=== PATIENT | male | born 1955 | race Caucasian/White ===

== ENCOUNTER → 2017-09-02 12:46 | Outpatient (CLI) | payer BC, SELFPAY ==
--- NOTE | 2017-09-02 12:51 | CT_ITS ---
CT lung screening EXAM: CT LUNG LOW DOSE WO CONTRAST HISTORY: Dukzwjskzw-tucz-uap male with greater than 50 pack-year smoking history asymptomatic ITS.REASON: CURRENT TOBACCO USE ORDERING PHYSICIAN: Cash Enrique MD PATIENT AGE: 61 years COMPARISON: TECHNIQUE: The exam was performed on a GE Light Speed [address] scanner using 2.90 mGy CTDI. A low dose helical CT CHEST was performed on a multi-detector scanner. All CT scans at the facility use one or more dose reduction, viz: automated exposure control; ma/kV adjustment per patient size (including targeted exams where dose is matched to indication; i.e. head); or iterative reconstruction technique. The LDCT was performed in a facility that meets the criteria for the screening program. Data regarding this exam was submitted to ACR which is an approved registry. The order for this exam indicates that it came as a result of a lung cancer screening counseling shard decision-making visit that included all the elements required of such a visit including smoking cessation. The radiologist interpreting this exam meets the CMS criteria for the LDCT lung cancer screening program. The exam is reported using the Lung-RADS classification scale and reported to the ACR registry. NOTE: This study was performed for the specific purposes of lung cancer screening and is not an alternative to diagnostic chest CT. RADIATION DOSE: CTDI vol(CT dose Index-volume) = 2.90mG DLP (Dose Length Product) = 125.8 by mGcm FINDINGS: Centrilobular and paraseptal emphysematous changes are present with biapical bulla and scattered areas of scarring. 4 mm fissural nodule within the major fissure on the right centrally. 3 mm noncalcified nodule left upper lobe laterally. No suspicious nodules evident. There are small mediastinal lymph nodes less than 1 cm in short axis. Mild coronary artery calcifications. The most inferior image obtained shows soft tissue density in the retroperitoneum on the left at 2 x 1.8 cm. While this could be related to unopacified partial volume averaging from the duodenum, retroperitoneal adenopathy is an additional consideration. IMPRESSION: 1. Lung RADS Category: 2, benign 2. Other findings: Severe centrilobular emphysema Possible retroperitoneal adenopathy. Dedicated abdomen CT may be of further value if clinically warranted RECOMMENDATIONS: 12 month LDCT follow-up Consider abdomen CT for possible retroperitoneal adenopathy
== END ==
PROVIDERS: Family Provider Family Medicine; PCP Family Medicine; Visit Provider Family Medicine
DX: Z12.2 Encounter for screening for malignant neoplasm of respiratory organs (principal); Z87.891 Personal history of nicotine dependence

== ENCOUNTER → 2017-10-02 09:23 | Outpatient (REF) | payer BC, SELFPAY ==
[2017-10-02 09:26] LABS: Adenovirus F 40/41, stool Not Detected (NotDetected); Astrovirus Not Detected (NotDetected); Campylobacter Not Detected (NotDetected); Clostridium Difficile A/B, PCR Not Detected (NotDetected); Cryptosporidium Not Detected (NotDetected); Cyclospora Cayetanesis Not Detected (NotDetected); Entamoeba histolytica Not Detected (NotDetected); Enteroaggregative E coli Not Detected (NotDetected); Enterotoxigenic E coli Not Detected (NotDetected); Giardia lamblia Not Detected (NotDetected); Norovirus Not Detected (NotDetected); Plesimonas Shigalloides, PCR Not Detected (NotDetected); Rotavirus A Not Detected (NotDetected); Salmonella, PCR Not Detected (NotDetected); Sapovirus Not Detected (NotDetected); Shiga-like toxin E coli Not Detected (NotDetected); Shigella Enterovasive E coli Not Detected (NotDetected); Vibrio Cholerae Not Detected (NotDetected); Vibrio, PCR Not Detected (NotDetected); Yersinia Entercolitica, PCR Not Detected (NotDetected)
[2017-10-02 13:54] LABS: Enteropathogenic E coli Detected (NotDetected)
--- NOTE | 2017-10-02 16:17 | PC.NURSE ---
Lab faxed down diarrhea panel results on pt. Notified ER MD of results at this time. ER MD stated to have Dr. Navarrete paged to speak with him as he was the ordering physician.
--- NOTE | 2017-10-02 16:19 | PC.NURSE ---
KARELY GO speaking with Dr. Navarrete at this time
== END ==
LOC: LAB 09:23
PROVIDERS: Visit Provider Internal Medicine Gastroenterology
DX: R19.7 Diarrhea, unspecified (principal)
CPT/HCPCS: 87507

== ENCOUNTER → 2018-03-14 07:33 | Outpatient (CLI) | payer BC, SELFPAY ==
[2018-03-14 08:07] LABS: Creatinine,Urine Random 262 mg/dL (20-320)
[2018-03-14 08:08] LABS: Basophils # 0.1 K/mm3 (0-0.2); Eosinophils # 0.2 K/mm3 (0.0-0.4); Eosinophils % 2.3 % (0.1-12.0); Hematocrit 48.4 % (42.0-52.0); Hemoglobin 15.9 g/dL (14.1-18.0); Lymphocytes # 2.5 K/mm3 (0.7-4.5); Lymphocytes % 28.4 % (10-50); Mean Corpuscular HGB Conc 32.8 g/dL (31.8-35.4); Mean Corpuscular Volume 100.4 fl (80-94); Mean Platelet Volume 6.8 fl (7.4-10.4); Monocytes # 0.5 K/mm3 (0.1-1.0); Monocytes % 5.8 % (1.7-9.3); Neutrophils # 5.4 K/mm3 (1.8-7.8); Neutrophils % 62.6 % (37.0-80.0); Platelet Count 249 K/mm3 (142-424); Red Blood Count 4.83 M/mm3 (4.60-6.20); Red Cell Distribution Width 12.1 % (11.5-17.5); White Blood Count 8.7 K/mm3 (4.8-10.8)
[2018-03-14 09:26] LABS: Alanine Aminotransferase 29 U/L (12-78); Albumin Level 3.8 gm/dL (3.4-5.0); Albumin/Globulin Ratio 1.3 (1.1-1.8); Alkaline Phosphatase 72 U/L (46-116); Anion Gap 11.2 mEq/L (5-15); Aspartate Amino Transferase 16 U/L (15-37); Bilirubin,Total 0.7 mg/dL (0.2-1.0); Blood Urea Nitrogen 19 mg/dL (7-18); Calcium 9.3 mg/dL (8.5-10.1); Carbon Dioxide 30 mmol/L (21.0-32.0); Chloride 104 mmol/L (98-107); Chol/HDL Ratio 3.3 (1-3.5); Cholesterol 183 mg/dL (140-200); Creatinine,Serum 1.08 mg/dL (0.70-1.30); Estimated Glomerular Filt Rate 70 ml/min (>60); GFR (African American) 84 ML/MIN (>60); Glucose 99 mg/dL (74-106); HDL Cholesterol 56 mg/dL (27-67); LDL Cholesterol 110 mg/dL (0-130); Potassium 4.2 mmoL/L (3.5-5.1); Prostate Specific Ag Screen 0.9 ng/mL (0.0-4.0); Sodium 141 mmol/L (136-145); Total Protein,Serum 6.8 gm/dL (6.4-8.2); Triglycerides 83 mg/dL (30-200); VLDL Cholesterol 17 mg/dL (0-40)
== END ==
PROVIDERS: Visit Provider Family Medicine
DX: Z12.5 Encounter for screening for malignant neoplasm of prostate (principal); I10 Essential (primary) hypertension
CPT/HCPCS: 36415; 80053; 80061; 82043; 82570; 85025; G0103

== ENCOUNTER → 2019-06-30 16:55 | Outpatient (CLI) | payer SELFPAY ==
[2019-06-30 17:15] LABS: Basophils # 0.1 K/mm3 (0-0.2); Basophils % 0.5 % (0.1-2.0); Eosinophils # 0.2 K/mm3 (0.0-0.4); Eosinophils % 1.5 % (0.1-12.0); Hematocrit 48.9 % (42.0-52.0); Hemoglobin 16.1 g/dL (14.1-18.0); Lymphocytes # 2.5 K/mm3 (0.7-4.5); Lymphocytes % 18.9 % (10-50); Mean Corpuscular HGB Conc 32.9 g/dL (31.8-35.4); Mean Corpuscular Hemoglobin 32.6 pg (27.0-31.2); Mean Corpuscular Volume 99.1 fl (80-94); Mean Platelet Volume 7.9 fl (7.4-10.4); Monocytes # 0.6 K/mm3 (0.1-1.0); Monocytes % 4.3 % (1.7-9.3); Neutrophils # 9.7 K/mm3 (1.8-7.8); Neutrophils % 74.7 % (37.0-80.0); Platelet Count 272 K/mm3 (142-424); Red Blood Count 4.94 M/mm3 (4.60-6.20); Red Cell Distribution Width 11.9 % (11.5-17.5); White Blood Count 12.9 K/mm3 (4.8-10.8)
[2019-06-30 17:59] LABS: Strep Scrn Group A (Rapid) Negative (Negative)
== END ==
PROVIDERS: PCP Physician Assistant; Visit Provider Physician Assistant
DX: J02.9 Acute pharyngitis, unspecified (principal); J06.9 Acute upper respiratory infection, unspecified
CPT/HCPCS: 36415; 85025; 87430

== ENCOUNTER → 2019-08-11 06:59 | Outpatient (CLI) | payer OTHER, SELFPAY ==
--- NOTE | 2019-08-11 07:14 | XR_ITS ---
PROCEDURE: XR ANKLE LT MIN 3V CLINICAL INDICATION: LT ANKLE PAIN Pain and swelling COMPARISON: No exams were available for comparison FINDINGS: Several calcific densities are present at the tip the lateral malleolus as well as the medial malleolus and may be due to old injuries. There is mild inversion of the ankle. No acute fracture or dislocation is evident. There is minimal anterior subluxation of the ankle. IMPRESSION: 1. No acute fracture. 2. Mild anterior subluxation of the talus which could be acute or chronic 3. Degenerative changes Dictated by: Atul Manuel MD 08/11/2019 15:06 Electronically signed by Atul Manuel MD in [facility] 08/11/2019 15:06
== END ==
PROVIDERS: PCP Family Medicine; Visit Provider Family Medicine
DX: M25.572 Pain in left ankle and joints of left foot (principal)
CPT/HCPCS: 73610

== ENCOUNTER → 2019-08-24 12:46 | Outpatient (CLI) | payer OTHER, SELFPAY ==
--- NOTE | 2019-08-24 12:52 | XR_ITS ---
PROCEDURE: XR ANKLE WT BEARING RT MIN 3V CLINICAL INDICATION: pain COMPARISON: No exams were available for comparison FINDINGS: Distal fibular osteotomy is demonstrated. The multiple screws traversing an ankylosed mortise joint and extending into the anterior talus. There is degenerative narrowing of the joint space of the superior calcaneal facet. There is no acute fracture or dislocation.. Soft tissues are intact IMPRESSION: Postsurgical changes as above. Dictated by: Michel Hudson 08/24/2019 13:21 Electronically signed by Michel Hudson in [place] 08/24/2019 13:21
--- NOTE | 2019-08-24 12:52 | XR_ITS ---
PROCEDURE: XR CALCANEUS LT MIN 2V CLINICAL INDICATION: pain COMPARISON: No exams were available for comparison FINDINGS: No fracture or dislocation. No lytic or blastic change. There is normal mineralization. The joint spaces are well-preserved. No significant degenerative/arthritic changes. No erosive changes evident. Other findings:None. IMPRESSION: No acute findings. Dictated by: Michel Hudson 08/24/2019 13:14 Electronically signed by Michel Hudson in [place] 08/24/2019 13:14
--- NOTE | 2019-08-24 12:52 | XR_ITS ---
PROCEDURE: XR FOOT WT BEARING RT 3V CLINICAL INDICATION: pain COMPARISON: No exams were available for comparison FINDINGS: There are multiple screws ankylosing the partially visualized ankle mortise and talus with degenerative narrowing of the superior facet joint of the calcaneus. There is no acute fracture or dislocation. IMPRESSION: No acute findings. Dictated by: Michel Hudson 08/24/2019 13:19 Electronically signed by Michel Hudson in [place] 08/24/2019 13:19
--- NOTE | 2019-08-24 12:52 | XR_ITS ---
PROCEDURE: XR ANKLE WT BEARING LT MIN 3V CLINICAL INDICATION: pain COMPARISON: No exams were available for comparison FINDINGS: Inversion of the talus and relationship to the plafond is noted. There are several smooth ossicles inferior to the tip of the fibula of which the largest measures 5 millimeters. Soft tissues are intact. There is no acute fracture or dislocation. IMPRESSION: Inversion deformity of the mortise joint, remote distal fibular avulsion fractures Dictated by: Michel Hudson 08/24/2019 13:16 Electronically signed by Michel Hudson in [place] 08/24/2019 13:16
--- NOTE | 2019-08-24 12:52 | XR_ITS ---
PROCEDURE: XR FOOT WT BEARING LT 3V CLINICAL INDICATION: pain COMPARISON: No exams were available for comparison FINDINGS: No fracture or dislocation. No lytic or blastic change. There is normal mineralization. The joint spaces are well-preserved. No significant degenerative/arthritic changes. No erosive changes evident. Other findings:None. IMPRESSION: No acute findings. Dictated by: Michel Hudson 08/24/2019 13:20 Electronically signed by Michel Hudson in [place] 08/24/2019 13:20
--- NOTE | 2019-08-24 12:52 | XR_ITS ---
PROCEDURE: XR CALCANEUS RT MIN 2V CLINICAL INDICATION: pain COMPARISON: No exams were available for comparison FINDINGS: Solitary AP view The joint spaces are well-preserved. No significant degenerative/arthritic changes. No erosive changes evident. Other findings:None. IMPRESSION: No acute findings. Dictated by: Michel Hudson 08/24/2019 13:17 Electronically signed by Michel Hudson in [place] 08/24/2019 13:17
== END ==
PROVIDERS: PCP Family Medicine; Visit Provider Podiatrist
DX: M25.572 Pain in left ankle and joints of left foot (principal); M25.571 Pain in right ankle and joints of right foot
CPT/HCPCS: 73610; 73630; 73650

== ENCOUNTER → 2019-11-30 09:41 | Outpatient (CLI) | payer MEDICAID, SELFPAY ==
--- NOTE | 2019-11-30 09:42 | US_ITS ---
APPROVED REPORT Exam Type: Lower Extremity Segmental Pressures Finishing Tunnel Operator: Radha Amin RVT Indications Claudication: Bilaterally Current Smoker SKIN COLOR CHANGES,PT IS HAVING SURGERY ON LT ANKLE R/T INSTABILITY, RT ANKLE IS SURGICALLY FUSED Risk Factors Hypertension Current Smoker Pressures/Indices Right Indices Left Indices Brachial 149.00 mmHg Brachial 149.00 mmHg Low Thigh 125.00 mmHg 0.84 Low Thigh 180.00 mmHg 1.21 Calf 87.00 mmHg 0.58 Calf 157.00 mmHg 1.05 Ankle(PT) 100.00 mmHg 0.67 Ankle(PT) 174.00 mmHg 1.17 Ankle(DP) 108.00 mmHg 0.72 Ankle(DP) 178.00 mmHg 1.19 Digit 76.00 mmHg 0.51 Digit 144.00 mmHg 0.97 Findings RT ADRIAN:0.72 LT ADRIAN:1.19 RT TBI:0.51 LT TBI:0.97 NORMAL PULSES BILATERAL WAVEFORMS ARE ABNORMAL BILATERAL Conclusion RT ADRIAN:0.72 LT ADRIAN:1.19 RT TBI:0.51 LT TBI:0.97 NORMAL PULSES BILATERAL WAVEFORMS ARE ABNORMAL BILATERAL MODERATE RIGHT ARTERIAL DISEASE Electronically signed by : Atul Manuel MD 12/04/2019 17:33:27
--- NOTE | 2019-11-30 10:11 | MR_ITS ---
PROCEDURE: MR ANKLE LT WO/W CON CLINICAL INDICATION: Left Ankle instability, surgical planning Popping noise and ankle when walking, ankle swelling COMPARISON: CR XR ANKLE WT BEARING LT MIN 3V from 08/24/2019 TECHNIQUE: Routine multiplanar multi echo sequences are performed without gadolinium enhancement. FINDINGS: The ankle is inverted with lateral tilt of the talus. Bone marrow edema is present at the tibial plafond and at the medial malleolar region as well as the dome of the talus. A spur is present along the neck of the talus projecting anteriorly and superiorly with edema of that spur. There is surrounding soft tissue edema as well at the ankle. Several areas of fluid collection are noted including fluid around the flexor hallucis longus tendon at the level of the distal tibia, fluid at the tibialis posterior and flexor digitorum longus along the distal tibia and fluid along the distal aspect of the flexor tibialis posterior tendon sheath and a moderate amount of fluid along the medial aspect of the midfoot medial to the flexor digitorum longus and flexor hallucis longus tendon. The tendons themselves appear intact. The tibiofibular ligaments appear intact. The posterior talofibular ligament is intact. The ATFL is not identified consistent with tear of the ATFL. A small bony fragment is present at this area as well and there is a small amount of fluid in this region. Fibers of the deltoid ligament are identified. The Achilles tendon has an unremarkable appearance and the anterior extensor tendons have an unremarkable appearance. There are mild osteoarthritic changes at the ankle joint. IMPRESSION: 1. The talus is inverted with bone marrow edema of the distal tibia and talus. 2. Tear of the ATFL. 3. Prominent amount of fluid around the tendons of the foot as described above consistent with tendinitis Dictated by: Atul Mnauel MD 12/04/2019 09:31 Atul Manuel MD in [place] 12/04/2019 09:31
[2019-11-30 11:10] LABS: Chloride 108 mmol/L (98-107); Potassium 4.2 mmoL/L (3.5-5.1); Sodium 139 mmol/L (136-145)
[2019-11-30 11:12] LABS: Basophils % 0.5 % (0.1-2.0); Blood Urea Nitrogen 16 mg/dl (9-20); Eosinophils # 0.2 K/mm3 (0.0-0.4); Eosinophils % 1.8 % (0.1-12.0); Estimated Glomerular Filt Rate 98 ml/min (>60); GFR (African American) 118 ML/MIN (>60); Hematocrit 45.5 % (42.0-52.0); Hemoglobin 15.7 g/dL (14.1-18.0); Lymphocytes # 1.8 K/mm3 (0.7-4.5); Lymphocytes % 20.8 % (10-50); Mean Corpuscular HGB Conc 34.4 g/dL (31.8-35.4); Mean Corpuscular Hemoglobin 34.2 pg (27.0-31.2); Mean Corpuscular Volume 99.4 fl (80-94); Mean Platelet Volume 7.5 fl (7.4-10.4); Monocytes # 0.4 K/mm3 (0.1-1.0); Monocytes % 4.6 % (1.7-9.3); Neutrophils # 6.4 K/mm3 (1.8-7.8); Neutrophils % 72.3 % (37.0-80.0); Platelet Count 253 K/mm3 (142-424); Red Blood Count 4.58 M/mm3 (4.60-6.20); Red Cell Distribution Width 12.2 % (11.5-17.5); White Blood Count 8.8 K/mm3 (4.8-10.8)
[2019-11-30 11:13] LABS: Alanine Aminotransferase 21 U/L (12-78); Albumin Level 3.8 g/dl (3.5-5.0); Albumin/Globulin Ratio 1.4 (1.1-1.8); Alkaline Phosphatase 68 U/L (38-126); Anion Gap 10.2 mEq/L (5-15); Aspartate Amino Transferase 35 U/L (17-59); Bilirubin,Total 0.5 mg/dl (0.2-1.3); Calcium 9.2 mg/dl (8.4-10.2); Carbon Dioxide 25 mmol/L (22.0-30.0); Globulin 2.7 g/dL (1.3-3.2); Glucose 99 mg/dl (74-100); Total Protein,Serum 6.5 g/dl (6.3-8.2)
[2019-12-17 16:47] LABS: 1,25 Dihydroxy Vitamin D 59; 1,25-Dihydroxy, Vitamin D-2 <10; 1,25-Dihydroxy, Vitamin D-3 59
[2019-12-17 17:26] LABS: Cotinine 75.8; Nicotine 6.7
== END ==
PROVIDERS: PCP Family Medicine; Visit Provider Podiatrist
DX: R09.89 Other specified symptoms and signs involving the circulatory and respiratory systems (principal); M19.072 Primary osteoarthritis, left ankle and foot; M25.372 Other instability, left ankle; M25.872 Other specified joint disorders, left ankle and foot
CPT/HCPCS: 36415; 73723; 80053; 80323; 82652; 85025; 93923; A9576

== ENCOUNTER → 2019-11-30 10:40 | Outpatient (CLI) | payer MEDICAID, SELFPAY | PROVIDERS: Visit Provider Podiatrist | DX: R09.89 Other specified symptoms and signs involving the circulatory and respiratory systems (principal) | CPT/HCPCS: 36415; 80053; 80323; 82652; 85025 ==

== ENCOUNTER → 2019-12-05 15:01 | Outpatient (CLI) | payer MEDICAID, SELFPAY ==
[2019-12-05 15:30] LABS: Basophils # 0.1 K/mm3 (0-0.2); Basophils % 0.9 % (0.1-2.0); Eosinophils # 0.2 K/mm3 (0.0-0.4); Eosinophils % 2.5 % (0.1-12.0); Hemoglobin 16.1 g/dL (14.1-18.0); Lymphocytes # 2.2 K/mm3 (0.7-4.5); Lymphocytes % 26.7 % (10-50); Mean Corpuscular HGB Conc 32.2 g/dL (31.8-35.4); Mean Corpuscular Hemoglobin 33.3 pg (27.0-31.2); Mean Corpuscular Volume 103.6 fl (80-94); Mean Platelet Volume 7.4 fl (7.4-10.4); Monocytes # 0.4 K/mm3 (0.1-1.0); Monocytes % 4.9 % (1.7-9.3); Neutrophils # 5.4 K/mm3 (1.8-7.8); Platelet Count 248 K/mm3 (142-424); Red Blood Count 4.83 M/mm3 (4.60-6.20); Red Cell Distribution Width 11.8 % (11.5-17.5); White Blood Count 8.4 K/mm3 (4.8-10.8)
[2019-12-05 17:00] LABS: Chloride 105 mmol/L (98-107); Sodium 139 mmol/L (136-145)
[2019-12-05 17:03] LABS: Blood Urea Nitrogen 19 mg/dl (9-20); Estimated Glomerular Filt Rate 85 ml/min (>60); GFR (African American) 103 ML/MIN (>60)
[2019-12-05 17:04] LABS: Calcium 9.8 mg/dl (8.4-10.2); Carbon Dioxide 30 mmol/L (22.0-30.0); Glucose 90 mg/dl (74-100)
[2019-12-05 17:05] LABS: Anion Gap 10.4 mEq/L (5-15)
[2019-12-05 17:06] LABS: Potassium 6.4 mmoL/L (3.5-5.1)
[2019-12-05 17:26] LABS: Coronavirus 19 IgG Antibody Negative (Negative); Coronavirus 19 IgM Antibody Negative (Negative)
== END ==
PROVIDERS: Visit Provider Internal Medicine
DX: Z01.89 Encounter for other specified special examinations (principal); R68.89 Other general symptoms and signs; I73.9 Peripheral vascular disease, unspecified
CPT/HCPCS: 36415; 80048; 85025; 86328

== ENCOUNTER 2019-12-05 19:07 | Emergency (ER) | payer MEDICAID, SELFPAY ==
[2019-12-05 19:17] VITALS: BP 167/96; PULSE 73; RESP 18; TEMP 36.8; O2SAT 97; BMI 19.0
--- NOTE | 2019-12-05 19:24 | ECG_ITS ---
APPROVED REPORT Exam: Resting ECG HR:73 bpm ECG Measurements Heart Rate 73 AXES TN 134 P 75 QRSd 106 QRS -7 QT 412 T 61 QTc 453 Conclusion Sinus rhythm with occasional premature ventricular complexes Otherwise normal ECG Electronically signed by : Enrique Mcclellan, 12/08/2019 13:54:49
[2019-12-05 19:33] LABS: Basophils # 0.1 K/mm3 (0-0.2); Eosinophils # 0.2 K/mm3 (0.0-0.4); Eosinophils % 2.7 % (0.1-12.0); Hematocrit 50.3 % (42.0-52.0); Hemoglobin 16.7 g/dL (14.1-18.0); Lymphocytes # 2.9 K/mm3 (0.7-4.5); Lymphocytes % 33.4 % (10-50); Mean Corpuscular HGB Conc 33.3 g/dL (31.8-35.4); Mean Corpuscular Hemoglobin 34.2 pg (27.0-31.2); Mean Corpuscular Volume 102.6 fl (80-94); Mean Platelet Volume 7.3 fl (7.4-10.4); Monocytes # 0.4 K/mm3 (0.1-1.0); Monocytes % 4.4 % (1.7-9.3); Neutrophils # 5.1 K/mm3 (1.8-7.8); Neutrophils % 58.6 % (37.0-80.0); Platelet Count 267 K/mm3 (142-424); Red Cell Distribution Width 11.8 % (11.5-17.5); White Blood Count 8.8 K/mm3 (4.8-10.8)
--- NOTE | 2019-12-05 19:33 | HMH.EDGENADL ---
ED Disposition Clinical Impression: Laboratory examination Disposition: Home, Self-Care Condition on Discharge: Good Referrals: Ivana Swift MD [Primary Care Provider] - - Critical Care Critical Care Time: No Attestation: On 12/05/19, the high probability of a clinically significant, sudden or life threatening deterioration of the following system(s) required my full and direct attention, intervention and personal management. The time I documented below is in addition to time spent performing reported procedures but includes the following listed in this critical care notation. Medical Decision Making - Medical Records Medical records reviewed: Yes: I reviewed the patient's medical records. - Marlo Inquiry Pt receiving controlled substance: No Vital Signs: 12/05/19 19:17 12/05/19 20:01 Temperature 98.3 F 98.3 F Temperature Source Oral Oral Pulse Rate 73 Pulse Rate [Right] 73 Respiratory Rate 18 16 Blood Pressure 151/91 H Blood Pressure [Right Arm] 167/96 H Blood Pressure Mean [Right Arm] 119 Blood Pressure Source Automatic Cuff Blood Pressure Source [Right Arm] Automatic Cuff Blood Pressure Position Sitting Blood Pressure Position [Right Arm] Sitting 02 Sat by Pulse Oximetry 97 Oxygen Delivery Method Room Air Room Air - Lab Data Lab Results 12/05/19 19:20: Sodium 140, Potassium 4.2 D, Chloride 103, Carbon Dioxide 29, Anion Gap 12.2, BUN 16, Creatinine 1.00, Estimated Creat Clear 72, Estimated GFR 75, Est GFR ( Amer) 91, Glucose 93, Calcium 9.7 12/05/19 19:20: WBC 8.8, RBC 4.90, Hgb 16.7, Hct 50.3, MCV 102.6 H, MCH 34.2 H, MCHC 33.3, RDW 11.8, Plt Count 267, MPV 7.3 L, Neut % (Auto) 58.6, Lymph % (Auto) 33.4, Jones % (Auto) 4.4, Eos % (Auto) 2.7, Baso % (Auto) 1.0, Neut # (Auto) 5.1, Lymph # (Auto) 2.9, Jones # (Auto) 0.4, Eos # (Auto) 0.2, Baso # (Auto) 0.1 Result diagrams: 12/05/19 19:20 12/05/19 19:20 - ECG Data Tracing #1 Normal ventricular rate of 73 bpm, normal SC and QTC. Sinus rhythm with no specific ST changes. ECG initial impression date: 12/05/19 ECG initial impression time: 19:26 - Reevaluation(s) Time: 20:12 Reevaluation #1: Patient has no evidence of elevated potassium or kidney function at this time. Patient will follow-up tomorrow as prescribed with media strategist. Given strict return precautions. Verbalized understanding. Medical Decision Narrative: This is a 64-year-old male sent to the emergency department for evaluation of abnormal laboratory studies. Patient had isolated elevated potassium. Asymptomatic. Repeat laboratory studies will be obtained. Hemodynamically stable. General Adult HPI - General Chief complaint: Recheck/Abnormal Lab/Rx Stated complaint: popassium high Time Seen by Provider: 12/05/19 19:25 Mode of Arrival: Ambulatory Limitations: No Limitations Description of Symptoms (Recalled from ER Triage Doc. by RN): Pt was called by Dr French and told to come to ER for a high K+, pt has no c/o at this time - History of Present Illness HPI narrative: 64-year-old male presented to the emergency department for repeat laboratory check. The patient was being seen by cardiology earlier today for routine studies for impending ankle surgery. He had basic laboratory studies done at this time. He was called a few moments ago and notified that he had elevated potassium. Patient has no history of this in the past. He denies any potassium supplements. He states that he is feeling completely fine. He is not having any chest pain or shortness of breath. No palpitations. No abdominal pain or vomiting. No diarrhea. Denies any headache or change in vision. No focal weakness. - Related Data Home Medications Medication Instructions Recorded Confirmed Melatonin 1 mg PO HS 09/06/17 12/05/19 tadalafiL [Cialis] 5 mg PO NEEDED PRN 09/06/17 12/05/19 meloxicam 7.5 mg tablet 7.5 mg PO BID tab 11/21/19 12/05/19 celecoxib 200 mg
[2019-12-05 19:51] LABS: Anion Gap 12.2 mEq/L (5-15); Blood Urea Nitrogen 16 mg/dl (9-20); Calcium 9.7 mg/dl (8.4-10.2); Carbon Dioxide 29 mmol/L (22.0-30.0); Chloride 103 mmol/L (98-107); Creatinine Clearance Estimated 72 mL/min (50-200); Estimated Glomerular Filt Rate 75 ml/min (>60); GFR (African American) 91 ML/MIN (>60); Glucose 93 mg/dl (74-100); Potassium 4.2 mmoL/L (3.5-5.1); Sodium 140 mmol/L (136-145)
[2019-12-05 20:01] VITALS: BP 151/91; PULSE 73; RESP 16; TEMP 36.8; O2SAT 97
== END 2019-12-05 20:19 | disposition home or self-care (01) ==
PROVIDERS: Emergency Provider Emergency Medicine; PCP Family Medicine
DX: E87.5 Hyperkalemia (principal); I10 Essential (primary) hypertension; K21.9 Gastro-esophageal reflux disease without esophagitis; Z96.641 Presence of right artificial hip joint; F17.210 Nicotine dependence, cigarettes, uncomplicated; Z88.2 Allergy status to sulfonamides; Z79.899 Other long term (current) drug therapy
CPT/HCPCS: 80048; 85025; 93005; 99282

== ENCOUNTER 2019-12-06 07:57 | Day surgery (SDC) | payer MEDICAID, SELFPAY ==
[2019-12-06] VITALS (18 sets, daily range): BP systolic 136–169; BP diastolic 82–96; PULSE 51–86; RESP 16–20; TEMP 36.3; O2SAT 95–100; BMI 19.0
--- NOTE | 2019-12-06 07:12 | IR_ITS ---
APPROVED REPORT Patient Location: Outpatient Doorkeeper: ALESHA Corcoran RT (R) PROCEDURES Catheter placement in the abdominal aorta Abdominal aortography Repositioning of the catheter in the abdominal aorta Bilateral iliofemoral runoff INDICATION Preoperative evaluation prior to left foot surgery, Abnormal ADRIAN, Known PAD Informed consent was obtained prior to the procedure. COMPLICATIONS none Estimated Blood Loss: less than 10 mls TECHNIQUE 1% lidocaine used to anesthetize the right groin the right femoral artery was accessed via the Salinger technique and a 5 Tongan sheath was placed in the right femoral artery. A pigtail catheter was advanced into the abdominal aorta and abdominal aortography was performed. Catheter was then repositioned and bilateral iliofemoral runoff was performed. At the end of the procedure the apparatus was removed the patient was transferred to the postop holding area stable condition for sheath removal IMPRESSION The infrarenal abdominal aorta is mildly atheromatous with no focal stenosis Right common internal and external iliac artery are widely patent Right common femoral arteries normal Right profunda femoris arteries normal Right superficial femoral artery is mildly atheromatous with no focal stenosis greater than 20%. At Matt's canal the popliteal artery is occluded for approximately 20 mm. It then reconstitutes via collaterals from the superficial femoral artery. The popliteal artery has 40% diffuse stenoses. It gives rise to an anterior tibialis artery and a posterior tibialis artery. Both arteries are patent into the right foot The left common iliac artery has an ostial proximal 20% stenosis. The left external iliac artery has a 10% stenosis the left internal iliac artery is normal. The left common femoral artery is normal. Left profunda femoris artery is normal The left superficial femoral artery has mild atheromatous plaque as it transitions into the popliteal artery at Matt's canal there is a focal 40 to 50% [id number] stenosis. The popliteal vein gives rise to the anterior tibialis artery posterior tibialis artery and peroneal artery. There is three-vessel runoff into the left foot PLAN 1. Patient is an acceptable risk from a vascular standpoint to proceed with left infrageniculate foot ankle surgery. There is no vascular etiology for patient's left-sided symptoms 2. Patient appears to be experiencing bilateral ankle pain left worse than right. Given he is in the preoperative state have chosen not to revascularize the right leg at this time until the left ankle foot surgery is complete. Patient will be reevaluated as an outpatient and consideration will be given to revascularize the right popliteal artery. 3. LDL less than 55 4. Risk factor modification 5. Recommend Xarelto 2.5 twice daily plus aspirin 81 mg daily Electronically signed by : Quirino French, 12/06/2019 09:52:21
--- NOTE | 2019-12-06 10:28 | CA_ITS ---
APPROVED REPORT EXAM: Comprehensive 2D, Doppler, and color-flow Echocardiogram Director Skills: Sarah Navarro RDCS Ht: 6 ft 2 in Wt: 148lbs BSA: 1.91 BP: 167/96 mmHg Indications: ABN EKG,HTN,SMOKER 2D Dimensions LVOT 2.37 cm (M/F) 1.5-2.5 M-Mode Dimensions RVDd 2.53 cm (0.9-2.6) LVDd 6.00 cm (3.5-5.7) LVDs 4.77 cm (3.5-5.7) IVSd 1.06 cm (0.6-1.1) PWd 0.96 cm (0.6-1.1) EF (Teich) 41.10% FS 20.50% EDV (Teich) 180.00 mL ESV (Teich) 106.00 mL LV Diastology E/A Ratio 0.69 Mitral Valve MV A Velocity 51.00 (40-130 cm/s) Left Ventricle Left atrium is mildly enlarged, left ventricle is normal size, mild concentric left ventricular hypertrophy, moderately reduced left ventricular systolic function, visually estimated ejection fraction 40%, left ventricle is globally hypokinetic. Grade 1 diastolic dysfunction seen without tissue Doppler evidence of raise left atrial pressure. Right Ventricle Right atrium and right ventricle are normal size and contractility. Aortic Valve Aortic valve is minimally thickened and fibrosed, there is no aortic stenosis or aortic insufficiency. Mitral Valve Mitral valve leaflets are minimally thickened, there is mild mitral regurgitation. Tricuspid Valve Tricuspid valve is grossly normal, there is mild tricuspid regurgitation, tricuspid regurgitation jet velocity is inadequate for calculation of the right ventricular systolic pressure. Pulmonic Valve Pulmonic valve is not well visualized. Great Vessels Aortic root is normal size. Pericardium No significant pericardial effusion noted. Conclusion 1. Mildly enlarged left atrium, normal left ventricular size, mild concentric left ventricular hypertrophy, moderately reduced left ventricular systolic function, visually estimated ejection fraction 40% left ventricle is globally hypokinetic, grade 1 diastolic dysfunction seen without tissue Doppler evidence of raise left atrial pressure. 2. Mild mitral and tricuspid regurgitation. 3. No significant pericardial effusion noted. Electronically signed by : Jae Medina, 12/07/2019 15:04:53
[2019-12-06 10:32] LABS: Appearance,Urine/Cath CLEAR (Clear); Bilirubin,Cath Negative (Negative); Blood, Urine/Cath TRACE-I (Negative); Color,Urine/Cath YELLOW (Yellow); Glucose,Urine/Cath (UA) Negative (Negative); Ketones,Urine/Cath Negative (Negative); Leukocyte Esterase,Cath Negative (Negative); Microscopic,Cath URINE MICROSCOPIC (MICROSCOPIC); Nitrate,Cath Negative (Negative); Protein,Urine/Cath Negative (Negative); Specific Gravity, Urine/Cath <= 1.005 (1.005-1.030); Urobilinogen,Cath 0.2 EU/dl (0.2)
[2019-12-06 10:57] LABS: RBC,Urine/Cath Occasional # /hpf (0-3); Squamous Epithelial Ur./Cath Occasional #/hpf (0-5)
== END 2019-12-06 12:47 | disposition home or self-care (01) ==
LOC: CATHLAB 07:58
PROVIDERS: PCP Family Medicine; Visit Provider Internal Medicine
DX: I70.213 Atherosclerosis of native arteries of extremities with intermittent claudication, bilateral legs (principal); I10 Essential (primary) hypertension; Z72.0 Tobacco use; I70.222 Atherosclerosis of native arteries of extremities with rest pain, left leg
CPT/HCPCS: 36247; 75716; 81001; 93306; 99152; C1725; C1769; C1894; Q9967

== ENCOUNTER → 2019-12-15 07:17 | Outpatient (CLI) | payer MEDICAID, SELFPAY ==
--- NOTE | 2019-12-15 | CA_ITS ---
APPROVED REPORT Exam: Pharmacologic Technologist: Amie Gerard, Ht: 6 ft 2 in Wt: 149 lbs BSA: 1.92 m2 HR: 66 bpm BP: 177/97 mmHg Rhythm: SINUS RHYTHM(ABN.EKG) Medical History Medical History: HTN Medications: Lisinopril,,,,, Omeprazole,,,,, Celecoxib,,,,, MeLATONIN,,,,, TAdalafil,,,,, MoRTRIN,,,,, Allergies: SULFA Cardiac Risk Factors: HTN, Smoking Stress Test Details Test: LEXISCAN HR Resting HR: 63 bpm Max Heart Rate (APMHR): 157 bpm Max HR Achieved: 95 bpm Target HR (85% APMHR): 133 bpm % of APMHR: 60 Recovery HR: 71 bpm BP Resting BP: 177.0/97.0 mmHg Max BP: 188.0/91.0 mmHg Recovery BP: 166.0/100.0 mmHg ECG Resting ECG: SINUS RHYTHM (ABN.EKG) Clinical Exercise duration: 04:02 min Highest Stage Achieved: Stress ECG Conclusion LEXISCAN PORTION COMPLETED. PATIENT C/O SOA AURING PEAK INFUSION. NO CP. SOA DURING PEAK INFUSION. RESOLVED IN RECOVERY. OCCASIONAL PVC. OCCASIONAL PAC. LESS THAN 1.[address] DEPRESSION. IMAGES TO FOLLOW Electronically signed by : Jae Medina, 12/15/2019 15:15:58
--- NOTE | 2019-12-15 07:18 | NM_ITS ---
APPROVED REPORT Exam: Nuclear Stress Test Indication: HTN, SOB, FATIGUE Patient Location: Outpatient Stress Tech: Shama Gerard MA Tech:Natalie FarleyALESHA RT(R)(N) Ht: 6 ft 2 in Wt: 149 lbs HR: 91 bpm BP: 188/96 mmHg BSA: 1.92 m2 BMI: 19.1 History: HTN, SOB, FATIGUE Procedure: Patient received a 0.4 mg of intravenous Lexiscan, resting heart rate 91 bpm, resting blood pressure 188/96 mmHg, with Lexiscan maximum heart rate achived was 74 bpm which is Less than 85 % of the maximum predicted heart rate and blood pressure was 173/96 mmHg. With Lexiscan, patient denied any complaint of chest pain. Electrocardiogram Resting electrocardiogram shows sinus rhythm nonspecific ST-T changes, with Lexiscan there is less than 1.[address] segment depression noted from the baseline EKG. The EKG portion of the Lexiscan Myoview is nondiagnostic. Cardiac Stress and Resting SPECT Images: Cardiac Stress and Resting SPECT images were obtained using technetium 99m Myoview 32.6 mCi stress and 9.98 mCi at rest. Gated SPECT for the analysis of segmental wall motion and calculation of the ejection fraction as well as prone imagings were obtained. Cardiac stress and resting SPECT images show a mild fixed defect in the inferior wall with normal perfusion on prone imaging is likely secondary to soft tissue attenuation from the diaphragm, no reversible ischemia seen. Computer derived ejection fraction is 34%, left ventricle is globally hypokinetic and mildly dilated. Right ventricle is normal size and contractility. Conclusion: 1. The EKG portion of the Lexiscan Myoview is nondiagnostic. 2. No scintigraphic evidence of reversible ischemia seen, computer derived ejection fraction 34% with left ventricular global hypokinesis, left ventricle is mildly dilated. Right ventricle is normal size and contractility 3. Abnormal Lexiscan Myoview study due to low ejection fraction. Electronically signed by : Jae Medina, 12/15/2019 15:19:29
== END ==
PROVIDERS: PCP Family Medicine; Visit Provider Urology
DX: I42.9 Cardiomyopathy, unspecified (principal); R94.31 Abnormal electrocardiogram [ECG] [EKG]; I73.9 Peripheral vascular disease, unspecified; R60.9 Edema, unspecified; K21.9 Gastro-esophageal reflux disease without esophagitis; F17.200 Nicotine dependence, unspecified, uncomplicated
CPT/HCPCS: 78452; 93017; A9502; J2785

== ENCOUNTER → 2019-12-20 14:55 | Outpatient (CLI) | payer MEDICAID, SELFPAY ==
[2019-12-20 15:09] LABS: Basophils # 0.1 K/mm3 (0-0.2); Eosinophils # 0.2 K/mm3 (0.0-0.4); Eosinophils % 2.6 % (0.1-12.0); Hematocrit 49.5 % (42.0-52.0); Hemoglobin 15.8 g/dL (14.1-18.0); Lymphocytes # 2.1 K/mm3 (0.7-4.5); Mean Corpuscular HGB Conc 31.8 g/dL (31.8-35.4); Mean Corpuscular Hemoglobin 32.4 pg (27.0-31.2); Mean Corpuscular Volume 101.9 fl (80-94); Mean Platelet Volume 7.5 fl (7.4-10.4); Monocytes # 0.5 K/mm3 (0.1-1.0); Monocytes % 5.4 % (1.7-9.3); Neutrophils # 5.6 K/mm3 (1.8-7.8); Platelet Count 285 K/mm3 (142-424); Red Blood Count 4.86 M/mm3 (4.60-6.20); Red Cell Distribution Width 12.5 % (11.5-17.5); White Blood Count 8.5 K/mm3 (4.8-10.8)
[2019-12-20 15:45] LABS: Anion Gap 13.1 mEq/L (5-15); Blood Urea Nitrogen 17 mg/dl (9-20); Calcium 9.6 mg/dl (8.4-10.2); Carbon Dioxide 27 mmol/L (22.0-30.0); Chloride 106 mmol/L (98-107); Estimated Glomerular Filt Rate 85 ml/min (>60); GFR (African American) 103 ML/MIN (>60); Glucose 81 mg/dl (74-100); Potassium 5.1 mmoL/L (3.5-5.1); Sodium 141 mmol/L (136-145)
[2019-12-20 15:53] LABS: Coronavirus 19 IgG Antibody Negative (Negative); Coronavirus 19 IgM Antibody Negative (Negative)
== END ==
PROVIDERS: Visit Provider Internal Medicine
DX: Z01.818 Encounter for other preprocedural examination (principal)
CPT/HCPCS: 36415; 80048; 85025; 86328

== ENCOUNTER 2019-12-21 08:33 | Day surgery (SDC) | payer MEDICAID, SELFPAY ==
[2019-12-21] VITALS (14 sets, daily range): BP systolic 125–197; BP diastolic 78–115; PULSE 49–71; RESP 16–18; TEMP 36.8; O2SAT 97–100; BMI 19.3
--- NOTE | 2019-12-21 | IR_ITS ---
APPROVED REPORT Patient Location: Outpatient Director Cpg: ALESHA Corcroan RT (R) PROCEDURES Left heart catheterization Left ventriculogram Selective coronary angiogram FFR to the LAD Drug-eluting stent deployment to the mid LAD Drug-eluting stent deployment to the mid circumflex artery Drug-eluting stent deployment to the proximal mid and distal right coronary artery in a contiguous manner INDICATION Ischemic cardiomyopathy ejection fraction 34%, Coronary artery disease, Ischemic response to adenosine FFR index of 0.73 in the LAD, Preoperative evaluation Informed consent was obtained prior to the procedure. COMPLICATIONS NONE Estimated Blood Loss: LESS THAN 10 ML TECHNIQUE One percent lidocaine used to anesthetize the right anterior aspect of the wrist. The right radial artery was accessed via the Seldinger technique. A 6 Faroese sheath was placed in the right radial artery. 2.5 mg of verapamil, 800 mcg of nitroglycerin, 1mg Lidocaine and 5000 U Heparin were given through the arterial sheath. The trap catheter was also used to perform left heart catheterization, left ventriculogram and selective coronary angiogram. At the end of the diagnostic angiogram therapeutic heparin was administered giving a therapeutic ACT. And I Rissa left guide catheter was placed in the left main artery and an FFR wire was normalized. The guide catheter was then used to intubate the left main artery and the wire was placed distally in the LAD. Adenosine was infused and the FFR index dropped to 0.73. Following this a 2.75 x 22 mm resolute yousif stent was deployed at 16 evan reducing the severe stenosis to 0%. A Choice PT extra-support wire was then placed in the circumflex artery where a 2.25 x 26 mm resolute yousif stent was deployed at 14 evan reducing the severe stenosis to 0%. The catheter was then pulled out of the left main artery and placed into the right coronary artery where the same wire was placed distally. A 3 mm x 15 mm resolute yousif stent was deployed in the distal right coronary artery at 16 evan. There were hazy moderate stenoses throughout the mid and proximal segment. Based on the angiographically unimpressive LAD yet severely ischemic LAD it was felt the right coronary artery should be revascularized. A 3 mm x 38 mm was placed proximal to the first stent yet still overlapping it and then deployed at 18 evan. 3.5 x 38 mm was placed proximal to this extending back into the proximal right coronary artery and deployed at 18 evan. The balloon was advanced and deployed at 14 evan on 2 different occasions in the distal mid and proximal right coronary artery. After achieving excellent angiographic results the apparatus was removed the sheath was removed good hemostasis was achieved using TR banding patient was transferred to the postop holding area in stable condition ANGIOGRAPHIC RESULTS The left main artery Normal The left anterior descending artery Has proximal 20% stenosis with a mid vessel hazy 40% stenosis followed by an additional 30 to 40% stenosis a large first diagonal artery has proximal sequential 20% stenoses The circumflex artery And has 10 to 20% luminal irregularities in the proximal segment followed by a 50% mid vessel stenosis followed by an additional concentric 70% stenosis. The right coronary artery Is a dominant vessel and has a proximal 40% mid vessel 30 and 40% tandem stenoses followed by a distal 60 to 70% stenosis The CABALLERO ventriculogram reveals Dilated ventricle ejection fraction 35 to 40% The left ventricular end-diastolic pressure 20 mmHg IMPRESSION Coronary disease as described above Complete percutaneous revascularization involving the mid LAD mid circumflex arter
[2019-12-21 11:55] LABS: CATHL Activated Clotting Time 388 SEC (74-125)
--- NOTE | 2019-12-21 15:05 | HMH.PHACLD ---
Alex Aaron has received discharge medication counseling on the following medications: NEW MEDICATIONS: BRILINTA, ASPIRIN, ENTRESTO, CARVEDILOL, LIPITOR STOPPED MEDICATIONS: LISINOPRIL, CELEBREX, IBUPROFEN
--- NOTE | 2019-12-21 15:21 | CT_ITS ---
PROCEDURE: CT ANKLE LT WO CON CLINICAL HISTORY: Surgical Planning, Left Ankle Instability. COMPARISON: CR XR ANKLE WT BEARING LT MIN 3V from 08/24/2019 MR MR ANKLE LT WO/W CON from 11/30/2019 TECHNIQUE: Axial images obtained with sagittal and coronal reformats. All CT scans at the facility use one or more dose reduction, viz: automated exposure control, ma/kV adjustment per patient size (including targeted exams where dose is matched to indication, i.e. head), or iterative reconstruction technique. FINDINGS: Axial images are obtained from the distal femur through the foot. There are mild osteoarthritic changes at the knee. The proximal mid aspect of the tibia and fibula have an unremarkable appearance. There is a small knee joint effusion. There is mild flattening of the talar dome with osteoarthritic changes at the ankle joint. Scattered areas of decreased attenuation are present in the distal tibia and talus and may be related to sequela from osteopenia. This is also present in the tarsal bones. Osteosclerosis is present medially at the tibial talar joint. There is eversion of the ankle/talus. Well-circumscribed calcific densities are present at the tip of the lateral malleolus and may be due to old fractures or ununited ossification center. There are osteoarthritic changes at the distal fibulotalar joint. 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 Scattered subcortical lucencies are present and may be due to osteopenia. Accessory center of ossification versus old fracture at the tip of the fibula. Dictated by: Atul Manuel MD 12/23/2019 09:31 Atul Manuel MD in [place] 12/23/2019 09:31
== END 2019-12-21 15:21 | disposition home or self-care (01) ==
LOC: CATHLAB 08:34
PROVIDERS: PCP Family Medicine; Visit Provider Internal Medicine
DX: R94.30 Abnormal result of cardiovascular function study, unspecified (principal); I50.20 Unspecified systolic (congestive) heart failure; I11.0 Hypertensive heart disease with heart failure; Z72.0 Tobacco use; I25.10 Atherosclerotic heart disease of native coronary artery without angina pectoris; Z79.899 Other long term (current) drug therapy; I25.5 Ischemic cardiomyopathy
CPT/HCPCS: 73700; 85347; 92928; 93458; 93571; 99152; 99153; C1725; C1769; C1876; C9600; J0153; J1644; Q9967

== ENCOUNTER 2019-12-28 12:46 | Outpatient (RCR) | payer MEDICAID, SELFPAY | END 2020-05-01 13:49 | disposition home or self-care (01) | LOC: PT 12:46 | PROVIDERS: Visit Provider Internal Medicine | DX: I25.10 Atherosclerotic heart disease of native coronary artery without angina pectoris (principal); Z95.5 Presence of coronary angioplasty implant and graft | CPT/HCPCS: 93798 ==

== ENCOUNTER → 2020-02-15 09:31 | Outpatient (POV) | payer MEDICAID, SELFPAY ==
[2020-02-15 09:56] VITALS: BP 148/85; PULSE 76; RESP 20; TEMP 36.2; O2SAT 99; BMI 19.0
--- NOTE | 2020-02-15 10:15 | HMH.PMCON ---
Assessment and Plan (1) Chronic pain syndrome Status: Chronic Category: Medical Code(s): G89.4 - Chronic pain syndrome (2) Left ankle pain Status: Chronic Category: Medical Code(s): M25.572 - Pain in left ankle and joints of left foot - Assessment and plan all Dx Assessment and Plan for all problems:: Patient I did discuss starting gabapentin. He does have noted nerve impingement to his left ankle. I do think he would benefit from gabapentin at this time. We will give him gabapentin 100 mg 1 tablet p.o. 3 times daily. We will see him back in 2 weeks to see if the medication is working for him. He may need to start on a low dose of hydrocodone which has helped him in the past. He could take the medication until he is able to undergo surgical intervention. For now, however, we will give him gabapentin and see him back in the clinic afterwards to reassess his symptoms. Patient has been instructed to contact clinic if he has any concerns before his next appointment. The patient and I specifically discussed risk factors for COVID19. These risks include, but are not limited to age greater than 60, heart or lung disease, diabetes, immunosuppression, and travel. We also discussed NSAIDs may worsen COVID19 infection or symptoms. Patient should not use NSAIDs to treat COVID19 signs or symptoms. Patient was also informed that any type of corticosteroid of any form (oral or injection) will decrease the patient's immune system response and may increase the likelihood of COVID19 infection and symptoms[address] Dr. Wolf has reviewed this note and agrees with this plan of care. This note was dictated using voice recognition software and make contain errors or omissions. Patient has been prescribed a controlled substance after being counseled on the medication, medication safety, and possible side effects. LEI report has been obtained and reviewed prior to prescription and found to be appropriate. Opioid contract was reviewed and signed by the patient, and that they have agreed to all of the terms set forth by our compliance program. HPI - Data of Consult Patient: new to practice Consult date: 02/15/20 Requesting Physician: Jojo Klein APRN Primary Care Provider: Cash Enrique MD - Consult Narrative Reason for consult: Left ankle pain History of present illness: Mr. Aaron is a 64 year old male who presents today for consultation for left ankle pain and chronic pain syndrome. He was referred to us by Dr. West. Patient has a history of a right ankle fusion that was done approximately 20 years ago as well as a right hip replacement 8 years ago. He reports to have had a tendon rupture to his left ankle approximately 1 year ago. He was planning to undergo surgical intervention with Dr. West, however, 6 weeks ago the patient underwent PCI, [address] French. He is currently on Brilinta. As result, his surgery has been postponed until he is able to hold his anticoagulation therapy. Patient says that he has been using CBD oil for the last year and has recently increased the dosing of this and it does give him some relief, however, he continues to have significant pain in his left ankle. The pain is worse with any type of movement. He is currently undergoing cardiac rehab post PCI. He says that this has caused him to have some worsening pain in his ankle. He does use a walker cane for ambulation. Patient says that he is unable to do any type of strenuous activity due to the pain. He also says that he is limited with most mobility over 5 to 10 minutes. He does rate his pain an 8 out of 10 today. He was given a compounding cream for pain which he says has not been very helpful. Patient says he did have leftover hydrocodone that he did take that did give him some relief and allowed him to sleep. Patient says that he is unable to take anti-inflammatories due to taking Brilinta. He has tried home stretching program, however, i
== END ==
PROVIDERS: PCP Family Medicine; Visit Provider Clinical Nurse Specialist Family Health
DX: G89.4 Chronic pain syndrome (principal); M25.572 Pain in left ankle and joints of left foot
CPT/HCPCS: 99202

== ENCOUNTER → 2020-02-26 10:08 | Outpatient (CLI) | payer MEDICAID, SELFPAY ==
--- NOTE | 2020-02-26 10:09 | XR_ITS ---
PROCEDURE: XR DEXA AXIAL SKELETON CLINICAL HISTORY: Surgical Planning for left total ankle replacement, the patient is postmenopausal currently on vitamin-D COMPARISON: No exams were available for comparison FINDINGS: The total BMD left radius is 0.647 grams/centimeters squared and the T-score is -0.8 The left hip total BMD is 0.997 grams/centimeter squared with a T-score of -0.2 the left femoral neck is 0.737 grams/centimeter squared and the T-score is -1.4. The lumbar spine BMD is 1.193 grams/centimeter sq with a T-score of 0.9. IMPRESSION: Normal T-score lumbar spine, T-scores left radius and left hip osteopenia range Based on these results a follow-up exam is recommended in 2 year. Dictated by: Dr. Carlos Eduardo Gottlieb MD 02/26/2020 13:59 Dr. Carlos Eduardo Gottlieb MD in [place] 02/26/2020 13:59
== END ==
PROVIDERS: PCP Family Medicine; Visit Provider Podiatrist
DX: M85.89 Other specified disorders of bone density and structure, multiple sites (principal)
CPT/HCPCS: 77080

== ENCOUNTER 2020-02-26 10:45 | Outpatient (RCR) | payer MEDICAID, SELFPAY ==
--- NOTE | 2020-02-26 11:17 | HMH.PTOPEV ---
PT Outpatient Evaluation Rehab PT Outpatient Evaluation Start: 02/26/20 11:10 Freq: Status: Active Protocol: Document 02/26/20 11:10 JOSE (Rec: 02/26/20 11:17 JOSE [id number]) Electronically Signed By Jesse Little, PT 02/26/20 11:10 Outpatient Therapy Subjective History Subjective History Pt reports h/o chronic R ankle bony fusion resulting in chronic pain, stiffness, weakness, and gait compensation. Pt reports 'pre- hab' for 'this right ankle so that I can get the Left replaced'. Pt reports global R ankle stiffness, pain in medial and lateral achilles areas, as well as N&T in stocking pattern. Chief Complaint Pain,Stiff,Swelling, Paresthesia,Weakness Symptom Type Ache,Sharp,Dull,Numbness, Tingling Symptoms Relieved By Rest/Positioning,OTC Meds, Prescription Meds Symptoms Aggravated By Physical Activity,Walking Prior Functional Limitations Housework,Recreation Activity, Walking,Stairs Current Functional Limitations Housework,Recreation Activity, Walking,Stairs Symptom Description Constant but Variable Level of pain today (0-10) 3 Pain scale - at its best (0-10) 3 Pain scale - at its worst (0-10) 8 Ankle/Foot Eval Gait Observation General Gait Pattern Observation Antalgic Gait,Wide Based Gait Assistive Device Ambulation Assistive Device Straight Cane Palpation Tenderness right Ankle/Foot Palpation Findings Tenderness Ankle/Foot Palpation Overall Comment 3/4 medial and lateral talocrural jt ROM Ankle/Foot Dorsiflexion w/Knee Extended 0 Active Range Motion (degrees) Ankle/Foot Plantar Flexion Active Range 0-2 of Motion (degrees) Ankle/Foot Eversion Active Range of +20 Motion (degrees) Ankle/Foot Inversion Active Range of 20 Motion (degrees) MMT Ankle Dorsiflexion Strength Grade 4- Good- Ankle Plantarflexion Strength Grade 3+ Fair+ Foot Eversion Strength Grade 3+ Fair+ Foot Inversion Strength Grade 3+ Fair+ Outpatient Therapy Assessment Impairments Problems/Impairmments Palpation Tenderness,Impaired Range of Motion,Impaired Strength,Impaired Gait Pattern ,Impaired Walking,Impaired Household Care,Impaired
== END 2020-02-26 10:50 | disposition home or self-care (01) ==
LOC: PT 10:45
PROVIDERS: Visit Provider Podiatrist
DX: M79.604 Pain in right leg (principal); R20.2 Paresthesia of skin; M21.6X1 Other acquired deformities of right foot; M25.371 Other instability, right ankle
CPT/HCPCS: 97163

== ENCOUNTER → 2020-03-04 09:11 | Outpatient (POV) | payer BC, OTHER, SELFPAY ==
[2020-03-04 09:30] VITALS: BP 133/78; PULSE 74; RESP 18; O2SAT 98; BMI 20.2
--- NOTE | 2020-03-04 12:08 | P.CONS_ITS ---
[facility] Pain Management SOAP Note Subjective:: Patient is a pleasant 64-year-old white male who presents today for follow-up. At his last visit he was started on gabapentin 100 mg 1 p.o. 3 times daily. Patient states that is not been very beneficial and he has had no side effects. We discussed increasing that today. He is being treated for nerve impingement of his left ankle. Patient is awaiting surgery. He has to be cleared cardiac guerrero prior to moving forward with this. He rates his pain a 7 out of 10. Patient and I discussed increasing his gabapentin he is agreeable. We will do that today. ROS General: no recent weight change, no fever, no sleep disturbances Respiratory: no cough, no shortness of air, no recurring pulmonary infections Cardiovascular/Peripheral Vascular: No chest pain, No palpitations, no edema, no shortness of breath. Gastrointestinal: no new onset incontinence, normal bowel movements reported Genitourinary: no new onset incontinence Musculoskeletal: [Joint pain, left ankle pain, nerve pain] Psychiatric: normal mood/ affect, Neurological: [denies new onset weakness in extremities], [denies new onset balance issues] Objective:: Physical Exam General: Alert and oriented x3, no acute distress, pleasant and cooperative, [on room air] Lungs: Resps E/U, Symmetrical chest expansion, Eyes: PERRL Musculoskeletal: Flexion and extension of lumbar spine somewhat guarded secondary to pain, deep tendon reflexes normal, strength in upper and lower extremities [5/5], [abnormal gait noted] Neurological: speech clear, endocrinology physician equal, no gross sensory deficits Assessment:: Chronic pain syndrome, left ankle pain, nerve impingement Plan:: We will increase his gabapentin to 300 mg 1 p.o. 3 times daily. I will follow- up with him in 2 weeks reassess his symptoms at that time he has been instructed to call the office if he has any issues prior to his next appointment. Dr. Wolf has reviewed this note and agrees with this plan of care. This note was dictated using voice recognition software and may contain errors or omissions [facility] History I have reviewed the patient's past medical history: Yes Medical History: Reports:: Coronary Artery Disease, Gastroesophageal Reflux Disease(GERD), Hyperlipidemia, Hypertension, Peripheral Artery Disease Denies:: Cancer, Diabetes Mellitus Type 1, Diabetes Mellitus Type 2, Internal Pacemaker, Lung Disease, MRSA, Seizures *Have you ever received a pneumonia vaccine?: Yes *Have you received a flu vaccine this season?: Yes Other Medical History: Reports: Arthritis Laterality Cases: Right: Total Hip Replacement Other Surgeries: Yes: Angiogram, Appendectomy, Cardiac Catheterization, Colonoscopy, Coronary Stent. No: Pacemaker Amputation: No Fractures: No - *Social History Smoking Status: Former smoker Tobacco Type: cigarettes # Packs/Day (cigarettes): 1 Alcohol Intake: current Alcohol Intake Frequency:: holidays/special occasions only Substance Use Type: denies use *Occupational Status:: other Housing: house Household Members: spouse *Travel in the last 8 weeks: None Family Hx:: Cancer
== END ==
PROVIDERS: PCP Family Medicine; Visit Provider Clinical Nurse Specialist Family Health
DX: G89.4 Chronic pain syndrome (principal); M25.872 Other specified joint disorders, left ankle and foot
CPT/HCPCS: 99212; G0463

== ENCOUNTER → 2020-03-18 08:46 | Outpatient (POV) | payer BC, OTHER, SELFPAY ==
[2020-03-18 08:58] VITALS: BP 147/88; PULSE 74; RESP 18; TEMP 36.8; O2SAT 98; BMI 20.7
--- NOTE | 2020-03-18 09:11 | P.CONS_ITS ---
[facility] Pain Management SOAP Note Subjective:: Patient is a pleasant 64-year-old white male who presents today for follow-up. At his last visit he was increased to gabapentin 300 mg 1 p.o. 3 times daily. He has not seen any significant relief of his nerve pain. He has a nerve impingement of his left ankle. He is awaiting surgery. He rates his pain today [address] [facility] #[id number] reviewed and appropriate. Patient does not have any other controlled substances prescribed to him. We discussed switching to Lyrica he is agreeable. We will do that today ROS General: no recent weight change, no fever, no sleep disturbances Respiratory: no cough, no shortness of air, no recurring pulmonary infections Cardiovascular/Peripheral Vascular: No chest pain, No palpitations, no edema, no shortness of breath. Gastrointestinal: no new onset incontinence, normal bowel movements reported Genitourinary: no new onset incontinence Musculoskeletal: Left ankle pain Psychiatric: normal mood/ affect Neurological: [denies new onset weakness in extremities], [denies new onset balance issues] nerve pain left lower extremity Objective:: Physical Exam General: Alert and oriented x3, no acute distress, pleasant and cooperative, [on room air] Lungs: Resps E/U, Symmetrical chest expansion, Eyes: PERRL Musculoskeletal: deep tendon reflexes normal, strength in upper and lower extremities [5/5], [abnormal gait noted] Neurological: speech clear, pathology supervisor equal, no gross sensory deficits Assessment:: Nerve impingement, chronic pain syndrome, left ankle pain Plan:: We will start him on Lyrica 75 mg up to 4 times a day. I will follow-up with him in 1 week reassess his symptoms at that time he has been instructed to call the office if he has any issues prior to his next appointment. Dr. Wolf has reviewed this note and agrees with this plan of care. This note was dictated using voice recognition software and may contain errors or omissions [facility] History I have reviewed the patient's past medical history: Yes Medical History: Reports:: Coronary Artery Disease, Gastroesophageal Reflux Disease(GERD), Hyperlipidemia, Hypertension, Peripheral Artery Disease Denies:: Cancer, Diabetes Mellitus Type 1, Diabetes Mellitus Type 2, Internal Pacemaker, Lung Disease, MRSA, Seizures *Have you ever received a pneumonia vaccine?: Yes *Have you received a flu vaccine this season?: Yes Other Medical History: Reports: Arthritis Laterality Cases: Right: Total Hip Replacement Other Surgeries: Yes: Angiogram, Appendectomy, Cardiac Catheterization, Colonoscopy, Coronary Stent. No: Pacemaker Amputation: No Fractures: No - *Social History Smoking Status: Former smoker Tobacco Type: cigarettes # Packs/Day (cigarettes): 1 Alcohol Intake: current Alcohol Intake Frequency:: holidays/special occasions only Substance Use Type: denies use *Occupational Status:: other Housing: house Household Members: spouse *Travel in the last 8 weeks: None Family Hx:: Cancer
== END ==
PROVIDERS: PCP Family Medicine; Visit Provider Clinical Nurse Specialist Family Health
DX: M25.80 Other specified joint disorders, unspecified joint (principal); G89.4 Chronic pain syndrome; M25.572 Pain in left ankle and joints of left foot
CPT/HCPCS: 99212; G0463

== ENCOUNTER → 2020-03-21 09:07 | Outpatient (CLI) | payer BC, OTHER, SELFPAY ==
--- NOTE | 2020-03-21 09:08 | CA_ITS ---
APPROVED REPORT EXAM: Comprehensive 2D, Doppler, and color-flow Echocardiogram Claim Trainee: Nat Dominguez CRT Ht: 6 ft 3 in Wt: 158lbs BSA: 1.99 BP: 155/86 mmHg Indications: Abnormal ECG, Shortness of Breath, CAD, ex smoker, GERD, edema, pre-op 2D Dimensions LVOT 2.34 cm (M/F) 1.5-2.5 M-Mode Dimensions RVDd 2.94 cm (0.9-2.6) LA Diam 2.84 cm (1.9-4.0) LVDd 5.66 cm (3.5-5.7) Ao Diam 4.20 cm (2.0-3.7) LVDs 4.30 cm (3.5-5.7) IVSd 1.31 cm (0.6-1.1) PWd 0.74 cm (0.6-1.1) EF (Teich) 47.20% FS 24.00% EDV (Teich) 157.50 mL ESV (Teich) 83.10 mL LV Diastology E Decel Time 150.00 (160-240 msec) E/A Ratio 0.58 MED E' 4.90 (< 7 cm/sec) MED A' 8.90 cm/s E'/MED E' Ratio 7.84 (>14) LAT E' 4.20 (<10 cm/sec) LAT A' 12.40 cm/s E/LAT E' Ratio 9.14 (>14) Aortic Valve AO Peak GR. 6.50 mmHg Mitral Valve MV E Max Gama. 38.00 (40-130 cm/s) MV A Velocity 66.00 (40-130 cm/s) E/A Ratio 0.58 MV Decel. Time 150.00 (160-240 ms) MV PHT 44.00 ms Pulmonary Valve PV Peak Velocity 105.00 (50-150 cm/s) Tricuspid Valve TR P. Velocity 296.00 cm/s RAP Estimate 10.00 mmHg RVSP 45.00 mmHg Left Ventricle Left atrium is mildly enlarged, left ventricle is normal size, mild concentric left ventricular hypertrophy, moderately reduced left ventricular systolic function, visually estimated ejection fraction 40%, left ventricle is globally hypokinetic, grade 1 diastolic dysfunction seen with tissue Doppler evidence of raise left atrial pressure. Right Ventricle Right atrium and right ventricle are normal size and contractility. Aortic Valve Aortic valve is minimally thickened and fibrosed, there is no aortic stenosis or aortic insufficiency. Mitral Valve Mitral valve is grossly normal, there is no mitral stenosis, there is mild mitral regurgitation. Tricuspid Valve Tricuspid valve grossly normal, there is mild tricuspid regurgitation, tricuspid regurgitation jet velocity is inadequate for calculation of the right ventricular systolic pressure. Pulmonic Valve Pulmonic valve is poorly visualized. Great Vessels Aortic root is normal size. Pericardium No significant pericardial effusion noted. Conclusion 1. Mildly enlarged left atrium, normal left ventricular size, mild concentric left ventricular hypertrophy, moderately reduced left ventricular systolic function, visually estimated ejection fraction 40% left ventricle is globally hypokinetic. Grade 1 diastolic dysfunction seen with tissue Doppler evidence of raise left atrial pressure. 2. Mild mitral and tricuspid regurgitation. 3. No significant pericardial effusion noted. Electronically signed by : Jae Medina, 03/21/2020 16:40:44
== END ==
PROVIDERS: PCP Family Medicine; Visit Provider Internal Medicine
DX: I25.10 Atherosclerotic heart disease of native coronary artery without angina pectoris (principal); R94.31 Abnormal electrocardiogram [ECG] [EKG]; I42.9 Cardiomyopathy, unspecified; I73.9 Peripheral vascular disease, unspecified; K21.9 Gastro-esophageal reflux disease without esophagitis; R60.9 Edema, unspecified; Z78.9 Other specified health status
CPT/HCPCS: 93306

== ENCOUNTER → 2020-04-04 08:46 | Outpatient (POV) | payer BC, OTHER, SELFPAY ==
[2020-04-04 09:10] VITALS: BP 138/52; PULSE 66; RESP 20; TEMP 36.2; O2SAT 97; BMI 21.2
--- NOTE | 2020-04-04 09:29 | HMH.PAINSOAP ---
[facility] Pain Management SOAP Note Subjective:: Patient is a pleasant 64-year-old white male who presents today for follow-up. At his last visit he was changed to Lyrica. He states it is much more beneficial than his previous gabapentin. He is currently taking 375 mg. We will increase that today. He rates his pain a 6 out of 10. He has nerve impingement of his left ankle he is awaiting surgery. [facility] #[id number] reviewed and appropriate. ROS General: no recent weight change, no fever, no sleep disturbances Respiratory: no cough, no shortness of air, no recurring pulmonary infections Cardiovascular/Peripheral Vascular: No chest pain, No palpitations, no edema, no shortness of breath. 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 3 times daily. We will see him back in 2 months and reassess his symptoms at that time. He has been instructed to call the office if he has any issues prior to the next appointment. Dr. Wolf has reviewed this note and agrees with this plan of care. This note was dictated using voice recognition software and may contain errors or omissions [facility] History I have reviewed the patient's past medical history: Yes Medical History: Reports:: Coronary Artery Disease, Gastroesophageal Reflux Disease(GERD), Hyperlipidemia, Hypertension, Peripheral Artery Disease Denies:: Cancer, Diabetes Mellitus Type 1, Diabetes Mellitus Type 2, Internal Pacemaker, Lung Disease, MRSA, Seizures *Have you ever received a pneumonia vaccine?: Yes *Have you received a flu vaccine this season?: Yes Other Medical History: Reports: Arthritis Laterality Cases: Right: Total Hip Replacement Other Surgeries: Yes: Angiogram, Appendectomy, Cardiac Catheterization, Colonoscopy, Coronary Stent. No: Pacemaker Amputation: No Fractures: No - *Social History Smoking Status: Former smoker Tobacco Type: cigarettes # Packs/Day (cigarettes): 1 Alcohol Intake: current Alcohol Intake Frequency:: holidays/special occasions only Substance Use Type: denies use *Occupational Status:: retired Housing: house Household Members: spouse *Travel in the last 8 weeks: None Family Hx:: Cancer
== END ==
PROVIDERS: PCP Family Medicine; Visit Provider Clinical Nurse Specialist Family Health
DX: G54.9 Nerve root and plexus disorder, unspecified (principal); G89.4 Chronic pain syndrome; M25.572 Pain in left ankle and joints of left foot
CPT/HCPCS: 99212; G0463

== ENCOUNTER → 2020-04-22 11:50 | Outpatient (CLI) | payer BC, OTHER, SELFPAY ==
[2020-04-22 12:24] LABS: Basophils % 0.6 % (0.1-2.0); Eosinophils # 0.2 K/mm3 (0.0-0.4); Eosinophils % 2.7 % (0.1-12.0); Hematocrit 46.4 % (42.0-52.0); Hemoglobin 14.8 g/dL (14.1-18.0); Lymphocytes # 2.1 K/mm3 (0.7-4.5); Lymphocytes % 33.5 % (10-50); Mean Corpuscular Hemoglobin 33.5 pg (27.0-31.2); Mean Corpuscular Volume 104.8 fl (80-94); Mean Platelet Volume 7.9 fl (7.4-10.4); Monocytes # 0.4 K/mm3 (0.1-1.0); Monocytes % 6.4 % (1.7-9.3); Neutrophils # 3.6 K/mm3 (1.8-7.8); Neutrophils % 56.8 % (37.0-80.0); Platelet Count 236 K/mm3 (142-424); Red Blood Count 4.43 M/mm3 (4.60-6.20); Red Cell Distribution Width 13.4 % (11.5-17.5); White Blood Count 6.4 K/mm3 (4.8-10.8)
[2020-04-22 23:28] LABS: Chloride 107 mmol/L (98-107); Sodium 141 mmol/L (136-145)
[2020-04-22 23:29] LABS: Potassium 4.7 mmoL/L (3.5-5.1)
[2020-04-22 23:31] LABS: Alanine Aminotransferase 33 U/L (12-78); Albumin Level 4.4 g/dl (3.5-5.0); Albumin/Globulin Ratio 1.5 (1.1-1.8); Alkaline Phosphatase 66 U/L (38-126); Anion Gap 9.7 mEq/L (5-15); Aspartate Amino Transferase 36 U/L (17-59); Bilirubin,Total 0.5 mg/dl (0.2-1.3); Blood Urea Nitrogen 18 mg/dl (9-20); Calcium 9.6 mg/dl (8.4-10.2); Carbon Dioxide 29 mmol/L (22.0-30.0); Estimated Glomerular Filt Rate 75 ml/min (>60); GFR (African American) 91 ML/MIN (>60); Globulin 2.9 g/dL (1.3-3.2); Glucose 96 mg/dl (74-100); Total Protein,Serum 7.3 g/dl (6.3-8.2)
[2020-04-22 23:48] LABS: 25-OH Vitamin D, Total 58.8 ng/mL (30-100)
== END ==
PROVIDERS: PCP Family Medicine; Visit Provider Urology
DX: Z01.818 Encounter for other preprocedural examination (principal); M19.072 Primary osteoarthritis, left ankle and foot; M25.372 Other instability, left ankle; I42.9 Cardiomyopathy, unspecified; I73.9 Peripheral vascular disease, unspecified; R94.31 Abnormal electrocardiogram [ECG] [EKG]; R60.9 Edema, unspecified; K21.9 Gastro-esophageal reflux disease without esophagitis; F17.200 Nicotine dependence, unspecified, uncomplicated
CPT/HCPCS: 36415; 80053; 82306; 85025

== ENCOUNTER → 2020-04-29 10:20 | Outpatient (CLI) | payer BC, OTHER, SELFPAY ==
[2020-04-29 10:54] LABS: Basophils # 0.1 K/mm3 (0-0.2); Basophils % 0.8 % (0.1-2.0); Eosinophils # 0.2 K/mm3 (0.0-0.4); Eosinophils % 2.8 % (0.1-12.0); Hematocrit 44.6 % (42.0-52.0); Hemoglobin 14.8 g/dL (14.1-18.0); Lymphocytes # 2.1 K/mm3 (0.7-4.5); Lymphocytes % 34.2 % (10-50); Mean Corpuscular HGB Conc 33.2 g/dL (31.8-35.4); Mean Corpuscular Hemoglobin 33.8 pg (27.0-31.2); Mean Corpuscular Volume 101.8 fl (80-94); Mean Platelet Volume 7.6 fl (7.4-10.4); Monocytes # 0.4 K/mm3 (0.1-1.0); Monocytes % 6.8 % (1.7-9.3); Neutrophils # 3.3 K/mm3 (1.8-7.8); Neutrophils % 55.4 % (37.0-80.0); Platelet Count 261 K/mm3 (142-424); Red Blood Count 4.38 M/mm3 (4.60-6.20); Red Cell Distribution Width 13.2 % (11.5-17.5)
[2020-04-29 11:20] LABS: Chloride 109 mmol/L (98-107); Potassium 4.4 mmoL/L (3.5-5.1); Sodium 140 mmol/L (136-145)
[2020-04-29 11:23] LABS: Alanine Aminotransferase 25 U/L (12-78); Albumin Level 4.3 g/dl (3.5-5.0); Albumin/Globulin Ratio 1.6 (1.1-1.8); Alkaline Phosphatase 66 U/L (38-126); Anion Gap 11.4 mEq/L (5-15); Aspartate Amino Transferase 30 U/L (17-59); Bilirubin,Total 0.7 mg/dl (0.2-1.3); Blood Urea Nitrogen 15 mg/dl (9-20); Carbon Dioxide 24 mmol/L (22.0-30.0); Estimated Glomerular Filt Rate 85 ml/min (>60); GFR (African American) 103 ML/MIN (>60); Globulin 2.7 g/dL (1.3-3.2)
[2020-04-29 11:24] LABS: Calcium 9.5 mg/dl (8.4-10.2); Glucose 113 mg/dl (74-100)
[2020-04-29 11:27] LABS: Coronavirus 19 IgG Antibody Positive (Negative); Coronavirus 19 IgM Antibody Negative (Negative)
[2020-05-04 21:18] LABS: 1,25 Dihydroxy Vitamin D 46 pg/mL (.); 1,25-Dihydroxy, Vitamin D-2 <10 pg/mL (.); 1,25-Dihydroxy, Vitamin D-3 46 pg/mL (.)
== END ==
PROVIDERS: Visit Provider Podiatrist
DX: Z01.818 Encounter for other preprocedural examination (principal); Z20.822 Contact with and (suspected) exposure to COVID-19; M19.072 Primary osteoarthritis, left ankle and foot; M25.072 Hemarthrosis, left ankle
CPT/HCPCS: 36415; 80053; 82652; 85025; 86328

== ENCOUNTER → 2020-04-30 11:31 | Outpatient (CLI) | payer BC, OTHER, SELFPAY ==
--- NOTE | 2020-04-30 11:44 | XR_ITS ---
PROCEDURE: XR CHEST PORTABLE CLINICAL HISTORY: pre op testing, HX OF HIGH BLOOD PRESSURE Smoker, heart disease COMPARISON: No exams were available for comparison FINDINGS: The cardiomediastinal silhouette and pulmonary vascularity are within normal limits. COPD with hyperexpansion. No lobar consolidation or collapse. Coronary artery stents noted No acute bony abnormalities. IMPRESSION: COPD, no acute finding Dictated by: Atul Manuel MD 04/30/2020 12:16 Atul Manuel MD in [place] 04/30/2020 12:16
== END ==
PROVIDERS: PCP Family Medicine; Visit Provider Podiatrist
DX: Z01.818 Encounter for other preprocedural examination (principal); Z20.822 Contact with and (suspected) exposure to COVID-19; U07.1 COVID-19
CPT/HCPCS: 71045; U0003

== ENCOUNTER 2020-05-22 12:40 | Observation (INO) | payer BC, OTHER, SELFPAY ==
[2020-04-24 14:58] VITALS: BMI 21.9
[2020-05-21 08:49] VITALS: BMI 21.9
[2020-05-22] VITALS (18 sets, daily range): BP systolic 104–143; BP diastolic 60–83; PULSE 58–95; RESP 12–18; TEMP 36.2–42.7; O2SAT 90–96
--- NOTE | 2020-05-22 07:52 | HMH.ANESCL ---
[facility] Anesthesia Checklist - Patient Identification Patient Identification: Arm Band - Structural Data Admitted From: Home Planned Operative Procedure/s: Left Total Ankle Replacement Consent for Planned Operative Procedure(s) Verified: Yes Verified Documents: Surgical Consent, History and Physical - NPO Status Verified Time NPO: 00:00 - Additional verifications Anesthesia Reactions: Yes (ponv) Hx Blood Transfusions: No Blood Transfusion Reaction: No - Airway Assessment C-Spine Mobility Assessed: Yes (mp2) TMJ Mobility Assessed: Yes Dentition: Good Dentition - Neurological Assessment Level of Consciousness: Awake, Alert - Anesthesia Plan Anesthesia Risk discussed: Yes Anesthesia Plan: Verified ASA Class: III Anesthesia Type: General w/block (popliteal/saphenous. Risks benefits explained. Pt verbalizes understanding) [facility] History I have reviewed the patient's past medical history: Yes Medical History: Reports:: Coronary Artery Disease, Gastroesophageal Reflux Disease(GERD), Hyperlipidemia, Hypertension, Peripheral Artery Disease Denies:: Cancer, Diabetes Mellitus Type 1, Diabetes Mellitus Type 2, Internal Pacemaker, Lung Disease, MRSA, Seizures *Have you ever received a pneumonia vaccine?: Yes *Have you received a flu vaccine this season?: Yes Other Medical History: Reports: Arthritis. Denies: Blood Transfusion Reaction Anesthesia experience/problems:: ponv Laterality Cases: Right: Total Hip Replacement Other Surgeries: Yes: Angiogram, Appendectomy, Cardiac Catheterization, Colonoscopy, Coronary Stent. No: Pacemaker Amputation: No Fractures: No - *Social History Last grade of school completed: Advanced degree Smoking Status: Former smoker Tobacco Type: cigarettes # Packs/Day (cigarettes): 0 Smoking End Date: 12/23/19 Alcohol Intake: current Alcohol Intake Frequency:: 0-2 drinks per day Substance Use Type: denies use *Occupational Status:: unemployed Housing: house Household Members: spouse *Travel in the last 8 weeks: None Family Hx:: Cancer, Hyperlipidemia, Hypertension
--- NOTE | 2020-05-22 08:34 | SUR.PREOP ---
family updated at this time
--- NOTE | 2020-05-22 11:23 | SUR.OPER ---
0840-family updated at this time
--- NOTE | 2020-05-22 11:23 | SUR.OPER ---
1125-family updated at this time
--- NOTE | 2020-05-22 13:15 | XR_ITS ---
PROCEDURE: XR ANKLE LT 2V CLINICAL INDICATION: ANKLE REPLACEMENT IN OR COMPARISON: CR XR ANKLE LT MIN 3V from 08/11/2019 CR XR ANKLE WT BEARING RT MIN 3V from 08/24/2019 CR XR ANKLE WT BEARING LT MIN 3V from 08/24/2019 FINDINGS: Fluoroscopy time: 2 minutes and 16 seconds Status post ankle replacement. Images submitted with the C-arm show good alignment. Balfour screw is present at the distal fibula as well. IMPRESSION: Status post ankle replacement with C-arm guidance Dictated by: Atul Manuel MD 05/22/2020 14:20 Atul Manuel MD in [place] 05/22/2020 14:20
--- NOTE | 2020-05-22 13:55 | HMH.PHAINT ---
MEDICATION RECONCILIATION COMPLETED ON PATIENT USING EXTERNAL FILL HISTORY FROM PHARMACY AND LIST FROM CARDIOLOGY OFFICE. -DIANE MEJIAD
--- NOTE | 2020-05-22 14:25 | XR_ITS ---
PROCEDURE: XR CALCANEUS LT MIN 2V CLINICAL INDICATION: s/p left total ankle replacement Follow-up surgery COMPARISON: CR XR ANKLE LT MIN 3V from 05/22/2020 FINDINGS: Status post ankle replacement with good alignment. No acute fracture or dislocation. There is an anchor screw in place in the lateral malleolus. Other findings:Cast is in place. IMPRESSION: Good alignment status post ankle replacement Dictated by: Atul Manuel MD 05/22/2020 15:44 Atul Manuel MD in [place] 05/22/2020 15:44
--- NOTE | 2020-05-22 14:25 | XR_ITS ---
PROCEDURE: XR FOOT LT MIN 3V CLINICAL INDICATION: s/p left total ankle replacement Follow-up surgery COMPARISON: CR XR FOOT WT BEARING RT 3V from 08/24/2019 CR XR FOOT WT BEARING LT 3V from 08/24/2019 FINDINGS: Status post ankle replacement with good alignment. An anchor screws also present at the distal fibula. There is a cast in place. Other findings:None. IMPRESSION: Good alignment status post ankle replacement Dictated by: Atul Manuel MD 05/22/2020 15:42 Atul Manuel MD in [place] 05/22/2020 15:42
--- NOTE | 2020-05-22 14:35 | HMH.OPNOTE ---
Date of procedure: 05/22/20 Pre-op Diagnosis:: 1. Left ankle osteoarthritis 2. Left ankle instability 3. Left peroneal tendon (longus) rupture 4. Left peroneal tendon (brevis) 5. Left anterior talofibular ligament 6. Left ankle synovectomy 7. Left equinus deformity 8. Left ankle chronic pain Post-op Diagnosis:: Same Procedure performed:: 1. Left total ankle replacement/arthroplasty 2. Left peroneal tendon debridement and repair 3. Left peroneus brevis to longus anastomosis 4. Left modified Brostrum ankle ligament stabilization 5. Left ankle synovectomy 6. Left tendo Achilles lengthening 7. Left application of graft 8. Left application of posterior splint Surgeon:: Anitra Cook DPM Splash Line Operator(s):: Natalie Welch VETERINARY ASSISTANT TECHNICIAN:: Other (Eyad Arango) Anesthesia: GETA, regional (left popliteal nerve block) Estimated blood loss (mL): 50 Clinical Note:: The patient is a 64M with chronic b/l ankle pain. He had right ankle surgery in 1999 with mal-fusion. Left ankle pain complicated with instability. Planned for left hindfoot surgery. Patient had left CT, MRI and vascular studies. ABIs abnormal so referred to cardiology for further treatment and evaluation. Ischemic heart disease noted with cath and stents x5. Discussed severity of disease and recommendation was delay surgery 3-6 months and have cardio re-evaluate. He now has cardiac clearance. Patient has history of osteoarthritis, right ankle arthrodesis (1999) with worsening left ankle tilting, instability, and pain. Fall risk and unable to do daily activity without pain and swelling. Indications: failed conservative care including NSAIDs, injection, immobilization, bracing/strapping, modification of activity and modification of shoe gear. The patient has tried taping, inserts, ice, elevation, stretching, physical therapy and NSAIDs. After a long discussion with the patient in regards to the conservative versus surgical treatment for the arthritic deformity, the patient has elected to proceed with surgery because they have failed conservative treatment and continue to have pain and worsening symptoms affecting daily activities. The patient has been instructed on the planned procedure, all risk versus benefits of the procedure discussed. These include but are not limited to: bleeding, skin or deep implant or bone infection, nerve and blood vessel damage, need for further surgery, delay in healing of soft tissue or bone, failure of bones to heal, delayed or non-union, mal-union, failure of the implant, prolonged pain and recovery, prolonged swelling, CRPS/RSD, DVT and anesthetic complications including . I explained with a total ankle replacement there will be some limitations such as impact activity. We also explained limitations with ankle fusion surgery, failure of implants, poly-exchange, loss of limb, below-knee amputation, chronic pain. No guarantees were given. All questions fully answered. The patient verbalized understanding and agreed to proceed with surgery. Written consent was obtained. Discussed surgical intervention for the left ankle arthritis. We discussed in great detail arthrodesis versus arthroplasty. We discussed position of the foot may require not only intervention to the ankle joint but also the subtalar joint and soft tissue surrounding the ankle. We discussed risks and benefit of surgery in detail including perioperative treatment plan and complications such as infection, shortening of the leg, revisional surgery. Patient understands that after surgery his activity will be limited. The goal would be to keep him moving and pain-free. Patient would like to be able to play golf and or bowling again. We also discussed tobacco usage and circulation in detail. He has stopped smoking. Patient and would like to proceed with surgical intervention. Discussed results of the CT, MRI, vascular studies. I explained that based on the CT and MRI, he will need to have other procedures including: peroneal t
--- NOTE | 2020-05-22 14:38 | P.CONPHA_ITS ---
[facility] Pharmacy VTE Monitoring - Patient Demographics Admission date: 05/22/20 Report Date: 05/22/20 Time: 14:38 Allergies/Adverse Reactions: Patient Allergies Sulfa (Sulfonamide Antibiotics) Allergy (Verified 05/22/20 06:31) fentanyl Adverse Reaction (Mild, Verified 05/22/20 06:31) Nausea Height: 1.88 m Weight: 77.564 kg - VTE Risk Clinical Trial Participant: No - Prophylaxis VTE Prophylaxis Ordered?: Yes Types of VTE Prophylaxis: Pharmacological Pharmacologic Type: Enoxaparin (POST OP)
[2020-05-22 14:46] LABS: Microscopic,Cath URINE MICROSCOPIC (MICROSCOPIC)
[2020-05-22 14:47] LABS: Appearance,Urine/Cath CLEAR (Clear); Bilirubin,Cath Negative (Negative); Blood, Urine/Cath TRACE-I (Negative); Color,Urine/Cath STRAW (Yellow); Glucose,Urine/Cath (UA) Negative (Negative); Ketones,Urine/Cath Negative (Negative); Leukocyte Esterase,Cath Negative (Negative); Nitrate,Cath Negative (Negative); Protein,Urine/Cath Negative (Negative); Urobilinogen,Cath 0.2 EU/dl (0.2)
--- NOTE | 2020-05-22 14:47 | HMH.ORTHHP ---
*Admission Date: 05/22/20 <Karie Palmer - 05/22/20 15:18> *Reason for consult:: Surgical Left total ankle replacement <Karie Palmer - 05/22/20 15:18> *History of present illness: The patient is a 64M with chronic b/l ankle pain. He had right ankle surgery in 1999 with mal-fusion. Left ankle pain complicated with instability. Planned for left hindfoot surgery. Patient had left CT, MRI and vascular studies. ABIs abnormal so referred to cardiology for further treatment and evaluation. Ischemic heart disease noted with cath and stents x5. Discussed severity of disease and recommendation was delay surgery 3-6 months and have cardio re-evaluate. He now has cardiac clearance. Patient has history of osteoarthritis, right ankle arthrodesis (1999) with worsening left ankle tilting, instability, and pain. Fall risk and unable to do daily activity without pain and swelling. Indications: failed conservative care including NSAIDs, injection, immobilization, bracing/strapping, modification of activity and modification of shoe gear. The patient has tried taping, inserts, ice, elevation, stretching, physical therapy and NSAIDs. After a long discussion with the patient in regards to the conservative versus surgical treatment for the arthritic deformity, the patient has elected to proceed with surgery because they have failed conservative treatment and continue to have pain and worsening symptoms affecting daily activities. The patient has been instructed on the planned procedure, all risk versus benefits of the procedure discussed. These include but are not limited to: bleeding, skin or deep implant or bone infection, nerve and blood vessel damage, need for further surgery, delay in healing of soft tissue or bone, failure of bones to heal, delayed or non-union, mal-union, failure of the implant, prolonged pain and recovery, prolonged swelling, CRPS/RSD, DVT and anesthetic complications including . I explained with a total ankle replacement there will be some limitations such as impact activity. We also explained limitations with ankle fusion surgery, failure of implants, poly-exchange, loss of limb, below-knee amputation, chronic pain. No guarantees were given. All questions fully answered. The patient verbalized understanding and agreed to proceed with surgery. Written consent was obtained. Discussed surgical intervention for the left ankle arthritis. We discussed in great detail arthrodesis versus arthroplasty. We discussed position of the foot may require not only intervention to the ankle joint but also the subtalar joint and soft tissue surrounding the ankle. We discussed risks and benefit of surgery in detail including perioperative treatment plan and complications such as infection, shortening of the leg, revisional surgery. Patient understands that after surgery his activity will be limited. The goal would be to keep him moving and pain-free. Patient would like to be able to play golf and or bowling again. We also discussed tobacco usage and circulation in detail. He has stopped smoking. Patient and would like to proceed with surgical intervention. Discussed results of the CT, MRI, vascular studies. I explained that based on the CT and MRI, he will need to have other procedures including: peroneal tendon debridement/repair, lateral ankle ligament stabilization, STJ AD, calcaneal osteotomy, in addition to the ankle replacement vs fusion. DVT ppx discussed. Recommend SCD and likely Lovenox for DVT ppx-will discuss with PCP. Dr. Enrique. Necessary labs and pre-op testing ordered: CBC, CMP, vitamin D, CXR, EKG, covid. Patient will check on DME. He may have walker, shower chair. He will check and see if he has crutches, potty chair, and I recommend rolling knee scooter. He will need Rx Oxycodone, Motrin, Zofran, Keflex, Lovenox, continue vit D. Patient will be admitted to Med/Surge Unit over night, medical management by Dr. Enrique and surgical management by Dr. Cook. <G
--- NOTE | 2020-05-22 14:57 | HMH.ANESI ---
[facility] Anesthesia Record Part I Intake, IV Amount: 2,500 Estimated blood loss (mL): 50 Urine output (mL): 1,750 Blood Pressure: 131/76 SaO2: 94 Pulse Rate: 93 Respiratory Rate: 12 Temperature: 98.9 F Patient is:: Drowsy, Stable Stable to PACU at:: 14:33
[2020-05-22 15:08] LABS: Bacteria,Urine/Cath 1+ /lpf; Mucus,Urine/Cath Trace /lpf; Squamous Epithelial Ur./Cath Occasional #/hpf (0-5); WBC,Urine/Cath Occasional #/hpf (0-3)
--- NOTE | 2020-05-22 16:25 | PC.NURSE ---
Pt arrived to the floor via surgical staff. He was awake and alert and oriented X 4. Able to verbalize needs. LLE is elevated on a pillow. Polar pack is in place. Distal pulses intact. He is still unable to feel anything in his LLE. Denies pain. He has been instructed to notify nurse if he starts having pain. is currently at bedside and aware of visiting hours. Will continue to monitor.
--- NOTE | 2020-05-22 17:20 | HMH.ACPN2 ---
Internal Medicine - PN: Subj *Date: 05/22/20 *Time: 17:20 Interval history: Patient with no complaints. Eating supper now Exam Vital signs and Labs for Last 24 Hours: Temp Pulse Resp BP Pulse Ox 97.7 F 81 16 123/83 90 L 05/22/20 16:10 05/22/20 16:40 05/22/20 16:40 05/22/20 16:40 05/22/20 16:40 Laboratory Results - last 24 hr 05/22/20 08:00: Urine Color Straw, Urine Appearance Clear, Urine pH 6.0, Ur Specific [place] 1.020, Urine Protein Negative, Urine Glucose (UA) Negative, Urine Ketones Negative, Urine Blood Trace-i, Urine Nitrate Negative, Urine Bilirubin Negative, Urine Urobilinogen 0.2, Ur Leukocyte Esterase Negative, Urine RBC 3-5, Urine WBC Occasional, Ur Squamous Epith Cells Occasional, Urine Bacteria 1+ I & O for Last 24 hours: Intake & Output 05/19/20 05/20/20 05/21/20 05/22/20 23:59 23:59 23:59 23:59 Intake Total 2550 / 2550 Balance 2550 / 2550 Weight 171 lb - Constitutional no acute distress (conversant) Assessment and Plan (1) Chronic pain syndrome Status: Chronic Category: Medical Code(s): G89.4 - Chronic pain syndrome (2) Left ankle pain Status: Chronic Qualifiers: Chronicity: chronic Qualified Code(s): M25.572 - Pain in left ankle and joints of left foot; G89.29 - Other chronic pain Category: Medical Code(s): M25.572 - Pain in left ankle and joints of left foot (3) HLD (hyperlipidemia) Status: Chronic Qualifiers: Hyperlipidemia type: mixed hyperlipidemia Qualified Code(s): E78.2 - Mixed hyperlipidemia Category: Medical Code(s): E78.5 - Hyperlipidemia, unspecified (4) Ex-smoker for less than 1 year Status: Acute Category: Social Hx Code(s): Z78.9 - Other specified health status (5) Systolic heart failure Status: Chronic Qualifiers: Heart failure chronicity: unspecified Qualified Code(s): I50.20 - Unspecified systolic (congestive) heart failure Category: Medical Code(s): I50.20 - Unspecified systolic (congestive) heart failure (6) CAD (coronary artery disease) Status: Chronic Qualifiers: Coronary Disease-Associated Artery/Lesion type: [place] artery [place] vs. transplanted heart: pokagon heart Associated angina: without angina Qualified Code(s): I25.10 - Atherosclerotic heart disease of [place] coronary artery without angina pectoris Category: Medical Code(s): I25.10 - Atherosclerotic heart disease of [place] coronary artery without angina pectoris (7) LV dysfunction Status: Chronic Category: Medical Code(s): I51.9 - Heart disease, unspecified (8) Cardiomyopathy Status: Chronic Qualifiers: Cardiomyopathy type: unspecified Qualified Code(s): I42.9 - Cardiomyopathy, unspecified Category: Medical Code(s): I42.9 - Cardiomyopathy, unspecified (9) Edema Status: Chronic Qualifiers: Edema type: unspecified Qualified Code(s): R60.9 - Edema, unspecified Category: Medical Code(s): R60.9 - Edema, unspecified (10) PAD (peripheral artery disease) Status: Chronic Category: Medical Code(s): I73.9 - Peripheral vascular disease, unspecified (11) Arthritis Status: Acute Category: Medical Code(s): M19.90 - Unspecified osteoarthritis, unspecified site (12) GERD (gastroesophageal reflux disease) Status: Chronic Qualifiers: Esophagitis presence: without esophagitis Qualified Code(s): K21.9 - Gastro-esophageal reflux disease without esophagitis Category: Medical Code(s): K21.9 - Gastro-esophageal reflux disease without esophagitis (13) HTN (hypertension) Status: Chronic Qualifiers: Hypertension type: essential hypertension Qualified Code(s): I10 - Essential (primary) hypertension Category: Medical Code(s): I10 - Essential (primary) hypertension (14) Leg pain Status: Chronic Qualifiers: Laterality: bilateral Qualified Code(s): M79.604 - Pain in right leg; M79.605 - Pain in left leg Category:
--- NOTE | 2020-05-22 22:23 | PC.NURSE ---
patient can lift entire left leg but cannot move toes on left foot at this time.
[2020-05-23] VITALS: BP 121/71; PULSE 72; RESP 18; TEMP 36.6; O2SAT 91
[2020-05-23 04:00] VITALS: BP 146/74; PULSE 85; RESP 19; TEMP 36.3; O2SAT 95
--- NOTE | 2020-05-23 04:20 | PC.NURSE ---
patient has had no acute changes this shift. vss and patient remains afebrile. Pain has been managed well. A&O x4. Surgical dressing on left ankle is covered by shaneka wrap and polar pack and is cdi. Patient is still unable to move toes on left foot at this time, but has continued to have good cap refill as well as good ROM on left leg. 550ml urine output via bedside commode with x1 assist. Lungs are ctab and bowels are normoactive at this time.
[2020-05-23 05:00] VITALS: BMI 23.6
[2020-05-23 06:54] LABS: Basophils % 0.1 % (0.1-2.0); Hematocrit 39.1 % (42.0-52.0); Hemoglobin 12.9 g/dL (14.1-18.0); Lymphocytes # 0.9 K/mm3 (0.7-4.5); Lymphocytes % 6.8 % (10-50); Mean Corpuscular Hemoglobin 33.4 pg (27.0-31.2); Mean Corpuscular Volume 101.4 fl (80-94); Monocytes # 0.8 K/mm3 (0.1-1.0); Monocytes % 5.5 % (1.7-9.3); Neutrophils # 12.2 K/mm3 (1.8-7.8); Neutrophils % 87.6 % (37.0-80.0); Platelet Count 236 K/mm3 (142-424); Red Blood Count 3.86 M/mm3 (4.60-6.20); Red Cell Distribution Width 13.3 % (11.5-17.5); White Blood Count 13.9 K/mm3 (4.8-10.8)
[2020-05-23 06:57] LABS: MANUAL DIFFERENTIAL MANUAL DIFFERENTIAL (MANUAL DIFF)
[2020-05-23 06:58] LABS: Alanine Aminotransferase 29 U/L (12-78); Albumin Level 3.9 g/dl (3.5-5.0); Albumin/Globulin Ratio 1.6 (1.1-1.8); Alkaline Phosphatase 54 U/L (38-126); Anion Gap 12.5 mEq/L (5-15); Aspartate Amino Transferase 39 U/L (17-59); Bilirubin,Total 0.4 mg/dl (0.2-1.3); Blood Urea Nitrogen 16 mg/dl (9-20); Calcium 8.8 mg/dl (8.4-10.2); Carbon Dioxide 26 mmol/L (22.0-30.0); Chloride 105 mmol/L (98-107); Creatinine Clearance Estimated 89 mL/min (50-200); Estimated Glomerular Filt Rate 85 ml/min (>60); GFR (African American) 103 ML/MIN (>60); Globulin 2.4 g/dL (1.3-3.2); Glucose 168 mg/dl (74-100); Potassium 4.5 mmoL/L (3.5-5.1); Sodium 139 mmol/L (136-145); Total Protein,Serum 6.3 g/dl (6.3-8.2)
[2020-05-23 08:00] VITALS: BP 138/79; PULSE 68; RESP 16; TEMP 36.7; O2SAT 96
[2020-05-23 08:08] LABS: Lymphocytes % 9 % (10-50); Monocytes % 6 % (2-9); Neutrophils % 85 % (42-76); Platelet Estimate Normal; RBC Morphology Normal; Total Cells Counted 100
--- NOTE | 2020-05-23 08:25 | HMH.ACPN2 ---
<Jordy Smitha - Last Filed: 05/23/20 08:25> Internal Medicine - PN: Subj *Date: 05/23/20 *Time: 08:25 Interval history: Patient has no new complaints this morning and is anxious to go home. Dr. Cook has ordered meds to beds and feels he can be discharged today. Physical therapy will need to see him before discharge. Exam Vital signs and Labs for Last 24 Hours: Temp Pulse Resp BP Pulse Ox 97.4 F L 85 19 146/74 H 95 05/23/20 04:00 05/23/20 04:00 05/23/20 04:00 05/23/20 04:00 05/23/20 04:00 Laboratory Results - last 24 hr 05/22/20 08:00: Urine Color Straw, Urine Appearance Clear, Urine pH 6.0, Ur Specific [place] 1.020, Urine Protein Negative, Urine Glucose (UA) Negative, Urine Ketones Negative, Urine Blood Trace-i, Urine Nitrate Negative, Urine Bilirubin Negative, Urine Urobilinogen 0.2, Ur Leukocyte Esterase Negative, Urine RBC 3-5, Urine WBC Occasional, Ur Squamous Epith Cells Occasional, Urine Bacteria 1+ 05/23/20 06:35: WBC 13.9 H, RBC 3.86 L, Hgb 12.9 L, Hct 39.1 L, MCV 101.4 H, MCH 33.4 H, MCHC 33.0, RDW 13.3, Plt Count 236, MPV 8.0, Neut % (Auto) 87.6 H, Lymph % (Auto) 6.8 L, [place] % (Auto) 5.5, Eos % (Auto) 0.0 L, Baso % (Auto) 0.1, Neut # (Auto) 12.2 H, Lymph # (Auto) 0.9, [place] # (Auto) 0.8, Eos # (Auto) 0.0, Baso # (Auto) 0.0, Total Counted 100, Neutrophils % (Manual) 85 H, Lymphocytes % (Manual) 9 L, Monocytes % (Manual) 6, Platelet Estimate Normal, RBC Morphology Normal 05/23/20 06:35: Sodium 139, Potassium 4.5, Chloride 105, Carbon Dioxide 26, Anion Gap 12.5, BUN 16, Creatinine 0.90, Estimated Creat Clear 89, Estimated GFR 85, Est GFR ( Amer) 103, Glucose 168 H, Calcium 8.8, Total Bilirubin 0.4, AST 39, ALT 29, Alkaline Phosphatase 54, Total Protein 6.3, Albumin 3.9, Globulin 2.4, Albumin/Globulin Ratio 1.6 I & O for Last 24 hours: Intake & Output 05/20/20 05/21/20 05/22/20 05/23/20 11:59 11:59 11:59 11:59 Intake Total 2670 / 2670 Output Total 550 / 550 Balance 2119 / 2119 Weight 171 lb 184 lb - Constitutional no acute distress - *Routine Respiratory Exam Present: CTA bilaterally - *Routine Cardiovascular Exam Present: RRR - *Routine Abdominal Exam Present: soft, normoactive bowel sounds. Absent: tenderness - *Routine Extremities Exam Absent: cyanosis, clubbing, edema - *Routine Skin Exam Present: warm. Absent: rash Comments: Left foot with dressing in place - *Routine Neurological Exam Present: alert, oriented X3 Assessment and Plan (1) Chronic pain syndrome Status: Chronic Category: Medical Code(s): G89.4 - Chronic pain syndrome (2) Left ankle pain Status: Chronic Qualifiers: Chronicity: chronic Qualified Code(s): M25.572 - Pain in left ankle and joints of left foot; G89.29 - Other chronic pain Category: Medical Code(s): M25.572 - Pain in left ankle and joints of left foot (3) HLD (hyperlipidemia) Status: Chronic Qualifiers: Hyperlipidemia type: mixed hyperlipidemia Qualified Code(s): E78.2 - Mixed hyperlipidemia Category: Medical Code(s): E78.5 - Hyperlipidemia, unspecified (4) Ex-smoker for less than 1 year Status: Acute Category: Social Hx Code(s): Z78.9 - Other specified health status (5) Systolic heart failure Status: Chronic Qualifiers: Heart failure chronicity: unspecified Qualified Code(s): I50.20 - Unspecified systolic (congestive) heart failure Category: Medical Code(s): I50.20 - Unspecified systolic (congestive) heart failure (6) CAD (coronary artery disease) Status: Chronic Qualifiers: Coronary Disease-Associated Artery/Lesion type: [place] artery [place] vs. transplanted heart: [place] heart Associated angina: without angina Qualified Code(s): I25.10 - Atherosclerotic heart disease of [place] coronary artery without angina pectoris Category: Medical Code(s): I25.10 - Atherosclerotic heart disease of [place] coronary artery without angina pectoris
--- NOTE | 2020-05-23 08:25 | HMH.ORTHPN ---
Subjective Date: 05/23/20 Time: 07:45 Principal diagnosis: S/p left TAR Interval history: Patient is resting comfortably at the bedside. He denies nausea vomiting, fever chills, shortness of breath and chest pain. He has been using the incentive spirometer. He denies pain to the left lower extremity. Polar pack in place. PN: Obj Ex Vital signs: Temp Pulse Resp BP Pulse Ox 97.4 F L 85 19 146/74 H 95 05/23/20 04:00 05/23/20 04:00 05/23/20 04:00 05/23/20 04:00 05/23/20 04:00 - Constitutional no acute distress - Routine HEENT Exam Head: Present: normocephalic - Routine Neck Exam Present: supple - Routine Respiratory Exam Present: accessory muscle use - Routine Cardiovascular Exam Present: RRR - Routine Abdominal Exam Present: soft - Detailed Lower Extremity Exam Comments: Lower extremity has dressing and splint clean dry and intact. Polar pck applied to the left leg. Capillary fill time within normal limits. Motor function and light touch sensation decreased secondary to left popliteal and saphenous nerve block. No calf or thigh pain noted bilaterally. Progress Note: A&P (1) Chronic pain syndrome Status: Chronic (2) Left ankle pain Status: Chronic (3) HLD (hyperlipidemia) Status: Chronic (4) Ex-smoker for less than 1 year Status: Acute (5) Systolic heart failure Status: Chronic (6) CAD (coronary artery disease) Status: Chronic (7) LV dysfunction Status: Chronic (8) Cardiomyopathy Status: Chronic (9) Edema Status: Chronic (10) PAD (peripheral artery disease) Status: Chronic (11) Arthritis Status: Acute (12) GERD (gastroesophageal reflux disease) Status: Chronic (13) HTN (hypertension) Status: Chronic (14) Leg pain Status: Chronic (15) Abnormal ankle brachial index (ADRIAN) Status: Acute (16) Malunion of joint fusion Status: Chronic (17) Impingement of left ankle joint Status: Chronic (18) Equinus contracture of left ankle Status: Chronic (19) Acquired hammertoes of both feet Status: Chronic (20) Pes cavus of right foot Status: Chronic (21) Pes cavus of left foot Status: Chronic (22) Osteoarthritis of left ankle Status: Chronic (23) Osteoarthritis of feet, bilateral Status: Chronic (24) Left ankle instability Status: Chronic (25) History of ankle fusion Status: Chronic Assessment and Plan for All Diagnoses:: Sx: 05/22/20, S/P Left total ankle replacement, peroneal tendon transfer, ankle ligament stabilization: POD #1 Post op films, 3 views left ankle, calc axial and 3 views left foot reviewed by myself. Images were reviewed and discussed with the patient. Patient is resting comfortably. He denies any issues overnight. Patient is using the incentive spirometer appropriately. Discussed postoperative plan of care. Okay from Podiatry stand point for discharge home today, after PT session. Discharge/Plan: Patient is to maintain splint clean dry and intact. Polar pack/ice behind the left knee and elevate on foam ramp or two pillows. Non weight bearing with crutches and walker. May need shower chair or bedside commode. PT for DME recommendations. Post-op gait training. Patient will be 100% WB to RLE after left ankle surgery. He needs to be able to use walker, wheelchair or rolling knee scooter. Rx given for Percocet 7.5, Zofran, vit D, Keflex, Lovenox. Meds to [facility]. Discussed plan of care with Luz Smith APRN for Dr. Enrique. Discussed plan of care with Yvette VICTORIA, cardiology. Patient can do Lovenox for DVT ppx post op. He is to resume the aspirin 81mg daily and Plavix 75mg daily. He is to stop the Brilinta. Patient is okay to do Motrin twice daily for mild pain postop x2 weeks, then discontinue. Follow up with cardiology outpatient.
--- NOTE | 2020-05-23 10:07 | HMH.PTEV ---
Physical Therapy Evaluation Rehab PT IP Evaluation Start: 05/22/20 14:27 Freq: ONCE Status: Active Protocol: Document 05/23/20 09:30 PHORAYDEN (Rec: 05/23/20 10:07 PHORNE [id number]) Subjective/History History History 64 yowm adm to [facility] for L TAA. He lives with and is independent with all mobility at baseline. Subjective Subjective Pt c/o expected post-op pain, but otherwise feels very good. Rehab PT IP Eval Objective Appearance Patient Behavior Appropriate Patient Orientation Person,Place,Time Difficulty following instructions none Speech Pattern Clear Ambulation Patient Able to Ambulate Yes Ambulation Observation IP General Gait Pattern Observation Decrease Weight Bear (L) Ambulation Distance (feet) 30 Ambulation Assistive Device Axillary Crutches Ambulation Ability Supervision/Stand by Balance Ability to Arise Able, w/o using arms Sitting Balance Steady, safe Standing Balance Narrow stance w/o support Dynamic Sitting Balance Ability Normal Dynamic Standing Balance Ability Good Transfers Bed Transfer Ability Supervision/Stand by Chair Transfer Ability Supervision/Stand by Sit to Stand Bed Transfer Ability Supervision/Stand by Sit to Stand Chair Transfer Ability Supervision/Stand by Rehab PT IP prob,goals,plan Problems Date of Evaluation: 05/23/20 Discharge Plan PT Discharge Plan Pt fit with axillary crutches and instructed in their use. He is appropriate to return home once medically stable. G -code Required No Eval Complexity Eval Charge Codes 88646 - Moderate Complexity PHYSICIAN CERTIFICATION: I certify the specified therapy services for Alex Aaron are required, authorized, and reviewed every 30 days.
--- NOTE | 2020-05-23 11:22 | SW/DCPLANNER ---
RECEIVED REFERRAL ON THIS PATIENT FOR DME... PATIENTS CAME TO GET HIM AND STATED SHE HAS A WALKER AND HE DOES NOT NEED ONE... HE WILL FOLLOW UP WITH DR WALKER IN THE OFFICE...HE WILL HAVE AN APPT SET UP PRIOR TO LEAVING TODAY...
--- NOTE | 2020-05-23 16:16 | HMH.DCSUM ---
General - General Admission date:: 05/22/20 Discharge date: 05/23/20 HPI HPI: The patient is a 64M with chronic b/l ankle pain. He had right ankle surgery in 1999 with mal-fusion. Left ankle pain complicated with instability. Planned for left hindfoot surgery. Patient had left CT, MRI and vascular studies. ABIs abnormal so referred to cardiology for further treatment and evaluation. Ischemic heart disease noted with cath and stents x5. Discussed severity of disease and recommendation was delay surgery 3-6 months and have cardio re-evaluate. He now has cardiac clearance. Patient has history of osteoarthritis, right ankle arthrodesis (1999) with worsening left ankle tilting, instability, and pain. Fall risk and unable to do daily activity without pain and swelling. Indications: failed conservative care including NSAIDs, injection, immobilization, bracing/strapping, modification of activity and modification of shoe gear. The patient has tried taping, inserts, ice, elevation, stretching, physical therapy and NSAIDs. After a long discussion with the patient in regards to the conservative versus surgical treatment for the arthritic deformity, the patient has elected to proceed with surgery because they have failed conservative treatment and continue to have pain and worsening symptoms affecting daily activities. The patient has been instructed on the planned procedure, all risk versus benefits of the procedure discussed. These include but are not limited to: bleeding, skin or deep implant or bone infection, nerve and blood vessel damage, need for further surgery, delay in healing of soft tissue or bone, failure of bones to heal, delayed or non-union, mal-union, failure of the implant, prolonged pain and recovery, prolonged swelling, CRPS/RSD, DVT and anesthetic complications including . I explained with a total ankle replacement there will be some limitations such as impact activity. We also explained limitations with ankle fusion surgery, failure of implants, poly-exchange, loss of limb, below-knee amputation, chronic pain. No guarantees were given. All questions fully answered. The patient verbalized understanding and agreed to proceed with surgery. Written consent was obtained. Discussed surgical intervention for the left ankle arthritis. We discussed in great detail arthrodesis versus arthroplasty. We discussed position of the foot may require not only intervention to the ankle joint but also the subtalar joint and soft tissue surrounding the ankle. We discussed risks and benefit of surgery in detail including perioperative treatment plan and complications such as infection, shortening of the leg, revisional surgery. Patient understands that after surgery his activity will be limited. The goal would be to keep him moving and pain-free. Patient would like to be able to play golf and or bowling again. We also discussed tobacco usage and circulation in detail. He has stopped smoking. Patient and would like to proceed with surgical intervention. Discussed results of the CT, MRI, vascular studies. I explained that based on the CT and MRI, he will need to have other procedures including: peroneal tendon debridement/repair, lateral ankle ligament stabilization, STJ AD, calcaneal osteotomy, in addition to the ankle replacement vs fusion. DVT ppx discussed. Recommend SCD and likely Lovenox for DVT ppx-will discuss with PCP. Dr. Enrique. Necessary labs and pre-op testing ordered: CBC, CMP, vitamin D, CXR, EKG, covid. Patient will check on DME. He may have walker, shower chair. He will check and see if he has crutches, potty chair, and I recommend rolling knee scooter. He will need Rx Oxycodone, Motrin, Zofran, Keflex, Lovenox, continue vit D. Patient will be admitted to Med/Surge Unit over night, medical management by Dr. Enrique and surgical management by Dr. Cook. Hospital Course Hospital Course: The patient was taken to the OR by Dr. Cook and a left total an
--- NOTE | 2020-05-24 10:11 | HMH.ANESII ---
[facility] Anesthesia Record Part II Discharge Time: 15:02 Destination: Medical Surgical Department PACU nurse assessment reviewed?: Yes Patient Condition:: Good Anesthesia Complications:: None Swallowing reflex intact?: Yes Cyanosis?: No Blood Pressure: 104/65 Pulse Rate: 90 Temperature: 98.9 F Mental Status: Alert & Oriented Pain level:: 0 Nausea and/or vomitting:: None Intake, IV Amount: 0
[2020-05-24 10:12] VITALS: BP 104/65; PULSE 90; TEMP 37.2
== END 2020-05-23 11:40 | disposition home or self-care (01) ==
LOC: 2ND 12:40
PROVIDERS: Podiatrist; Admitting Provider Family Medicine; PCP Family Medicine; Visit Provider Family Medicine
PROC: (CPT 27702; principal; 2020-05-22 07:30)
DX: M19.072 Primary osteoarthritis, left ankle and foot (principal); M76.822 Posterior tibial tendinitis, left leg; M65.9 Synovitis and tenosynovitis, unspecified; G89.4 Chronic pain syndrome; M25.872 Other specified joint disorders, left ankle and foot; M25.372 Other instability, left ankle; M67.02 Short Achilles tendon (acquired), left ankle; M24.572 Contracture, left ankle
CPT/HCPCS: 27702; 27625; 27695; 36415; 73600; 73610; 73630; 73650; 80053; 81001; 85007; 85025; 96374; 97162; C1713; C1762; C1776; G0378; J0131; J0330; J2405; Q4211

== ENCOUNTER → 2020-07-01 08:25 | Outpatient (CLI) | payer BC, OTHER, SELFPAY ==
--- NOTE | 2020-07-01 08:33 | XR_ITS ---
PROCEDURE: XR ANKLE WT BEARING LT MIN 3V CLINICAL INDICATION: post-op COMPARISON: CR XR ANKLE WT BEARING RT MIN 3V from 08/24/2019 CR XR ANKLE WT BEARING LT MIN 3V from 08/24/2019 CR XR ANKLE LT MIN 3V from 05/22/2020 CR XR ANKLE LT 2V from 05/22/2020 FINDINGS: S/p total ankle replacement with good alignment of the prosthesis. The cast has been removed. There is a small bony fragment at the tip of the fibula unchanged from the preoperative exam. Osteoarthritic changes are present at the posterior subtalar joint IMPRESSION: Good alignment status post ankle replacement Dictated by: Atul Manuel MD 07/01/2020 10:32 Atul Manuel MD in [place] 07/01/2020 10:32
== END ==
PROVIDERS: PCP Family Medicine; Visit Provider Nurse Practitioner
DX: Z98.890 Other specified postprocedural states (principal); M25.572 Pain in left ankle and joints of left foot
CPT/HCPCS: 73610

== ENCOUNTER → 2020-08-01 09:51 | Outpatient (POV) | payer BC, OTHER, SELFPAY | PROVIDERS: Visit Provider Audiologist | DX: Z00.00 Encounter for general adult medical examination without abnormal findings (principal) ==

== ENCOUNTER → 2020-08-05 12:00 | Outpatient (CLI) | payer BC, OTHER, SELFPAY | PROVIDERS: PCP Family Medicine; Visit Provider Podiatrist | DX: M25.572 Pain in left ankle and joints of left foot (principal); M25.571 Pain in right ankle and joints of right foot | CPT/HCPCS: 73610 ==

== ENCOUNTER 2020-08-27 10:00 | Outpatient (RCR) | payer BC, OTHER, SELFPAY ==
--- NOTE | 2020-07-10 11:51 | HMH.PTOPEV ---
PT Outpatient Evaluation Rehab PT Outpatient Evaluation Start: 07/10/20 11:33 Freq: Status: Active Protocol: Document 07/10/20 11:33 JOSE (Rec: 07/10/20 11:50 JOSE [id number]) Electronically Signed By Jesse Little, PT 07/10/20 11:33 Outpatient Therapy Subjective History Subjective History Pt presents s/p L TAR sx. on . Pt reports 'successful procedure I as far as I know' . Pt reports post-op Xrays ' have looked good, I'm still very stiff, but very little pain, and only one little spot on the incision still needs to heal up'. Pt reports previous chronic issues w/L ankle OA, bony instability, pain, neuropathy, and weakness . 'It already feels better.' Chief Complaint Pain,Stiff,Paresthesia, Weakness Symptom Type Ache,Sharp,Dull,Numbness, Tingling Symptoms Relieved By Rest/Positioning,Prescription Meds Symptoms Aggravated By Standing,Walking Prior Functional Limitations Standing,Walking,Balance Current Functional Limitations Standing,Walking,Balance Symptom Description Constant but Variable Level of pain today (0-10) 2 Pain scale - at its best (0-10) 1 Pain scale - at its worst (0-10) 4 Ankle/Foot Eval Assistive Device Ambulation Assistive Device Axillary Crutches Palpation Tenderness left Ankle/Foot Palpation Findings Tenderness Ankle/Foot Palpation Overall Comment lateral incision superior margin 2/4 (peroneal MT junction) ROM Ankle/Foot Dorsiflexion w/Knee Extended 0 Active Range Motion (degrees) Ankle/Foot Dorsiflexion w/Knee Extended 0-2 Passive Range (degrees) Ankle/Foot Plantar Flexion Active Range 0-11 of Motion (degrees) Ankle/Foot Plantar Flexion Passive Range 0-14 of Motion (degrees) Ankle/Foot Eversion Active Range of +2 Motion (degrees) Ankle/Foot Eversion Passive Range of 0 Motion (degrees) Ankle/Foot Inversion Active Range of 2-12 Motion (degrees) Ankle/Foot Inversion Passive Range of 0-15 Motion (degrees) Ankle/Foot ROM Limitations Bony Restriction MMT Ankle Dorsiflexion Strength Grade 4- Good- Ankle Plantarflexion Strength Grade 4- Good- Foot Eversion Strength Grade 2 Poor Foot Inversion Strength Grade 3+ Fair+ Outpatient Therapy Assessment Impairmen
--- NOTE | 2020-08-08 16:00 | HMH.RHREAS ---
Rehab Reassessment Rehab OP Re-assessment Start: 08/08/20 14:24 Freq: Status: Active Protocol: Document 08/08/20 15:54 JOSE (Rec: 08/08/20 16:00 JOSE [id number]) Electronically Signed By Jesse Little, PT 08/08/20 15:54 Rehab Re-assessment Subjective Subjective Pt reports improved L ankle pain/soreness since I Eval, 0- 3/10 on VAS, and feels 75% better overall functionally since I Eval Objective Objective Notes AROM: L ANKLE DF 0-2, PF 0-15, EVR 0, INV 0-16 MMT: L ANKLE DF 4/5, PF 4/5, INV 4--4/5, EVR 3+/5 TTP: NONE NOTED GAIT: AUBREE. CALCANEAL VARUS, OTHERWISE WFL ON LEVEL TERRAIN NO A.D. Assessment Progress Assessment Progressing as Expected Assessment Notes IMPROVED ROM, STRENGTH, TTP, GAIT Patient goals met STG'S 09/05 LTG'S 05/07 Goals Not Met STG'S 03/08 (PROM WFL), LTG'S 08/07 Plan Plan PT TO CONT. W/SKILLED P.T. TO MAKE FURTHER IMPROVEMENTS IN L ANKLE AROM/PROM, STRENGTH, TTP, AND GAIT TO ALLOW FOR OPTIMAL FUNCTION Frequency of Therapy 2-3X/WK Duration of therapy 1-2WEEKS Time and Billing Re-Eval Time 15 Re-Eval Billing Units 1 PHYSICIAN CERTIFICATION: I certify the specified therapy services for Alex Aaron are required, authorized, and reviewed every 30 days.
== END 2020-08-27 10:05 | disposition home or self-care (01) ==
LOC: PT 10:00
PROVIDERS: PCP Family Medicine; Visit Provider Podiatrist
DX: Z98.890 Other specified postprocedural states (principal); M25.372 Other instability, left ankle; M19.072 Primary osteoarthritis, left ankle and foot; G57.92 Unspecified mononeuropathy of left lower limb; S86.312A Strain of muscle(s) and tendon(s) of peroneal muscle group at lower leg level, left leg, initial encounter; G89.18 Other acute postprocedural pain
CPT/HCPCS: 97010; 97014; 97016; 97110; 97140; 97163; 97164; 97760; G0283

== ENCOUNTER → 2020-09-05 13:33 | Outpatient (POV) | payer BC, SELFPAY ==
[2020-09-05 14:01] VITALS: BP 141/85; PULSE 61; RESP 18; O2SAT 97; BMI 22.1
--- NOTE | 2020-09-05 14:14 | HMH.PAINSOAP ---
[facility] SOAP Note Subjective:: Patient is a 64-year-old white male who presents today for follow-up. He has been seen in the clinic for chronic pain syndrome and bilateral ankle pain. Patient is managed with Lyrica 150 mg 1 tablet p.o. twice daily. He has taken gabapentin in the past, however, he gets better relief with Lyrica. He recently underwent surgical intervention for a ruptured Achilles tendon left foot. He is now having right foot pain. Dr. West did perform the procedure on the left foot. He has a history of 5 cardiac stents and now says he has some complications with his right lower extremity that will require stenting. He does see Dr. French. He says that Dr. West is not able to perform surgery to his right foot until he undergoes stenting to his right leg. He has had surgery on his right ankle before this visit was performed via telemedicine. The patient has chosen to have telemedicine visit for his/her symptoms due to risk associated with COVID19 1999. He had a fusion at that time. Patient says that the Lyrica does give him relief of his peripheral neuropathy. He rates his pain a 7 out of 10. Review of Systems General: No recent weight changes, no fever, no sleep disturbances Respiratory: No cough, no shortness of air, no recurring pulmonary infections Cardiovascular/peripheral vascular: No chest pain, no palpitations, no edema, no shortness of breath Gastrointestinal: No new onset incontinence, normal bowel movements reported Genitourinary: No new onset incontinence Musculoskeletal: Chronic ankle pain Psychiatric: Normal mood/affect Neurological: [Denies weakness in extremities], [denies balance issues] Objective:: Physical exam General: Alert and oriented x3, no acute distress, pleasant and cooperative, [on room air] Lungs: Respirations even and unlabored, symmetrical chest expansion Eyes: PERRL Musculoskeletal: Flexion and extension of [] bilateral lower extremities somewhat guarded secondary to pain, deep tendon reflexes normal, strength in upper and lower extremities [5/5], [abnormal gait noted] Neurological: Speech clear, international representative equal, no gross sensory deficit Assessment:: Chronic pain syndrome, bilateral ankle pain Plan:: We will order the patient Lyrica 150 mg 1 tablet p.o. twice daily. We will give the patient 3 months of medication and see him back in the clinic in 3 months for reevaluation of symptoms. Risks and benefits of the medication have been explained in detail to the patient. The patient has been advised to consult with his/her primary care provider and pharmacist regarding drug-drug interaction of medications currently prescribed. Patient has been instructed to contact the clinic with any concerns before the next appointment. Dr. Wolf has reviewed this note and agrees with this plan of care. This note was dictated using voice recognition software and make contain errors or omissions. [facility] History I have reviewed the patient's past medical history: Yes Medical History: Reports:: Coronary Artery Disease, Gastroesophageal Reflux Disease(GERD), Hyperlipidemia, Hypertension, Peripheral Artery Disease Denies:: Cancer, Diabetes Mellitus Type 1, Diabetes Mellitus Type 2, Internal Pacemaker, Lung Disease, MRSA, Seizures *Have you ever received a pneumonia vaccine?: No *Have you received a flu vaccine this season?: No Other Medical History: Reports: Arthritis. Denies: Blood Transfusion Reaction Laterality Cases: Right: Total Hip Replacement Other Surgeries: Yes: Angiogram, Appendectomy, Cardiac Catheterization, Colonoscopy, Coronary Stent. No: Pacemaker Amputation: No Fractures: No - *Social History Smoking Status: Former smoker Tobacco Type: cigarettes # Packs/Day (cigarettes): 0 Alcohol Intake: current Alcohol Intake Frequency:: holidays/special occasions only Substance Use Type: denies use *Occupational Status:: unemployed Housing: house Household Members: spouse
== END ==
PROVIDERS: PCP Family Medicine; Visit Provider Clinical Nurse Specialist Family Health
DX: G89.4 Chronic pain syndrome (principal); M25.572 Pain in left ankle and joints of left foot; M25.571 Pain in right ankle and joints of right foot
CPT/HCPCS: 99212; G0463

== ENCOUNTER → 2020-09-16 13:35 | Outpatient (CLI) | payer BC, SELFPAY ==
[2020-09-16 14:22] LABS: Basophils # 0.1 K/mm3 (0-0.2); Basophils % 0.8 % (0.1-2.0); Eosinophils # 0.2 K/mm3 (0.0-0.4); Eosinophils % 2.2 % (0.1-12.0); Hematocrit 43.6 % (42.0-52.0); Hemoglobin 14.9 g/dL (14.1-18.0); Lymphocytes # 2.1 K/mm3 (0.7-4.5); Lymphocytes % 29.2 % (10-50); Mean Corpuscular HGB Conc 34.3 g/dL (31.8-35.4); Mean Corpuscular Hemoglobin 33.4 pg (27.0-31.2); Mean Corpuscular Volume 97.4 fl (80-94); Monocytes # 0.3 K/mm3 (0.1-1.0); Monocytes % 3.9 % (1.7-9.3); Neutrophils # 4.7 K/mm3 (1.8-7.8); Neutrophils % 63.8 % (37.0-80.0); Platelet Count 239 K/mm3 (142-424); Red Blood Count 4.48 M/mm3 (4.60-6.20); Red Cell Distribution Width 14.3 % (11.5-17.5); White Blood Count 7.3 K/mm3 (4.8-10.8)
[2020-09-16 14:50] LABS: Chloride 108 mmol/L (98-107); Potassium 5.2 mmoL/L (3.5-5.1); Sodium 142 mmol/L (136-145)
[2020-09-16 14:53] LABS: Anion Gap 10.2 mEq/L (5-15); Blood Urea Nitrogen 18 mg/dl (9-20); Calcium 9.1 mg/dl (8.4-10.2); Carbon Dioxide 29 mmol/L (22.0-30.0); Estimated Glomerular Filt Rate 85 ml/min (>60); GFR (African American) 103 ML/MIN (>60); Glucose 123 mg/dl (74-100)
== END ==
PROVIDERS: Visit Provider Nurse Practitioner Family
DX: Z01.810 Encounter for preprocedural cardiovascular examination (principal); Z11.52 Encounter for screening for COVID-19; R94.31 Abnormal electrocardiogram [ECG] [EKG]; I25.10 Atherosclerotic heart disease of native coronary artery without angina pectoris; R60.9 Edema, unspecified; I42.9 Cardiomyopathy, unspecified; I70.201 Unspecified atherosclerosis of native arteries of extremities, right leg; I73.9 Peripheral vascular disease, unspecified; K21.9 Gastro-esophageal reflux disease without esophagitis; F17.200 Nicotine dependence, unspecified, uncomplicated; Z78.9 Other specified health status
CPT/HCPCS: 36415; 80048; 85025; U0003

== ENCOUNTER 2020-09-17 08:06 | Day surgery (SDC) | payer BC, SELFPAY ==
[2020-09-17] VITALS (12 sets, daily range): BP systolic 94–152; BP diastolic 50–107; PULSE 43–57; RESP 16–18; O2SAT 90–98; BMI 21.9
--- NOTE | 2020-09-17 07:37 | IR_ITS ---
APPROVED REPORT Patient Location: Outpatient Telephone Interviewer: ALESHA Moser RT (R) PROCEDURES Left femoral arterial access Catheter placement in the right popliteal artery Right popliteal artery selective angiogram Angioplasty to the right popliteal artery Drug-coated balloon angioplasty to the right popliteal artery INDICATION Preoperative evaluation for ankle surgery, Occluded right popliteal artery, Davison claudication class III Informed consent was obtained prior to the procedure. COMPLICATIONS None Estimated Blood Loss: Less than 10 mls TECHNIQUE 1% lidocaine used to anesthetize the left femoral groin. The left femoral artery was accessed via the Seldinger technique. 6 Barbadian sheath was placed in the left femoral artery and a 5 Barbadian rim catheter was advanced to the distal abdominal aorta and used to cannulate the right common iliac artery. An advantage wire was then placed under fluoroscopic guidance down into the right superficial femoral artery. The catheter and sheath were both removed and exchanged for a 6 Barbadian long destination sheath which ended in the proximal right superficial femoral artery. Angiography was performed which demonstrated occluded right popliteal artery. Therapeutic heparin was administered giving a therapeutic ACT and the advantage wire was advanced distally. A 5 mm x 40 mm balloon along with the wire were used to push through the occlusion. The wire was pulled back and the balloon was then used as a catheter to perform selective angiography of the right popliteal artery to confirm luminal placement of the balloon. Following angiography the balloon was placed back into the distal popliteal artery and the balloon was inflated at 10 evan. Excellent angiographic results were obtained therefore the balloon was removed and a 6 mm x 60 mm drug-coated balloon was then placed in the area of interest and deployed at 10 evan for 3 minutes. Excellent angiographic results were obtained with 100% occlusion reduced to less than 10% with excellent inline antegrade flow into the right lower extremity. 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 Dual antiplatelet therapy for 1 month 2. Patient may proceed with elective surgery. With excellent inline flow into the right lower extremity there should be significant improvement and surgical outcome/success 3. At the end of 30 days recommend Xarelto 2.5 twice daily plus aspirin 81 mg daily 4. Aggressive risk factor modification Electronically signed by : Quirino French, 09/17/2020 12:39:37
[2020-09-17 15:47] LABS: CATHL Activated Clotting Time 381 SEC (74-125)
== END 2020-09-17 14:38 | disposition home or self-care (01) ==
LOC: CATHLAB 08:07
PROVIDERS: PCP Family Medicine; Visit Provider Internal Medicine
DX: I70.92 Chronic total occlusion of artery of the extremities (principal); I25.10 Atherosclerotic heart disease of native coronary artery without angina pectoris; I77.1 Stricture of artery; F17.210 Nicotine dependence, cigarettes, uncomplicated; I42.9 Cardiomyopathy, unspecified; I70.211 Atherosclerosis of native arteries of extremities with intermittent claudication, right leg; K21.9 Gastro-esophageal reflux disease without esophagitis; R94.31 Abnormal electrocardiogram [ECG] [EKG]; Z79.01 Long term (current) use of anticoagulants; Z79.899 Other long term (current) drug therapy
CPT/HCPCS: 37224; 85347; 99152; 99153; C1725; C1760; C1766; C1769; C1894; J1644; J2405; Q9966

== ENCOUNTER → 2020-09-30 10:13 | Outpatient (CLI) | payer BC, SELFPAY ==
--- NOTE | 2020-09-30 10:16 | XR_ITS ---
PROCEDURE: XR FOOT WT BEARING LT 3V CLINICAL INDICATION: Pain, pre-op eval COMPARISON: CR XR FOOT WT BEARING RT 3V from 08/24/2019 CR XR FOOT WT BEARING LT 3V from 08/24/2019 CR XR FOOT LT MIN 3V from 05/22/2020 XA CL BOLUS MAYRA UNILAT AORTA from 09/17/2020 FINDINGS: No acute fracture or dislocation. There is flexion deformity of the 2nd and 5th toe. There has been a prior total ankle replacement. Somewhat diffuse mottled appearance of the generalized bony structures suggesting osteopenia. S/p total ankle replacement IMPRESSION: No acute findings. Dictated by: Atul Manuel MD 09/30/2020 13:06 Atul Manuel MD in [place] 09/30/2020 13:06
== END ==
PROVIDERS: PCP Family Medicine; Visit Provider Podiatrist
DX: Z98.890 Other specified postprocedural states (principal)
CPT/HCPCS: 73630

== ENCOUNTER → 2020-10-04 13:08 | Outpatient (CLI) | payer BC, SELFPAY ==
--- NOTE | 2020-10-04 13:15 | XR_ITS ---
PROCEDURE: XR CHEST 2V CLINICAL HISTORY: HX OF HIGH BLOOD PRESSURE AND HEART STINTS COMPARISON: CR XR CHEST PORTABLE from 04/30/2020 FINDINGS: The cardiomediastinal silhouette and pulmonary vascularity are within normal limits. COPD changes with blebs in the apices. Coronary artery calcifications/stents noted. No lobar consolidation or collapse Degenerative changes thoracic spine IMPRESSION: COPD with biapical blebs. No acute finding Dictated by: Atul Manuel MD 10/04/2020 13:43 Atul Manuel MD in [place] 10/04/2020 13:43
== END ==
PROVIDERS: PCP Family Medicine; Visit Provider Podiatrist
DX: Z01.818 Encounter for other preprocedural examination (principal)
CPT/HCPCS: 71046

== ENCOUNTER → 2020-10-04 13:26 | Outpatient (CLI) | payer BC, SELFPAY ==
[2020-10-04 14:22] LABS: Basophils # 0.1 K/mm3 (0-0.2); Basophils % 0.8 % (0.1-2.0); Eosinophils # 0.1 K/mm3 (0.0-0.4); Eosinophils % 1.1 % (0.1-12.0); Hematocrit 44.9 % (42.0-52.0); Hemoglobin 15.2 g/dL (14.1-18.0); Lymphocytes # 2.5 K/mm3 (0.7-4.5); Lymphocytes % 32.5 % (10-50); Mean Corpuscular HGB Conc 33.8 g/dL (31.8-35.4); Mean Corpuscular Hemoglobin 33.3 pg (27.0-31.2); Mean Corpuscular Volume 98.4 fl (80-94); Mean Platelet Volume 7.9 fl (7.4-10.4); Monocytes # 0.3 K/mm3 (0.1-1.0); Monocytes % 4.5 % (1.7-9.3); Neutrophils # 4.7 K/mm3 (1.8-7.8); Neutrophils % 61.1 % (37.0-80.0); Platelet Count 259 K/mm3 (142-424); Red Blood Count 4.57 M/mm3 (4.60-6.20); Red Cell Distribution Width 14.4 % (11.5-17.5); White Blood Count 7.6 K/mm3 (4.8-10.8)
[2020-10-04 15:04] LABS: Alanine Aminotransferase 35 U/L (12-78); Albumin Level 4.5 g/dl (3.5-5.0); Albumin/Globulin Ratio 1.8 (1.1-1.8); Alkaline Phosphatase 82 U/L (38-126); Anion Gap 14.2 mEq/L (5-15); Aspartate Amino Transferase 35 U/L (17-59); Bilirubin,Total 0.7 mg/dl (0.2-1.3); Blood Urea Nitrogen 16 mg/dl (9-20); Calcium 9.3 mg/dl (8.4-10.2); Carbon Dioxide 25 mmol/L (22.0-30.0); Chloride 106 mmol/L (98-107); Estimated Glomerular Filt Rate 98 ml/min (>60); GFR (African American) 118 ML/MIN (>60); Globulin 2.5 g/dL (1.3-3.2); Glucose 186 mg/dl (74-100); Potassium 4.2 mmoL/L (3.5-5.1); Sodium 141 mmol/L (136-145)
[2020-10-04 15:22] LABS: 25-OH Vitamin D, Total 75.1 ng/mL (30-100)
== END ==
PROVIDERS: Visit Provider Podiatrist
DX: Z01.812 Encounter for preprocedural laboratory examination (principal)
CPT/HCPCS: 36415; 80053; 82306; 85025; 86850

== ENCOUNTER → 2020-10-14 09:54 | Outpatient (CLI) | payer BC, SELFPAY ==
--- NOTE | 2020-10-14 10:11 | XR_ITS ---
PROCEDURE: XR CALCANEUS LT MIN 2V CLINICAL INDICATION: pre-op views Follow-up surgery COMPARISON: CR XR FOOT WT BEARING LT 3V from 09/30/2020 FINDINGS: S/p ankle replacement at the tibial talar joint. The calcaneus has an unremarkable appearance. No acute fracture or dislocation. No lytic or blastic change. IMPRESSION: Status post ankle surgery. Unremarkable calcaneus Dictated by: Atul Manuel MD 10/14/2020 10:21 Atul Manuel MD in [place] 10/14/2020 10:21
== END ==
PROVIDERS: Visit Provider Podiatrist
DX: Z01.812 Encounter for preprocedural laboratory examination (principal); Z20.822 Contact with and (suspected) exposure to COVID-19; Q66.72 Congenital pes cavus, left foot; Q66.92 Congenital deformity of feet, unspecified, left foot
CPT/HCPCS: 73650; U0003

== ENCOUNTER 2020-10-16 06:15 | Day surgery (SDC) | payer BC, SELFPAY ==
[2020-10-14 15:11] VITALS: BMI 22.4
[2020-10-16] VITALS (12 sets, daily range): BP systolic 100–148; BP diastolic 49–78; PULSE 48–80; RESP 12–18; TEMP 36.2–43; O2SAT 91–99
--- NOTE | 2020-10-16 08:03 | P.PN_ITS ---
[facility] Anesthesia Checklist - Patient Identification Patient Identification: Arm Band - Structural Data Admitted From: Home Planned Operative Procedure/s: Left Pes Cavus Reconstruction Consent for Planned Operative Procedure(s) Verified: Yes Verified Documents: Surgical Consent, History and Physical - NPO Status Verified Time NPO: 00:00 - Additional verifications Anesthesia Reactions: Yes (ponv) Hx Blood Transfusions: No Blood Transfusion Reaction: No - Airway Assessment C-Spine Mobility Assessed: Yes (mp2) TMJ Mobility Assessed: Yes Dentition: Good Dentition - Neurological Assessment Level of Consciousness: Awake, Alert - Anesthesia Plan Anesthesia Risk discussed: Yes Anesthesia Plan: Verified ASA Class: III Anesthesia Type: General w/block (Popliteal/saphenous. Risk/benefit explained. 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 Denies: Blood Transfusion Reaction Anesthesia experience/problems:: PONV Laterality Cases: Right: Total Hip Replacement Other Surgeries: Yes: Angiogram, Appendectomy, Cardiac Catheterization, Colonoscopy, Coronary Stent. No: Pacemaker Amputation: No Fractures: No - *Social History Last grade of school completed: Advanced degree Smoking Status: Former smoker Tobacco Type: cigarettes # Packs/Day (cigarettes): 0 Smoking End Date: 11/2019 Alcohol Intake: current Alcohol Intake Frequency:: 0-2 drinks per day Substance Use Type: denies use *Occupational Status:: unemployed Housing: house Household Members: spouse *Travel in the last 8 weeks: None Family Hx:: Cancer, Hyperlipidemia, Hypertension
--- NOTE | 2020-10-16 12:29 | SUR.OPER ---
updated family at 0958 updated family at 1200
--- NOTE | 2020-10-16 13:46 | XR_ITS ---
PROCEDURE: XR CALCANEUS LT MIN 2V Left foot three views. Left ankle three views CLINICAL INDICATION: pacu post op Follow-up surgery COMPARISON: CR XR FOOT LT MIN 3V from 05/22/2020 CR XR CALCANEUS LT MIN 2V from 10/14/2020 CR XR ANKLE LT MIN 3V from 10/16/2020 CR XR FOOT LT 2V from 10/16/2020 CR XR FOOT LT MIN 3V from 10/16/2020 FINDINGS: There has been a prior ankle replacement at the tibial talar region similar to the previous exam. There has been interval osteotomy the mid aspect of the calcaneus with foreshortening of the calcaneus. There is mild proximal displacement of the posterior component of the calcaneus by approximately 5 mm. Two screws are present stabilizing the osteotomy site. There is an anchor screw in the lateral malleolar region. There has been interval osteotomy of the navicular distally and the proximal aspect of the cuneiforms with a medial bone plate at the navicular cuneiform joint medially. A lateral staple is present at the calcaneocuboid region. A screw is also present from the lateral cuboid region into the anterior aspect of the calcaneus. There is good alignment. Bone detail is obscured by overlying cast. There is also a staple along the proximal aspect the 1st metatarsal with osteotomy site at that level with good alignment C-arm images submitted in the AP position showing the bony hardware in place. IMPRESSION: Postsurgical changes of the foot and ankle as described above. Dictated by: Atul Manuel MD 10/16/2020 15:24 Atul Manuel MD in [place] 10/16/2020 15:24
--- NOTE | 2020-10-16 14:35 | HMH.ANESI ---
[facility] Anesthesia Record Part I Intake, IV Amount: 2,500 Estimated blood loss (mL): 150 Urine output (mL): 1,000 Blood Pressure: 123/74 SaO2: 95 Pulse Rate: 79 Respiratory Rate: 12 Temperature: 98.2 F Patient is:: Awake, Stable Stable to PACU at:: 14:30
--- NOTE | 2020-10-16 15:05 | HMH.OPNOTE ---
Date of procedure: 10/16/20 Pre-op Diagnosis:: 1. Left pes cavus 2. Congenital deformity of left foot 3. Peroneal tendinitis, left leg 4. Left foot osteoarthritis 5. Acquired hammertoe of left foot 6. Tendon contracture 7. Left foot pain 8. History of total replacement of left ankle Post-op Diagnosis:: Same Procedure performed:: 1. Left lateral calcaneal osteotomy 2. Left peroneal tendon debridement, tenosynovectomy 3. Left DFWO 4. Left Domenic midfoot osteotomy 5. Left calcaneal cuboid arthrodesis 6. Repair left hammertoes 2-5 (flexor tenotomy, PIPJ tenotomy, extensor tendon lengthening) 7. Left Steindler Stripping/plantar fascia release 8. Left posterior tibial tendon lengthening 9. Autograft bone harvest 10. Application of graft (amniotic) 11. Application of posterior splint Surgeon:: Anitra Cook DPM Teacher Advisor(s):: Natalie Welch VIDEO TAPE TRANSFERRER:: Vince Corrigan Anesthesia: GETA, regional (left popliteal block) Estimated blood loss (mL): 50 Clinical Note:: Patient had surgery on 05/22/20, S/p Left total ankle replacement/arthroplasty, peroneal tendon debridement and repair, peroneus brevis to longus anastomosis, modified Brostrum ankle ligament stabilization, ankle synovectomy, tendo Achilles lengthening, application of graft, application of posterior splint. I explained to the patient that the ankle alignment is now neutral however there is some residual foot varus and hammertoes. Patient has pain to left lateral foot. We discussed proceeding with staged second surgery to address residual cavus deformity and hammertoes. Conservative care has been exhausted and this is a stage second surgery to address the forefoot varus deformity. The patient has been instructed on the planned procedure, all risk versus benefits of the procedure discussed. These include but are not limited to: bleeding, infection, nerve and blood vessel damage, need for further surgery, delay in healing of soft tissue or bone, failure of bones to heal, non-union, mal-union, failure of the implant, prolonged pain and recovery, CRPS/RSD, DVT and anesthetic complications. No guarantees were given. All questions fully answered. The patient verbalized understanding and agreed to proceed with surgery. Written consent was obtained. Discussed 23 hr observation if needed. But ok to do outpatient if stable during surgery. Necessary labs and pre-op testing ordered: CBC, CMP, covid. Patient will need medical clearance. Cardiac clearance granted 09/30/20. Has DME. Operative findings:: Prior left total ankle replacement to left, alignment neutral. There is calcaneal varus noted. Pes cavus with lateral foot off loading. Calcaneus bone soft and crumby when performing lateral calc slide osteotomy. Midfoot osteotomy performed to derotate midfoot deformity. Dorsal wedge from navicular and cuneiform extending to the cuboid. Bone soft and fragmented when trying to fixate with shilpa. The cuboid fragmented so decision made to perform calcaneal cuboid arthrodesis. Tenosynovitis around peroneal and posterior tibial tendons. Toes semi reducible and contracture improved with soft tissue releases. Operative note:: On this date and time patient was deemed an appropriate surgical candidate. With informed consent signed, the patient was taken to the operating theater after left popliteal block by anesthesia. The patient was positioned supine. General anesthesia was induced. IV Ancef given. Tourniquet was applied to the left thigh. Left Steindler Stripping/plantar fascia release: The left lower extremity was prepped and draped in normal sterile fashion. The tourniquet was not inflated for this procedure. An incision was mapped out over the plantar aspect of the left heel off the weightbearing surface. Utilizing a 15 blade incision was made longitudinal. Dissection was carried down full-thickness to the level of the plantar fascia. Utilizing a 15 blade and Crystal scissors the plantar fraction show was transected. The deep fas
--- NOTE | 2020-10-16 15:06 | SUR.PHASEI ---
1505- Rad at bedside- xrays done per Dr Cook order. Pt tolerated well. Dr Cook at bedside. pt has no c/o currently. l.King ZENG
--- NOTE | 2020-10-17 07:37 | P.PN_ITS ---
[facility] Anesthesia Record Part II Discharge Time: 15:19 Destination: Surgical Day Care (OP Surgery) PACU nurse assessment reviewed?: Yes Patient Condition:: Good Anesthesia Complications:: None Swallowing reflex intact?: Yes Cyanosis?: No Blood Pressure: 100/52 Pulse Rate: 75 Temperature: 97.8 F Mental Status: Alert & Oriented Pain level:: 0 Nausea and/or vomitting:: None Intake, IV Amount: 0
[2020-10-17 07:38] VITALS: BP 100/52; PULSE 75; TEMP 36.6
[2020-10-17 09:21] LABS: Microscopic,Cath URINE MICROSCOPIC (MICROSCOPIC)
[2020-10-17 09:29] LABS: Appearance,Urine/Cath CLEAR (Clear); Bilirubin,Cath Negative (Negative); Blood, Urine/Cath Negative (Negative); Color,Urine/Cath YELLOW (Yellow); Glucose,Urine/Cath (UA) Negative (Negative); Ketones,Urine/Cath Negative (Negative); Leukocyte Esterase,Cath Negative (Negative); Nitrate,Cath Negative (Negative); Protein,Urine/Cath Negative (Negative); Urobilinogen,Cath 0.2 EU/dl (0.2)
[2020-10-17 09:42] LABS: RBC,Urine/Cath Occasional # /hpf (0-3); Squamous Epithelial Ur./Cath Occasional #/hpf (0-5)
== END 2020-10-16 15:55 | disposition home or self-care (01) ==
LOC: OR 06:18
PROVIDERS: PCP Family Medicine; Visit Provider Podiatrist
PROC: (CPT 28300; principal; 2020-10-16 08:30)
DX: M20.42 Other hammer toe(s) (acquired), left foot (principal); M62.472 Contracture of muscle, left ankle and foot; M66.372 Spontaneous rupture of flexor tendons, left ankle and foot; M76.72 Peroneal tendinitis, left leg; M19.072 Primary osteoarthritis, left ankle and foot; M21.6X2 Other acquired deformities of left foot; M25.372 Other instability, left ankle; Q66.72 Congenital pes cavus, left foot; Z79.01 Long term (current) use of anticoagulants; Z96.662 Presence of left artificial ankle joint; J44.9 Chronic obstructive pulmonary disease, unspecified; I25.10 Atherosclerotic heart disease of native coronary artery without angina pectoris; I10 Essential (primary) hypertension; Z87.891 Personal history of nicotine dependence; K21.9 Gastro-esophageal reflux disease without esophagitis; Z88.2 Allergy status to sulfonamides; Z88.8 Allergy status to other drugs, medicaments and biological substances; Z79.899 Other long term (current) drug therapy
CPT/HCPCS: 28300; 28250; 27658; 28306; 28285 ×4; 15275; 73610; 73620; 73630; 73650; 76000; 81001; C1713; C1762; C1776; Q4211

== ENCOUNTER → 2020-10-31 17:11 | Outpatient (CLI) | payer BC, SELFPAY | PROVIDERS: Visit Provider Podiatrist | DX: T81.31XA Disruption of external operation (surgical) wound, not elsewhere classified, initial encounter (principal) | CPT/HCPCS: 87070; 87077; 87186; 87205 ==

== ENCOUNTER → 2020-11-06 16:28 | Outpatient (CLI) | payer BC, SELFPAY ==
--- NOTE | 2020-11-06 16:41 | XR_ITS ---
PROCEDURE: XR ANKLE WT BEARING LT MIN 3V CLINICAL INDICATION: postop COMPARISON: CR XR FOOT LT MIN 3V from 05/22/2020 CR XR ANKLE WT BEARING LT MIN 3V from 07/01/2020 CR XR ANKLE WT BEARING LT MIN 3V from 08/05/2020 CR XR ANKLE WT BEARING RT MIN 3V from 08/05/2020 CR XR FOOT LT MIN 3V from 10/16/2020 CR XR FOOT LT 2V from 10/16/2020 CR XR ANKLE LT MIN 3V from 10/16/2020 CR XR FOOT WT BEARING LT 3V from 11/06/2020 FINDINGS: The cast has been removed. Status post tibiotalar joint replacement. Status post posterior and midfoot fusion as previously described. Bony hardware appears intact.. There is some obscuration of the overlying soft tissues and bones from either soft tissue calcification or overlying dissolving antibiotic beads. There is generalized osteopenia. There is superior displacement of the medial cuneiform at the navicular cuneiform joint by 6 mm. There is inferior displacement of the calcaneal anterior osteotomy segment by 8 mm. Status post osteotomy at the proximal shaft of the 1st metatarsal with developing callus formation. IMPRESSION: Postsurgical changes as described above. Dictated by: Atul Manuel MD 11/07/2020 12:04 Atul Manuel MD in [place] 11/07/2020 12:04
[2020-11-06 17:01] LABS: Basophils # 0.1 K/mm3 (0-0.2); Basophils % 1.1 % (0.1-2.0); Eosinophils # 0.4 K/mm3 (0.0-0.4); Eosinophils % 5.3 % (0.1-12.0); Hematocrit 38.1 % (42.0-52.0); Hemoglobin 12.8 g/dL (14.1-18.0); Lymphocytes # 1.7 K/mm3 (0.7-4.5); Lymphocytes % 24.4 % (10-50); Mean Corpuscular HGB Conc 33.6 g/dL (31.8-35.4); Mean Corpuscular Hemoglobin 33.9 pg (27.0-31.2); Mean Platelet Volume 7.7 fl (7.4-10.4); Monocytes # 0.5 K/mm3 (0.1-1.0); Monocytes % 6.8 % (1.7-9.3); Neutrophils # 4.3 K/mm3 (1.8-7.8); Neutrophils % 62.4 % (37.0-80.0); Platelet Count 393 K/mm3 (142-424); Red Blood Count 3.77 M/mm3 (4.60-6.20); Red Cell Distribution Width 12.5 % (11.5-17.5); White Blood Count 6.8 K/mm3 (4.8-10.8)
[2020-11-06 17:19] LABS: Chloride 106 mmol/L (98-107); Potassium 4.1 mmoL/L (3.5-5.1); Sodium 142 mmol/L (136-145)
[2020-11-06 17:21] LABS: Alanine Aminotransferase 18 U/L (12-78); Aspartate Amino Transferase 25 U/L (17-59); Blood Urea Nitrogen 10 mg/dl (9-20); Estimated Glomerular Filt Rate 98 ml/min (>60); GFR (African American) 118 ML/MIN (>60)
[2020-11-06 17:22] LABS: Albumin Level 3.4 g/dl (3.5-5.0); Albumin/Globulin Ratio 1.4 (1.1-1.8); Alkaline Phosphatase 111 U/L (38-126); Anion Gap 13.1 mEq/L (5-15); Bilirubin,Total 0.2 mg/dl (0.2-1.3); Calcium 8.7 mg/dl (8.4-10.2); Carbon Dioxide 27 mmol/L (22.0-30.0); Globulin 2.5 g/dL (1.3-3.2); Glucose 111 mg/dl (74-100); Total Protein,Serum 5.9 g/dl (6.3-8.2)
[2020-11-06 17:27] LABS: C-Reactive Protein 10.1 mg/L (0-4)
[2020-11-06 18:43] LABS: Erythrocyte Sedimentation Rate 37 mm/hr (0-20)
== END ==
PROVIDERS: Visit Provider Podiatrist
DX: Z98.890 Other specified postprocedural states (principal)
CPT/HCPCS: 36415; 73610; 73630; 80053; 85025; 85651; 86140

== ENCOUNTER → 2020-11-12 09:13 | Outpatient (CLI) | payer BC, SELFPAY ==
[2020-11-12 09:38] LABS: Basophils # 0.1 K/mm3 (0-0.2); Basophils % 0.9 % (0.1-2.0); Eosinophils # 0.3 K/mm3 (0.0-0.4); Hematocrit 44.2 % (42.0-52.0); Hemoglobin 13.8 g/dL (14.1-18.0); Lymphocytes % 28.9 % (10-50); Mean Corpuscular HGB Conc 31.3 g/dL (31.8-35.4); Mean Corpuscular Hemoglobin 32.7 pg (27.0-31.2); Mean Corpuscular Volume 104.7 fl (80-94); Mean Platelet Volume 7.3 fl (7.4-10.4); Monocytes # 0.4 K/mm3 (0.1-1.0); Monocytes % 5.4 % (1.7-9.3); Neutrophils # 4.2 K/mm3 (1.8-7.8); Neutrophils % 60.8 % (37.0-80.0); Platelet Count 392 K/mm3 (142-424); Red Blood Count 4.22 M/mm3 (4.60-6.20); Red Cell Distribution Width 12.1 % (11.5-17.5); White Blood Count 6.9 K/mm3 (4.8-10.8)
[2020-11-12 10:05] LABS: Chloride 106 mmol/L (98-107)
[2020-11-12 10:06] LABS: Potassium 4.1 mmoL/L (3.5-5.1); Sodium 140 mmol/L (136-145)
[2020-11-12 10:08] LABS: Alanine Aminotransferase 24 U/L (12-78); Aspartate Amino Transferase 28 U/L (17-59); Blood Urea Nitrogen 16 mg/dl (9-20); Estimated Glomerular Filt Rate 75 ml/min (>60); GFR (African American) 91 ML/MIN (>60)
[2020-11-12 10:09] LABS: Albumin Level 3.6 g/dl (3.5-5.0); Albumin/Globulin Ratio 1.3 (1.1-1.8); Alkaline Phosphatase 106 U/L (38-126); Anion Gap 13.1 mEq/L (5-15); Bilirubin,Total 0.4 mg/dl (0.2-1.3); Carbon Dioxide 25 mmol/L (22.0-30.0); Globulin 2.7 g/dL (1.3-3.2); Glucose 177 mg/dl (74-100); Total Protein,Serum 6.3 g/dl (6.3-8.2)
[2020-11-12 10:14] LABS: C-Reactive Protein 1.5 mg/L (0-4)
[2020-11-12 10:33] LABS: Erythrocyte Sedimentation Rate 26 mm/hr (0-20)
== END ==
PROVIDERS: Visit Provider Podiatrist
DX: Z01.812 Encounter for preprocedural laboratory examination (principal); Z20.822 Contact with and (suspected) exposure to COVID-19; S91.002A Unspecified open wound, left ankle, initial encounter
CPT/HCPCS: 36415; 80053; 85025; 85651; 86140; C9803; U0003; U0005

== ENCOUNTER 2020-11-14 12:26 | Day surgery (SDC) | payer BC, SELFPAY ==
[2020-11-12 11:54] VITALS: BMI 21.8
[2020-11-14 12:44] VITALS: BP 144/86; PULSE 62; RESP 20; TEMP 36.6; O2SAT 98
--- NOTE | 2020-11-14 13:39 | HMH.ANESCL ---
[facility] Anesthesia Checklist - Patient Identification Patient Identification: Arm Band - Structural Data Admitted From: Home Planned Operative Procedure/s: Left Foot Wound Debridement, Wound Vac Placement Consent for Planned Operative Procedure(s) Verified: Yes Verified Documents: Surgical Consent, History and Physical - NPO Status Verified Time NPO: 00:00 - Additional verifications Anesthesia Reactions: No Hx Blood Transfusions: No Blood Transfusion Reaction: No - Airway Assessment C-Spine Mobility Assessed: Yes (mp2) TMJ Mobility Assessed: Yes Dentition: Good Dentition - Neurological Assessment Level of Consciousness: Awake, Alert - Anesthesia Plan Anesthesia Risk discussed: Yes Anesthesia Plan: Verified ASA Class: III Anesthesia Type: MAC w/Block [facility] History I have reviewed the patient's past medical history: Yes Medical History: Reports:: Anxiety, Chronic Obstructive Pulmonary Disease (COPD), Coronary Artery Disease, Gastroesophageal Reflux Disease(GERD), Hyperlipidemia, Hypertension, Peripheral Artery Disease Denies:: Cancer, Diabetes Mellitus Type 1, Diabetes Mellitus Type 2, Internal Pacemaker, Lung Disease, MRSA, Seizures *Have you ever received a pneumonia vaccine?: No *Have you received a flu vaccine this season?: Yes Other Medical History: Reports: Arthritis. Denies: Blood Transfusion Reaction Anesthesia experience/problems:: nac Laterality Cases: Right: Total Hip Replacement, Other Other Surgeries: Yes: Angiogram, Appendectomy, Cardiac Catheterization, Colonoscopy, Coronary Stent. No: Pacemaker Amputation: No Fractures: No - *Social History Last grade of school completed: Advanced degree Smoking Status: Former smoker Tobacco Type: cigarettes # Packs/Day (cigarettes): 1 #Yrs smoked (if former smoker): 1 Alcohol Intake: current Alcohol Intake Frequency:: a few times a week Substance Use Type: denies use *Occupational Status:: unemployed Housing: house Household Members: spouse *Travel in the last 8 weeks: None - Psychiatric History Pschychiatric History:: Reports:: Anxiety Family Hx:: Cancer
[2020-11-14 14:03] VITALS: TEMP 43
[2020-11-14 14:48] VITALS: BP 99/62; PULSE 59; RESP 18; TEMP 36.4; O2SAT 94
--- NOTE | 2020-11-14 14:50 | HMH.OPNOTE ---
Date of procedure: 11/14/20 Pre-op Diagnosis:: 1. Left foot lateral wound 2. Left foot medial wound 3. Status post foot surgery Z98.890 4. Unspecified open wound, left ankle, subsequent encounter S91.002D 5. Postoperative cellulitis of surgical wound T81.49XA 6. Postoperative wound dehiscence, subsequent encounter T81.31XD 7. Postoperative edema R60.9 Post-op Diagnosis:: Same Procedure performed:: 1. Left medial foot wound debridement 2. Left lateral foot wound debridement 3. Left foot delayed primary closure 4. Left foot application of wound vac Surgeon:: Anitra Cook DPM SUPERVISOR CLEANING AND ANNEALING:: Zackery Patel Anesthesia: MAC, regional (left popliteal block) Estimated blood loss (mL): 10 Clinical Note:: New images were discussed with the patient. We discussed conservative versus surgical treatment options. We discussed conservative care including continued oral vs IV antibiotics and local wound care versus surgical incision and drainage. Patient understands that they could have wound healing complications including delayed healing and infection. We discussed that if the wound does not heal, it is possible that they may need further debridement. Patient understands if infection spreads into the bone, it may warrant proximal amputation and could result in further loss of digits, loss of partial foot or loss of leg. We discussed the risks and benefits in great detail. Other surgical risks include: prolonged pain and swelling, further infection requiring oral or IV antibiotics, delay in healing of soft tissue or bone, nerve or blood vessel damage, CRPS/RSD, DVT, anesthesia complications, and even . All questions answered. Patient verbalized understanding. Consent obtained. Operative findings:: The left foot had a small medial wound and a lateral incisional wound dehiscence. Pre debridememt, left lateral incision: 6.0 x 1.8 x 0.4cm, 70% brown eschar, 20% yellow fibrotic, 10% granular. Central area at apex of incision that probes into subq 0.4cm. Medial left foot incision: 0.8 x 0.8 x 0.2cm, 60% yellow fibrotic, 40% granular. Both wounds were sharply excisionally debrided with a 15 blade, forceps and curette. The medial wound post debridement sharply excisionally was 100% granular with bleeding edges noted thru skin, into subq. The medial wound measured 1 x 1.2 x 0.1 cm. No purulence malodor or drainage noted. Medial wound closed with suture. The left lateral foot wound, secondary to wound dehiscence was sharply excisionally debrided full thickness thru skin, subcutaneous tissue into deep fascia. It did not extend to bone. No exposed hardware. Post debridement wound was 70% granular with bleeding edges, 30% fibrotic, no black eschar remaining. It measured 6.2 x 1.8 x 0.4 cm. The proximal aspect of the wound edges were able to be reapproximated with a delayed primary closure sutures. The remaining wound, which the VAC was applied over was 3.2x1.6 x0.4 cm. Operative note:: On this date and time patient was deemed an appropriate surgical candidate. With informed consent signed, the patient was taken to the operating theater room after regional popliteal nerve block by anesthesia. The patient was positioned supine. MAC anesthesia was induced. No tourniquet used. The left extremity was prepped and draped in normal sterile fashion. Left wound debridement x2: Attention was directed to the medial aspect of the left foot where an ulcer was noted. The wound was sharply excisionally debrided through skin and the subcutaneous tissue with a 15 blade, forceps and curette. No purulence malodor or signs of infection noted. Post debridement wound was 100% granular. See operative findings for measurements. The left lateral ulcer was also sharply debrided with 15 blade, forceps and curette full-thickness through skin subcutaneous tissue, and deep fascia. It did not extend to the bone. No exposed hardware. Some serous drainage, wound culture taken. No jarret purulence noted. Post
[2020-11-14 15:03] VITALS: BP 125/81; PULSE 56; RESP 16; O2SAT 96
[2020-11-14 15:22] VITALS: BP 126/77; PULSE 58; RESP 16; TEMP 36.7; O2SAT 97
== END 2020-11-14 15:25 | disposition home or self-care (01) ==
LOC: OR 12:27
PROVIDERS: PCP Family Medicine; Visit Provider Podiatrist
PROC: (CPT 11043; principal; 2020-11-14 13:45)
DX: T81.31XA Disruption of external operation (surgical) wound, not elsewhere classified, initial encounter (principal); T81.49XA Infection following a procedure, other surgical site, initial encounter; Z96.662 Presence of left artificial ankle joint; Z95.820 Peripheral vascular angioplasty status with implants and grafts; Z79.01 Long term (current) use of anticoagulants; Z79.899 Other long term (current) drug therapy; I10 Essential (primary) hypertension; I25.10 Atherosclerotic heart disease of native coronary artery without angina pectoris
CPT/HCPCS: 11043; 87070; 87075; 87077; 87186; 87205; 96374; J3370

== ENCOUNTER → 2020-11-28 13:09 | Outpatient (CLI) | payer BC, SELFPAY ==
--- NOTE | 2020-11-28 13:18 | XR_ITS ---
PROCEDURE: XR FOOT WT BEARING LT 3V XR ankle weight-bearing left three views CLINICAL INDICATION: post-op COMPARISON: CR XR FOOT WT BEARING LT 3V from 09/30/2020 CR XR FOOT LT 2V from 10/16/2020 CR XR FOOT LT MIN 3V from 10/16/2020 CR XR FOOT WT BEARING LT 3V from 11/06/2020 CR XR ANKLE WT BEARING LT MIN 3V from 11/28/2020 FINDINGS: Extensive post surgical changes present as previously described not significantly changed. The skin clips have been removed. Decreased soft tissue swelling noted. No change in the bony alignment. Status post tibiotalar joint replacement with good alignment. Status post osteotomy proximal aspect 1st metatarsal with good alignment. Residual hyperdensity noted along the medial and lateral aspect of the foot and may be related to residual from antibiotic beads or heterotopic ossification. IMPRESSION: No change status post tibial talar joint replacement and fusion of the midfoot and hindfoot as previously described. No orthopedic hardware malfunction. Decreased soft tissue swelling Dictated by: Atul Manuel MD 11/28/2020 14:13 Atul Manuel MD in [place] 11/28/2020 14:13
== END ==
PROVIDERS: PCP Family Medicine; Visit Provider Podiatrist
DX: Z98.890 Other specified postprocedural states (principal)
CPT/HCPCS: 73610; 73630

== ENCOUNTER → 2020-12-18 12:13 | Outpatient (CLI) | payer BC, SELFPAY ==
--- NOTE | 2020-12-18 12:16 | XR_ITS ---
PROCEDURE: XR ANKLE WT BEARING LT MIN 3V XR FOOT WEIGHT-BEARING LEFT MINIMUM THREE VIEWS CLINICAL INDICATION: post-op COMPARISON: CR XR FOOT WT BEARING LT 3V from 11/28/2020 CR XR FOOT WT BEARING LT 3V from 12/18/2020 FINDINGS: Left ankle: No change tibiotalar joint replacement with good alignment and fibular anchor screw. Osteoarthritic changes are present at the talofibular junction. Left foot: Prior calcaneal osteotomy with fusion. There is incomplete fusion along the inferior aspect the calcaneus. Status post osteotomy proximal aspect of 1st metatarsal with some minimal periosteal calcification laterally. Not significantly changed. Prior navicular cuneiform fusion medially unchanged. There is 6 mm anterior subluxation of the 1st cuneiform at the navicular cuneiform joint. There is flattening of the navicular. S/p calcaneal cuboid fixation with the staple and a screw. IMPRESSION: Postsurgical changes. No change with no evidence of hardware malfunction. Dictated by: Atul Manuel MD 12/18/2020 17:23 Atul Manuel MD in [place] 12/18/2020 17:23
== END ==
PROVIDERS: PCP Family Medicine; Visit Provider Podiatrist
DX: M20.42 Other hammer toe(s) (acquired), left foot (principal); S91.002D Unspecified open wound, left ankle, subsequent encounter; T81.31XD Disruption of external operation (surgical) wound, not elsewhere classified, subsequent encounter; Z98.890 Other specified postprocedural states
CPT/HCPCS: 73610; 73630

== ENCOUNTER 2020-12-27 09:00 | Outpatient (RCR) | payer BC, SELFPAY ==
--- NOTE | 2020-11-18 15:08 | HMH.PTOPWND ---
Rehab Outpt Wound Evaluation Rehab OP Wound Evaluation Start: 11/18/20 14:11 Freq: Status: Active Protocol: Document 11/18/20 15:00 SUMAN (Rec: 11/18/20 15:08 PHOTAI [id number]) Electronically Signed By Sukhdev Harper, PT 11/18/20 15:00 Subjective/History History History Pt is 64 yowm who presents with L ankle wounds S/P L ankle surgery with wound I&D ~ 1 wk ago. He presents for VAC dressing change and wound care as needed. He reports limited discomfort and pain at this time. He also reports he is doing his best to maintain NWB on the L LE. Subjective Subjective Pt with no c/o this date with wound, but does c/o about constant problems with VAC pump, that thing just beeps all the time! Wound Eval Wound Left Lateral Ankle Wound Type Incision Is This a Chronic Wound No Wound Length (cm) 2.4 Wound Width (cm) 7.0 Number of Sutures 9 Number of Sutures Removed 0 Wound Bed Appearance Beefy Red Percentage Granulated (%) 100 Wound Margins Description Well Defined Drainage Description Serosanguineous Drainage Amount Scant Drainage Odor No Odor Dressing Status Changed Wound Topical Solution/Irrigant Saline Irrigant Packing Type Woundvac Sponge Primary Dressing Transparent Drape Wound Secondary Dressing Type Gauze Roll/Wrap,Elastic Bandage Wound Debridement Method Gauze Wound Debridement Amount of Tissue None Removed Dressing Change Patient Tolerance Tolerated Well Wound Problems/Impairments Impairments Problems/Impairmments Palpation Tenderness,Impaired Walking,Impaired Standing, Impaired Recreational Activities,Increased Edema, Wound Care Needs,Subjective C/ O Pain,Impaired Self Care/Self Management Prognosis Rehab Potential Good Clinical Impression Consistent with Diagnosis Yes Short Term Goals Number of Weeks 4 Decrease Wound Area Yes: by 50% Ui Programmer Goals Number of Weeks 8 Decrease Wound Area Yes: by 100% Patient to be
== END 2020-12-27 09:05 | disposition home or self-care (01) ==
LOC: PT 09:00
PROVIDERS: PCP Family Medicine; Visit Provider Podiatrist
DX: T81.31XA Disruption of external operation (surgical) wound, not elsewhere classified, initial encounter (principal); T81.49XA Infection following a procedure, other surgical site, initial encounter; S91.002D Unspecified open wound, left ankle, subsequent encounter
CPT/HCPCS: 97162; 97597; 97605

== ENCOUNTER → 2021-01-02 14:25 | Outpatient (POV) | payer BC, SELFPAY ==
[2021-01-02 14:57] VITALS: BP 147/88; PULSE 52; RESP 18; O2SAT 96; BMI 22.1
--- NOTE | 2021-01-02 15:33 | HMH.PAINSOAP ---
[facility] Pain Management SOAP Note Subjective:: Patient is a 65-year-old white female who presents today for follow-up. We are treating the patient for bilateral ankle pain. He does see Dr. Cook and is scheduled to undergo surgical intervention to his right ankle. He has had surgery to his right ankle in the past in [place] with complications. Dr. Cook will be doing a revision to this area. He has also had procedure done to the left ankle. Patient has taken pregabalin in the past and does not feel he gets any significant relief. He does feel that gabapentin dosing that was given him not our clinic at 300 mg 1 tablet p.o. 3 times daily is what is giving him the most relief. He has recently been started on Cymbalta which caused him to have severe nausea, lethargy. He did stop the medication. He was subsequently started on Prozac which also cause the same symptoms. He will discuss possible Elavil with his first doctor who is prescribing the medication. He is continuing to do physical therapy daily and will start water aerobics in 1 week. He does rate his pain at 3 out of 10 with sitting and as 6 or 7 out of 10 intermittently for pain that he describes as electrical TENS-like shocking sensation to his ankles. Review of Systems General: No recent weight changes, no fever, no sleep disturbances Respiratory: No cough, no shortness of air, no recurring pulmonary infections Cardiovascular/peripheral vascular: No chest pain, no palpitations, no edema, no shortness of breath Gastrointestinal: No new onset incontinence, normal bowel movements reported Genitourinary: No new onset incontinence Musculoskeletal: Bilateral ankle pain Psychiatric: [Normal mood/affect] Neurological: [Denies weakness in extremities], [denies balance issues] Objective:: Physical exam General: Alert and oriented x3, no acute distress, pleasant and cooperative Lungs: Respirations even and unlabored, symmetrical chest expansion Eyes: PERRL Musculoskeletal: Flexion and extension of bilateral feet somewhat guarded secondary to pain, [slightly antalgic gait noted Assessment:: Chronic pain syndrome, bilateral ankle pain Plan:: We will continue patient on gabapentin 3 mg 1 tablet p.o. 3 times daily. He does understand he will need to stop his Lyrica. We will see the patient back at the next intrathecal refill. Patient has been instructed to contact clinic if any questions or concerns before the next appointment. Dr. Wolf has reviewed this note and agrees with this plan of care. This note was dictated using voice recognition software and make contain errors or omissions. Continue patient with physical therapy and he will start water aerobics in 1 week. We will give the patient 3-month medication see him back in the clinic in 3 months. Risks and benefits of the medication have been explained in detail to the patient. If side effects do present with the medication, patient has been advised to stop the medication immediately and call the clinic. The patient has been advised to consult with his/her primary care provider and pharmacist regarding drug-drug interaction of medications currently prescribed. Patient has been instructed to contact the clinic with any concerns before the next appointment. Dr. Wolf has reviewed this note and agrees with this plan of care. This note was dictated using voice recognition software and make contain errors or omissions. 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
== END ==
PROVIDERS: Visit Provider Clinical Nurse Specialist Family Health
DX: G89.4 Chronic pain syndrome (principal); M25.572 Pain in left ankle and joints of left foot; M25.571 Pain in right ankle and joints of right foot
CPT/HCPCS: 99212; G0463

== ENCOUNTER → 2021-01-27 11:38 | Outpatient (POV) | payer BC, SELFPAY ==
[2021-01-27 11:48] VITALS: BP 187/79; PULSE 66; RESP 20; TEMP 36.8; O2SAT 95; BMI 22.1
--- NOTE | 2021-01-27 12:03 | HMH.PAINSOAP ---
[facility] Pain Management SOAP Note Subjective:: All the time patient is a 65-year-old white male who presents today for follow-up. We are seeing the patient for low back pain with bilateral foot pain. He has seen Dr. Cook and has had surgical intervention to his ankles. We managed patient with gabapentin 300 mg 1 tablet p.o. 3 times daily. He did try Cymbalta with his primary care provider with minimal relief. He is now on Prozac. We also discussed Elavil in the past, however, the patient is very sensitive to medications. He was started on [place] by Dr. Cook. He did come to the clinic this previous week requesting refills on the medication. Patient was advised by the clinic staff that we did not prescribe the medication. Patient says gabapentin has not been helping him. His pain is an 8 or 9 out of 10. He is continuing with aerobics therapy as well as physical therapy with minimal relief. He does say that he is not getting any relief with gabapentin and no longer has [place]. He does say he had a nurse friend that advised him to take Aleve. Patient is on anticoagulation therapy. He is having low back pain with bilateral foot pain with standing and walking. Review of Systems General: No recent weight changes, no fever, no sleep disturbances Respiratory: No cough, no shortness of air, no recurring pulmonary infections Cardiovascular/peripheral vascular: No chest pain, no palpitations, no edema, no shortness of breath Gastrointestinal: No new onset incontinence, normal bowel movements reported Genitourinary: No new onset incontinence Musculoskeletal: Low back pain with bilateral foot pain Psychiatric: [Normal mood/affect] Neurological: [Denies weakness in extremities], [denies balance issues] Objective:: Physical exam General: Alert and oriented x3, no acute distress, pleasant and cooperative Lungs: Respirations even and unlabored, symmetrical chest expansion Eyes: PERRL Musculoskeletal: Flexion and extension of lumbar [spine] somewhat guarded secondary to pain, [antalgic gait noted] Neurological: Speech clear, no gross sensory deficit Assessment:: Chronic pain syndrome, bilateral ankle pain Plan:: Patient and I had a long discussion concerning his medications. He has been advised that we cannot start him on [place]. He does not feel gabapentin is giving him much relief. He has been advised if he does not feel the medication is working we will be happy to wean him on the medication. We will start him on tramadol 50 mg 1 tablet p.o. 3 times daily. If this does not give the patient relief, he will likely need to discuss further options with Dr. Wolf. We have discussed spinal cord stimulation, but the patient has deferred on any implanted devices. After further discussion he would like to continue the gabapentin for now. We will continue his gabapentin 300 g 1 tablet p.o. 3 times daily and tramadol 50 mg 1 tablet p.o. 3 times daily. We will see the patient back in the clinic in 2 weeks for further evaluation. Risks and benefits of the medication have been explained in detail to the patient. The patient does understand the risk of dependence on the medication when given over a prolonged period. Patient has been advised of risks of oversedation with the prescribed medication. Narcan has been offered to the paitent in the event of oversedation. Patient has been advised that a family member should also be educated regarding administration of Narcan. The patient has been advised to consult with his/her primary care provider and pharmacist regarding drug-drug interaction of medications currently prescribed. Patient has been prescribed a controlled substance after being counseled on the medication, medication safety, and possible side effects. LEI report has been obtained and reviewed prior to prescription and found to be appropriate. Opioid contract was reviewed and signed by the patient, and that they blancas
== END ==
PROVIDERS: Visit Provider Clinical Nurse Specialist Family Health
DX: G89.4 Chronic pain syndrome (principal); M25.572 Pain in left ankle and joints of left foot; M25.571 Pain in right ankle and joints of right foot
CPT/HCPCS: 99212; G0463

== ENCOUNTER → 2021-02-07 11:45 | Outpatient (POV) | payer BC, SELFPAY ==
[2021-02-07 12:10] VITALS: BP 165/81; PULSE 53; RESP 20; TEMP 36.5; O2SAT 97; BMI 22.1
--- NOTE | 2021-02-07 12:11 | P.CONS_ITS ---
[facility] Pain Management SOAP Note Subjective:: This patient is a pleasant 65-year-old white male who we are treating for bilateral foot pain. He has complex regional pain syndrome type I symptoms of both feet. He has had multiple surgical procedures to both feet. Currently he is on gabapentin 300 mg 3 times a day and tramadol with minimal pain relief. He is very sensitive to medications. Previously he was on Celebrex which helped him tremendously. I have talked to him about diclofenac 75 mg twice a day. I do believe this would help him we will plan on prescribing diclofenac 75 mg twice a day to help with his arthritic pain type symptoms and CRPS symptoms of both feet. Objective:: Alert and oriented x3 no acute distress. Patient does have decreased range of motion of both feet. There are some swelling and some redness. Assessment:: Bilateral foot pain with degenerative osteoarthritis and complex regional pain syndrome type I symptoms Plan:: We will start him on diclofenac 75 mg twice a day to help with his pain symptoms of both feet. We will follow-up with him in 1 month. He is to continue with his gabapentin and tramadol. [facility] History Medical History: Reports:: Anxiety, Chronic Obstructive Pulmonary Disease (COPD), Coronary Artery Disease, Gastroesophageal Reflux Disease(GERD), Hyperlipidemia, Hypertension, Peripheral Artery Disease Denies:: Cancer, Diabetes Mellitus Type 1, Diabetes Mellitus Type 2, Internal Pacemaker, Lung Disease, MRSA, Seizures *Have you ever received a pneumonia vaccine?: Yes *Have you received a flu vaccine this season?: Yes Other Medical History: Reports: Arthritis. Denies: Blood Transfusion Reaction Laterality Cases: Right: Total Hip Replacement, Other Other Surgeries: Yes: Angiogram, Appendectomy, Cardiac Catheterization, Colonoscopy, Coronary Stent. No: Pacemaker Amputation: No Fractures: No - *Social History Smoking Status: Former smoker Tobacco Type: cigarettes # Packs/Day (cigarettes): 1 #Yrs smoked (if former smoker): 1 Alcohol Intake: current Alcohol Intake Frequency:: a few times a week Substance Use Type: denies use *Occupational Status:: retired Housing: house Household Members: spouse *Travel in the last 8 weeks: Inside the [place] - Psychiatric History Pschychiatric History:: Reports:: Anxiety Family Hx:: Cancer
== END ==
PROVIDERS: PCP Family Medicine; Visit Provider Anesthesiology
DX: G90.523 Complex regional pain syndrome I of lower limb, bilateral (principal); M19.072 Primary osteoarthritis, left ankle and foot; M19.071 Primary osteoarthritis, right ankle and foot
CPT/HCPCS: 99212; G0463

== ENCOUNTER 2021-02-13 11:00 | Outpatient (RCR) | payer BC, SELFPAY ==
--- NOTE | 2021-01-15 11:03 | HMH.PTOPEV ---
PT Outpatient Evaluation Rehab PT Outpatient Evaluation Start: 01/15/21 09:47 Freq: Status: Active Protocol: Document 01/15/21 10:42 PRECIOUS (Rec: 01/15/21 11:03 PRECIOUS [id number]) Electronically Signed By Gold Read, PT 01/15/21 10:42 Outpatient Therapy Subjective History Subjective History Patient is a 65 year old male presenting to outpatient PT with reports of L foot/ankle pain S/P L total ankle arthroplasty performed 05/22/20 and surgery to correct pes cavus performed 11/14/20. Most recent surgery involved multiple rear and mid-foot fusions. He had some complications with L medial and lateral ankle ulcers that have since healed. Patient has hx of R ankle fusion in 1999. Other comorbidities include hx of stent x 5, HTN, HL and R MILY. Chief Complaint Pain,Stiff,Weakness Symptom Type Ache Symptoms Relieved By Rest/Positioning,Ice, Prescription Meds Symptoms Aggravated By Standing,Physical Activity, Walking Prior Functional Limitations Standing,Walking Current Functional Limitations Housework,Sleeping,Standing, Recreation Activity,Walking, Stairs,Balance Symptom Description Constant but Variable Level of pain today (0-10) 2 Pain scale - at its best (0-10) 2 Pain scale - at its worst (0-10) 5 Ankle/Foot Eval Gait Observation General Gait Pattern Observation Antalgic Gait,Decrease Weight Bear (L) Palpation Tenderness left Ankle/Foot Palpation Findings Tenderness Ankle/Foot Palpation Overall Comment about surgical incisions and calcaneal turbercule 3/4 ROM Ankle/Foot Dorsiflexion w/Knee Extended 7 Active Range Motion (degrees) Ankle/Foot Dorsiflexion w/Knee Extended 9 Passive Range (degrees) Ankle/Foot Plantar Flexion Active Range 11 of Motion (degrees) Ankle/Foot Plantar Flexion Passive Range 14 of Motion (degrees) Ankle/Foot Eversion Active Range of 3 Motion (degrees) Ankle/Foot Eversion Passive Range of 5 Motion (degrees) Ankle/Foot Inversion Active Range of 17 Motion (degrees) Ankle/Foot Inversion Passive Range of 20 Motion (degrees) Ankle/Foot ROM
== END 2021-02-13 11:05 | disposition home or self-care (01) ==
LOC: PT 11:00
PROVIDERS: PCP Family Medicine; Visit Provider Podiatrist
DX: Z98.890 Other specified postprocedural states (principal); Z96.662 Presence of left artificial ankle joint; Q66.72 Congenital pes cavus, left foot
CPT/HCPCS: 97110; 97112; 97140; 97163; 97530

== ENCOUNTER → 2021-03-10 10:06 | Outpatient (POV) | payer BC, SELFPAY ==
[2021-03-10 10:31] VITALS: BP 136/81; PULSE 64; RESP 18; O2SAT 97; BMI 22.4
--- NOTE | 2021-03-10 10:41 | HMH.PAINSOAP ---
[facility] Pain Management SOAP Note Subjective:: Patient is a pleasant 65-year-old male who comes in here for follow-up and medication refill. Patient is currently being treated for bilateral CRPS type I symptoms on bilateral feet. He has had multiple surgical procedures to both feet. He is currently taking gabapentin 100 mg 3 times a day, tramadol 50 mg 3 times a day, and diclofenac 75 mg twice a day. Patient says that he is doing well with this pain regimen. The only issue he has is that he is having some intermittent constipation. He is currently taking Metamucil every day that is recommended by his PCP. Patient says that the tramadol is not helping him as much and has decided to just take it once or twice a day instead of 3 times a day. When he was started on the diclofenac last time, patient says that he has had significant relief. He is currently taking a PPI that is prescribed by his PCP. Patient denies any change in location and type of pain. He rates his pain today as 1 out of 10. His Marlo is [id number] when active morphine equivalent of 15. ORT score is 0, low risk. Review of Systems General: No recent weight changes, no fever, no sleep disturbances Respiratory: No cough, no shortness of air, no recurring pulmonary infections Cardiovascular/peripheral vascular: No chest pain, no palpitations, no edema, no shortness of breath Gastrointestinal: No new onset incontinence, normal bowel movements reported Genitourinary: No new onset incontinence Musculoskeletal: bilateral feet pain Psychiatric: [Normal mood/affect] Neurological: [Denies weakness in extremities], [denies balance issues] Objective:: Physical exam General: Alert and oriented x3, no acute distress, pleasant and cooperative Lungs: Respirations even and unlabored, symmetrical chest expansion Eyes: PERRL Musculoskeletal: limited range of motion of bilateral feet secondary to pain Neurological: Speech clear, no gross sensory deficit Assessment:: Bilateral foot pain with degenerative osteoarthritis and Complex regional pain syndrome type I Plan:: We will continue the patient's gabapentin 100 mg 3 times a day and diclofenac 75 mg twice a day. We will decrease his tramadol 50 mg from 3 times a day to twice a day. We will provide the patient with 3 months worth of refill. We would like to follow-up with the patient in 3 months. I advised the patient to take his omeprazole 30minutes before meals and have to take his diclofenac with meals everytime. Patient has been instructed to contact the clinic with any concerns before the next appointment. Dr. Wolf has reviewed this note and agrees with this plan of care. This note was dictated using voice recognition software and make contain errors or omissions. [facility] History Medical History: Reports:: Anxiety, Chronic Obstructive Pulmonary Disease (COPD), Coronary Artery Disease, Gastroesophageal Reflux Disease(GERD), Hyperlipidemia, Hypertension, Peripheral Artery Disease Denies:: Cancer, Diabetes Mellitus Type 1, Diabetes Mellitus Type 2, Internal Pacemaker, Lung Disease, MRSA, Seizures *Have you ever received a pneumonia vaccine?: Yes *Have you received a flu vaccine this season?: Yes Other Medical History: Reports: Arthritis. Denies: Blood Transfusion Reaction Laterality Cases: Right: Total Hip Replacement, Other Other Surgeries: Yes: Angiogram, Appendectomy, Cardiac Catheterization, Colonoscopy, Coronary Stent. No: Pacemaker Amputation: No Fractures: No - *Social History Smoking Status: Former smoker Tobacco Type: cigarettes # Packs/Day (cigarettes): 1 #Yrs smoked (if former smoker): 1 Alcohol Intake: current Alcohol Intake Frequency:: a few times a week Substance Use Type: denies use *Occupational Status:: unemployed Housing: house Household Members: spouse *Travel in the last 8 weeks: None - Psychiatric History Pschychiatric History:: Reports:: Anxiety Family Hx:: Cancer
== END ==
PROVIDERS: Visit Provider Clinical Nurse Specialist Family Health
DX: M19.072 Primary osteoarthritis, left ankle and foot (principal); M19.071 Primary osteoarthritis, right ankle and foot; G90.50 Complex regional pain syndrome I, unspecified
CPT/HCPCS: 99212; G0463

== ENCOUNTER → 2021-03-11 07:04 | Outpatient (CLI) | payer BC, SELFPAY ==
[2021-03-11 07:48] LABS: Alanine Aminotransferase 52 U/L (12-78); Albumin Level 4.4 g/dl (3.5-5.0); Albumin/Globulin Ratio 1.8 (1.1-1.8); Alkaline Phosphatase 71 U/L (38-126); Anion Gap 12.6 mEq/L (5-15); Aspartate Amino Transferase 45 U/L (17-59); Bilirubin,Total 0.4 mg/dl (0.2-1.3); Blood Urea Nitrogen 17 mg/dl (9-20); Calcium 9.5 mg/dl (8.4-10.2); Carbon Dioxide 31 mmol/L (22.0-30.0); Chloride 101 mmol/L (98-107); Chol/HDL Ratio 3.9 (1-3.5); Cholesterol 132 mg/dl (140-200); Estimated Glomerular Filt Rate 85 ml/min (>60); GFR (African American) 103 ML/MIN (>60); Globulin 2.4 g/dL (1.3-3.2); Glucose 129 mg/dl (74-100); HDL Cholesterol 34 mg/dl (40-60); Potassium 4.6 mmoL/L (3.5-5.1); Sodium 140 mmol/L (136-145); Total Protein,Serum 6.8 g/dl (6.3-8.2); Triglycerides 112 mg/dl (30-150); VLDL Cholesterol 22 mg/dL (0-40)
[2021-03-11 07:58] LABS: Direct LDL Cholesterol 80.86 mg/dL (100-129)
[2021-03-11 08:18] LABS: Prostate Specific Ag Screen 2.7 ng/ml (0.0-4.0)
== END ==
PROVIDERS: Visit Provider Family Medicine
DX: I10 Essential (primary) hypertension (principal); E78.5 Hyperlipidemia, unspecified; Z12.5 Encounter for screening for malignant neoplasm of prostate
CPT/HCPCS: 36415; 80053; 80061; G0103

== ENCOUNTER → 2021-03-18 09:43 | Outpatient (CLI) | payer BC, SELFPAY ==
--- NOTE | 2021-03-18 09:48 | XR_ITS ---
FINAL REPORT CLINICAL HISTORY: foot pain FINDINGS: LEFT FOOT Three views demonstrate no acute fracture or dislocation. There are extensive postoperative changes of the midfoot, rear foot, and ankle. Moderate degenerative changes are present. There is 5 mm of superior subluxation of the medial cuneiform in relation to the navicular. IMPRESSION: Postoperative and degenerative changes. Superior subluxation of the medial cuneiform in relation to the navicular. Reviewed, Interpreted and Dictated by Gilberto Crenshaw III, MD Transcribed by Allie Cooper Authenticated by Gilberto Crenshaw III, MD on 03/18/2021 11:30:36 AM [facility]
--- NOTE | 2021-03-18 09:48 | XR_ITS ---
FINAL REPORT CLINICAL HISTORY: pain FINDINGS: RIGHT ANKLE Three views demonstrate fusion of the tibiotalar joint. There are postoperative changes of the distal fibula with screws through the distal tibia/fibula. There are moderate to severe degenerative changes. IMPRESSION: Postoperative and degenerative changes. Reviewed, Interpreted and Dictated by Gilberto Crenshaw III, MD Transcribed by Allie Cooper Authenticated by Gilberto Crenshaw III, MD on 03/18/2021 11:30:34 AM [facility]
--- NOTE | 2021-03-18 09:48 | XR_ITS ---
FINAL REPORT CLINICAL HISTORY: foot pain FINDINGS: RIGHT CALCANEUS Two views demonstrate postoperative changes from tibiotalar fusion. Moderate and severe degenerative changes are present, greatest in the posterior subtalar joint. IMPRESSION: Postsurgical and degenerative changes. Reviewed, Interpreted and Dictated by Gilberto Crenshaw III, MD Transcribed by Allie Cooper Authenticated by Gilberto Crenshaw III, MD on 03/18/2021 11:29:55 AM [facility]
--- NOTE | 2021-03-18 09:48 | XR_ITS ---
FINAL REPORT CLINICAL HISTORY: foot pain FINDINGS: RIGHT FOOT Three views demonstrate no acute fracture or dislocation. There are postoperative changes from tibiotalar fusion. There are moderate degenerative changes, greatest near the rear foot. IMPRESSION: Postoperative and degenerative changes. Reviewed, Interpreted and Dictated by Gilberto Crenshaw III, MD Transcribed by Allie Cooper Authenticated by Gilberto Crenshaw III, MD on 03/18/2021 11:29:43 AM [facility]
--- NOTE | 2021-03-18 09:48 | XR_ITS ---
FINAL REPORT CLINICAL HISTORY: foot pain FINDINGS: LEFT CALCANEUS Two views demonstrate postoperative changes from ORIF calcaneal fracture. There are multiple other postoperative changes in the midfoot and ankle. Moderate degenerative changes are present. There is a presumed screw fragment in the posterior talus. There is chronic deformity of the talus and navicular. IMPRESSION: Postsurgical and degenerative changes as detailed above. Presumed screw fragment in the posterior talus. Reviewed, Interpreted and Dictated by Gilberto Cernshaw III, MD Transcribed by Allie Cooper Authenticated by Gilberto Crenshaw III, MD on 03/18/2021 11:29:[address] [facility]
--- NOTE | 2021-03-18 09:48 | XR_ITS ---
FINAL REPORT CLINICAL HISTORY: postop, pain FINDINGS: LEFT ANKLE Three views demonstrate postoperative changes from ankle arthroplasty. There is a screw in the distal fibula. There are postoperative changes in the rear foot and midfoot. IMPRESSION: Postoperative and degenerative changes. Reviewed, Interpreted and Dictated by Gilberto Crenshaw III, MD Transcribed by Allie Cooper Authenticated by Gilberto Crenshaw III, MD on 03/18/2021 11:30:[address] [facility]
== END ==
PROVIDERS: PCP Family Medicine; Visit Provider Podiatrist
DX: M79.672 Pain in left foot (principal); M79.671 Pain in right foot; M25.572 Pain in left ankle and joints of left foot; M25.571 Pain in right ankle and joints of right foot; Z96.662 Presence of left artificial ankle joint; Z98.890 Other specified postprocedural states
CPT/HCPCS: 73610; 73630; 73650

== ENCOUNTER → 2021-06-09 11:04 | Outpatient (POV) | payer BC, SELFPAY ==
[2021-06-09 11:15] VITALS: BP 144/57; PULSE 58; RESP 20; TEMP 36.6; O2SAT 96; BMI 22.4
--- NOTE | 2021-06-09 12:33 | HMH.PAINSOAP ---
[facility] Pain Management SOAP Note Subjective:: Patient is a pleasant 65-year-old male who is here for medication refill and follow-up. 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 Patient is being managed with tramadol 50 mg twice a day, gabapentin 100 mg 3 times a day, and diclofenac 75 mg twice a day. Patient denies any side effects from the medications. Patient denies any changes to the location and type of pain. Patient states that this is adequately helping manage their pain. Rates pain as 0 out of 10. [facility] number [id number] with an active morphine equivalent 15. Drug screens have been reviewed and appropriate. Patient states that he has only been taking his tramadol 50 mg as needed. He does not mind decreasing this dose. He states that he has been going to physical therapy in the gym consistently in the last few months. He is also doing some water aerobics as well. 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 Overall, patient is doing well and the medication that he is taking is helping him significantly. Review of Systems: General: No recent weight changes, no fever, no sleep disturbances Respiratory: No cough, no shortness of air, no recurring pulmonary infections Cardiovascular/peripheral vascular: No chest pain, no palpitations, no edema, no shortness of breath Gastrointestinal: No new onset incontinence, normal bowel movements reported Genitourinary: No new onset incontinence Musculoskeletal: Bilateral feet pain Psychiatric: [Normal mood/affect] Neurological: [Denies weakness in extremities], [denies balance issues] Objective:: Physical Exam: General: Alert and oriented x3, no acute distress, pleasant and cooperative, [on room air] Lungs: Respirations even and unlabored, symmetrical chest expansion Eyes: PERRL Musculoskeletal: Limited range of motion of bilateral feet secondary to pain Neurological: Speech clear, no gross sensory deficit Assessment:: CRPS type I of bilateral feet Plan:: We will continue the patient's gabapentin 100 mg 3 times a day and diclofenac 75 mg twice a day. I will change his tramadol to tramadol 50 mg daily. We will provide the patient with 3 months worth of refill. Follow-up in 3 months Patient has been instructed to contact the clinic with any concerns before the next appointment. Dr. Wolf has reviewed this note and agrees with this plan of care. This note was dictated using voice recognition software and make contain errors or omissions. [facility] History Medical History: Reports:: Anxiety, Chronic Obstructive Pulmonary Disease (COPD), Coronary Artery Disease, Gastroesophageal Reflux Disease(GERD), Hyperlipidemia, Hypertension, Peripheral Artery Disease Denies:: Cancer, Diabetes Mellitus Type 1, Diabetes Mellitus Type 2, Internal Pacemaker, Lung Disease, MRSA, Seizures *Have you ever received a pneumonia vaccine?: Yes *Have you received a flu vaccine this season?: Yes Other Medical History: Reports: Arthritis. Denies: Blood Transfusion Reaction Laterality Cases: Right: Total Hip Replacement, Other Other Surgeries: Yes: Angiogram, Appendectomy, Cardiac Catheterization, Colonoscopy, Coronary Stent. No: Pacemaker Amputation: No Fractures: No - *Social History Smoking Status: Former smoker Tobacco Type: cigarettes # Packs/Day (cigarettes): 1 #Yrs smoked (if former smoker): 1 Alcohol Intake: current Alcohol Intake Frequency:: a few times a week Substance Use Type: denies use *Occupational Status:: employed Housing: house Household Members: spouse *Travel in the last 8 weeks: None - Psychiatric History Pschychiatric History:: Reports:: Anxiety Family Hx:: Cancer
== END ==
PROVIDERS: Visit Provider Student in an Organized Health Care Education/Training Program
DX: G90.523 Complex regional pain syndrome I of lower limb, bilateral (principal)
CPT/HCPCS: 99212; G0463

== ENCOUNTER → 2021-09-08 11:43 | Outpatient (POV) | payer BC, SELFPAY ==
[2021-09-08 11:59] VITALS: BP 163/95; PULSE 58; RESP 18; TEMP 36.6; O2SAT 98; BMI 22.6
--- NOTE | 2021-09-08 13:15 | HMH.PAINSOAP ---
[facility] Pain Management SOAP Note Subjective:: Patient is a pleasant 65-year-old male who is here for medication refill and follow-up. 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 Patient is being managed with tramadol 50 mg daily, gabapentin 100 mg 3 times a day, and diclofenac 75 mg twice a day. Patient denies any side effects from the medications. Patient denies any changes to the location and type of pain. Patient states that this is adequately helping manage their pain. Rates pain as 0 out of 10. [facility] number [id number] with an active morphine equivalent 0. Drug screens have been reviewed and appropriate. Patient has been doing well with his pain medications. He takes his tramadol as needed. He states that diclofenac is helping his pain the most. He stays active most of the time and has been going to physical therapy. 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 Review of Systems: General: No recent weight changes, no fever, no sleep disturbances Respiratory: No cough, no shortness of air, no recurring pulmonary infections Cardiovascular/peripheral vascular: No chest pain, no palpitations, no edema, no shortness of breath Gastrointestinal: No new onset incontinence, normal bowel movements reported Genitourinary: No new onset incontinence Musculoskeletal: Improving feet pain Psychiatric: [Normal mood/affect] Neurological: [Denies weakness in extremities], [denies balance issues] Objective:: Physical Exam: General: Alert and oriented x3, no acute distress, pleasant and cooperative Lungs: Respirations even and unlabored, symmetrical chest expansion Eyes: PERRL Musculoskeletal: Limited range of motion of bilateral feet secondary to pain Neurological: Speech clear, no gross sensory deficit Assessment:: CRPS type I bilateral feet Plan:: We will continue the patient's tramadol 50 mg daily, gabapentin 100 mg 3 times a day, and diclofenac 75 mg twice a day. We will provide the patient with 3 months of refills. We would like to see the patient back in 3 months for follow-up and reevaluation of chronic pain syndrome. Patient has been advised of risks of oversedation with the prescribed medication. Narcan has been offered to the patient in the event of oversedation. Patient has been advised that a family member should also be educated regarding administration of Narcan. Patient has been instructed to contact the clinic with any concerns before the next appointment. Dr. Wolf has reviewed this note and agrees with this plan of care. This note was dictated using voice recognition software and make contain errors or omissions. [facility] History Medical History: Reports:: Anxiety, Chronic Obstructive Pulmonary Disease (COPD), Coronary Artery Disease, Gastroesophageal Reflux Disease(GERD), Hyperlipidemia, Hypertension, Peripheral Artery Disease Denies:: Cancer, Diabetes Mellitus Type 1, Diabetes Mellitus Type 2, Internal Pacemaker, Lung Disease, MRSA, Seizures *Have you ever received a pneumonia vaccine?: Yes *Have you received a flu vaccine this season?: Yes Other Medical History: Reports: Arthritis. Denies: Blood Transfusion Reaction Laterality Cases: Right: Total Hip Replacement, Other Other Surgeries: Yes: Angiogram, Appendectomy, Cardiac Catheterization, Colonoscopy, Coronary Stent. No: Pacemaker Amputation: No Fractures: No - *Social History Smoking Status: Former smoker Tobacco Type: cigarettes # Packs/Day (cigarettes): 1 #Yrs smoked (if former smoker): 1 Alcohol Intake: current Alcohol Intake Frequency:: a few times a week Substance Use Type: denies use *Occupational Status:: other Housing: house Household Members: spouse *Travel in the last 8 weeks: None - Psychiatric History Pschychiatric History:: Reports:: Anxiety Family Hx:: Cancer
== END ==
PROVIDERS: Visit Provider Student in an Organized Health Care Education/Training Program
DX: G90.523 Complex regional pain syndrome I of lower limb, bilateral (principal); M19.90 Unspecified osteoarthritis, unspecified site
CPT/HCPCS: 99212; G0463

== ENCOUNTER → 2021-11-25 12:50 | Outpatient (CLI) | payer MEDICARE, SELFPAY ==
--- NOTE | 2021-11-25 13:04 | XR_ITS ---
FINAL REPORT CLINICAL HISTORY: pain..ankle replacement COMPARISON: 03/18/2021 FINDINGS: LEFT ANKLE Three views. Extensive postoperative change of the hindfoot with arthroplasty of the ankle. ORIF of an old calcaneal fracture. No acute bony abnormality. IMPRESSION: Extensive postoperative changes, stable. Reviewed, Interpreted and Dictated by Ivana Salmon MD Transcribed by Hu Short Authenticated and . [facility]
--- NOTE | 2021-11-25 13:04 | XR_ITS ---
FINAL REPORT CLINICAL HISTORY: pain..ankle replacement may 19 COMPARISON: 03/18/2021 FINDINGS: LEFT FOOT Three views. Extensive postoperative change of the hindfoot. Generalized osteopenia. No acute bony abnormality. IMPRESSION: No acute bony abnormality. Reviewed, Interpreted and Dictated by Ivana Salmon MD Transcribed by Hu Short Authenticated and [facility]
--- NOTE | 2021-11-25 13:08 | XR_ITS ---
FINAL REPORT CLINICAL HISTORY: pain..fusion COMPARISON: 03/18/2021 FINDINGS: RIGHT ANKLE Three views. Postoperative change from fusion of the ankle and fibular resection, stable. Severe degenerative change of the hindfoot and subtalar joint. IMPRESSION: Degenerative and postoperative changes, stable. Reviewed, Interpreted and Dictated by Ivana Salmon MD Transcribed by Hu Short Authenticated and [facility]
--- NOTE | 2021-11-25 13:08 | XR_ITS ---
FINAL REPORT CLINICAL HISTORY: pain..fusion COMPARISON: 03/18/2021 FINDINGS: RIGHT FOOT Three views. Postoperative change of the ankle. Moderate degenerative change of the hindfoot. No acute bony abnormality. IMPRESSION: Postoperative and degenerative changes. Reviewed, Interpreted and Dictated by Ivana Salmon MD Transcribed by Hu Short Authenticated and [facility]
== END ==
PROVIDERS: PCP Family Medicine; Visit Provider Podiatrist
DX: M25.572 Pain in left ankle and joints of left foot (principal); G89.29 Other chronic pain; M79.605 Pain in left leg
CPT/HCPCS: 73610; 73630

== ENCOUNTER → 2021-12-08 11:39 | Outpatient (POV) | payer MEDICARE, SELFPAY ==
[2021-12-08 12:07] VITALS: BP 144/92; PULSE 69; RESP 18; TEMP 36.3; O2SAT 96; BMI 22.4
--- NOTE | 2021-12-08 12:55 | EXP.PAIN.SOA ---
[facility] Pain Management SOAP Note Subjective:: Patient is a pleasant 66-year-old male who is here for medication refill and follow-up. 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 Patient is being managed with tramadol 50 mg daily, gabapentin 100 mg 3 times a day, and diclofenac 75 mg twice a day. Patient denies any side effects from the medications. Patient denies any changes to the location and type of pain. Patient states that this is adequately helping manage their pain. Rates pain as 5 out of 10. [facility] number [id number] with an active morphine equivalent 0. Drug screens have been reviewed and appropriate. Patient is also being followed by Dr. West in regards to his CRPS. He states that Dr. West is fine to do surgery on his right foot/ankle. When I also last saw this patient, he is wanting to be more active. 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 He has been having memory issues. He says that he has had imagings of his head that were unremarkable. He says that he has a family history of Alzheimer's disease. Review of Systems: General: No recent weight changes, no fever, no sleep disturbances Respiratory: No cough, no shortness of air, no recurring pulmonary infections Cardiovascular/peripheral vascular: No chest pain, no palpitations, no edema, no shortness of breath Gastrointestinal: No new onset incontinence, normal bowel movements reported Genitourinary: No new onset incontinence Musculoskeletal: Bilateral feet pain Psychiatric: [Normal mood/affect] Neurological: [Denies weakness in extremities], [denies balance issues] Objective:: Physical Exam: General: Alert and oriented x3, no acute distress, pleasant and cooperative Lungs: Respirations even and unlabored, symmetrical chest expansion Eyes: PERRL Musculoskeletal: Limited range of motion of bilateral feet secondary to pain Neurological: Speech clear, no gross sensory deficit Assessment:: CRPS type I bilateral feet Plan:: We will continue the patient's tramadol 50 mg daily, gabapentin 100 mg 3 times a day and diclofenac 75 mg twice a day. We will provide the patient with 3 months worth of refill. We will follow-up with this patient in 3 months. I have discussed with the patient that he can talk to his PCP in regards to possibly getting started with Donepezil or Memantine for his memory. I also talked to him about possibly seeing Dr. Danette Mccord, Geriatric specialist, at . Her clinic is in [facility]. Patient has been instructed to contact the clinic with any concerns before the next appointment. Dr. Wolf has reviewed this note and agrees with this plan of care. This note was dictated using voice recognition software and make contain errors or omissions. [facility] Medical History Abnormal EKG Cardiomyopathy Dyspnea Edema Encounter for pre-operative cardiovascular clearance Ex-smoker for less than 1 year PAD (peripheral artery disease) Stenosis of right popliteal artery Tobacco dependence syndrome Social History Smoking Status: Former smoker pack-years: 1 second hand exposure: No alcohol intake: current substance use type: denies use current occupational status: employed Travel in the last 8 weeks: None household members: spouse housing: house number of children: 2 current occupational exposures/hazards: No caffeine: Yes
== END | disposition home or self-care (01) ==
PROVIDERS: Visit Provider Student in an Organized Health Care Education/Training Program
DX: G90.521 Complex regional pain syndrome I of right lower limb (principal); G90.522 Complex regional pain syndrome I of left lower limb
CPT/HCPCS: 99212; G0463

== ENCOUNTER → 2021-12-12 11:17 | Outpatient (CLI) | payer MEDICARE, SELFPAY ==
--- NOTE | 2021-12-12 11:29 | XR_ITS ---
FINAL REPORT CLINICAL HISTORY: dyspnea FINDINGS: Two views of the chest were obtained. The heart size and pulmonary vascularity are within normal limits. The mediastinum is normal. There is mild left lung base opacity which may represent atelectasis or pneumonia. There is no pneumothorax. The bony thorax is intact. IMPRESSION: Mild left lung base atelectasis or pneumonia. Reviewed, Interpreted and Dictated by Gilberto Crenshaw III, MD Transcribed by Kasey Peres Authenticated and [facility]
== END ==
PROVIDERS: PCP Family Medicine; Visit Provider Physician Assistant
DX: E78.2 Mixed hyperlipidemia (principal); I25.10 Atherosclerotic heart disease of native coronary artery without angina pectoris; I42.9 Cardiomyopathy, unspecified; I50.20 Unspecified systolic (congestive) heart failure; I73.9 Peripheral vascular disease, unspecified; I11.0 Hypertensive heart disease with heart failure
CPT/HCPCS: 71046

== ENCOUNTER → 2021-12-17 07:38 | Outpatient (CLI) | payer MEDICARE, SELFPAY ==
--- NOTE | 2021-12-17 09:00 | PC.NURSE ---
PFT completed without incident. Albuterol 0.083% given via HHN, per protocol, PT tolerated tx well.
== END ==
PROVIDERS: PCP Family Medicine; Visit Provider Physician Assistant
DX: E78.2 Mixed hyperlipidemia (principal); I25.10 Atherosclerotic heart disease of native coronary artery without angina pectoris; I50.20 Unspecified systolic (congestive) heart failure; I73.9 Peripheral vascular disease, unspecified; R06.09 Other forms of dyspnea; I42.8 Other cardiomyopathies; I11.0 Hypertensive heart disease with heart failure
CPT/HCPCS: 93306; 94060; 94726; 94729

== ENCOUNTER → 2021-12-22 15:12 | Outpatient (CLI) | payer MEDICARE, SELFPAY ==
--- NOTE | 2021-12-22 15:31 | ECG_ITS ---
APPROVED REPORT Exam: Resting ECG HR:59 bpm ECG Measurements Heart Rate 59 AXES IA 128 P 38 QRSd 111 QRS -38 QT 425 T 25 QTc 425 Conclusion SINUS BRADYCARDIA WITH OCCASIONAL VENTRICULAR PREMATURE COMPLEXES LEFT AXIS DEVIATION [QRS AXIS < -30] Late R wave progression, no significant change from November 2019 ABNORMAL ECG UNCONFIRMED REPORT Electronically signed by : Enrique Mcclellan MD 12/22/2021 15:53:02
--- NOTE | 2021-12-22 15:56 | XR_ITS ---
FINAL REPORT CLINICAL HISTORY: pre op. TOBACCO USE, PRIOR COMPARISON: 12/12/2021 FINDINGS: Two views of the chest were obtained. The heart size and pulmonary vascularity are within normal limits. The mediastinum is normal. No acute pulmonary abnormality is identified. There is no pneumothorax. The bony thorax is intact. IMPRESSION: No active cardiopulmonary disease. Reviewed, Interpreted and Dictated by Gilberto Crenshaw III, MD Transcribed by Kasey Peres Authenticated and [facility]
[2021-12-22 17:54] LABS: Basophils # 0.1 K/mm3 (0-0.2); Basophils % 1.3 % (0.1-2.0); Eosinophils # 0.1 K/mm3 (0.0-0.4); Eosinophils % 1.8 % (0.1-12.0); Hematocrit 48.6 % (42.0-52.0); Hemoglobin 15.6 g/dL (14.1-18.0); Lymphocytes # 2.1 K/mm3 (0.7-4.5); Lymphocytes % 29.7 % (10-50); Mean Corpuscular HGB Conc 32.2 g/dL (31.8-35.4); Mean Corpuscular Hemoglobin 32.7 pg (27.0-31.2); Mean Corpuscular Volume 101.6 fl (80-94); Mean Platelet Volume 8.2 fl (7.4-10.4); Monocytes # 0.5 K/mm3 (0.1-1.0); Monocytes % 6.4 % (1.7-9.3); Neutrophils # 4.3 K/mm3 (1.8-7.8); Neutrophils % 60.9 % (37.0-80.0); Platelet Count 264 K/mm3 (142-424); Red Blood Count 4.78 M/mm3 (4.60-6.20); Red Cell Distribution Width 12.3 % (11.5-17.5)
[2021-12-22 18:06] LABS: Alanine Aminotransferase 50 U/L (12-78); Albumin Level 3.9 g/dl (3.5-5.0); Albumin/Globulin Ratio 1.6 (1.1-1.8); Alkaline Phosphatase 107 U/L (38-126); Aspartate Amino Transferase 42 U/L (17-59); Bilirubin,Total 0.5 mg/dl (0.2-1.3); Blood Urea Nitrogen 25 mg/dl (9-20); Calcium 8.7 mg/dl (8.4-10.2); Carbon Dioxide 28 mmol/L (22.0-30.0); Chloride 104 mmol/L (98-107); Estimated Glomerular Filt Rate 97 ml/min (>60); GFR (African American) 117 ML/MIN (>60); Globulin 2.4 g/dL (1.3-3.2); Glucose 109 mg/dl (74-100); Sodium 141 mmol/L (136-145); Total Protein,Serum 6.3 g/dl (6.3-8.2)
== END ==
PROVIDERS: PCP Family Medicine; Visit Provider Podiatrist
DX: M79.671 Pain in right foot (principal); M20.41 Other hammer toe(s) (acquired), right foot; Z01.818 Encounter for other preprocedural examination
CPT/HCPCS: 36415; 71046; 80053; 85025; 93005

== ENCOUNTER 2021-12-24 06:43 | Day surgery (SDC) | payer MEDICARE, SELFPAY ==
--- NOTE | 2021-12-23 13:20 | SUR.PREOP ---
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
[2021-12-23 13:40] VITALS: BMI 22.4
[2021-12-24] VITALS (10 sets, daily range): BP systolic 117–161; BP diastolic 67–90; PULSE 56–77; RESP 14–18; TEMP 36.3–38; O2SAT 93–98
--- NOTE | 2021-12-24 07:14 | SUR.PREOP ---
Dr. Cook informed pt took blood thinners this am and said it was fine.
--- NOTE | 2021-12-24 08:03 | P.PN_ITS ---
[facility] Medical History Abnormal EKG Cardiomyopathy COPD (chronic obstructive pulmonary disease) Dyspnea Edema Encounter for pre-operative cardiovascular clearance Ex-smoker for less than 1 year PAD (peripheral artery disease) Stenosis of right popliteal artery Tobacco dependence syndrome Surgical History History of right hip replacement Stented coronary artery Family History Other Alzheimer disease Family history of myocardial infarction Social History Smoking Status: Former smoker pack-years: 1 second hand exposure: No alcohol intake: current substance use type: denies use current occupational status: employed Travel in the last 8 weeks: Inside the [place] household members: spouse housing: house number of children: 2 current occupational exposures/hazards: No caffeine: Yes [facility] Anesthesia Checklist Patient Identification Patient Identification: Arm Band Structural Data Admitted From: Home Planned Operative Procedure/s: Right Ankle Hardware Removal Consent for Planned Operative Procedure(s) Verified: Yes Verified Documents: Surgical Consent and History and Physical NPO Status Verified Time NPO: 00:00 Additional verifications Anesthesia Reactions: No Hx Blood Transfusions: No Blood Transfusion Reaction: No Airway Assessment C-Spine Mobility Assessed: Yes TMJ Mobility Assessed: Yes Dentition: Good Dentition Neurological Assessment Level of Consciousness: Awake and Alert Anesthesia Plan Anesthesia Risk discussed: Yes Anesthesia Plan: Verified ASA Class: III Anesthesia Type: General w/block (Right Popliteal/Saphenous Nerve Block. Risks/benefits explained. Pt verbalized understanding)
--- NOTE | 2021-12-24 10:18 | SUR.OPER ---
late entry 0920 family given update by Ivana Moore, RN
--- NOTE | 2021-12-24 10:19 | SUR.OPER ---
Dr. Cook notified that tourniquet has been up for 1 hour
--- NOTE | 2021-12-24 10:34 | SUR.OPER ---
Family updated by Ivana Moore RN
--- NOTE | 2021-12-24 10:54 | XR_ITS ---
FINAL REPORT CLINICAL HISTORY: Post op hardware removal COMPARISON: 11/25/2021 FINDINGS: Right ankle Three views were obtained. There has been interval removal of multiple screws. There is lucency in the medial distal tibia worrisome for a nondisplaced fracture. Tibiotalar effusion is noted. IMPRESSION: Lucency in the medial distal tibia worrisome for a nondisplaced fracture. Reviewed, Interpreted and Dictated by Gilberto Crenshaw III, MD Transcribed by Allie Cooper Authenticated and [facility]
--- NOTE | 2021-12-24 11:36 | SUR.OPER ---
1126 given update via Adelaide Coates RN
--- NOTE | 2021-12-24 12:00 | EXP.ANES.I ---
[facility] Anesthesia Record Part I Anesthesia Record I Intake, IV Amount: 700 Estimated blood loss (mL): 50 Urine output (mL): 0 Blood Pressure: 117/74 SaO2: 93 Pulse Rate: 73 Respiratory Rate: 14 Temperature: 98.5 F Patient is:: Drowsy and Oral/Nasal airway Stable to PACU at:: 11:58
--- NOTE | 2021-12-24 14:38 | SUR.OPER ---
late entry 1116 6 screws removed from right ankle
--- NOTE | 2021-12-24 14:59 | XR_ITS ---
FINAL REPORT CLINICAL HISTORY: HARDWARE REMOVAL FINDINGS: FLUORO TIME PROCEDURE: Fluoroscopy in the operating room, right ankle. FINDINGS: Fluoroscopy time was provided by the radiology department for the clinical service. Four films were obtained. Fluoroscopy exposure time: 0.57 minutes IMPRESSION: See above Reviewed, Interpreted and Dictated by Gilberto Crenshaw III, MD Transcribed by Kasey Peres Authenticated and . [facility]
--- NOTE | 2021-12-24 16:38 | EXP.OP.NOTE ---
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 He reports being off balance and weakness/instability to the right foot since.? Recent x-rays reviewed and discussed with the patient. Conservative treatment discussed but not recommended. We discussed surgery. All risks and benefits were discussed including but not limited to: damage to blood vessels and nerves, bleeding, infection, wound complications, delayed, mal or non-union of bone, post-traumatic arthritis, need for further surgery, implant failure, continued/recurrence of deformity, need for removal of implant, prolonged or permanent swelling of the extremity, prolonged or permanent pain or deformity, CRPS/RSD, DVT/PE, and anesthetic complications including . No guarantees were given. All questions fully answered. The patient verbalized understanding and agreed to proceed with surgery. Consent was obtained.?Medical clearance per Dr. Gabriel. Cardiac clearance from Dr. French. Necessary labs and pre-op testing ordered. He has fracture boot, RKS and walker at home. Plan for CT scan right lower extremity on 12/26/2021 for stage II surgical planning. Operative findings:: This is a planned staged surgery, stage I. Right ankle had previous ankle fusion with malunion. Pes cavus deformity appreciated. There were 6 screws noted to the ankle fusion site. The 3 lateral screws were removed without complication. The medial screws were overgrown with bone. 1 screw was stripped. All screws were removed. There was bone loss noted in order to remove the screws. Poor bone quality noted. The bone defect was packed with allograft. No obvious signs of deep infection. Operative note:: On this date and time patient was deemed an appropriate surgical candidate. Preop regional nerve block by anesthesia. With informed consent signed, the patient was taken to the operating theater. The patient was positioned supine. General anesthesia was induced. Tourniquet was applied to the right thigh at 225 mmHg. IV antibiotic infused. Right Ankle Hardware Removal, excision of bone spurs tibia/fibula: The lower extremity was prepped and drapped in normal sterile fashion. The tourniquet was inflated. Attention was directed to the distal fibula, where a dorsal linear incision was mapped out over the previous incision site. Dissection was carried thru skin and sub q tissue, with care to maintain surgical hemostasis. Dissection then full-thickness down to the level of the bone. The hardware was visualized. The screws x 3 were removed. There is some spurring noted to the distal fibula. Rongeur was used to remove the fibula spur. A separate incision was then made medially over the ankle under intraoperative fluoroscopy. 3 more screws were noted. Distal tibia spur was resected in order to remove part of the screw. 1 screw was stripped and in order to remove it, I saw was used to transect the tibia medially. The remaining screws were removed. In order to get the screws out there was significant bone loss and bony defect noted. Right ankle Synovectomy: The soft tissue appeared mostly healthy with minimal chase and no necrotic tissue noted. The synovitic tissue was sharply debrided. The ankle joint fusion site was visualized and synovitic fluid was noted. The wound was flushed with copious amounts of normal sterile saline mixed with gentamicin
--- NOTE | 2021-12-25 13:09 | P.PNANES_ITS ---
[facility] Anesthesia Record Part II Anesthesia Record Part II Discharge Time: 12:28 Destination: Surgical Day Care (OP Surgery) PACU nurse assessment reviewed?: Yes Patient Condition:: Good Anesthesia Complications:: None Swallowing reflex intact?: Yes Cyanosis?: No Blood Pressure: 136/86 Pulse Rate: 71 Temperature: 97.4 F Mental Status: Alert & Oriented Pain level:: 0 Nausea and/or vomitting:: None Intake, IV Amount: 0
[2021-12-25 13:10] VITALS: BP 136/86; PULSE 71; TEMP 36.3
== END 2021-12-24 13:00 | disposition home or self-care (01) ==
PROVIDERS: PCP Family Medicine; Visit Provider Podiatrist
PROC: (CPT 27626; principal; 2021-12-24 08:15)
DX: M96.0 Pseudarthrosis after fusion or arthrodesis (principal); T84.498A Other mechanical complication of other internal orthopedic devices, implants and grafts, initial encounter; M19.071 Primary osteoarthritis, right ankle and foot; M20.41 Other hammer toe(s) (acquired), right foot; I70.211 Atherosclerosis of native arteries of extremities with intermittent claudication, right leg; Z95.828 Presence of other vascular implants and grafts; I42.9 Cardiomyopathy, unspecified; J44.9 Chronic obstructive pulmonary disease, unspecified; Z87.891 Personal history of nicotine dependence; Z95.5 Presence of coronary angioplasty implant and graft; Y83.1 Surgical operation with implant of artificial internal device as the cause of abnormal reaction of the patient, or of later complication, without mention of misadventure at the time of the procedure
CPT/HCPCS: 27626; 27640; 27641; 73600; 73610; 76000; 88305; 88307; 88311; C1762; J2405; Q4211

== ENCOUNTER → 2021-12-26 14:08 | Outpatient (CLI) | payer MEDICARE, SELFPAY ==
--- NOTE | 2021-12-26 14:08 | CT_ITS ---
FINAL REPORT CLINICAL HISTORY: post op COMPARISON: December 24, 2021 plain films FINDINGS: CT RIGHT TIBIA-FIBULA WITHOUT CONTRAST Technique: Axial images through the right tibia-fibula were performed by computed tomography. Sagittal and coronal reconstruction images were performed. This study was performed with techniques to keep radiation doses as low as reasonably achievable (ALARA). Individualized dose reduction techniques using automated exposure control or adjustment of mA and/or kV according to the patient's size were employed. There is a severely comminuted fracture of the distal tibia. There is impaction of the main fracture fragments. There are comminuted fractures of the talar dome and talar body. A fracture line extends to the talonavicular joint. There are subtalar degenerative changes. There is circumferential soft tissue swelling/edema. IMPRESSION: Severely comminuted fractures of the distal tibia and talus, worse from the prior radiographs. Reviewed, Interpreted and Dictated by Gilberto Crenshaw III, MD Transcribed by Hu Short Authenticated and [facility]
== END ==
PROVIDERS: PCP Family Medicine; Visit Provider Podiatrist
DX: T84.498A Other mechanical complication of other internal orthopedic devices, implants and grafts, initial encounter (principal); S92.901P Unspecified fracture of right foot, subsequent encounter for fracture with malunion
CPT/HCPCS: 73700

== ENCOUNTER → 2022-01-01 12:24 | Outpatient (CLI) | payer MEDICARE, SELFPAY ==
--- NOTE | 2022-01-01 13:24 | XR_ITS ---
FINAL REPORT CLINICAL HISTORY: soa COMPARISON: 12/22/2021 FINDINGS: PORTABLE CHEST The heart is normal in size. The mediastinum is unremarkable. There is hyperinflation of the lungs consistent with COPD. There is no pneumothorax. IMPRESSION: Lungs are hyperinflated consistent with COPD. Reviewed, Interpreted and Dictated by Gilberto Crenshaw III, MD Transcribed by Kasey Peres Authenticated and [facility]
--- NOTE | 2022-01-01 13:26 | CA_ITS ---
FINAL REPORT TECHNIQUE: Color Doppler, duplex Doppler and compression sonography of the right lower extremity venous system was performed. CLINICAL HISTORY: post-op 1 week Rt ankle, Bruising from groin to ankle. FINDINGS: There is no evidence of deep venous thrombosis from the level of the groin to the calf. The veins are patent and compressible. IMPRESSION: No evidence of deep venous thrombosis right lower extremity. Reviewed, Interpreted and Dictated by Gilberto Crenshaw III, MD Transcribed by Allie Cooper Authenticated and [facility]
== END ==
PROVIDERS: PCP Family Medicine; Visit Provider Podiatrist
DX: M79.604 Pain in right leg; M79.605 Pain in left leg
CPT/HCPCS: 71045; 93971

== ENCOUNTER 2022-01-06 08:35 | Day surgery (SDC) | payer MEDICARE, SELFPAY ==
[2022-01-06] VITALS (14 sets, daily range): BP systolic 111–142; BP diastolic 54–85; PULSE 44–62; RESP 15–20; O2SAT 92–100; BMI 22.4
--- NOTE | 2022-01-06 07:10 | IR_ITS ---
APPROVED REPORT Patient Location: Outpatient Instructor Watch Assembly: ALESHA Jackson RT (R) PROCEDURES Left femoral arterial access Catheter placement in the right common iliac artery Right common iliac artery antegrade angiogram with unilateral runoff to the right foot Intravascular lithotripsy to the right popliteal artery Drug-coated balloon angioplasty to the right popliteal artery Self-expanding stent deployment to the right popliteal artery INDICATION Acute limb threatening ischemia, Peripheral artery disease, Calcified right popliteal artery Informed consent was obtained prior to the procedure. COMPLICATIONS None Estimated Blood Loss: Less than 10 mls TECHNIQUE 1% lidocaine used to anesthetize the left femoral groin. The left femoral artery was accessed via the Seldinger technique. A 5 Kazakh sheath was placed in the left femoral artery and a 5 Kazakh rim catheter was advanced to the right common iliac artery where antegrade angiography was performed with unilateral runoff to the right foot. Following this therapeutic heparin was administered giving a therapeutic ACT and an advantage wire was advanced distally which allowed exchange of the 5 Kazakh sheath for 6 Kazakh destination sheath. A 300 cm Choice PT extra-support wire was placed distally and a 6.5 x 60 mm lithotripsy balloon was deployed at 4 and then 5 evan with 5-30 lithotripsy pulsations delivered to the popliteal artery reducing the stenosis. Following this a 6 mm x 60 mm drug-coated balloon was deployed at 10 evan for 3 minutes further reducing the stenosis. A small dissection was identified therefore 7 mm x 20 mm self-expanding stent was deployed right at the dissection area reducing the stenosis to 0%. Excellent angiograph results were obtained with excellent inline flow into the right lower extremity where three-vessel runoff was present. At the end the procedure the apparatus was removed the groin is reprepped closure change sheath was removed and hemostasis was achieved using Perclose device patient was transferred to the postop holding area in stable addition ANGIOGRAPHIC RESULTS Right common internal and external iliac arteries are normal Right common femoral arteries widely patent Right profunda femoris artery is normal Right superficial femoral artery is widely patent with mild atheromatous plaque and then has a focal concentric 90% calcified stenosis at the mid popliteal artery. Distally there is three-vessel runoff to the right foot IMPRESSION Severe to critical stenosis in the right popliteal artery which was successfully pretreated with intravascular lithotripsy followed by drug-coated balloon angioplasty followed by self-expanding nitinol stenting Excellent three-vessel runoff below the knee PLAN 1. Xarelto 2.5 twice daily plus aspirin 81 mg daily 2. Avoidance of tobacco products 3. LDL less than 55 to be achieved with high intensity statin 4. Continue postoperative care per Dr. West Electronically signed by : Quirino French MD 01/06/2022 11:50:19
--- NOTE | 2022-01-06 08:40 | XR_ITS ---
FINAL REPORT CLINICAL HISTORY: right ankle pain COMPARISON: December 24, 2021 FINDINGS: RIGHT ANKLE: Three views of the right ankle were obtained. There is marked sclerosis of, bony hypertrophy and disorganization at the level of the mortise. The mortise joint space is not well seen. There has been resection of the distal fibula. The tarsals are significantly displaced laterally relative to the tibia as a new finding. There are overlying skin shilpa. IMPRESSION: Marked hypertrophy and disorganization of the ankle. Significant lateral displacement of the tarsals, new since the prior exam, likely resulting in instability. Reviewed, Interpreted and Dictated by Harpal Jones MD Transcribed by Hu Short Authenticated and [facility]
--- NOTE | 2022-01-06 14:09 | HMH.PHACL ---
[facility] [employer] Discharge Med Sociology Faculty Member: Alex Aaron has received discharge medication counseling on the following medications: PATIENT WITH PERIPHERAL STENT. PATIENT IS ALREADY TAKING PLAVIX 75 MG DAILY, ATORVASTATIN 20 MG HS, AND ASPIRIN 81 MG DAILY.
[2022-01-06 14:11] LABS: CATHL Activated Clotting Time > 400 SEC (74-125)
== END 2022-01-06 15:36 | disposition home or self-care (01) ==
PROVIDERS: PCP Family Medicine; Referring Provider Podiatrist; Visit Provider Internal Medicine
DX: E78.2 Mixed hyperlipidemia (principal); I11.0 Hypertensive heart disease with heart failure; I25.10 Atherosclerotic heart disease of native coronary artery without angina pectoris; I42.9 Cardiomyopathy, unspecified; I50.20 Unspecified systolic (congestive) heart failure; I70.221 Atherosclerosis of native arteries of extremities with rest pain, right leg; J44.9 Chronic obstructive pulmonary disease, unspecified; K21.9 Gastro-esophageal reflux disease without esophagitis; M79.604 Pain in right leg; M79.661 Pain in right lower leg; R06.00 Dyspnea, unspecified; R94.31 Abnormal electrocardiogram [ECG] [EKG]; I77.1 Stricture of artery; Z87.891 Personal history of nicotine dependence; Z95.5 Presence of coronary angioplasty implant and graft; Z79.01 Long term (current) use of anticoagulants
CPT/HCPCS: 73610; 85347; 99152; 99153; C1725; C1760; C1766; C1769; C1876; C1894; C9765; J1644; Q9966

== ENCOUNTER → 2022-01-08 15:17 | Outpatient (CLI) | payer MEDICARE, SELFPAY | PROVIDERS: Visit Provider Podiatrist | DX: T81.31XA Disruption of external operation (surgical) wound, not elsewhere classified, initial encounter (principal); M25.571 Pain in right ankle and joints of right foot | CPT/HCPCS: 87070; 87077; 87186; 87205 ==

== ENCOUNTER → 2022-01-12 10:29 | Outpatient (CLI) | payer MEDICARE, SELFPAY ==
--- NOTE | 2022-01-12 10:35 | XR_ITS ---
FINAL REPORT CLINICAL HISTORY: post-op COMPARISON: January 06, 2022 FINDINGS: RIGHT ANKLE: Three views of the right ankle were obtained. Overlying cast material obscures bony detail. There is disorganization of the mortise. There has been resection of the distal fibula. The tarsal bones are laterally subluxed relative to the distal tibia. IMPRESSION: No significant change from prior. Reviewed, Interpreted and Dictated by Harpal Jones MD Transcribed by Hu Short Authenticated and [facility]
--- NOTE | 2022-01-12 10:35 | XR_ITS ---
FINAL REPORT CLINICAL HISTORY: post-op COMPARISON: November 25, 2021 FINDINGS: 3 views of the right foot were obtained. Overlying cast material obscures detail. No acute bony abnormality is identified. Please see report from ankle x-ray. IMPRESSION: No acute process. Reviewed, Interpreted and Dictated by Harpal Jones MD Transcribed by Hu Short Authenticated and [facility]
[2022-01-12 12:26] LABS: Basophils # 0.1 K/mm3 (0-0.2); Basophils % 1.6 % (0.1-2.0); Eosinophils # 0.2 K/mm3 (0.0-0.4); Eosinophils % 2.3 % (0.1-12.0); Hematocrit 46.1 % (42.0-52.0); Hemoglobin 14.5 g/dL (14.1-18.0); Lymphocytes # 2.3 K/mm3 (0.7-4.5); Lymphocytes % 33.5 % (10-50); Mean Corpuscular HGB Conc 31.5 g/dL (31.8-35.4); Mean Corpuscular Hemoglobin 32.3 pg (27.0-31.2); Mean Corpuscular Volume 102.6 fl (80-94); Mean Platelet Volume 8.1 fl (7.4-10.4); Monocytes # 0.5 K/mm3 (0.1-1.0); Neutrophils # 3.9 K/mm3 (1.8-7.8); Neutrophils % 55.7 % (37.0-80.0); Platelet Count 475 K/mm3 (142-424); Red Blood Count 4.49 M/mm3 (4.60-6.20); Red Cell Distribution Width 12.5 % (11.5-17.5); White Blood Count 6.9 K/mm3 (4.8-10.8)
[2022-01-12 12:36] LABS: Chloride 101 mmol/L (98-107); Potassium 4.4 mmoL/L (3.5-5.1); Sodium 140 mmol/L (136-145)
[2022-01-12 12:39] LABS: Alanine Aminotransferase 32 U/L (12-78); Albumin Level 4.2 g/dl (3.5-5.0); Albumin/Globulin Ratio 1.6 (1.1-1.8); Alkaline Phosphatase 124 U/L (38-126); Anion Gap 14.4 mEq/L (5-15); Aspartate Amino Transferase 34 U/L (17-59); Bilirubin,Total 0.4 mg/dl (0.2-1.3); Blood Urea Nitrogen 19 mg/dl (9-20); Carbon Dioxide 29 mmol/L (22.0-30.0); Estimated Glomerular Filt Rate 75 ml/min (>60); GFR (African American) 91 ML/MIN (>60); Globulin 2.7 g/dL (1.3-3.2); Total Protein,Serum 6.9 g/dl (6.3-8.2)
[2022-01-12 12:40] LABS: Calcium 9.8 mg/dl (8.4-10.2); Glucose 88 mg/dl (74-100)
[2022-01-12 12:45] LABS: C-Reactive Protein 5.8 mg/L (0-4)
[2022-01-12 13:37] LABS: Erythrocyte Sedimentation Rate 16 mm/hr (0-20)
[2022-01-19 10:10] LABS: 1,25 Dihydroxy Vitamin D 33 pg/mL (.); 1,25-Dihydroxy, Vitamin D-2 14 pg/mL (.); 1,25-Dihydroxy, Vitamin D-3 19 pg/mL (.)
== END ==
LOC: RAD 10:30
PROVIDERS: PCP Family Medicine; Visit Provider Podiatrist
DX: Z98.890 Other specified postprocedural states (principal); Z01.818 Encounter for other preprocedural examination; M19.071 Primary osteoarthritis, right ankle and foot
CPT/HCPCS: 36415; 73610; 73630; 80053; 82652; 85025; 85651; 86140

== ENCOUNTER 2022-01-14 07:26 | Day surgery (SDC) | payer MEDICARE, SELFPAY ==
[2022-01-13 12:14] VITALS: BMI 21.8
[2022-01-14] VITALS (13 sets, daily range): BP systolic 75–165; BP diastolic 44–97; PULSE 50–63; RESP 14–18; TEMP 36.1–43; O2SAT 91–99
--- NOTE | 2022-01-14 11:29 | SUR.OPER ---
1130- pt family updated of current status via rene antonio
--- NOTE | 2022-01-14 12:09 | XR_ITS ---
FINAL REPORT CLINICAL HISTORY: RT EXT FIXATION in OR fluoro time: 1.42 FINDINGS: FLUORO TIME PROCEDURE: Fluoroscopy in the operating room. FINDINGS: Fluoroscopy time was provided by the radiology department for the clinical service. Three films were obtained. Fluoroscopy exposure time: 1.42 minutes IMPRESSION: See above Reviewed, Interpreted and Dictated by Harpal Jones MD Transcribed by Kasey Peres Authenticated and [facility]
--- NOTE | 2022-01-14 12:26 | PC.NURSE ---
DHRUV Moreno aware of hypotension. Pt sedation score = 6. Oral airway in place.
--- NOTE | 2022-01-14 12:26 | PC.NURSE ---
DHRUV Moreno aware of hypotension. Oral airway remains in place. Sedation score = 6. No new orders.
--- NOTE | 2022-01-14 12:36 | PC.NURSE ---
Johana Corrigan CRNA at bedside. LR infusing at bolus rate. Oral airway remains in place. Sedation score = 6.
--- NOTE | 2022-01-14 12:53 | XR_ITS ---
FINAL REPORT CLINICAL HISTORY: post op rt ankle pain COMPARISON: 01/12/2022 FINDINGS: RIGHT ANKLE Three views of the right ankle were obtained. An overlying cast has been removed since the prior exam. An external fixation device has been applied. There has been partial resection of the distal fibula and distal tibia. There is abnormal sclerosis and fragmentation in the region of the mortise which may be related to bone graft. IMPRESSION: Interval application of external fixation device. Disorganization and fragmentation at the mortise. Reviewed, Interpreted and Dictated by Harpal Jones MD Transcribed by Kasey Peres Authenticated and . [facility]
--- NOTE | 2022-01-14 12:53 | XR_ITS ---
FINAL REPORT CLINICAL HISTORY: post op..ankle pain FINDINGS: RIGHT TIBIA FIBULA 2 views were obtained. An external fixation device is anchored in the proximal tibia. There is partially visualized sclerotic and disorganized mortise. IMPRESSION: External fixation device anchored in the proximal tibia. Reviewed, Interpreted and Dictated by Harpal Jones MD Transcribed by Kasey Peres Authenticated and [facility]
--- NOTE | 2022-01-14 12:59 | EXP.OP.NOTE ---
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 He had subsequent hardware removal with bone biopsy 12/24/2021.? There was a large bone defect noted.? During the postoperative course patient did weight bear in boot and fractured through the hardware removal site.? Patient has also subsequently had an arterial runoff 01/06/2022 for a right popliteal artery stenosis.? The medial incision has necrosis and there is now a wound.? Recent wound cultures 01/08/2022 of the right ankle show MSSA.? Patient has been on doxycycline and is now on clindamycin. 01/12/22, right ankle/foot x-rays evaluated. Report noted. FINDINGS: RIGHT ANKLE:? Three views of the right ankle were obtained. Overlying cast material obscures bony detail.? There is disorganization of the mortise.? There has been resection of the distal fibula.? The tarsal bones are laterally subluxed relative to the distal tibia. IMPRESSION: No significant change from prior. X-rays reviewed and discussed with the patient. Conservative treatment discussed but not recommended. We discussed surgery to stabilize the unstable ankle fracture dislocation and reduced skin tenting/necrosis. All risks and benefits were discussed including but not limited to: damage to blood vessels and nerves, bleeding, infection, wound complications, delayed, mal or non-union of bone, post-traumatic arthritis, need for further surgery, implant failure, need for removal of implant, prolonged or permanent swelling of the extremity, prolonged or permanent pain or deformity, CRPS/RSD, DVT/PE, and anesthetic complications including .? We discussed the high risk of wound healing complications given PAD, staph infection and lack of skin coverage.? We discussed high risk for cellulitis and osteomyelitis.? Discussed complications infection including the need for oral versus IV antibiotics, PICC line, wound debridement, graft versus wound VAC application and explained if there is osteomyelitis this may warrant bone debridement with risk for below-knee amputation. No guarantees were given. All questions fully answered. The patient verbalized understanding and agreed to proceed with surgery. Consent was obtained. Necessary labs and pre-op testing ordered: CBC, BMP, esr, crp. Pt was given a Rx for oxycodone, Valium and clindamycin. Patient has fracture boot, crutches and walker at home. Operative findings:: [place] intact to the medial and lateral right ankle. Right lateral ankle central part of the incision was healed. There is wound dehiscence noted to the most superior and inferior aspect of the wound. Wound sharply excisionally divided with 15 blade and forceps through skin and subcutaneous tissue. Post debridement the right lateral proximal wound measured 2 x 0.2 x 0.2 cm. Skin edges were able to be reapproximated. Post: Right lateral distal wound measured 1.4 x 0.2 x 0.2 cm, through skin into subcutaneous tissue. Skin edges were able to be reapproximated. Sutures used to close the lateral wound. Right posterior medial ankle had a wound through skin into subcutaneous tissue which was sharply debrided. Post measures 1.6 x 0.5 x 0.2 cm. It was also closed with suture. The right medial ankle had gangrenous changes consistent with peripheral arterial disease and the block for which the patient had recent runoff 4.
--- NOTE | 2022-01-14 14:50 | PC.NURSE ---
Pt's states that pt already has a knee scooter, crutches and a polar pac. Will not require these at time of DC.
--- NOTE | 2022-01-14 15:28 | PC.NURSE ---
Johana Corrigan CRNA at bedside. Pt sedation score remains 6. Oral airway still in place. LR infusing @ bolus rate.
== END 2022-01-14 15:10 | disposition home or self-care (01) ==
PROVIDERS: PCP Family Medicine; Visit Provider Podiatrist
PROC: (CPT 11042; principal; 2022-01-14 09:00)
DX: T81.31XA Disruption of external operation (surgical) wound, not elsewhere classified, initial encounter (principal); I42.9 Cardiomyopathy, unspecified; M24.571 Contracture, right ankle; Z91.81 History of falling; W10.8XXA Fall (on) (from) other stairs and steps, initial encounter; S82.391A Other fracture of lower end of right tibia, initial encounter for closed fracture; S93.04XA Dislocation of right ankle joint, initial encounter; M25.371 Other instability, right ankle; I70.221 Atherosclerosis of native arteries of extremities with rest pain, right leg; Z79.899 Other long term (current) drug therapy; Z87.891 Personal history of nicotine dependence; J44.9 Chronic obstructive pulmonary disease, unspecified
CPT/HCPCS: 11042; 11045; 15275; 20692; 28435; 73590; 73600; 73610; 76000; 87070; 87077; 87186; 87205; 88304; 96374; C1713; Q4104

== ENCOUNTER 2022-01-21 13:06 | Outpatient (CLI) | payer MEDICARE, SELFPAY ==
[2022-01-21 13:44] VITALS: BMI 22.4
--- NOTE | 2022-01-21 13:45 | XR_ITS ---
FINAL REPORT CLINICAL HISTORY: PICC line placement COMPARISON: January 01, 2022 FINDINGS: A new left PICC line terminates in the mid SVC. The heart size is normal. The mediastinum is within normal limits. There is mild left base atelectasis or pneumonia. There is no pleural effusion. There is no pneumothorax. The bony thorax is intact. IMPRESSION: Left-sided PICC line terminates in the mid SVC. Mild left base atelectasis or pneumonia. Reviewed, Interpreted and Dictated by Gilberto Crenshaw III, MD Transcribed by Hu Short Authenticated and [facility]
[2022-01-21 15:05] VITALS: BP 107/75; PULSE 58; RESP 19; O2SAT 94
[2022-01-21 15:54] VITALS: BP 110/72; PULSE 60; RESP 20; O2SAT 93
== END 2022-01-21 15:54 | disposition home or self-care (01) ==
LOC: INF 13:07
PROVIDERS: PCP Family Medicine; Visit Provider Podiatrist
DX: S82.891S Other fracture of right lower leg, sequela (principal); Z45.2 Encounter for adjustment and management of vascular access device; M86.671 Other chronic osteomyelitis, right ankle and foot; T81.31XA Disruption of external operation (surgical) wound, not elsewhere classified, initial encounter; Z98.1 Arthrodesis status
CPT/HCPCS: 36569; 71045; 96365; C1751; J1335

== ENCOUNTER → 2022-01-22 09:07 | Outpatient (CLI) | payer MEDICARE, SELFPAY ==
[2022-01-22 09:38] VITALS: BP 101/66; PULSE 65; RESP 19; TEMP 36.4; O2SAT 100
[2022-01-22 10:10] VITALS: BP 101/66; PULSE 65; RESP 18; TEMP 36.4; O2SAT 100
== END ==
PROVIDERS: PCP Family Medicine; Visit Provider Nurse Practitioner Family
DX: Z45.2 Encounter for adjustment and management of vascular access device (principal); S82.891S Other fracture of right lower leg, sequela; M86.671 Other chronic osteomyelitis, right ankle and foot; T81.31XA Disruption of external operation (surgical) wound, not elsewhere classified, initial encounter; Z98.1 Arthrodesis status
CPT/HCPCS: 96365; J1335

== ENCOUNTER 2022-01-23 08:42 | Outpatient (CLI) | payer MEDICARE, SELFPAY ==
[2022-01-23 09:00] VITALS: BP 113/67; PULSE 68; RESP 20; TEMP 36.9; O2SAT 95
[2022-01-23 09:45] VITALS: BP 116/74; PULSE 68; RESP 20; TEMP 36.9; O2SAT 95
== END 2022-01-23 09:45 | disposition home or self-care (01) ==
LOC: INF 08:43
PROVIDERS: PCP Family Medicine; Visit Provider Nurse Practitioner Family
DX: Z45.2 Encounter for adjustment and management of vascular access device (principal); S82.891S Other fracture of right lower leg, sequela; M86.671 Other chronic osteomyelitis, right ankle and foot; T81.31XA Disruption of external operation (surgical) wound, not elsewhere classified, initial encounter; Z98.1 Arthrodesis status
CPT/HCPCS: 96365; J1335

== ENCOUNTER 2022-01-24 09:06 | Outpatient (CLI) | payer MEDICARE, SELFPAY ==
[2022-01-24 09:06] VITALS: BP 123/103; RESP 20; O2SAT 98
== END 2022-01-24 10:22 | disposition home or self-care (01) ==
LOC: INF 09:07
PROVIDERS: PCP Family Medicine; Visit Provider Nurse Practitioner Family
DX: Z45.2 Encounter for adjustment and management of vascular access device (principal); S82.891S Other fracture of right lower leg, sequela; M86.671 Other chronic osteomyelitis, right ankle and foot; T81.31XA Disruption of external operation (surgical) wound, not elsewhere classified, initial encounter; Z98.1 Arthrodesis status
CPT/HCPCS: 96365; J1335

== ENCOUNTER 2022-01-25 11:04 | Outpatient (CLI) | payer MEDICARE, SELFPAY | END 2022-01-25 12:30 | disposition home or self-care (01) | LOC: INF 11:04 | PROVIDERS: PCP Family Medicine; Visit Provider Nurse Practitioner Family | DX: Z45.2 Encounter for adjustment and management of vascular access device (principal); S82.891S Other fracture of right lower leg, sequela; M86.671 Other chronic osteomyelitis, right ankle and foot; T81.31XA Disruption of external operation (surgical) wound, not elsewhere classified, initial encounter; Z98.1 Arthrodesis status | CPT/HCPCS: 96365; J1335 ==

== ENCOUNTER → 2022-01-26 06:20 | Outpatient (CLI) | payer MEDICARE, SELFPAY | PROVIDERS: Visit Provider Podiatrist | DX: S91.001A Unspecified open wound, right ankle, initial encounter (principal) | CPT/HCPCS: 87070; 87205 ==

== ENCOUNTER 2022-01-26 12:57 | Outpatient (CLI) | payer MEDICARE, SELFPAY ==
[2022-01-26 13:13] VITALS: BP 113/73; PULSE 59; RESP 18; TEMP 36.4; O2SAT 99
[2022-01-26 13:55] VITALS: BP 147/74; PULSE 54; RESP 18; O2SAT 99
--- NOTE | 2022-01-26 16:49 | XR_ITS ---
PROCEDURE INFORMATION: Exam: XR Right Tibia and Fibula Exam date and time: 01/26/2022 5:08 PM Age: 66 years old Clinical indication: Other: Post op; Prior surgery; Surgery type: Post of right ankle; Additional info: Post-op TECHNIQUE: Imaging protocol: Radiologic exam of the Right tibia and fibula. Views: 2 views. COMPARISON: CR XR TIBIA FIBULA RT 2V 01/14/2022 1:05 PM FINDINGS: Bones/joints: The proximal extent of the external ankle fixator is noted. The included portions of the tibia and fibula on this exam do not demonstrate an acute abnormality. The distal most aspects are not included and are reported on the ankle radiograph performed at the same time. Soft tissues: No focal soft tissue abnormality is appreciated. IMPRESSION: The proximal extent of the right tibia and fibula demonstrate no acute finding. External ankle fixator is present.
--- NOTE | 2022-01-26 16:49 | XR_ITS ---
PROCEDURE INFORMATION: Exam: XR Right Ankle Exam date and time: 01/26/2022 5:08 PM Age: 66 years old Clinical indication: Condition or disease; Other: Post op RT ankle; Other: RT ankle post op; Prior surgery; Additional info: Right ankle pain post op TECHNIQUE: Imaging protocol: Radiologic exam of the Right ankle. Views: 3 or more views. COMPARISON: CR XR ANKLE RT MIN 3V 01/14/2022 1:05 PM FINDINGS: Bones/joints: There are severely comminuted fractures of the distal right tibia and fibula. Findings suggest partial distal fibula resection. Abundant callus formation is noted. The talus is not noted as a normal structure. The calcaneus is obscured by an external fixating device. Wound clips are present surrounding the ankle. Soft tissues: There is diffuse soft tissue swelling. IMPRESSION: The appearance of the right ankle is similar to the study from 01/14/2022. The distal tibia, fibula and talus are diffusely fragmented with abundant callus formation present and suspected distal fibular resection. No acute osseous finding is noted. Persistent diffuse soft tissue swelling is evident.
== END 2022-01-26 13:55 | disposition home or self-care (01) ==
LOC: INF 12:59
PROVIDERS: PCP Family Medicine; Visit Provider Podiatrist
DX: Z98.890 Other specified postprocedural states (principal); Z45.2 Encounter for adjustment and management of vascular access device; S82.891S Other fracture of right lower leg, sequela; M86.671 Other chronic osteomyelitis, right ankle and foot; T81.31XA Disruption of external operation (surgical) wound, not elsewhere classified, initial encounter; Z98.1 Arthrodesis status
CPT/HCPCS: 73590; 73610; 87070; 87077; 87186; 87205; 96365; J1335

== ENCOUNTER 2022-01-27 10:16 | Outpatient (CLI) | payer MEDICARE, SELFPAY ==
[2022-01-27 10:31] VITALS: BP 111/54; PULSE 71; RESP 18; TEMP 36.6; O2SAT 98
[2022-01-27 11:20] VITALS: BP 113/63; PULSE 59; RESP 18; O2SAT 98
== END 2022-01-27 11:31 | disposition home or self-care (01) ==
LOC: INF 10:17
PROVIDERS: PCP Family Medicine; Visit Provider Nurse Practitioner Family
DX: Z45.2 Encounter for adjustment and management of vascular access device (principal); S82.891S Other fracture of right lower leg, sequela; M86.671 Other chronic osteomyelitis, right ankle and foot; T81.31XA Disruption of external operation (surgical) wound, not elsewhere classified, initial encounter; Z98.1 Arthrodesis status
CPT/HCPCS: 96365; J1335

== ENCOUNTER 2022-01-28 10:22 | Outpatient (CLI) | payer MEDICARE, SELFPAY ==
[2022-01-28 10:40] VITALS: BP 110/75; PULSE 61; RESP 18
[2022-01-28 11:10] VITALS: BP 115/67; PULSE 58; RESP 18
== END 2022-01-28 11:48 | disposition home or self-care (01) ==
LOC: INF 10:23
PROVIDERS: Visit Provider Nurse Practitioner Family
DX: Z45.2 Encounter for adjustment and management of vascular access device (principal); S82.891S Other fracture of right lower leg, sequela; M86.671 Other chronic osteomyelitis, right ankle and foot; T81.31XA Disruption of external operation (surgical) wound, not elsewhere classified, initial encounter; Z98.1 Arthrodesis status
CPT/HCPCS: 96365; J1335

== ENCOUNTER → 2022-01-29 13:03 | Outpatient (CLI) | payer MEDICARE, SELFPAY ==
[2022-01-29 13:19] VITALS: BP 105/62; PULSE 54; RESP 18; TEMP 36.1; O2SAT 98
[2022-01-29 13:55] VITALS: BP 133/74; PULSE 52; RESP 18; O2SAT 98
== END ==
LOC: INF 13:04
PROVIDERS: Visit Provider Podiatrist
DX: Z45.2 Encounter for adjustment and management of vascular access device (principal); S82.891S Other fracture of right lower leg, sequela; M86.671 Other chronic osteomyelitis, right ankle and foot; T81.31XA Disruption of external operation (surgical) wound, not elsewhere classified, initial encounter; B95.2 Enterococcus as the cause of diseases classified elsewhere; Z98.1 Arthrodesis status
CPT/HCPCS: 96365; J1335

== ENCOUNTER 2022-01-29 16:00 | Outpatient (RCR) | payer MEDICARE, SELFPAY ==
--- NOTE | 2022-01-16 10:28 | HMH.PTOPWND ---
Rehab Outpt Wound Evaluation Rehab OP Wound Evaluation Start: 01/16/22 10:12 Freq: Status: Active Protocol: Document 01/16/22 10:16 SUMAN (Rec: 01/16/22 10:28 PHORAYDEN [id number]) E-signed By Sukhdev Harper, PT Subjective/History History History This is the initial PT eval for Alex Aaron 66 yowm who presents 2 days S/P surgical wound debridement with Integra graft placement and ex-fix to R ankle. He had previous R ankle hardware removed and R arterial runoff procedure 01/06/22 due to popliteal artery stenosis. Unfortunately while recovering from initial hardware removal he suffered a WBing incident which resulted in R ankle fx/ dislocation. Thks necessitated the further surgery and ex- fix placement. He presents this date with dressings intact. He does take a variety of medication which include an anticoagulant. Subjective Subjective Cureently he reports no pain in the R ankle, but some soreness in the R knee. He also reports difficulty sleeping due to the ex-fix being cumbersome. Wound Eval Wound Right Medial Ankle Wound Type Graft Is This a Chronic Wound No Wound Length (cm) 12.0 Wound Width (cm) 17.0 Wound Depth (cm) 0 Wound Bed Appearance Dusky Red,[place] Wound Margins Description Well Defined Edema Type Non-Pitting Edema Degree 1+ Query Text:1+ Trace, Barely Detectable, Rebound 15-30 seconds 2+ Moderate, Slight Indentation, Rebound 10-20 seconds 3+ Deep, Deeper Indentation, Rebound > 30 seconds 4+ Very Deep, Rebound > 60 seconds Drainage Description Sanguineous Drainage Amount Moderate Wound Topical Solution/Irrigant Saline Irrigant Primary Dressing Non-Adherent Gauze Pad Comment xeroform petroleum gauze Wound Secondary Dressing Type Absorbant Pad,Gauze Roll/Wrap Wound Debridement Amount of Tissue None Removed Dressing Ch
== END 2022-01-29 16:05 | disposition home or self-care (01) ==
LOC: PT 16:00
PROVIDERS: PCP Family Medicine; Visit Provider Podiatrist
DX: M25.571 Pain in right ankle and joints of right foot (principal); S91.001A Unspecified open wound, right ankle, initial encounter; T81.31XA Disruption of external operation (surgical) wound, not elsewhere classified, initial encounter
CPT/HCPCS: 97163; 97597; 97598; 97605

== ENCOUNTER 2022-01-30 10:30 | Outpatient (CLI) | payer MEDICARE, SELFPAY ==
[2022-01-30 10:30] VITALS: BMI 22.4
[2022-01-30 10:50] VITALS: BP 108/53; PULSE 68; RESP 20; TEMP 36.9; O2SAT 95
[2022-01-30 11:20] VITALS: BP 124/66; PULSE 61; RESP 20; TEMP 36.9; O2SAT 95
[2022-01-30 11:21] LABS: Chloride 106 mmol/L (98-107); Sodium 138 mmol/L (136-145)
[2022-01-30 11:22] LABS: Potassium 4.1 mmoL/L (3.5-5.1)
[2022-01-30 11:24] LABS: Blood Urea Nitrogen 22 mg/dl (9-20); Creatinine Clearance Estimated 83 mL/min (50-200); Estimated Glomerular Filt Rate 85 ml/min (>60); GFR (African American) 102 ML/MIN (>60)
[2022-01-30 11:25] LABS: Anion Gap 9.1 mEq/L (5-15); Calcium 8.8 mg/dl (8.4-10.2); Carbon Dioxide 27 mmol/L (22.0-30.0); Glucose 116 mg/dl (74-100)
== END 2022-01-30 11:30 | disposition home or self-care (01) ==
PROVIDERS: PCP Family Medicine; Visit Provider Nurse Practitioner Family
DX: Z45.2 Encounter for adjustment and management of vascular access device (principal); S82.891S Other fracture of right lower leg, sequela; M86.671 Other chronic osteomyelitis, right ankle and foot; T81.31XA Disruption of external operation (surgical) wound, not elsewhere classified, initial encounter; Z98.1 Arthrodesis status
CPT/HCPCS: 80048; 96365; J1335

== ENCOUNTER 2022-01-31 11:49 | Outpatient (CLI) | payer MEDICARE, SELFPAY ==
[2022-01-31 11:57] VITALS: BMI 22.4
== END 2022-01-31 12:37 | disposition home or self-care (01) ==
LOC: INF 11:52
PROVIDERS: PCP Family Medicine; Visit Provider Podiatrist
DX: Z45.2 Encounter for adjustment and management of vascular access device (principal); S82.891S Other fracture of right lower leg, sequela; M86.671 Other chronic osteomyelitis, right ankle and foot; T81.31XA Disruption of external operation (surgical) wound, not elsewhere classified, initial encounter; B95.2 Enterococcus as the cause of diseases classified elsewhere; Z98.1 Arthrodesis status
CPT/HCPCS: 96365; J1335

== ENCOUNTER 2022-02-01 10:36 | Outpatient (CLI) | payer MEDICARE, SELFPAY ==
[2022-02-01 11:04] VITALS: BP 126/74; PULSE 51; RESP 18; TEMP 36.6; O2SAT 93; BMI 22.4
== END 2022-02-01 11:28 | disposition home or self-care (01) ==
LOC: INF 10:38
PROVIDERS: PCP Family Medicine; Visit Provider Podiatrist
DX: Z45.2 Encounter for adjustment and management of vascular access device (principal); S82.891S Other fracture of right lower leg, sequela; M86.671 Other chronic osteomyelitis, right ankle and foot; T81.31XA Disruption of external operation (surgical) wound, not elsewhere classified, initial encounter; B95.2 Enterococcus as the cause of diseases classified elsewhere; Z98.1 Arthrodesis status
CPT/HCPCS: 96365; J1335

== ENCOUNTER 2022-02-02 10:43 | Outpatient (CLI) | payer MEDICARE, SELFPAY ==
[2022-02-02 11:02] VITALS: BP 121/78; PULSE 55; RESP 18; TEMP 36.3; O2SAT 99
[2022-02-02 11:50] VITALS: BP 118/74; PULSE 54; RESP 18; O2SAT 99
== END 2022-02-02 11:50 | disposition home or self-care (01) ==
LOC: INF 10:44
PROVIDERS: Visit Provider Podiatrist
DX: Z45.2 Encounter for adjustment and management of vascular access device (principal); S82.891S Other fracture of right lower leg, sequela; M86.671 Other chronic osteomyelitis, right ankle and foot; T81.31XA Disruption of external operation (surgical) wound, not elsewhere classified, initial encounter; B95.2 Enterococcus as the cause of diseases classified elsewhere; Z98.1 Arthrodesis status
CPT/HCPCS: 96365; J1335

== ENCOUNTER 2022-02-03 11:50 | Outpatient (CLI) | payer MEDICARE, SELFPAY ==
[2022-02-03 12:15] VITALS: BP 123/60; PULSE 68; RESP 18; O2SAT 96
[2022-02-03 12:28] LABS: Basophils # 0.1 K/mm3 (0-0.2); Basophils % 1.3 % (0.1-2.0); Eosinophils # 0.3 K/mm3 (0.0-0.4); Eosinophils % 4.7 % (0.1-12.0); Hematocrit 37.4 % (42.0-52.0); Hemoglobin 12.2 g/dL (14.1-18.0); Lymphocytes # 2.1 K/mm3 (0.7-4.5); Lymphocytes % 34.1 % (10-50); Mean Corpuscular HGB Conc 32.6 g/dL (31.8-35.4); Mean Corpuscular Volume 101.2 fl (80-94); Mean Platelet Volume 8.1 fl (7.4-10.4); Monocytes # 0.3 K/mm3 (0.1-1.0); Monocytes % 5.5 % (1.7-9.3); Neutrophils # 3.4 K/mm3 (1.8-7.8); Neutrophils % 54.4 % (37.0-80.0); Platelet Count 381 K/mm3 (142-424); Red Blood Count 3.69 M/mm3 (4.60-6.20); Red Cell Distribution Width 12.6 % (11.5-17.5); White Blood Count 6.3 K/mm3 (4.8-10.8)
[2022-02-03 12:31] LABS: Alanine Aminotransferase 44 U/L (12-78); Albumin Level 3.9 g/dl (3.5-5.0); Albumin/Globulin Ratio 1.4 (1.1-1.8); Alkaline Phosphatase 137 U/L (38-126); Anion Gap 11.6 mEq/L (5-15); Aspartate Amino Transferase 42 U/L (17-59); Bilirubin,Total 0.2 mg/dl (0.2-1.3); Blood Urea Nitrogen 25 mg/dl (9-20); Calcium 8.8 mg/dl (8.4-10.2); Carbon Dioxide 24 mmol/L (22.0-30.0); Chloride 109 mmol/L (98-107); Estimated Glomerular Filt Rate 75 ml/min (>60); GFR (African American) 91 ML/MIN (>60); Globulin 2.7 g/dL (1.3-3.2); Glucose 119 mg/dl (74-100); Potassium 4.6 mmoL/L (3.5-5.1); Sodium 140 mmol/L (136-145); Total Protein,Serum 6.6 g/dl (6.3-8.2)
[2022-02-03 12:37] LABS: C-Reactive Protein 2.4 mg/L (0-4)
[2022-02-03 12:50] VITALS: BP 147/62; PULSE 59; RESP 18; O2SAT 100
[2022-02-03 13:06] LABS: Erythrocyte Sedimentation Rate 17 mm/hr (0-20)
== END 2022-02-03 13:25 | disposition home or self-care (01) ==
LOC: INF 11:51
PROVIDERS: Podiatrist; PCP Family Medicine; Visit Provider Nurse Practitioner Family
DX: Z45.2 Encounter for adjustment and management of vascular access device (principal); S82.891S Other fracture of right lower leg, sequela; M86.671 Other chronic osteomyelitis, right ankle and foot; T81.31XA Disruption of external operation (surgical) wound, not elsewhere classified, initial encounter; B95.2 Enterococcus as the cause of diseases classified elsewhere; Z98.1 Arthrodesis status
CPT/HCPCS: 80053; 85025; 85651; 86140; 96365; J1335

== ENCOUNTER 2022-02-04 09:20 | Day surgery (SDC) | payer MEDICARE, SELFPAY ==
[2022-02-04 09:39] VITALS: BP 129/69; PULSE 56; RESP 18; TEMP 36.6; O2SAT 99; BMI 22.4
--- NOTE | 2022-02-04 11:41 | XR_ITS ---
FINAL REPORT CLINICAL HISTORY: Post op ex fix removal COMPARISON: 01/26/2022 FINDINGS: RIGHT ANKLE Three views of the right ankle were obtained. External fixator has been removed. There is a subacute comminuted fracture of the distal tibia and talus. There is been no significant change in bony alignment. There is increased callus formation at the fracture site. Multiple shilpa are present. There is soft tissue swelling. IMPRESSION: External fixator has been removed. No significant change in bony alignment. Reviewed, Interpreted and Dictated by Gilberto Crenshaw III, MD Transcribed by Kasey Peres Authenticated and [facility]
[2022-02-04 12:24] VITALS: BP 155/90; PULSE 54; RESP 16; TEMP 36.7; O2SAT 0
--- NOTE | 2022-02-04 12:32 | EXP.OP.NOTE ---
Date of procedure: 02/04/22 Pre-op Diagnosis:: Right ankle fracture dislocation Post-op Diagnosis:: Same Procedure performed:: External fixation device removal Closed treatment of ankle dislocation with local anesthesia/ankle block Surgeon:: Anitra Cook DPM Anesthesia: local (0.5% marcaine plain) Estimated blood loss (mL): 5 Clinical Note:: Patient is a 66-year-old male who had a right ankle fracture dislocation with Delta Frame application. Patient admits to walking and has further shifted in the external fixation device. Patient wants the delta frame off. Discussed removing the external fixation device prior to his appointment with orthopedics. Discussed risks and benefits including further worsening or shifting of the ankle joint. Patient is ready to proceed with a BKA and does not want the Ex-Fix on anymore. All risks and benefits were discussed including but not limited to: Further shifting/fracturing of the ankle joint, damage to blood vessels and nerves, bleeding, infection, wound complications, delayed, mal or non-union of bone, post-traumatic arthritis, need for further surgery, implant failure, need for removal of implant, prolonged or permanent swelling of the extremity, prolonged or permanent pain or deformity, CRPS/RSD, DVT/PE, and anesthetic complications including . Patient understands without the stability of the external fixation device if he walks the ankle may further fracture or shift. He is to be nonweightbearing. No guarantees were given. All questions fully answered. The patient verbalized understanding and agreed to proceed with surgery. Consent was obtained. This is stage surgery. Patient is scheduled for evaluation for right BKA with Dr. Villarreal 02/12/22. ? Operative findings:: Comminuted right ankle fracture dislocation. Bone is soft and crunchy. Operative note:: On this date and time patient was deemed an appropriate surgical candidate. With informed consent signed, the patient was taken to the operating theater. The patient was positioned supine. No tourniquet used. Right ankle hematoma block and regional nerve block given. Right removal of external fixation device: The Integra wound graft with shilpa intact. The wound graft was not removed. Betadine used to clean the wound site. No edema and erythema noted to the pin sites. No drainage noted from pin sites. No jarret purulence, no malodor, no ascending cellulitis. The right lower extremity was prepped with betadine. A wrench was used to unscrew the frame. The frame was removed in total. All of the pins were removed without complication. Next the leg was re-prepped was betadine. A curette was used to curette and debride the pin sites. Fibrotic tissue and biofilm was removed. No purulence or other signs of infection noted to the foot or distal tibial pin sites. Pin site wounds were granular. All pin sites were cleansed with Betadine. Bleeding controlled. Right ankle fracture closed reduction: Obvious deformity noted to the right ankle joint. The ankle was distracted and reduced. It was held in place. Xeroform soaked in Betadine was then applied to each pin site. A soft compression dry sterile dressing/splint was then applied to the right ankle. Some reduction of deformity was noted but there is still some angulation. No skin tenting was observed. Patient tolerated procedure anesthesia well without complication. The patient was transferred to recovery with vital signs stable and neurovascular status intact. Discharge/Plan: Ok to d/c home when ready, vss. Patient is to maintain dressing clean dry and intact. Elevate on two pillows. Continue antibiotics, PICC, IV Ertapenem 1g q24h. No weight bearing to the left lower extremity with DME assistance (wheelchair, rolling knee scooter). Obtain post op films, right ankle 3 views. Plan for dressing change every 1-2 days at [facility] infusion. Ok to re-enforce as needed. Cleanse with betadine. Apply betadine soaked gauze, dry gauze
[2022-02-04 12:44] VITALS: BP 153/85; PULSE 56; RESP 17; O2SAT 100
== END 2022-02-04 12:55 | disposition home or self-care (01) ==
PROVIDERS: PCP Family Medicine; Visit Provider Podiatrist
PROC: (CPT 20694; principal; 2022-02-04 10:15)
DX: S82.891A Other fracture of right lower leg, initial encounter for closed fracture (principal); M86.671 Other chronic osteomyelitis, right ankle and foot
CPT/HCPCS: 20694; 73610; J1335

== ENCOUNTER 2022-02-05 09:26 | Outpatient (CLI) | payer MEDICARE, SELFPAY ==
[2022-02-05 09:50] VITALS: BP 130/74; PULSE 61; RESP 16; O2SAT 98
[2022-02-05 10:25] VITALS: BP 125/73; PULSE 53; RESP 16
--- NOTE | 2022-02-05 13:12 | PC.NURSE ---
REMOVED DRESSING FROM PT'S RIGHT FOOT IT WAS SATURATED WITH BRIGHT RED BLOOD. IRRIGATED PUNCTURE SITES WITH NS AND COVERED WITH ABD PADS. WRAPPED RIGHT LOWER LEG/FOOT WITH KERLEX FOLLOWED WITH [facility]ZYSZ[facility] WRAP. PT REAPPLIED BOOT.
== END 2022-02-05 10:50 | disposition home or self-care (01) ==
LOC: INF 09:26
PROVIDERS: PCP Family Medicine; Visit Provider Nurse Practitioner Family
DX: Z45.2 Encounter for adjustment and management of vascular access device (principal); S82.891S Other fracture of right lower leg, sequela; M86.671 Other chronic osteomyelitis, right ankle and foot; T81.31XA Disruption of external operation (surgical) wound, not elsewhere classified, initial encounter; B95.2 Enterococcus as the cause of diseases classified elsewhere; Z98.1 Arthrodesis status
CPT/HCPCS: 96365; G0463; J1335

== ENCOUNTER 2022-02-06 10:03 | Outpatient (CLI) | payer MEDICARE, SELFPAY ==
[2022-02-06 10:20] VITALS: BP 119/72; PULSE 56; RESP 18; TEMP 36.7; O2SAT 98
[2022-02-06 11:13] VITALS: BP 127/72; PULSE 56; RESP 18
== END 2022-02-06 11:13 | disposition home or self-care (01) ==
LOC: INF 10:04
PROVIDERS: PCP Family Medicine; Visit Provider Nurse Practitioner Family
DX: Z45.2 Encounter for adjustment and management of vascular access device (principal); S82.891S Other fracture of right lower leg, sequela; M86.671 Other chronic osteomyelitis, right ankle and foot; T81.31XA Disruption of external operation (surgical) wound, not elsewhere classified, initial encounter; B95.2 Enterococcus as the cause of diseases classified elsewhere; Z98.1 Arthrodesis status
CPT/HCPCS: 96365; G0463; J1335

== ENCOUNTER 2022-02-07 10:44 | Outpatient (CLI) | payer MEDICARE, SELFPAY ==
[2022-02-07 10:55] VITALS: BP 99/48; PULSE 55; RESP 20; TEMP 36.4
--- NOTE | 2022-02-07 12:04 | PC.NURSE ---
old dressing removed. foot/leg wiped down with betadine. betadine soaked gauze applied to area with shilpa. xeroform dsg applied to area rods removed from. abd pad, kerlix and shaneka wrap applied to leg.
== END 2022-02-07 12:04 | disposition home or self-care (01) ==
LOC: INF 10:45
PROVIDERS: PCP Family Medicine; Visit Provider Nurse Practitioner Family
DX: Z45.2 Encounter for adjustment and management of vascular access device (principal); S82.891S Other fracture of right lower leg, sequela; M86.671 Other chronic osteomyelitis, right ankle and foot; T81.31XA Disruption of external operation (surgical) wound, not elsewhere classified, initial encounter; B95.2 Enterococcus as the cause of diseases classified elsewhere; Z98.1 Arthrodesis status
CPT/HCPCS: 96365; G0463

== ENCOUNTER 2022-02-08 10:08 | Outpatient (CLI) | payer MEDICARE, SELFPAY ==
--- NOTE | 2022-02-08 10:30 | PC.NURSE ---
IV infusion started.
[2022-02-08 10:38] VITALS: BP 104/56; PULSE 63; RESP 18; TEMP 36.4; O2SAT 97
[2022-02-08 10:39] VITALS: BP 104/56; PULSE 63; RESP 18; TEMP 36.4; O2SAT 97
--- NOTE | 2022-02-08 10:55 | PC.NURSE ---
Infusion complete. Single Lumen pick flushed with 10mls NS.
--- NOTE | 2022-02-08 13:35 | PC.NURSE ---
Dressing changed at approx 1100. old saturated dressing removed. new betadine soaked 4x4's applied. xeroform applied to gemini removal sites. abd pads, kerlix and shaneka wraps applied.
--- NOTE | 2022-02-08 13:40 | PC.NURSE ---
all care for pt infusion completed by sushil david rn. charted by myself
== END 2022-02-08 11:40 | disposition home or self-care (01) ==
LOC: INF 10:09
PROVIDERS: PCP Family Medicine; Visit Provider Nurse Practitioner Family
DX: Z45.2 Encounter for adjustment and management of vascular access device (principal); S82.891S Other fracture of right lower leg, sequela; M86.671 Other chronic osteomyelitis, right ankle and foot; T81.31XA Disruption of external operation (surgical) wound, not elsewhere classified, initial encounter; B95.2 Enterococcus as the cause of diseases classified elsewhere; Z98.1 Arthrodesis status
CPT/HCPCS: 96365; G0463; J1335

== ENCOUNTER 2022-02-09 10:26 | Outpatient (CLI) | payer MEDICARE, SELFPAY ==
[2022-02-09 10:31] VITALS: BP 125/65; PULSE 63; RESP 18; TEMP 36.3; O2SAT 98
[2022-02-09 11:20] VITALS: BP 124/63; PULSE 64; RESP 18; O2SAT 99
== END 2022-02-09 11:20 | disposition home or self-care (01) ==
LOC: INF 10:27
PROVIDERS: PCP Family Medicine; Visit Provider Nurse Practitioner Family
DX: Z45.2 Encounter for adjustment and management of vascular access device (principal); S82.891S Other fracture of right lower leg, sequela; M86.671 Other chronic osteomyelitis, right ankle and foot; T81.31XA Disruption of external operation (surgical) wound, not elsewhere classified, initial encounter; B95.2 Enterococcus as the cause of diseases classified elsewhere; Z98.1 Arthrodesis status
CPT/HCPCS: 96365; G0463; J1335

== ENCOUNTER 2022-02-10 10:47 | Outpatient (CLI) | payer MEDICARE, SELFPAY ==
[2022-02-10 11:10] VITALS: BP 135/74; PULSE 68; RESP 18; TEMP 36.3; O2SAT 98
[2022-02-10 11:50] VITALS: BP 132/64; PULSE 67; RESP 18; O2SAT 99
== END 2022-02-10 11:50 | disposition home or self-care (01) ==
LOC: INF 10:48
PROVIDERS: PCP Family Medicine; Visit Provider Nurse Practitioner Family
DX: Z45.2 Encounter for adjustment and management of vascular access device (principal); S82.891S Other fracture of right lower leg, sequela; M86.671 Other chronic osteomyelitis, right ankle and foot; T81.31XA Disruption of external operation (surgical) wound, not elsewhere classified, initial encounter; B95.2 Enterococcus as the cause of diseases classified elsewhere; Z98.1 Arthrodesis status
CPT/HCPCS: 96365; J1335

== ENCOUNTER 2022-02-11 11:20 | Outpatient (CLI) | payer MEDICARE, SELFPAY ==
[2022-02-11 11:43] VITALS: BP 136/73; PULSE 80; RESP 18; TEMP 36.4; O2SAT 98
[2022-02-11 12:35] VITALS: BP 128/75; PULSE 75; RESP 18; O2SAT 98
== END 2022-02-11 12:45 | disposition home or self-care (01) ==
LOC: INF 11:20
PROVIDERS: PCP Family Medicine; Visit Provider Nurse Practitioner Family
DX: Z45.2 Encounter for adjustment and management of vascular access device (principal); S82.891S Other fracture of right lower leg, sequela; M86.671 Other chronic osteomyelitis, right ankle and foot; T81.31XA Disruption of external operation (surgical) wound, not elsewhere classified, initial encounter; B95.2 Enterococcus as the cause of diseases classified elsewhere; Z98.1 Arthrodesis status
CPT/HCPCS: 96365; G0463; J1335

== ENCOUNTER 2022-02-12 10:52 | Outpatient (CLI) | payer MEDICARE, SELFPAY ==
[2022-02-12 11:16] VITALS: BP 109/58; PULSE 56; RESP 18; TEMP 36.8; O2SAT 97
[2022-02-12 11:35] LABS: Chloride 108 mmol/L (98-107); Potassium 4.2 mmoL/L (3.5-5.1); Sodium 139 mmol/L (136-145)
[2022-02-12 11:38] LABS: Anion Gap 10.2 mEq/L (5-15); Blood Urea Nitrogen 18 mg/dl (9-20); Carbon Dioxide 25 mmol/L (22.0-30.0); Estimated Glomerular Filt Rate 85 ml/min (>60); GFR (African American) 102 ML/MIN (>60)
[2022-02-12 11:39] LABS: Calcium 8.4 mg/dl (8.4-10.2); Glucose 114 mg/dl (74-100)
[2022-02-12 12:10] VITALS: BP 115/78; PULSE 60; RESP 18
== END 2022-02-12 12:10 | disposition home or self-care (01) ==
LOC: INF 10:53
PROVIDERS: PCP Family Medicine; Visit Provider Nurse Practitioner Family
DX: Z45.2 Encounter for adjustment and management of vascular access device (principal); S82.891S Other fracture of right lower leg, sequela; M86.671 Other chronic osteomyelitis, right ankle and foot; T81.31XA Disruption of external operation (surgical) wound, not elsewhere classified, initial encounter; Z98.1 Arthrodesis status
CPT/HCPCS: 80048; 96365; G0463; J1335

== ENCOUNTER 2022-02-13 10:58 | Outpatient (CLI) | payer MEDICARE, SELFPAY ==
[2022-02-13 11:10] VITALS: BP 112/69; PULSE 54; RESP 18; O2SAT 95
[2022-02-13 11:40] VITALS: BP 122/37; PULSE 54; RESP 18
== END 2022-02-13 12:00 | disposition home or self-care (01) ==
LOC: INF 10:59
PROVIDERS: PCP Family Medicine; Visit Provider Nurse Practitioner Family
DX: Z45.2 Encounter for adjustment and management of vascular access device (principal); S82.891S Other fracture of right lower leg, sequela; M86.671 Other chronic osteomyelitis, right ankle and foot; T81.31XA Disruption of external operation (surgical) wound, not elsewhere classified, initial encounter; B95.2 Enterococcus as the cause of diseases classified elsewhere; Z98.1 Arthrodesis status
CPT/HCPCS: 96365; J1335

== ENCOUNTER 2022-02-14 10:18 | Outpatient (CLI) | payer MEDICARE, SELFPAY ==
[2022-02-14 10:52] VITALS: BMI 22.4
== END 2022-02-14 11:17 | disposition home or self-care (01) ==
LOC: INF 10:19
PROVIDERS: PCP Family Medicine; Visit Provider Podiatrist
DX: Z45.2 Encounter for adjustment and management of vascular access device (principal); S82.891S Other fracture of right lower leg, sequela; M86.671 Other chronic osteomyelitis, right ankle and foot; T81.31XA Disruption of external operation (surgical) wound, not elsewhere classified, initial encounter; B95.2 Enterococcus as the cause of diseases classified elsewhere; Z98.1 Arthrodesis status
CPT/HCPCS: 96365; J1335

== ENCOUNTER 2022-02-15 11:37 | Outpatient (CLI) | payer MEDICARE, SELFPAY ==
[2022-02-15 11:58] VITALS: BMI 22.4
== END 2022-02-15 13:04 | disposition home or self-care (01) ==
LOC: INF 11:38
PROVIDERS: PCP Family Medicine; Visit Provider Podiatrist
DX: Z45.2 Encounter for adjustment and management of vascular access device (principal); S82.891S Other fracture of right lower leg, sequela; M86.671 Other chronic osteomyelitis, right ankle and foot; T81.31XA Disruption of external operation (surgical) wound, not elsewhere classified, initial encounter; B95.2 Enterococcus as the cause of diseases classified elsewhere; Z98.1 Arthrodesis status
CPT/HCPCS: 96365; G0463; J1335

== ENCOUNTER 2022-02-16 10:09 | Outpatient (CLI) | payer MEDICARE, SELFPAY ==
[2022-02-16 10:27] VITALS: BP 121/65; PULSE 71; RESP 18; TEMP 36.2; O2SAT 99
[2022-02-16 10:57] VITALS: BP 119/60; PULSE 72; RESP 18; O2SAT 99
== END 2022-02-16 11:27 | disposition home or self-care (01) ==
LOC: INF 10:10
PROVIDERS: PCP Family Medicine; Visit Provider Podiatrist
DX: Z45.2 Encounter for adjustment and management of vascular access device (principal); S82.891S Other fracture of right lower leg, sequela; M86.671 Other chronic osteomyelitis, right ankle and foot; T81.31XA Disruption of external operation (surgical) wound, not elsewhere classified, initial encounter; B95.2 Enterococcus as the cause of diseases classified elsewhere; Z98.1 Arthrodesis status
CPT/HCPCS: 96365; G0463; J1335

== ENCOUNTER 2022-02-17 10:56 | Outpatient (CLI) | payer MEDICARE, SELFPAY ==
[2022-02-17 11:15] VITALS: BP 146/73; PULSE 59; RESP 18; TEMP 36.4; O2SAT 97
[2022-02-17 12:04] VITALS: BP 119/58; PULSE 61; RESP 18
== END 2022-02-17 12:04 | disposition home or self-care (01) ==
LOC: INF 10:57
PROVIDERS: PCP Family Medicine; Visit Provider Nurse Practitioner Family
DX: Z45.2 Encounter for adjustment and management of vascular access device (principal); S82.891S Other fracture of right lower leg, sequela; M86.671 Other chronic osteomyelitis, right ankle and foot; T81.31XA Disruption of external operation (surgical) wound, not elsewhere classified, initial encounter; B95.2 Enterococcus as the cause of diseases classified elsewhere; Z98.1 Arthrodesis status
CPT/HCPCS: 96365; G0463; J1335

== ENCOUNTER 2022-02-18 11:20 | Outpatient (CLI) | payer MEDICARE, SELFPAY ==
[2022-02-18 12:20] VITALS: BP 133/64; PULSE 81; RESP 18; TEMP 36.4; O2SAT 98
[2022-02-18 12:55] VITALS: BP 129/59; PULSE 63; RESP 18; O2SAT 98
== END 2022-02-18 12:55 | disposition home or self-care (01) ==
LOC: INF 11:20
PROVIDERS: PCP Family Medicine; Visit Provider Nurse Practitioner Family
DX: Z45.2 Encounter for adjustment and management of vascular access device (principal); S82.891S Other fracture of right lower leg, sequela; M86.671 Other chronic osteomyelitis, right ankle and foot; T81.31XA Disruption of external operation (surgical) wound, not elsewhere classified, initial encounter; B95.2 Enterococcus as the cause of diseases classified elsewhere; Z98.1 Arthrodesis status
CPT/HCPCS: 96365; G0463; J1335

== ENCOUNTER 2022-02-19 11:19 | Outpatient (CLI) | payer MEDICARE, SELFPAY ==
[2022-02-19 11:40] VITALS: BP 131/71; PULSE 73; RESP 18; O2SAT 99
[2022-02-19 12:20] VITALS: BP 128/71; PULSE 72; RESP 18
== END 2022-02-19 12:20 | disposition home or self-care (01) ==
PROVIDERS: PCP Family Medicine; Visit Provider Nurse Practitioner Family
DX: Z45.2 Encounter for adjustment and management of vascular access device (principal); S82.891S Other fracture of right lower leg, sequela; M86.671 Other chronic osteomyelitis, right ankle and foot; T81.31XA Disruption of external operation (surgical) wound, not elsewhere classified, initial encounter; B95.2 Enterococcus as the cause of diseases classified elsewhere; Z98.1 Arthrodesis status
CPT/HCPCS: 96365; J1335

== ENCOUNTER 2022-02-20 10:00 | Outpatient (CLI) | payer MEDICARE, SELFPAY ==
[2022-02-20 10:30] VITALS: BP 115/74; PULSE 60; RESP 18; O2SAT 99
[2022-02-20 11:18] VITALS: BP 124/71; PULSE 51; RESP 18; O2SAT 99
== END 2022-02-20 11:20 | disposition home or self-care (01) ==
PROVIDERS: PCP Family Medicine; Visit Provider Nurse Practitioner Family
DX: Z45.2 Encounter for adjustment and management of vascular access device (principal); S82.891S Other fracture of right lower leg, sequela; M86.671 Other chronic osteomyelitis, right ankle and foot; T81.31XA Disruption of external operation (surgical) wound, not elsewhere classified, initial encounter; B95.2 Enterococcus as the cause of diseases classified elsewhere; Z98.1 Arthrodesis status
CPT/HCPCS: 96365; G0463; J1335

== ENCOUNTER 2022-02-23 10:54 | Outpatient (CLI) | payer MEDICARE, SELFPAY ==
[2022-02-23 11:04] VITALS: BP 117/71; PULSE 81; RESP 18; TEMP 36.4; O2SAT 97
[2022-02-23 11:55] VITALS: BP 120/76; PULSE 84; RESP 18; O2SAT 97
== END 2022-02-23 12:00 | disposition home or self-care (01) ==
LOC: INF 10:55
PROVIDERS: PCP Family Medicine; Visit Provider Nurse Practitioner Family
DX: Z45.2 Encounter for adjustment and management of vascular access device (principal); S82.891S Other fracture of right lower leg, sequela; M86.671 Other chronic osteomyelitis, right ankle and foot; T81.31XA Disruption of external operation (surgical) wound, not elsewhere classified, initial encounter; B95.2 Enterococcus as the cause of diseases classified elsewhere; Z98.1 Arthrodesis status
CPT/HCPCS: 96365; G0463; J1335

== ENCOUNTER 2022-02-24 11:22 | Outpatient (CLI) | payer MEDICARE, SELFPAY ==
[2022-02-24 12:15] VITALS: BP 126/72; PULSE 61; RESP 18; TEMP 36.4; O2SAT 99
[2022-02-24 12:41] VITALS: BP 119/64; PULSE 51; RESP 18; O2SAT 99
== END 2022-02-24 12:49 | disposition home or self-care (01) ==
LOC: INF 11:23
PROVIDERS: PCP Family Medicine; Visit Provider Nurse Practitioner Family
DX: Z45.2 Encounter for adjustment and management of vascular access device (principal); S82.891S Other fracture of right lower leg, sequela; M86.671 Other chronic osteomyelitis, right ankle and foot; T81.31XA Disruption of external operation (surgical) wound, not elsewhere classified, initial encounter; B95.2 Enterococcus as the cause of diseases classified elsewhere; Z98.1 Arthrodesis status
CPT/HCPCS: 96365; G0463; J1335

== ENCOUNTER 2022-02-25 10:08 | Inpatient (IN) | payer MEDICARE, SELFPAY ==
--- NOTE | 2022-02-19 15:15 | SW/DCPLANNER ---
Addendum entered by Dolores Dinero 02/24/22 13:58: Patient stated that he does have everything he needs for when he is ready for discharge including all DME and assistance at home. I will follow up with patient and his family after surgery tomorrow. Original Note: I have attempted to contact this patient regarding upcoming procedure on 02/25/22 BKA: no answer at this time.
[2022-02-24 10:09] VITALS: BMI 21.2
[2022-02-25] VITALS (29 sets, daily range): BP systolic 96–158; BP diastolic 57–90; PULSE 55–77; RESP 14–18; TEMP 36.6–37.1; O2SAT 90–98; BMI 21.4
--- NOTE | 2022-02-25 10:01 | P.PN_ITS ---
[facility] Disclaimer: The information contained in this section may have been updated after the patient was seen, as this information can be updated by other users. Medical History Abnormal EKG Cardiomyopathy COPD (chronic obstructive pulmonary disease) COPD mixed type Dyspnea Dyspnea on exertion Edema Encounter for pre-operative cardiovascular clearance Ex-smoker for less than 1 year History of smoking 30 or more pack years PAD (peripheral artery disease) Stenosis of right popliteal artery Tobacco dependence syndrome Surgical History History of ankle surgery History of right hip replacement Stented coronary artery Family History Other Alzheimer disease Family history of myocardial infarction Social History Smoking Status: Former smoker pack-years: 1 years smoked: 40 smoking status stop date: 2018 second hand exposure: No alcohol intake: never substance use type: denies use current occupational status: employed Travel in the last 8 weeks: Inside the [place] household members: spouse housing: house number of children: 2 current occupational exposures/hazards: No caffeine: Yes [facility] Anesthesia Checklist Patient Identification Patient Identification: Arm Band and Verbal (Name & ) Structural Data Admitted From: Home Planned Operative Procedure/s: BKA Consent for Planned Operative Procedure(s) Verified: Yes NPO Status Verified Time NPO: 00:00 Chart Verification Results Verified: CBC and BMP Additional verifications Anesthesia Reactions: No Hx Blood Transfusions: No Blood Transfusion Reaction: No Airway Assessment C-Spine Mobility Assessed: Yes TMJ Mobility Assessed: Yes Dentition: Good Dentition Neurological Assessment Level of Consciousness: Awake Hx Seizures: No Numbness or tingling in extremities: No Anesthesia Plan Anesthesia Risk discussed: Yes Anesthesia Plan: Verified ASA Class: III Anesthesia Type: General
--- NOTE | 2022-02-25 13:37 | P.PNANES_ITS ---
[facility] Anesthesia Record Part I Anesthesia Record I Intake, IV Amount: 800 Estimated blood loss (mL): 10 Urine output (mL): 0 Blood Pressure: 135/82 SaO2: 93 Pulse Rate: 71 Respiratory Rate: 15 Temperature: 98.8 F Patient is:: Drowsy and Oral/Nasal airway Stable to PACU at:: 13:34
--- NOTE | 2022-02-25 13:43 | P.OP_ITS ---
Date of procedure: 02/25/22 Pre-op Diagnosis:: Osteomyelitis right foot Post-op Diagnosis:: Same Procedure performed:: Right below-knee amputation Surgeon:: Rene Villarreal DO Community Outreach Coordinator(s):: Nadeem SANTIAGO TALLOW REFINER:: Tiffanie Hampton Anesthesia: GETA and regional Estimated blood loss (mL): 50 Operative findings:: No evidence of gross infection at the bone or muscle area where resection was made Operative note:: Patient did 5 preoperatively right lower extremity marked yes my initials. Underwent a block with anesthesia. Taken the operating room. Placed upon operating bed bone foam placed into the hip. Right lower extremities then prepped draped normal sterile fashion. Once prepped and draped final operative timeout performed to identify proper patient procedure and extremity. Everyone involved the case agreed. No counter Acacian beginning. Did receive preoperative antibiotics. Marking pen was used to make plan incision over the anterior aspect of the tibia and a posterior flap for below-knee amputation I had to move a little bit higher than wanted on the tibial bone cut secondary to Ex-Fix hole in the anterior aspect of the tibia and shilpa in the posterior flap. Leg was elevated pneumatic tourniquet inflated 2 and 50 mmHg. Skin F was used incise through skin around the flap area. Careful duct dissection taken down the anterior compartment all vessels were identified and clamped and stitch tied and freehand tied with silk. Tibia was identified at the level of proper resection based on flap size. Homans were placed posterior to the tibia and an oscillating saw was used for tibia cut same for exposure on the fibula was performed with periosteal elevator and it was cut 1 cm proximal to the tibia cut. Amputation knife was used to remove tissue directly from the back of the tibia and fibula to complete amputation of the leg the posterior soft tissues were identified all vessels were identified clamped with hemostat tied. They were th en cut. The debulking of the superficial posterior layer was performed strict hemostasis with clamping and tying vessels were performed tibial nerve identified put on stretch and cut so could retract peroneal nerve also retracted and cut. Once debulking of the muscle was performed. Tourniquet was deflated and proper hemostasis was confirmed. Myodesis was performed posteriorly up into the periosteum around the tibia this was tied with 0 Vicryl stitch the fascial layers were then approximated deep with 0 Vicryl stitch subcutaneous with 2-0 Vicryl stitch surgical clips in the skin for closure Sterile dressing was placed with big bulky dressing well-padded soft roll and a posterior based Ortho-Glass splint was made and placed Jesus bandages wrapped to protect the stump. Patient waken anesthesia taken recovery stable condition Condition: stable Disposition: PACU Complications:: None apparent
--- NOTE | 2022-02-25 14:20 | HMH.PHAINT1 ---
Pharmacy Intervention Comments: MEDICATION RECONCILIATION COMPLETED ON PATIENT USING EXTERNAL FILL HISTORY FROM PHARMACY, LEI REPORT, AND LIST FROM CARDIOLOGY OFFICE. -DIANE MEJIAD
--- NOTE | 2022-02-25 16:37 | PC.NURSE ---
Called report to Gabriela Peres RN at this time
--- NOTE | 2022-02-25 16:55 | PC.NURSE ---
patient arrived by bed from surgery
--- NOTE | 2022-02-25 17:01 | EXP.ANES.II ---
[facility] Anesthesia Record Part II Anesthesia Record Part II Discharge Time: 15:04 Destination: Medical Surgical Department PACU nurse assessment reviewed?: Yes Patient Condition:: Good Anesthesia Complications:: None Swallowing reflex intact?: Yes Cyanosis?: No Blood Pressure: 136/80 Pulse Rate: 55 Temperature: 97.9 F Mental Status: Alert & Oriented Pain level:: 0 Nausea and/or vomitting:: None Intake, IV Amount: 0
[2022-02-25 17:12] LABS: Coronavirus 19, PCR Not Detected (NotDetected); Influenza A, PCR Not Detected (NotDetected); Influenza B, PCR Not Detected (NotDetected)
--- NOTE | 2022-02-25 19:00 | PC.NURSE ---
Pt is A/ox4. He has tolerated his diet well. He has no needs or complaints at this time. He stated that he is starting to feel some phantom pain and Dr. Villarreal is aware. He was given toradol IV to try and help with that pain.
--- NOTE | 2022-02-25 19:35 | PC.NURSE ---
pt was moved from 210 to icu 231 via bed with personal belongings and at bedside, pt aware of moving due to overflow, no acute distress at this time.
[2022-02-26] VITALS: BP 126/71; PULSE 59; RESP 18; TEMP 36.3; O2SAT 95
[2022-02-26 04:00] VITALS: BP 138/73; PULSE 74; RESP 20; TEMP 37; O2SAT 95; BMI 21.9
--- NOTE | 2022-02-26 05:09 | PC.NURSE ---
pt is alert and oriented x4, s/p right bka with dressing cdi, pt restless most of night and up to wheelchair in [address], vss, no acute distress noted, pt medicated x1 for phantom pain with relief, no other issues or concerns at this time. picc line dressing cdi to brenda.
--- NOTE | 2022-02-26 06:50 | PC.NURSE ---
pt has been restless and up and down all morning, noted pt up in wheelchair in hallway and pt had entire dressing in hand, splint, softroll and shaneka came off, pt helped back in bed and noted some moderate amount of bloody drainage on old dressing, shilpa intact, xeroform, sterile 4x4's, soft roll placed, splint then placed and secured with shaneka wrap, pt tolerated well, pt will not keep leg still.
[2022-02-26 08:00] VITALS: BP 134/68; PULSE 90; RESP 20; TEMP 36.6; O2SAT 94
--- NOTE | 2022-02-26 08:45 | HMH.OTEV ---
OT Inpatient Evaluation Rehab OT IP Evaluation Start: 02/25/22 13:57 Freq: ONCE Status: Active Protocol: Document 02/26/22 08:39 [facility] (Rec: 02/26/22 08:45 [facility] [id number]) Rehab OT IP Assessment Subjective History Pt oriented x 3 on arrival. Pt agreeable to engage in therapy evaluation. Pt admitted on 02/25/22 following a Right below-knee amputation due to Osteomyelitis right foot. Prior to this procedure , pt was independent with all ADLs. He was dependent upon for completion of all IADLs. Pt was using a knee scooter for ambulation. Pt has a past medical history of: Abnormal EKG Cardiomyopathy COPD (chronic obstructive pulmonary disease) COPD mixed type Dyspnea Dyspnea on exertion Edema Encounter for pre-operative cardiovascular clearance Ex-smoker for less than 1 year History of smoking 30 or more pack years PAD (peripheral artery disease ) Stenosis of right popliteal artery Tobacco dependence syndrome Subjective It is a lot to take in. Objective Patient Orientation Person,Place,Birthday Upper Extremity Gross ROM WFL Bed Mobility bed mobility-scooting,bed mobility - supine/sit,bed mobility - rolling Assist Level Supervision/Stand by Transfer Training Sit/Stand Transfer Assist Level Supervision/Stand by Chair Transfer Assistive Devices Rolling Walker Rehab OT IP prob,goals,plan Problems Date of Evaluation: 02/26/22 OT IP Problems Bed Mobility,Transfers,Balance ,Self care,Safety Rehab Potential Rehab Potential Good Equipment Needs Assistive Devices Rolling / Wheeled Walker, Axillary Crutches,Wheelchair Plan OT intervention Plan
--- NOTE | 2022-02-26 09:51 | HMH.PTEV ---
Physical Therapy Evaluation Rehab PT IP Evaluation Start: 02/25/22 13:57 Freq: ONCE Status: Active Protocol: Document 02/26/22 09:45 [facility] (Rec: 02/26/22 09:51 PHORNE [id number]) Subjective/History History History 66 yowm adm to [facility] for R BKA. He has RW, crutches and W/C for home use.He lives with his spouse and is generally independent with knee scooter. Subjective Subjective Pt c/o intermittent phantom limb pains. Rehab PT IP Eval Objective Appearance Patient Behavior Appropriate,Cooperative Patient Orientation Person,Place,Time Difficulty following instructions none Speech Pattern Clear Ambulation Patient Able to Ambulate Yes Ambulation Observation Ambulation Distance (feet) 3 Ambulation Assistive Device Rolling Walker Ambulation Ability Minimal x 1 (25% assist) Balance Ability to Arise Able, uses arms to help Sitting Balance Steady, safe Standing Balance Unsteady Dynamic Sitting Balance Ability Normal Dynamic Standing Balance Ability Fair Transfers Bed Transfer Ability Independent Chair Transfer Ability Contact Guard/Hand Hold Sit to Stand Bed Transfer Ability Contact Guard/Hand Hold Sit to Stand Chair Transfer Ability Contact Guard/Hand Hold Rehab PT IP prob,goals,plan Problems Date of Evaluation: 02/26/22 Discharge Plan PT Discharge Plan Pt is appropriate to return home once medically stable, recommend outpatient PT when appropriate. G -code Required No Eval Complexity Eval Charge Codes 40104 - Moderate Complexity PHYSICIAN CERTIFICATION: I certify the specified therapy services for Alex Aaron are required, authorized, and reviewed every 30 days.
--- NOTE | 2022-02-26 10:46 | EXP.HPDC ---
General Admission date:: 02/25/22 Discharge date: 02/26/22 *Admission Date: 02/25/22 *Chief complaint: Right BKA *History of present illness: Mr. Aaron is a 66 year old male patient with a long and complicated history of multiple right lower extremity surgeries resulting in significant bone loss and infection in the right lower extremity. He has had associated instability of the right lower extremity and was referred to orthopedics for consideration of right below the knee amputation. The patient has tried alternative surgical options for his right lower extremity without success and is interested in proceeding with right below the knee amputation for elimination of infection and improved mobility. [facility] Disclaimer: The information contained in this section may have been updated after the patient was seen, as this information can be updated by other users. Medical History Abnormal EKG Cardiomyopathy COPD (chronic obstructive pulmonary disease) COPD mixed type Dyspnea Dyspnea on exertion Edema Encounter for pre-operative cardiovascular clearance Ex-smoker for less than 1 year History of smoking 30 or more pack years PAD (peripheral artery disease) Stenosis of right popliteal artery Tobacco dependence syndrome Surgical History History of ankle surgery History of right hip replacement Stented coronary artery Family History Other Alzheimer disease Family history of myocardial infarction Social History Smoking Status: Former smoker pack-years: 1 years smoked: 40 smoking status stop date: 2018 second hand exposure: No alcohol intake: never substance use type: denies use current occupational status: employed Travel in the last 8 weeks: [place] the [place] household members: spouse housing: house number of children: 2 current occupational exposures/hazards: No caffeine: Yes Review of Systems Review of Systems Review of systems:: pertinent systems reviewed and negative unless documented below Constitutional Constitutional: Reports system reviewed and no additional complaints, except as documented, Denies body ache(s), Denies chills, Denies fatigue, Denies fever(s), Denies headache(s) and Denies night sweats Eyes Eyes: Reports system reviewed and no additional complaints, except as documented and Denies change in vision ENT Ears, Nose, Mouth, and Throat: Reports system reviewed and no additional complaints, except as documented, Denies dizziness, Denies dysphagia, Denies headache(s), Denies nasal congestion, Denies neck mass, Denies neck pain and Denies sore throat *Cardiovascular Cardiovascular: Reports system reviewed and no additional complaints, except as documented, Denies chest pain, Denies dyspnea, Denies dyspnea on exertion and Denies radiating jaw, neck or arm pain *Respiratory Respiratory: Reports system reviewed and no additional complaints, except as documented, Denies chest congestion, Denies cough, Denies dyspnea, Denies dyspnea on exertion and Denies pain on inspiration *Gastrointestinal Gastrointestinal: Reports system reviewed and no additional complaints, except as documented, Denies abdominal pain, Denies change in bowel habits, Denies constipation, Denies diarrhea, Denies dysphagia, Denies hematochezia, Denies melena, Denies nausea and Denies vomiting *Genitourinary Genitourinary: Denies dysuria, Denies urinary incontinence and Denies urinary urgency *Musculoskeletal Musculoskeletal: Reports arthralgias, Denies back pain, Reports limited range of motion, Denies neck pain, Denies numbness and Denies tingling *Neurologic Neurologic: Reports system reviewed and no additional complaints, except as documented, Denies abnormal speech, Denies convulsions, Denies dizz
--- NOTE | 2022-02-26 10:59 | CARE MANAGER ---
PT saw this patient and recommends outpatient PT, appointment was scheduled for 03.03.22 @ 0800. Order was faxed and given to nurse Sonia.
[2022-02-26 11:25] LABS: Basophils % 0.3 % (0.1-2.0); Eosinophils # 0.1 K/mm3 (0.0-0.4); Eosinophils % 0.6 % (0.1-12.0); Hematocrit 31.5 % (42.0-52.0); Hemoglobin 10.3 g/dL (14.1-18.0); Lymphocytes # 1.6 K/mm3 (0.7-4.5); Mean Corpuscular HGB Conc 32.6 g/dL (31.8-35.4); Mean Corpuscular Hemoglobin 30.6 pg (27.0-31.2); Mean Corpuscular Volume 93.9 fl (80-94); Monocytes # 0.8 K/mm3 (0.1-1.0); Monocytes % 7.9 % (1.7-9.3); Neutrophils # 7.6 K/mm3 (1.8-7.8); Neutrophils % 75.2 % (37.0-80.0); Platelet Count 353 K/mm3 (142-424); Red Blood Count 3.36 M/mm3 (4.60-6.20); Red Cell Distribution Width 13.7 % (11.5-17.5); White Blood Count 10.1 K/mm3 (4.8-10.8)
[2022-02-26 11:31] LABS: Chloride 108 mmol/L (98-107); Sodium 141 mmol/L (136-145)
[2022-02-26 11:32] LABS: Potassium 3.6 mmoL/L (3.5-5.1)
[2022-02-26 11:34] LABS: Blood Urea Nitrogen 22 mg/dl (9-20); Creatinine Clearance Estimated 81 mL/min (50-200); Estimated Glomerular Filt Rate 85 ml/min (>60); GFR (African American) 102 ML/MIN (>60)
[2022-02-26 11:35] LABS: Calcium 8.1 mg/dl (8.4-10.2); Glucose 95 mg/dl (74-100)
[2022-02-26 12:00] VITALS: BP 144/78; PULSE 99; RESP 16; TEMP 36.6; O2SAT 96
[2022-02-26 12:44] LABS: Anion Gap 11.6 mEq/L (5-15); Carbon Dioxide 25 mmol/L (22.0-30.0)
--- NOTE | 2022-02-26 13:45 | HMH.PHAINT1 ---
Pharmacy Intervention Comments: Met with patient and his at bedside preparing for discharge. Patient was counseled on all discharge medications. This student instructed the patient to START levofloxacin and continue home medications. Patient and verbalized understanding of the information provided and had no questions or concerns at this time.
--- NOTE | 2022-02-27 07:41 | CARE MANAGER ---
Patient will require a W/C due to non-weight bearing status post BKA. Unable to ambulate with walker at this time.
--- NOTE | 2022-02-27 16:38 | CARE MANAGER ---
Patient called back and we discussed hospital discharge. Patient states he is doing well. He picked up prescription and is aware of follow up appointments. Denies questions at this time. KARRI Clarke
== END 2022-02-26 13:44 | disposition home or self-care (01) | DRG 475 ==
LOC: 2ND 16:45 → ICU 02-26 00:43 → 2ND 02-26 13:12
PROVIDERS: Physician Assistant Surgical; Admitting Provider Orthopaedic Surgery; PCP Family Medicine; Visit Provider Orthopaedic Surgery
PROC: 0Y6H0Z3 Detachment at Right Lower Leg, Low, Open Approach (ICD-10-PCS; CPT 27880; principal; 2022-02-25 09:15)
DX: M86.171 Other acute osteomyelitis, right ankle and foot (principal); I42.9 Cardiomyopathy, unspecified; I73.9 Peripheral vascular disease, unspecified; J44.9 Chronic obstructive pulmonary disease, unspecified; Z87.891 Personal history of nicotine dependence
CPT/HCPCS: 27880; G0379; 80048; 85025; 88307; 88311; 96365; 96374; 97162; 97166; 97530; C9803; G0463; J1335; J2405; U0003; U0005

== ENCOUNTER 2022-02-27 13:00 | Outpatient (CLI) | payer MEDICARE, SELFPAY | END 2022-02-27 13:06 | disposition home or self-care (01) | PROVIDERS: PCP Family Medicine; Visit Provider Nurse Practitioner Family | DX: T87.43 Infection of amputation stump, right lower extremity (principal); M86.8X6 Other osteomyelitis, lower leg; Z89.511 Acquired absence of right leg below knee | CPT/HCPCS: G0463 ==

== ENCOUNTER 2022-03-03 10:46 | Outpatient (CLI) | payer MEDICARE, SELFPAY | END 2022-03-03 11:11 | disposition home or self-care (01) | LOC: INF 10:47 | PROVIDERS: PCP Family Medicine; Visit Provider Nurse Practitioner Family | DX: Z45.2 Encounter for adjustment and management of vascular access device (principal); Z48.00 Encounter for change or removal of nonsurgical wound dressing | CPT/HCPCS: G0463 ==

== ENCOUNTER → 2022-03-09 11:22 | Outpatient (POV) | payer MEDICARE, SELFPAY ==
--- NOTE | 2022-03-09 11:35 | EXP.PAIN.SOA ---
[facility] Pain Management SOAP Note Subjective:: Patient is a pleasant 66-year-old male who presents today for medication refill and 3-month follow-up. 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 Patient rates his pain 1 out of 10. Patient has been seeing Dr. Cook for his CRPS. Patient did just recently have a right below the knee amputation by Dr. Villarreal. Patient does still have his shilpa intact from this procedure that was approximately 2 weeks ago. Patient is currently prescribed oxycodone 10 mg for his postop pain by Dr. Cook. Patient denies any side effects from this medication. He states this medication does provide additional improvement. Previously the patient was being managed with tramadol 50 mg daily, gabapentin 100 mg 3 times a day, and diclofenac 75 mg twice a day. Patient states this does provide improvement of his pain symptoms. Patient states he has not been taking his tramadol since he has been on the oxycodone. Patient states he has had some random hallucinations and states he questions whether or not if it was a combination of the gabapentin and anesthesia. Patient does have a cardiac history with 5 heart stents placed by Dr. French. Patient also states he had a stent in his right leg behind the knee as well. Patient states he has had a left foot total reconstruction by Dr. West and it is done extremely well. Patient states about 20 years ago he had a right fusion by Dr. Bryant and he continued to have significant pain and balance issues. He stated it was then that Dr. West was going to revise this procedure however when she got in there to remove the hardware the bone just crumbled. Patient states it was at that time that he had the vein collapse that required the stent and then he fought with infection after. Patient did finally decide to do the amputation. Patient states that his follow-up visits have been very good and he has been told that everything is healing appropriately and that he should be back on the golf course coming July. His Marlo is [phone]. Its been reviewed and appropriate. Review of Systems: General: No recent weight changes, no fever, no sleep disturbances Respiratory: No cough, no shortness of air, no recurring pulmonary infections Cardiovascular/peripheral vascular: No chest pain, no palpitations, no edema, no shortness of breath Gastrointestinal: No new onset incontinence, normal bowel movements reported Genitourinary: No new onset incontinence Musculoskeletal: Right below the knee amputation pain Psychiatric: [Normal mood/affect] Neurological: [Denies weakness in extremities], [denies balance issues] Objective:: Physical Exam: General: Alert and oriented x3, no acute distress, pleasant and cooperative Lungs: Respirations even and unlabored, symmetrical chest expansion Eyes: PERRL Musculoskeletal: Flexion and extension of right below the knee amputation somewhat guarded secondary to pain, [antalgic gait noted] Neurological: Speech clear, no gross sensory deficit ORT score updated with low risk Assessment:: CRPS lower extremity, status post right below the knee amputation Plan:: Patient continues to experience significant pain along his right below the knee amputation however he does do well with his current medication regimen. I will refill the patient's gabapentin 100 mg 3 times a day and provide a 3 month supply of this medication. I have counseled the patient that if he continues to have hallucinations we will discuss decreasing this medication since he is already tried pregabalin and it was not as effective. I have discussed with the patient that he needs to confirm with cardiology that he is able to continue to take diclofenac 75 mg twice daily. Patient states he is scheduled to have a follow-up appointment with them tomorrow and will contact our office following this visit to update us on the diclofenac and whether or not we need to send in a refill. Patient will
[2022-03-09 11:38] VITALS: BP 148/106; PULSE 64; RESP 18; O2SAT 98; BMI 22.8
== END | disposition home or self-care (01) ==
PROVIDERS: Visit Provider Nurse Practitioner Family
DX: G90.523 Complex regional pain syndrome I of lower limb, bilateral (principal); Z89.511 Acquired absence of right leg below knee
CPT/HCPCS: 99212; G0463

== ENCOUNTER → 2022-03-26 08:13 | Outpatient (POV) | payer MEDICARE, SELFPAY ==
[2022-03-26 08:29] VITALS: BP 163/96; PULSE 98; RESP 18; O2SAT 98; BMI 22.8
--- NOTE | 2022-03-26 08:46 | EXP.PAIN.SOA ---
[facility] Pain Management SOAP Note Subjective:: Patient is a pleasant 66-year-old male who presents today for medication refill and follow-up. 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 Today he rates his pain a 3 out of 10. Patient denies any new trauma or injury. Patient denies any change to location or type of pain he experiences. 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 Patient states he has even had some phantom pain as if pain in his right toes. Patient states he has recently been to see Dr. Villarreal and he now has his sleeve over top his amputation. Patient is expecting to get his prostatic in approximately 3 weeks. Patient is currently still managed with oxycodone [address] Villarreal's office. Patient denies any side effects from this medication. He is also prescribed gabapentin 100 mg 3 times a day. Patient denies any side effects from this medication he states this medication does help. He is requesting refill during today's visit. Patient did have previous concerns of hallucinations with the gabapentin however he does states he has not had any more episodes and does believe it is related to the anesthesia. Patient was previously on diclofenac 75 mg twice a day however with his heart history his cardiac doctor did confirm that he should not be on this medication. Patient does have a longstanding history of right foot pain related to a fusion done approximately 20 years ago that left him with significant pain and balance issues. Patient had had a revision over the last few years however at that time his only real course of action was an amputation. Patient does state that his other doctor states that he is healing well and on track. His Marlo is [id number]. Its been reviewed and appropriate. Review of Systems: General: No recent weight changes, no fever, no sleep disturbances Respiratory: No cough, no shortness of air, no recurring pulmonary infections Cardiovascular/peripheral vascular: No chest pain, no palpitations, no edema, no shortness of breath Gastrointestinal: No new onset incontinence, normal bowel movements reported Genitourinary: No new onset incontinence Musculoskeletal: Right below the knee amputation/pain Psychiatric: [Normal mood/affect] Neurological: [Denies weakness in extremities], [denies balance issues] Objective:: Physical Exam: General: Alert and oriented x3, no acute distress, pleasant and cooperative Lungs: Respirations even and unlabored, symmetrical chest expansion Eyes: PERRL Musculoskeletal: Flexion and extension of right leg somewhat guarded secondary to pain, [antalgic gait noted] Neurological: Speech clear, no gross sensory deficit Assessment:: CRPS lower extremity Plan:: Patient continues to experience significant pain in his right leg with limited range of motion. I will refill the patient's gabapentin 100 mg 3 times a day and provide a 3-month supply of this medication. Patient will return to clinic in 3 months for reevaluation of symptoms, medication refill and follow-up. Patient has been instructed to contact the clinic with any concerns before the next appointment. Dr. Wolf has reviewed this note and agrees with this plan of care. This note was dictated using voice recognition software and make contain errors or omissions. [facility] Disclaimer: The information contained in this section may have been updated after the patient was seen, as this information can be updated by other users. Medical History Abnormal ankle brachial index (ADRIAN) Abnormal EKG Cardiomyopathy Charcot ankle Closed fracture dislocation of right ankle Closed fracture of right talus Closed right tibial fracture COPD (chronic obstructive pulmonary disease) COPD mixed type Dislocation of right ankle joint Dyspnea Dyspnea on exertion Edema Encounter for pre-operative cardiovascular
== END | disposition home or self-care (01) ==
PROVIDERS: PCP Family Medicine; Visit Provider Nurse Practitioner Family
DX: G90.529 Complex regional pain syndrome I of unspecified lower limb (principal)
CPT/HCPCS: 99212; G0463

== ENCOUNTER → 2022-04-09 09:06 | Outpatient (POV) | payer MEDICARE, SELFPAY ==
--- NOTE | 2022-04-09 09:59 | EXP.PAIN.SOA ---
[facility] Pain Management SOAP Note Subjective:: Patient is a pleasant 66-year-old male who presents today for follow-up. We are currently treating the patient for CRPS type I of lower extremity, right leg pain, chronic pain. Today he rates his pain a 3 out of 10. Patient denies any new trauma or injury. Patient denies any change location or type of pain he experiences. Patient states he is experiencing excruciating pain more prominent at night in his right leg. Patient continues to state he is having some phantom pains. Patient does describe this as a aching, throbbing sensation that interferes with his daily life. Patient states he is not sleeping well at night due to the pain. Patient does use an electric massager to give temporary relief however he states as soon as he stops taking it his pain comes back. Previously he was prescribed gabapentin 100 mg 3 times a day however he was requesting an increase and is now managed with gabapentin 300 mg twice daily. Patient states that he has been taking an additional pill on a daily basis due to his increased pain symptoms. 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 Patient did have his below the knee amputation done by Dr. Villarreal here at [facility] and was giving him oxycodone 10 mg 3 times a day. Patient states this did help manage some of his pain symptoms. Patient was recently changed to [place] 10 mg 4 times a day however was only given a 7-day supply of this medication by Dr. Villarreal. Patient is requesting additional pain medication at today's visit due to his significant pain. Patient has a longstanding history of chronic pain related to a right foot fusion and then later a revision followed by this amputation. His Marlo is [id number]. Its been reviewed and appropriate. Review of Systems: General: No recent weight changes, no fever, no sleep disturbances Respiratory: No cough, no shortness of air, no recurring pulmonary infections Cardiovascular/peripheral vascular: No chest pain, no palpitations, no edema, no shortness of breath Gastrointestinal: No new onset incontinence, normal bowel movements reported Genitourinary: No new onset incontinence Musculoskeletal: Right leg pain Psychiatric: [Normal mood/affect] Neurological: [Denies weakness in extremities], [denies balance issues] Objective:: Physical Exam: General: Alert and oriented x3, no acute distress, pleasant and cooperative Lungs: Respirations even and unlabored, symmetrical chest expansion Eyes: PERRL Musculoskeletal: Flexion and extension of right leg pain [spine] somewhat guarded secondary to pain, [antalgic gait noted] Neurological: Speech clear, no gross sensory deficit Assessment:: CRPS type I of lower extremity, right leg pain, chronic pain Plan:: Patient is experience significant pain in his right leg related to a recent amputation. I will send in a new prescription of ropinirole 0.5 mg at bedtime and methocarbamol 500 mg 3 times daily and provide a 1 month supply of these medications. I will also order the patient a compounding cream at today's visit. I have counseled the patient to take his gabapentin as prescribed. Patient will return to clinic next week for reevaluation of symptoms and follow-up. Patient has been instructed to contact the clinic with any concerns before the next appointment. Dr. Wolf has reviewed this note and agrees with this plan of care. This note was dictated using voice recognition software and make contain errors or omissions. [facility] Disclaimer: The information contained in this section may have been updated after the patient was seen, as this information can be updated by other users. Medical History Abnormal ankle brachial index (ADRIAN) Abnormal EKG Cardiomyopathy Charcot ankle Closed fracture dislo
[2022-04-09 10:23] VITALS: BP 99/45; PULSE 68; RESP 18; O2SAT 98; BMI 22.8
== END | disposition home or self-care (01) ==
PROVIDERS: PCP Family Medicine; Visit Provider Nurse Practitioner Family
DX: G90.529 Complex regional pain syndrome I of unspecified lower limb (principal); M79.604 Pain in right leg
CPT/HCPCS: 99212; G0463

== ENCOUNTER → 2022-04-13 08:21 | Outpatient (POV) | payer MEDICARE, SELFPAY ==
--- NOTE | 2022-04-13 08:31 | EXP.PAIN.SOA ---
[facility] Pain Management SOAP Note Subjective:: Patient is a pleasant 66-year-old male who presents today for follow-up. We are currently treating the patient for CRPS type I of lower extremity, right leg pain, chronic pain.? Today he rates his pain a 5 out of 10.? Patient denies any new trauma or injury.? Patient denies any change location or type of pain he experiences.? At our last visit the patient was prescribed ropinirole 0.5 mg at bedtime and methocarbamol 500 mg 3 times daily. Patient states he has been taking these in combination with his gabapentin 300 mg twice daily and that over the last 24 hours he has had decreased pain. Patient was previously prescribed diclofenac 75 mg however this medication was stopped due to cardiac history.? Patient did have his below the knee amputation done by Dr. Villarreal here at [facility].? Patient was given at different times oxycodone 10 mg 3 times daily and [place] 10 mg 4 times a day however he is no longer prescribed these medications.? Patient has a longstanding history of chronic pain related to a right foot fusion and then later a revision followed by this amputation.? His Marlo is [phone]. Its been reviewed and appropriate. Review of Systems: General: No recent weight changes, no fever, no sleep disturbances Respiratory: No cough, no shortness of air, no recurring pulmonary infections Cardiovascular/peripheral vascular: No chest pain, no palpitations, no edema, no shortness of breath Gastrointestinal: No new onset incontinence, normal bowel movements reported Genitourinary: No new onset incontinence Musculoskeletal: Right leg pain Psychiatric: [Normal mood/affect] Neurological: [Denies weakness in extremities], [denies balance issues] Objective:: Physical Exam: General: Alert and oriented x3, no acute distress, pleasant and cooperative Lungs: Respirations even and unlabored, symmetrical chest expansion Eyes: PERRL Musculoskeletal: Flexion and extension of right knee somewhat guarded secondary to pain, Neurological: Speech clear, no gross sensory deficit Assessment:: CRPS type I of lower extremity, right leg pain, chronic pain Plan:: Patient has had significant decrease in his pain symptoms following the addition of ropinirole and methocarbamol. Patient will return to clinic in 1 week for reevaluation of symptoms and plan of care. Patient has been instructed to contact the clinic with any concerns before the next appointment. Dr. Bux has reviewed this note and agrees with this plan of care. This note was dictated using voice recognition software and make contain errors or omissions. [facility] Disclaimer: The information contained in this section may have been updated after the patient was seen, as this information can be updated by other users. Medical History Abnormal ankle brachial index (ADRIAN) Abnormal EKG Cardiomyopathy Charcot ankle Closed fracture dislocation of right ankle Closed fracture of right talus Closed right tibial fracture COPD (chronic obstructive pulmonary disease) COPD mixed type Dislocation of right ankle joint Dyspnea Dyspnea on exertion Edema Encounter for pre-operative cardiovascular clearance Ex-smoker for less than 1 year Fracture blister Hammertoe of right foot History of smoking 30 or more pack years Left ankle instability Left ankle sprain Leg pain Malunion of joint fusion Noncompliance with treatment PAD (peripheral artery disease) Pes cavus of right foot Postoperative edema Postoperative wound dehiscence Right calf pain Stenosis of right popliteal artery Tobacco dependence syndrome Wound of right ankle Surgical History History of ankle fusion History of ankle surgery History of left ankle joint replacement History of right hip replacement Hx of right BKA Stented coronary artery X5 Family History O
[2022-04-13 08:39] VITALS: BP 124/98; PULSE 67; RESP 18; O2SAT 97; BMI 22.8
== END ==
PROVIDERS: PCP Family Medicine; Visit Provider Nurse Practitioner Family
DX: G90.529 Complex regional pain syndrome I of unspecified lower limb (principal); M79.604 Pain in right leg
CPT/HCPCS: 99212; G0463

== ENCOUNTER → 2022-04-20 08:20 | Outpatient (POV) | payer MEDICARE, SELFPAY ==
[2022-04-20 08:47] VITALS: BP 138/71; PULSE 65; RESP 18; O2SAT 97; BMI 22.8
--- NOTE | 2022-04-20 08:54 | EXP.PAIN.SOA ---
[facility] Pain Management SOAP Note Subjective:: Patient is a pleasant 66-year-old male who presents today for follow-up. We are currently treating the patient for CRPS type I of lower extremity, right leg pain, chronic pain. Today he rates his pain a 3 out of 10. Patient denies any new trauma or injury. Patient denies any change location or type of pain that he experiences. Patient states he still continues to experience burning and tingling sensations at his below the knee amputation site. Patient states that it has gotten better slowly over time however he continues to have significant trouble falling asleep due to the pain. Patient continues to use an electric massager for temporary relief. Patient is currently prescribed gabapentin 300 mg twice a day, ropinirole 0.5 mg at bedtime and methocarbamol 500 mg 3 times a day. Patient states that these do help somewhat however he still continues to have significant pain. Patient was previously given pain medication from Dr. Villarreal who performed the below the knee amputation however he is no longer got any refills of this. Patient has a longstanding history of chronic pain related to a right foot fusion and later revision followed by this amputation. Patient was ordered compounding cream at the last visit however he states his insurance did not cover it and he cannot afford to pay the $35 at this time. His Marlo is [id number]. Its been reviewed and appropriate. Review of Systems: General: No recent weight changes, no fever, no sleep disturbances Respiratory: No cough, no shortness of air, no recurring pulmonary infections Cardiovascular/peripheral vascular: No chest pain, no palpitations, no edema, no shortness of breath Gastrointestinal: No new onset incontinence, normal bowel movements reported Genitourinary: No new onset incontinence Musculoskeletal: Right leg pain Psychiatric: [Normal mood/affect] Neurological: [Denies weakness in extremities], [denies balance issues] Objective:: Physical Exam: General: Alert and oriented x3, no acute distress, pleasant and cooperative Lungs: Respirations even and unlabored, symmetrical chest expansion Eyes: PERRL Musculoskeletal: Flexion and extension of right leg somewhat guarded secondary to pain, [antalgic gait noted] Neurological: Speech clear, no gross sensory deficit Assessment:: CRPS type I of lower extremity, right leg pain, chronic pain Plan:: Patient continues to experience significant pain at the site of his below the knee amputation with limited range of motion. I will refill the patient's gabapentin 300 mg twice a day and increase his ropinirole to 1 mg at bedtime and methocarbamol 750 mg 3 times daily and provide a 1 month supply of these medications. We will also start the patient on [place] 5 mg twice daily and provide a 1 month supply of this medication. Patient will return to clinic in 1 month for reevaluation of symptoms, medication refill and follow-up. Patient has been advised of risks of oversedation with the prescribed medication. Narcan has been offered to the patient in the event of oversedation. Patient has been advised that a family member should also be educated regarding administration of Narcan. Patient has been instructed to contact the clinic with any concerns before the next appointment. Dr. Wolf has reviewed this note and agrees with this plan of care. This note was dictated using voice recognition software and make contain errors or omissions. [facility] Disclaimer: The information contained in this section may have been updated after the patient was seen, as this information can be updated by other users. Medical History Abnormal ankle brachial index (ADRIAN) Abnormal EKG Cardiomyopathy Charcot ankle Closed fracture dislocation of right ankle Closed fracture of right talus Closed right tibial fracture COPD (chronic obstructive pulmonary disease) COPD mixed type Dislocation of
== END | disposition home or self-care (01) ==
PROVIDERS: PCP Family Medicine; Visit Provider Nurse Practitioner Family
DX: G90.529 Complex regional pain syndrome I of unspecified lower limb (principal); M79.604 Pain in right leg
CPT/HCPCS: 99212; G0463

== ENCOUNTER → 2022-04-20 09:08 | Outpatient (CLI) | payer MEDICARE, SELFPAY ==
--- NOTE | 2022-04-20 09:16 | XR_ITS ---
FINAL REPORT CLINICAL HISTORY: foot pain FINDINGS: Left foot Three views were obtained. There are extensive postoperative changes of the foot. There are postoperative changes from ankle arthroplasty. Mild degenerative changes are present. IMPRESSION: Degenerative and postsurgical change. Reviewed, Interpreted and Dictated by Gilberto Crenshaw III, MD Transcribed by Allie Cooper Authenticated and [facility]
== END ==
PROVIDERS: PCP Family Medicine; Visit Provider Podiatrist
DX: M79.672 Pain in left foot (principal)
CPT/HCPCS: 73630; 99212; G0463

== ENCOUNTER → 2022-05-21 08:15 | Outpatient (POV) | payer MEDICARE, SELFPAY ==
[2022-05-21 08:32] VITALS: BP 129/88; PULSE 87; RESP 18; O2SAT 97; BMI 22.8
--- NOTE | 2022-05-21 08:48 | EXP.PAIN.SOA ---
[facility] Pain Management SOAP Note Subjective:: Patient is a pleasant 66-year-old male who presents today for 1 month follow-up and medication refill. We are currently treating the patient for CRPS type one of the lower extremity, right leg pain, chronic pain. Today he rates his pain a 3 out of 10. Patient denies any new trauma or injury. Patient denies any change location or type of pain he experiences. He does state that he continues to have some pain with burning and tingling in his below the knee amputation site. He has gotten his prostatic officially yesterday and is starting to ambulate with this. He did states that he is having to add extra padding at a few locations where extra pressure is being applied. Patient is currently managed with gabapentin 300 mg twice a day, methocarbamol 750 mg 3 times a day and [place] 5 mg twice a day. Patient denies any side effects from these medications. Previously he was started on ropinirole however he states he has not noticed a significant difference with this medication and is not requesting a refill. Patient states he does have physical therapy later today. He also states that he has been using on occasion CBD Gummies and that he has tried the marijuana Gummies however these kept him wide-awake. Patient's Marlo is [phone]. Its been reviewed and appropriate. Review of Systems: General: No recent weight changes, no fever, no sleep disturbances Respiratory: No cough, no shortness of air, no recurring pulmonary infections Cardiovascular/peripheral vascular: No chest pain, no palpitations, no edema, no shortness of breath Gastrointestinal: No new onset incontinence, normal bowel movements reported Genitourinary: No new onset incontinence Musculoskeletal: Right leg pain Psychiatric: [Normal mood/affect] Neurological: [Denies weakness in extremities], [denies balance issues] Objective:: Physical Exam: General: Alert and oriented x3, no acute distress, pleasant and cooperative Lungs: Respirations even and unlabored, symmetrical chest expansion Eyes: PERRL Musculoskeletal: Flexion and extension of right leg somewhat guarded secondary to pain, [antalgic gait noted] Neurological: Speech clear, no gross sensory deficit Assessment:: CRPS type one of the lower extremity, right leg pain, chronic pain Plan:: Patient is doing well on his current medication regimen. I will refill his [place] 5 mg twice a day and gabapentin 300 mg twice a day and provide a 1 month supply of this medication. Patient will return to clinic in 1 month for reevaluation of symptoms, medication refill and follow-up. Patient has been advised of risks of oversedation with the prescribed medication. Narcan has been offered to the patient in the event of oversedation. Patient has been advised that a family member should also be educated regarding administration of Narcan. Patient has been instructed to contact the clinic with any concerns before the next appointment. Dr. Wolf has reviewed this note and agrees with this plan of care. This note was dictated using voice recognition software and make contain errors or omissions. [facility] Disclaimer: The information contained in this section may have been updated after the patient was seen, as this information can be updated by other users. Medical History Abnormal ankle brachial index (ADRIAN) Abnormal EKG Cardiomyopathy Charcot ankle Closed fracture dislocation of right ankle Closed fracture of right talus Closed right tibial fracture COPD (chronic obstructive pulmonary disease) COPD mixed type Dislocation of right ankle joint Dyspnea Dyspnea on exertion Edema Encounter for pre-operative cardiovascular clearance Ex-smoker for less than 1 year Fracture blister Hammertoe of right foot History of smoking 30 or more pack years Left ankle instability Left ankle sprain Leg pain Malunion of joint fusion Noncompliance with treatment PAD (p
== END | disposition home or self-care (01) ==
PROVIDERS: PCP Family Medicine; Visit Provider Nurse Practitioner Family
DX: G90.521 Complex regional pain syndrome I of right lower limb (principal)
CPT/HCPCS: 99212; G0463

== ENCOUNTER → 2022-06-18 08:33 | Outpatient (POV) | payer MEDICARE, SELFPAY ==
[2022-06-18 08:53] VITALS: BP 151/79; PULSE 63; RESP 18; O2SAT 98; BMI 22.8
--- NOTE | 2022-06-18 09:05 | EXP.PAIN.SOA ---
[facility] Pain Management SOAP Note Subjective:: Patient is a pleasant 66-year-old male who presents today for medication refill and follow-up. We are currently treating the patient for CRPS type I of lower extremity, right leg below the knee amputation, chronic pain. Today he rates his pain a 1 out of 10. Patient denies any change to location or type of pain he experiences. He states he has recently just gotten home due to his [id number] passing away. Patient denies any new trauma or injury. He states he is doing well with his current medication. He is managed with gabapentin 300 mg twice a day [place] 5 mg twice a day and methocarbamol 750 mg 3 times a day. His Marlo is [id number]. Its been reviewed and appropriate. Review of Systems: General: No recent weight changes, no fever, no sleep disturbances Respiratory: No cough, no shortness of air, no recurring pulmonary infections Cardiovascular/peripheral vascular: No chest pain, no palpitations, no edema, no shortness of breath Gastrointestinal: No new onset incontinence, normal bowel movements reported Genitourinary: No new onset incontinence Musculoskeletal: Right foot pain Psychiatric: [Normal mood/affect] Neurological: [Denies weakness in extremities], [denies balance issues] Objective:: Physical Exam: General: Alert and oriented x3, no acute distress, pleasant and cooperative Lungs: Respirations even and unlabored, symmetrical chest expansion Eyes: PERRL Musculoskeletal: Flexion and extension of right leg somewhat guarded secondary to pain, [antalgic gait noted] Neurological: Speech clear, no gross sensory deficit Assessment:: CRPS type I of lower extremity, right leg below the knee amputation, chronic pain Plan:: Patient is doing well with his current medication regimen. I will refill his methocarbamol 750 mg 3 times a day, gabapentin 300 mg 2 times a day and [place] 5 mg twice a day and provide a 1 month supply of this medication. Patient will return to clinic in 1 month for reevaluation of symptoms, medication refill and follow-up. Patient has been advised of risks of oversedation with the prescribed medication. Narcan has been offered to the patient in the event of oversedation. Patient has been advised that a family member should also be educated regarding administration of Narcan. Patient has been instructed to contact the clinic with any concerns before the next appointment. Dr. Bux has reviewed this note and agrees with this plan of care. This note was dictated using voice recognition software and make contain errors or omissions. [facility] Disclaimer: The information contained in this section may have been updated after the patient was seen, as this information can be updated by other users. Medical History Abnormal ankle brachial index (ADRIAN) Abnormal EKG Cardiomyopathy Charcot ankle Closed fracture dislocation of right ankle Closed fracture of right talus Closed right tibial fracture COPD (chronic obstructive pulmonary disease) COPD mixed type Dislocation of right ankle joint Dyspnea Dyspnea on exertion Edema Encounter for pre-operative cardiovascular clearance Ex-smoker for less than 1 year Fracture blister Hammertoe of right foot History of smoking 30 or more pack years Left ankle instability Left ankle sprain Leg pain Malunion of joint fusion Noncompliance with treatment PAD (peripheral artery disease) Pes cavus of right foot Postoperative edema Postoperative wound dehiscence Right calf pain Stenosis of right popliteal artery Tobacco dependence syndrome Wound of right ankle Surgical History History of ankle fusion History of ankle surgery History of left ankle joint replacement History of right hip replacement Hx of right BKA Stented coronary artery X5 Family History Other Alzheimer disease Fa
== END | disposition home or self-care (01) ==
PROVIDERS: PCP Family Medicine; Visit Provider Nurse Practitioner Family
DX: G90.529 Complex regional pain syndrome I of unspecified lower limb (principal); Z89.511 Acquired absence of right leg below knee
CPT/HCPCS: 99212; G0463

== ENCOUNTER → 2022-08-10 09:37 | Outpatient (POV) | payer MEDICARE, SELFPAY ==
--- NOTE | 2022-08-10 09:45 | EXP.PAIN.SOA ---
[facility] Pain Management SOAP Note Subjective:: Patient is a pleasant 66-year-old male who presents today for medication refill and follow-up.? We are currently treating the patient for CRPS type I of lower extremity, right leg below the knee amputation, chronic pain.? Today he rates his pain a 2 out of 10.? He denies any new injury or trauma. He does state that he has had his first round of golf as of last . He states he continues to try and do more activity and is still seeing physical therapy with some improvement. He does state that he continues to have occasional phantom limb pain on the right side and did have a significant episode last week. He is managed with gabapentin 300 mg twice a day, [place] 5 mg twice a day and methocarbamol 750 mg 3 times a day.? We have been trying to taper his [place]. His Marlo is [id number].? Its been reviewed and appropriate. Review of Systems: General: No recent weight changes, no fever, no sleep disturbances Respiratory: No cough, no shortness of air, no recurring pulmonary infections Cardiovascular/peripheral vascular: No chest pain, no palpitations,? no edema, no shortness of breath Gastrointestinal: No new onset incontinence, normal bowel movements reported Genitourinary: No new onset incontinence Musculoskeletal: Right foot pain Psychiatric: [Normal mood/affect] Neurological: [Denies weakness in extremities], [denies balance issues] Objective:: Physical Exam: General: Alert and oriented x3, no acute distress, pleasant and cooperative Lungs: Respirations even and unlabored, symmetrical chest expansion Eyes: PERRL Musculoskeletal: Flexion and extension of right hip somewhat guarded secondary to pain, [antalgic gait noted] Neurological: Speech clear, no gross sensory deficit Assessment:: CRPS type I of lower extremity, right leg below the knee amputation, chronic pain syndrome Plan:: I will refill the patient's gabapentin 300 mg twice a day, changes [place] 5 mg to once a day and methocarbamol 750 mg 3 times a day and provide 1 month supply of these medications. Patient will return to clinic in 1 month for reevaluation of symptoms and medication refill. Patient has been advised of risks of oversedation with the prescribed medication. Narcan has been offered to the patient in the event of oversedation. Patient has been advised that a family member should also be educated regarding administration of Narcan. Patient has been instructed to contact the clinic with any concerns before the next appointment. Dr. Wolf has reviewed this note and agrees with this plan of care. This note was dictated using voice recognition software and make contain errors or omissions. [facility] Disclaimer: The information contained in this section may have been updated after the patient was seen, as this information can be updated by other users. Medical History Abnormal ankle brachial index (ADRIAN) Abnormal EKG Cardiomyopathy Charcot ankle Closed fracture dislocation of right ankle Closed fracture of right talus Closed right tibial fracture COPD (chronic obstructive pulmonary disease) COPD mixed type Dislocation of right ankle joint Dyspnea Dyspnea on exertion Edema Encounter for pre-operative cardiovascular clearance Ex-smoker for less than 1 year Fracture blister Hammertoe of right foot History of smoking 30 or more pack years Left ankle instability Left ankle sprain Leg pain Malunion of joint fusion Noncompliance with treatment PAD (peripheral artery disease) Pes cavus of right foot Postoperative edema Postoperative wound dehiscence Right calf pain Stenosis of right popliteal artery Tobacco dependence syndrome Wound of right ankle Surgical History History of ankle fusion History of ankle surgery History of left ankle joint replacement History of right hip replacement Hx of right BKA Stented marcela
== END | disposition home or self-care (01) ==
PROVIDERS: PCP Family Medicine; Visit Provider Nurse Practitioner Family
DX: G90.529 Complex regional pain syndrome I of unspecified lower limb (principal); Z89.511 Acquired absence of right leg below knee
CPT/HCPCS: 99212; G0463

== ENCOUNTER 2022-08-28 11:00 | Outpatient (RCR) | payer MEDICARE, SELFPAY ==
--- NOTE | 2022-03-03 09:41 | HMH.PTOPEV ---
PT Outpatient Evaluation Rehab PT Outpatient Evaluation Start: 03/03/22 08:51 Freq: Status: Active Protocol: Document 03/03/22 08:52 JOSE (Rec: 03/03/22 09:23 JOSE [id number]) E-signed By Jesse Little, PT Outpatient Therapy Subjective History Subjective History Pt presents s/p right BKA on 02/25/22. Pt reports sx. incision 'seems to be healing very well, phantom limb pain, and these muscle spasms in that right leg.' Pt reports R BKA precipitated by multiple failed sx. approaches to improve right ankle bony structures and stability, secondary to previous injury and poor blood supply. Pt reports prosthetic appt tomorrow. Chief Complaint Pain,Spasms,Stiff,Swelling, Paresthesia Symptom Type Ache,Sharp,Dull,Stabbing, Numbness,Tingling,Shooting Symptoms Relieved By Rest/Positioning,Prescription Meds Symptoms Aggravated By Physical Activity Prior Functional Limitations Housework,Standing,Walking, Stairs Current Functional Limitations Housework,Standing,Recreation Activity,Walking,Stairs, Balance Symptom Description Constant but Variable Level of pain today (0-10) 4 Pain scale - at its best (0-10) 3 Pain scale - at its worst (0-10) 7 Hip/Knee Eval Assistive Device Assistive Devices Wheelchair Palpation Tenderness right Knee Palpation Overall Comment 2-3/4 right stump, 1-2/4 right hamstring mm MMT Hip Flexion Strength Grade 4 Good Hip Abduction Strength Grade 4 Good Hip Extension Strength Grade 4 Good Hip External Rotation Strength Grade 4 Good Hip Internal Rotation Strength Grade 4 Good Knee Extension Strength Grade 4 Good Knee Flexion Strength Grade 4- Good- ROM Hip Flexion w/Knee Flexed Passive Range 0-135 of Motion (degrees) Hip Flexion w/Knee Extended Passive 0-80 Range of Motion (degrees) Knee Flexion Passive Range of Motion ( 3-125 degrees) Outpatient Therapy Assessment Impairments Problems/Impairmments Palpation Tenderness,Impaired Range of Motion,Impaired Strength,Impaired Gait Pattern ,Impaired Walking,Im
--- NOTE | 2022-04-02 10:09 | HMH.RHREAS ---
Rehab Reassessment Rehab OP Re-assessment Start: 04/02/22 09:45 Freq: Status: Active Protocol: Document 04/02/22 09:45 JOSE (Rec: 04/02/22 10:09 JOSE [id number]) E-signed By Jesse Little, PT Rehab Re-assessment Subjective Subjective Pt reports continued improvement in right LE strength, ROM, and TTP around stump since I eval. Objective Objective Notes PROM: RIGHT HIP FLX W/KNEE EXT 0-88, RIGHT HIP EXT W/KNEE FLX 0-33, RIGHT PIRIFORMIS FLEXIBILITY 75-80%, R KNEE AROM:0-125 MMT: RIGHT HIP FLX 4-4+/5, R HIP ABD 4/5, R HIP ADD 4-4+/5, R HIP EXT 4--4/5, R KNEE FLX 4+-5/5, R KNEE EXT 5/5 TTP: RIGHT LE STUMP 0-1/4 CIRCUMFERENTIAL: RIGHT STUMP 29CM Assessment Progress Assessment Progressing as Expected Assessment Notes SIGNIFICANT IMPROVEMENTS IN RIGHT LE STRENGTH, ROM/ FLEXIBILITY, TTP, AND SWELLING Patient goals met STG'S 10/07 Goals Not Met STG'S 03/09, LTG'S 01/09 Plan Plan Pt to continue w/skilled P.T. to make further improvements in right LE strength, ROM, gait, and TTP to allow for optimal function Frequency of Therapy 1-2x/wk Duration of therapy 8-10WKS Time and Billing Re-Eval Time 12 Re-Eval Billing Units 1 PHYSICIAN CERTIFICATION: I certify the specified therapy services for Alex Aaron are required, authorized, and reviewed every 30 days.
--- NOTE | 2022-04-30 11:06 | HMH.RHREAS ---
Rehab Reassessment Rehab OP Re-assessment Start: 04/02/22 09:45 Freq: Status: Active Protocol: Document 04/30/22 10:49 JOSE (Rec: 04/30/22 11:06 JOSE [id number]) E-signed By Jesse Little, PT Rehab Re-assessment Subjective Subjective Pt reports continued improvement in right stump/LE pain @ 2-3/10 this am on VAS, and feels 'like I'm really ready for my leg.' Objective Objective Notes PROM: RIGHT HIP FLX W/KNEE EXT 0-92, RIGHT HIP EXT W/KNEE FLX 0-35, RIGHT PIRIFORMIS FLEXIBILITY 80-90% of WFL, R KNEE AROM:0-128 MMT: RIGHT HIP FLX 4+/5, R HIP ABD 4-4+/5, R HIP ADD 4+/5, R HIP EXT 4/5, R KNEE FLX 4+-5/ 5, R KNEE EXT 5/5 TTP: RIGHT LE STUMP 0-1/4 CIRCUMFERENTIAL: RIGHT STUMP 29CM Assessment Progress Assessment Progressing as Expected Assessment Notes SIGNIFICANT IMPROVEMENTS NOTED IN RIGHT LE STRENGTH, ROM/ FLEXIBILITY, TTP, AND SWELLING Patient goals met STG'S 11/07 LTG'S 07/09 Goals Not Met LTG'S 08/09 Plan Plan Pt to continue w/skilled P.T. to make further improvements in right LE strength, ROM, gait, and TTP to allow for optimal function Frequency of Therapy 1-2X/WK Duration of therapy 6-8WKS Time and Billing Re-Eval Time 12 Re-Eval Billing Units 1 PHYSICIAN CERTIFICATION: I certify the specified therapy services for Alex Aaron are required, authorized, and reviewed every 30 days.
--- NOTE | 2022-05-26 11:37 | HMH.RHREAS ---
Rehab Reassessment Rehab OP Re-assessment Start: 04/02/22 09:45 Freq: Status: Active Protocol: Document 05/26/22 09:59 JOSE (Rec: 05/26/22 11:37 SUZANNEKIMBERLYFORTUNATO [id number]) E-signed By Jesse Little, PT Rehab Re-assessment Subjective Subjective Pt reports min-moderate soreness in right stump from prosthesis wear schedule progression over the last ~ 10days. Pt reports last prosthesis adjustment 'makes it feel better, but I'm not sure it perfect just yet.' Objective Objective Notes AROM: R KNEE FLX CLOSED CHAIN 0-90 W/PROSTHESIS MMT: RIGHT HIP FLX 4+/5, R HIP ABD 4-4+/5, R HIP ADD 4+/5, R HIP EXT 4/5, R KNEE FLX 4+-5/ 5, R KNEE EXT 5/5 TTP: RIGHT LE STUMP 1-2/4 ( DISTAL END OF R TIBIA, DISTAL CALF MM AREA) Gait: Pt now ambulating w/new RLE prosthesis w/RW, verbal cueing needed for proper weight shift to RLE, for improvement of trendelenburg in R glut med, for proper positioning into midline of RW . Pt also ambulates w/min-mod genu valgus at right knee w/ stance phase, and with LLD on RLE (iliac crest ~1 lower on R w/palpation). Pt does however ambulate w/proper stability and min-none wt. beatring through B/L hands on RW. Assessment Progress Assessment Progressing as Expected Assessment Notes significant improvements in gait w/addition of new right prosthesis, however, biomechanical changes still need to occur for optimal gait and function, as well as some slight prosthesis adjustment to correct the aforementioned gait issues. Patient goals met STG'S 11/07 LTG'S 09/08 Goals Not Met LTG'S 06/09 Plan Plan Pt to
--- NOTE | 2022-06-24 11:45 | HMH.RHREAS ---
Rehab Reassessment Rehab OP Re-assessment Start: 04/02/22 09:45 Freq: Status: Active Protocol: Document 06/24/22 10:41 TATIANAFORTUNATO (Rec: 06/24/22 11:45 JOSE [id number]) E-signed By Jesse Little, PT Rehab Re-assessment Subjective Subjective Pt reports 1-2/10 right stump pain/soreness this am, and reports continued improvement with overall function and comfort level with RLE prosthesis related to gait. Objective Objective Notes AROM: R KNEE FLX CLOSED CHAIN 0-95 W/PROSTHESIS MMT: RIGHT HIP FLX 4+/5, R HIP ABD 4-4+/5, R HIP ADD 4+/5, R HIP EXT 4/5, R KNEE FLX 4+-5/ 5, R KNEE EXT 5/5 TTP: RIGHT LE STUMP 1/4 ( DISTAL END OF R TIBIA, DISTAL CALF MM AREA) Gait: Pt now ambulating RLE prosthesis for ~30days, pt ambulates w/o AD on level terrain I, w/slighlty wider base than WNL, with slight RLE trendelenburg, however, pt can limit trendelenburg with verbal cueing for hip/glut activation. Assessment Progress Assessment Progressing as Expected Assessment Notes SIGNIFICANT IMPROVEMENTS IN GAIT PROGRESSIONS AND TTP, SLIGHT IMPROVEMENTS IN ROM IN RLE Patient goals met STG'S 11/07 LTG'S 09/08 Goals Not Met LTG'S 06/09 Revised Goals LTG #12 PT TO EXECUTE COMPLETE FULL-ROM GOLF SWING ON LEVEL TERRAIN AT FULL SPEED W/O LOB Plan Plan Pt to continue w/skilled P.T. to make further improvements in right LE strength, ROM, gait, and TTP to allow for optimal function Frequency of Therapy 1-2X/WK Duration of therapy 3-5WKS Time and Billing Re-Eval Time 12 Re-Eval Billing Units 1 PHYSICIAN CERTIFICATION: I certify the specified therapy services for Alex Aaron are required, authorized, and reviewed every 30 days.
--- NOTE | 2022-07-29 14:50 | HMH.RHREAS ---
Rehab Reassessment Rehab OP Re-assessment Start: 04/02/22 09:45 Freq: Status: Active Protocol: Document 07/29/22 14:42 TATIANAFORTUNATO (Rec: 07/29/22 14:49 JOSE [id number]) E-signed By Jesse Little, PT Rehab Re-assessment Subjective Subjective Pt reports increased right stump pain this am after ' inadvertently hitting when I was trying to put on my prosthesis very fast yesterday . It's just a little sore, but overall I'm feeling great with the new components(of the prosthesis), and my golf swing is feeling better. Not losing my balance as bad.' Objective Objective Notes AROM: R KNEE FLX CLOSED CHAIN 0-103 W/PROSTHESIS MMT: RIGHT HIP FLX 4+/5, R HIP ABD 4-4+/5, R HIP ADD 4+/5, R HIP EXT 4+-5/5, R KNEE FLX 4+ -5/5, R KNEE EXT 5/5 TTP: RIGHT LE STUMP 1/4 ( DISTAL END OF R TIBIA) Gait: Pt ambulating WFL on level terrain w/right LE prosthesis Assessment Progress Assessment Progressing as Expected Assessment Notes signifcant improvement in gait pattern Patient goals met STG'S 11/07 LTG'S 12/10 Goals Not Met LTG #3,12 Revised Goals LTG #12 PT TO EXECUTE COMPLETE FULL-ROM GOLF SWING ON LEVEL TERRAIN AT FULL SPEED W/O LOB Plan Plan Pt to continue w/skilled P.T. to make further improvements in right LE strength, ROM, gait, and TTP to allow for optimal function Frequency of Therapy 1-2X/WK Duration of therapy 2-4WKS Time and Billing Re-Eval Time 12 Re-Eval Billing Units 1 PHYSICIAN CERTIFICATION: I certify the specified therapy services for Alex Aaron are required, authorized, and reviewed every 30 days.
== END 2022-08-28 11:05 | disposition home or self-care (01) ==
LOC: PT 11:00
PROVIDERS: PCP Family Medicine; Visit Provider Orthopaedic Surgery
DX: Z89.511 Acquired absence of right leg below knee (principal); M79.604 Pain in right leg
CPT/HCPCS: 97010; 97014; 97016; 97110; 97112; 97116; 97140; 97163; 97164; 97530; G0283

== ENCOUNTER → 2022-09-07 09:23 | Outpatient (POV) | payer MEDICARE, SELFPAY ==
[2022-09-07 09:40] VITALS: BP 144/81; PULSE 57; RESP 17; O2SAT 98; BMI 22.6
--- NOTE | 2022-09-07 09:40 | EXP.PAIN.SOA ---
[facility] Pain Management SOAP Note Subjective:: Patient is a pleasant 66-year-old male who presents today for medication refill and follow-up. We are currently treating the patient for CRPS type I of lower extremity, right leg below the knee amputation, chronic pain. Today he rates his pain a 1 out of 10. Patient denies any new trauma or injury. He states he is doing very well from our last visit. He states he has been released by physical therapy and he is continuing to do daily exercise and working out. He states he has been out to hit golf balls and continues to do well. Patient is currently managed with gabapentin 300 mg twice a day, methocarbamol 750 mg 3 times a day and [place] 5 mg daily. At our last visit we were planning on tapering his [place] and he states that the last refill he has not even used all of its and did well with that dose. He states he only needs refills on his gabapentin today. His Marlo is [id number]. Its been reviewed and appropriate. Review of Systems: General: No recent weight changes, no fever, no sleep disturbances Respiratory: No cough, no shortness of air, no recurring pulmonary infections Cardiovascular/peripheral vascular: No chest pain, no palpitations, no edema, no shortness of breath Gastrointestinal: No new onset incontinence, normal bowel movements reported Genitourinary: No new onset incontinence Musculoskeletal: Right leg pain Psychiatric: [Normal mood/affect] Neurological: [Denies weakness in extremities], [denies balance issues] Objective:: Physical Exam: General: Alert and oriented x3, no acute distress, pleasant and cooperative Lungs: Respirations even and unlabored, symmetrical chest expansion Eyes: PERRL Musculoskeletal: Flexion and extension of right leg somewhat guarded secondary to pain Neurological: Speech clear, no gross sensory deficit Assessment:: CRPS type I of lower extremity, right leg below the knee amputation, chronic pain syndrome Plan:: Patient continues to do well on his current medication regiment. I will refill his gabapentin 300 mg twice a day and provide a 2month supply of this medication. Patient will return to clinic in 2 months for reevaluation of symptoms, medication refill and follow-up. Patient has been instructed to contact the clinic with any concerns before the next appointment. Dr. Wolf has reviewed this note and agrees with this plan of care. This note was dictated using voice recognition software and make contain errors or omissions. [facility] Disclaimer: The information contained in this section may have been updated after the patient was seen, as this information can be updated by other users. Medical History Abnormal ankle brachial index (ADRIAN) Abnormal EKG Cardiomyopathy Charcot ankle Closed fracture dislocation of right ankle Closed fracture of right talus Closed right tibial fracture COPD (chronic obstructive pulmonary disease) COPD mixed type Dislocation of right ankle joint Dyspnea Dyspnea on exertion Edema Encounter for pre-operative cardiovascular clearance Ex-smoker for less than 1 year Fracture blister Hammertoe of right foot History of smoking 30 or more pack years Left ankle instability Left ankle sprain Leg pain Malunion of joint fusion Noncompliance with treatment PAD (peripheral artery disease) Pes cavus of right foot Postoperative edema Postoperative wound dehiscence Right calf pain Stenosis of right popliteal artery Tobacco dependence syndrome Wound of right ankle Surgical History History of ankle fusion History of ankle surgery History of left ankle joint replacement History of right hip replacement Hx of right BKA Stented coronary artery X5 Family History Other Alzheimer disease Family history of myocardial infarction Social History (Reviewed 07/02
== END | disposition home or self-care (01) ==
PROVIDERS: PCP Family Medicine; Visit Provider Nurse Practitioner Family
DX: G90.529 Complex regional pain syndrome I of unspecified lower limb (principal); Z89.511 Acquired absence of right leg below knee; G89.29 Other chronic pain
CPT/HCPCS: 99212; G0463

== ENCOUNTER → 2022-10-08 08:14 | Outpatient (CLI) | payer MEDICARE, SELFPAY ==
--- NOTE | 2022-10-08 | CA_ITS ---
APPROVED REPORT EXAM: Comprehensive 2D, Doppler, and color-flow Echocardiogram [employer] Operator: Sarah Navarro RDCS Ht: 6 ft 2 in Wt: 162lbs BSA: 1.99 BP: 134/68 mmHg Indications: SOA CM COPD 2D Dimensions LVOT 2.34 cm (M/F) 1.5-2.5 M-Mode Dimensions RVDd 2.55 cm (0.9-2.6) LA Diam 3.50 cm (1.9-4.0) LVDd 5.57 cm (3.5-5.7) Ao Diam 3.60 cm (2.0-3.7) LVDs 4.16 cm (3.5-5.7) IVSd 0.70 cm (0.6-1.1) PWd 0.70 cm (0.6-1.1) EF (Teich) 49.40% FS 25.30% EDV (Teich) 151.80 mL ESV (Teich) 76.80 mL LV Diastology E Decel Time 267.00 (160-240 msec) E/A Ratio 0.6 MED E' 5.70 (< 7 cm/sec) E'/MED E' Ratio 5.91 (>14) LAT E' 6.30 (<10 cm/sec) E/LAT E' Ratio 5.35 (>14) Mitral Valve MV E Max Gama. 34.00 (40-130 cm/s) MV A Velocity 56.00 (40-130 cm/s) E/A Ratio 0.60 MV Decel. Time 267.00 (160-240 ms) MV PHT 78.00 ms Tricuspid Valve TR P. Velocity 244.00 cm/s RAP Estimate 10.00 mmHg RVSP 33.80 mmHg Left Ventricle The left ventricle is normal size. Left ventricular systolic function is mildly decreased. There is increased LV wall thickness. The left ventricular diastolic function is normal. LVEF is 45%. Right Ventricle Right ventricle is mildly dilated. The right ventricle is mildly dilated. Atria The left atrium size is normal. The right atrium size is normal. Aortic Valve The aortic valve is trileaflet. The aortic valve opens well. There is no aortic valvular stenosis. No aortic regurgitation is present. Mitral Valve The mitral valve is normal in structure. No evidence of mitral valve stenosis. There is no mitral valve regurgitation noted. Tricuspid Valve The tricuspid valve leaflets are thin and pliable. Trace tricuspid regurgitation. RVSP is normal. Pulmonic Valve The pulmonary valve is normal in structure. Trace pulmonic regurgitation. Great Vessels The aortic root is normal in size. The proximal segment of the visualized ascending aorta is normal in size. IVC is normal in size and collapses >50% with inspiration. Pericardium There is no pericardial effusion. Other Information Study Quality: Adequate Conclusion Mild reduction in LV systolic function (LVEF 45%). Mild RV dilation with mild reduction in RV function. No significant valvular disease. Electronically signed by : Michelle Mo, 10/09/2022 16:05:45
== END ==
PROVIDERS: PCP Family Medicine; Visit Provider Physician Assistant
DX: R06.02 Shortness of breath (principal); I42.8 Other cardiomyopathies
CPT/HCPCS: 93306

== ENCOUNTER 2023-03-25 14:56 | Outpatient (CLI) | payer MEDICARE, SELFPAY ==
[2023-03-25 16:01] LABS: Basophils # 0.1 K/mm3 (0-0.2); Basophils % 0.9 % (0.1-2.0); Eosinophils # 0.1 K/mm3 (0.0-0.4); Eosinophils % 2.1 % (0.1-12.0); Hematocrit 44.5 % (42.0-52.0); Hemoglobin 14.6 g/dL (14.1-18.0); Lymphocytes # 2.5 K/mm3 (0.7-4.5); Lymphocytes % 37.8 % (10-50); Mean Corpuscular HGB Conc 32.8 g/dL (31.8-35.4); Mean Corpuscular Volume 97.6 fl (80-94); Mean Platelet Volume 8.3 fl (7.4-10.4); Monocytes # 0.5 K/mm3 (0.1-1.0); Monocytes % 7.1 % (1.7-9.3); Neutrophils # 3.5 K/mm3 (1.8-7.8); Platelet Count 284 K/mm3 (142-424); Red Blood Count 4.56 M/mm3 (4.60-6.20); White Blood Count 6.7 K/mm3 (4.8-10.8)
[2023-03-25 16:23] LABS: Chloride 104 mmol/L (98-107); Sodium 138 mmol/L (136-145)
[2023-03-25 16:24] LABS: Potassium 4.5 mmoL/L (3.5-5.1)
[2023-03-25 16:26] LABS: Alanine Aminotransferase 24 U/L (12-78); Alkaline Phosphatase 84 U/L (38-126); Anion Gap 9.5 mEq/L (5-15); Aspartate Amino Transferase 36 U/L (17-59); Bilirubin,Direct 0.6 mg/dl (0.0-0.4); Bilirubin,Total 0.6 mg/dl (0.2-1.3); Blood Urea Nitrogen 14 mg/dl (9-20); Calcium 9.1 mg/dl (8.4-10.2); Carbon Dioxide 29 mmol/L (22.0-30.0); Cholesterol 162 mg/dl (140-200); Estimated Glomerular Filt Rate 97 ml/min (>60); GFR (African American) 117 ML/MIN (>60); Glucose 83 mg/dl (74-100); Triglycerides 120 mg/dl (30-150); VLDL Cholesterol 24 mg/dL (0-40)
[2023-03-25 16:27] LABS: Albumin Level 4.5 g/dl (3.5-5.0); Chol/HDL Ratio 2.7 (1-3.5); HDL Cholesterol 59 mg/dl (40-60); Magnesium 2.3 mg/dl (1.6-2.3); Total Protein,Serum 7.1 g/dl (6.3-8.2)
[2023-03-25 16:43] LABS: Free T4 (Free Thyroxine) 1.08 ng/dl (0.78-2.19)
[2023-03-25 16:57] LABS: Thyroid Stimulating Hormone 1.43 uIU/mL (0.465-4.68)
== END 2023-03-25 23:59 ==
PROVIDERS: PCP Family Medicine; Visit Provider Nurse Practitioner
DX: E78.5 Hyperlipidemia, unspecified (principal); F17.200 Nicotine dependence, unspecified, uncomplicated; I10 Essential (primary) hypertension; I25.10 Atherosclerotic heart disease of native coronary artery without angina pectoris; I50.20 Unspecified systolic (congestive) heart failure; I73.9 Peripheral vascular disease, unspecified; J44.9 Chronic obstructive pulmonary disease, unspecified; K21.9 Gastro-esophageal reflux disease without esophagitis; R94.31 Abnormal electrocardiogram [ECG] [EKG]; I42.8 Other cardiomyopathies
CPT/HCPCS: 36415; 80048; 80061; 80076; 83735; 84439; 84443; 85025

== ENCOUNTER 2023-12-10 10:48 | Outpatient (CLI) | payer MEDICARE, SELFPAY ==
--- NOTE | 2023-12-10 10:52 | XR_ITS ---
FINAL REPORT CLINICAL HISTORY: Left foot pain, check implant FINDINGS: LEFT FOOT: Three views of the left foot were obtained. There are postoperative changes with shilpa and multiple screws. Mild degenerative changes are noted. There is no acute bony abnormality. There are postoperative changes from ankle arthroplasty. IMPRESSION: Postoperative changes with no acute bony abnormality. Reviewed, Interpreted and Dictated by Gilberto Crenshaw III, MD Transcribed by Vanessa Nuno Authenticated and [facility]
--- NOTE | 2023-12-10 10:52 | XR_ITS ---
FINAL REPORT CLINICAL HISTORY: Left ankle pain, check implant FINDINGS: LEFT ANKLE: Three views of the left ankle were obtained. There are postoperative changes from ankle arthroplasty. Postoperative changes are seen in the lateral malleolus. There is a chronic calcification inferior to the lateral malleolus. Mild degenerative changes are noted. There is no acute bony abnormality. IMPRESSION: Postoperative changes with no acute bony abnormality. Reviewed, Interpreted and Dictated by Gilberto Crenshaw III, MD Transcribed by Vanessa Nuno Authenticated and [facility]
== END 2023-12-10 23:59 | disposition home or self-care (01) ==
LOC: RAD 10:49
PROVIDERS: PCP Family Medicine; Visit Provider Podiatrist
DX: M25.572 Pain in left ankle and joints of left foot (principal); Z96.662 Presence of left artificial ankle joint
CPT/HCPCS: 73610; 73630

== ENCOUNTER 2024-07-04 06:53 | Outpatient (CLI) | payer MEDICARE, SELFPAY ==
--- NOTE | 2024-07-04 07:00 | CT_ITS ---
FINAL REPORT TECHNIQUE: Thin section axial images were obtained through the lungs using a low-dose technique per lung cancer screening protocol. Reconstruction images were obtained using the axial data. Exam was performed using dose reduction technique. CLINICAL HISTORY: lung cancer screening, smoker for 48yrs, 0.5ppd COMPARISON: None FINDINGS: CTDLvol: 2.90 DLP: 114.11 Current smoker 24 pack year history Lungs: Emphysema is noted. There is a 4 mm nodule along the left major fissure on image 56 of series 4. A 3 mm nodule along the right major fissure on image 52 of series 4 is also likely an intrafissural lymph node. No additional nodules are seen. There is no consolidation. Lymph nodes: Multiple small mediastinal lymph nodes, none of which meet size criteria for lymphadenopathy. Mediastinum: Heart size is normal. There are prominent coronary artery calcifications. Pleura/pericardium: No pleural or pericardial effusion. Other: No acute abnormality in the upper abdomen. IMPRESSION: No suspicious pulmonary nodule or mass. Lung RADS: 2S Recommendation: 12-month follow-up low-dose CT chest. Modifier S: Prominent coronary artery calcifications. Reviewed, Interpreted and Dictated by Adriane Arenas MD Transcribed by Nina Alvarez Authenticated and [facility]
== END 2024-07-04 23:59 | disposition home or self-care (01) ==
LOC: RAD 06:55
PROVIDERS: PCP Internal Medicine; Visit Provider Internal Medicine
DX: Z87.891 Personal history of nicotine dependence (principal)
CPT/HCPCS: 71271

== ENCOUNTER 2024-08-15 09:25 | Outpatient (CLI) | payer OTHER, SELFPAY ==
--- OUTSIDE RECORDS SUMMARY | 2023-08-19 11:30 | XMS_ITS ---
Author [facility] Address [address] [place] [phone] Care Team Providers Care Truck Despatcher Name Role Phone Kimberly GABRIEL Primary Care Provider Unavaila Kimberly Peralta Unavailable [phone] Johana Swift Unavailable [phone] Allergies Allergen (clinical drug ingredient) Drug/Non Drug [...] 20 MG 1 tab(s) orally once a day for 30 day(s) 04/22/2020 Active Carvedilol 6.25 MG TAKE 1 TABLET BY MOUTH TWICE DAILY for 90 Active Omeprazole 20 MG 1 tab(s) orally once every other day for 30 day(s) Active traMADol HCl 50 MG 1 tab(s) orally every 6 hours Not-Taking Clopidogrel Bisulfate 75 MG 1 tab(s) orally once a day for 30 day(s) Active Cialis 10 MG 1 tab(s) orally once a day prn Active Entresto 49-51 MG 1 tablet Orally Twice a day Active Aspirin 81 MG 1 tab(s) orally once a day for 30 day(s) Active Diclofenac Sodium 50 MG 1 tab(s) orally 2 times a day Not-Taking Gabapentin 300 MG 1 cap(s) orally Two times a day Not-Taking D3-50 1.25 MG (62494 UT) TAKE 1 CAPSULE BY MOUTH WEEKLY DIRECTED for 84 Not-Taking Methocarbamol 500 MG 1 tab(s) orally 3 times a day Not-Taking rOPINIRole HCl 0.5 MG 1 tab(s) orally bedtime Not-Taking Cefuroxime Axetil 500 MG 1 tablet Orally every 12 hrs for 7 day(s) 01/25/2023 Not-Taking HYDROcodone-Acetamin ophen 5-325 MG 1 tab(s) orally at bedtime as needed 04/14/2022 Not-Taking Quad Cane USE DIRECTED AND NEEDED *Please review and pick correct strength-formulat ion from [employer] options. 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 :1955 A ge:67 Y S ex:Male Date:08/19/2023 Address:[address], [place], [id number] Pcp:Kimberly GABRIEL Subjective: * Chief Complaints: * 1 . Discuss prosthetic. * HPI: Susi elizabeth/Cruz: Pt presents today to discuss getting a new prosthetic socket through [facility]. He has lost more than 10% [...] - Right 07/22/12, Colonoscopy - Kerline 2007, Rosalba 08/2017 (adenomatous polyp) , Heart Cath with Cardiac Stent x5 Dec 25, 2019, left ankle replacement/ Dr. Cook 05/22/20, C-scope/ Rosalba/ polyps , left BK amputation 02/25/2022. * Hospitalization/Major Diagno stic Procedure: O verdose 1993, see above , [facility] 07/22/12. * Family History: F [...] *Please review and pick correct strength-formulation from [employer] options. If intended option is not shown, [...] a day , Not-Taking D3-50 1.25 MG (01004 UT) Capsule TAKE 1 CAPSULE BY MOUTH [...] * Vitals: W t:146.4, Temp:97.7, BP:132/76, HR:65, Nurse:WMG, Ht: 74, BMI:18.79. * Examination: G eneral Examination: Extremities: Areas of mild erythema on the stump. No skin breakdown.. Assessment: * Assessment: 1. H istory of below-knee amputation of right lower extremity - Z89.511 (Primary) ?2. E mploys prosthetic leg - Z97.10 Plan: * Treatment: * Follow Up: p rn * Billing Information: * Visit Code: 11461 Office Visit, Est Pt., Level 3. * Procedure Codes: * Electronic signature of Kimberly Gabriel MD on 08/15/2024 at 09:28 AM EDT Sign off status: Pending * Provider: Kimberly Gabriel M.D. Date: 0 08/19/2023 Generated for Saida loaiza/Shonna/Menaitting on: 0 08/15/2024 09:28 AM EDT History and Physical Notes * Examination Category Sub-Category Detail Notes Category Not es General Examination Extremities: Areas of mil d erythema on the stump. No skin breakdown.
--- OUTSIDE RECORDS SUMMARY | 2024-03-16 05:45 | XMS_ITS ---
Author Organization [facility] Address [address] [facility] [address] [place] [id number] Care Team Providers Care Broomcorn Thresher Name Role Phone Kimberly GABRIEL Primary Care Provider Unavaila Kimberly Peralta Unavailable [phone] Johana Swift Unavailable [phone] Allergies Allergen (clinical drug ingredient) Drug/Non Drug [...] Interpretation:gluc 104, Cr 0.64 Performing Lab: Notes/Report: Test performed by [facility] , [address], [place] [address] Robbie Garcia MD, Dealership Manager CLIA: [id number] Sodium 140 135-145 mmol/L Potassium 4.4 3.5-5.3 [...] Interpretation:Normal Performing Lab: Notes/Report: Test performed by [facility] [address] [place] [address] , [address], [place] [address] Robbie Garcia MD, Dealership Manager CLIA: [id number] PSA 0.68 <4.00 ng/mL Please note this [...] Date End Date Status D3-50 1.25 MG (26030 UT) TAKE 1 CAPSULE BY MOUTH WEEKLY DIRECTED for 84 Not-Taking Diclofenac Sodium 50 MG 1 tab(s) orally 2 times a day Not-Taking rOPINIRole HCl 0.5 MG 1 tab(s) orally bedtime Not-Taking traMADol HCl 50 MG 1 tab(s) orally every 6 hours Not-Taking Quad Cane USE DIRECTED AND NEEDED *Please review and pick correct strength-formulat ion from [employer] options. If intended option is not shown, discontinue and re-order from Quick Search* 05/26/2022 Not-Taking HYDROcodone-Acetamin ophen 5-325 MG 1 tab(s) orally at bedtime as needed 04/14/2022 Not-Taking Carvedilol 6.25 MG TAKE 1 TABLET BY MOUTH TWICE DAILY for 90 Active Methocarbamol 500 MG 1 tab(s) orally 3 times a day Not-Taking Atorvastatin Calcium 20 MG 1 tab(s) orally once a day for 30 day(s) 04/22/2020 Active Gabapentin 300 MG 1 cap(s) orally Two times a day Not-Taking Omeprazole 20 MG 1 tab(s) orally once every other day for 30 day(s) Active Clopidogrel Bisulfate 75 MG 1 tab(s) orally once a day for 30 day(s) Active Cialis 10 MG 1 tab(s) orally once a day prn Active Entresto 49-51 MG 1 tablet Orally Twice a day Active Aspirin 81 MG 1 tab(s) orally once a day for 30 day(s) Active Immunizations Vaccine Route Administration Date Status Comme nts Fluzone High Dose (65yr and older) IM Intramuscular 03/16/2024 Administered Prevnar (PCV20) IM Intramuscular 03/16/2024 Administered Vital Signs Blood pressure systolic 134 mm Hg 03/16/19 25 Blood pressure diastolic 80 mm Hg 025 Heart Rate 59 /min 03/16/2024 Height 74 in 03/16/2024 Weight 154.6 lbs 03/16/2024 BMI 19.85 kg/m2 03/16/2024 Encounters Encounter Location Date Provider Diagnosis [facility] [address] [facility] [address] [place] [address], [place] [id number] 03/16/2024 Kimberly Gabriel Adult general medica l examination Z00.00 ; [...] LAKHWINDER ANDRE DDOB:[birth year] (68 yo M)Acc No.[id number]:03/16/2024 Annual Wellness Visit Patient: Good LAKHWINDER LUEVANO Provider: Kimberly Gabriel M.D. :1955 A ge:68 Y S ex:Male Date:03/16/2024 Address:[address], [place], [id number] Pcp:Kimberly GABRIEL Subjective: * Chief Complaints: * [...] O verdose 1993, see above , [facility]- Hip Replacement 07/22/12. * Family History: F [...] *Please review and pick correct strength-formulation from [employer] options. If intended option is not shown, discontinue and re-order from Quick Search*, Not-Taking rOPINIRole HCl 0.5 MG Tablet 1 tab(s) orally bedtime , Not-Taking traMADol HCl 50 MG Tablet 1 tab(s) orally every 6 hours , Not-Taking D3-50 1.25 MG (29117 UT) Capsule TAKE 1 CAPSULE BY MOUTH [...] General Appearance: A ffect good. Weight gain noted.? Neck: s upple, no lymphadenopathy, no carotid bruits. Heart: R SR. Lungs: C oarse breath sounds. No rales or wheezes.? Abdomen: T hin, soft, nondistended and nontender. Extremities: R ight BK amputation with prosthesis in place.? No edema. * Physical Examination: G ENERAL: [...] erectile disorder - N52.9 9 . B NH less than 19,adult - Z68.1 Plan: * [...] Cloud 03/16/2024 11:0 9:46 AM > Kimberly Gabriel 03/20/2024 5:15:44 PM >See phone encounter Notes:Patient [...] Creatinine 104 >59 - mL/min/1.73m2 * Kimberly Gabriel 03/20/2024 5 :15:44 PM >See phone encounter 3.?History of tobacco abuse?Imaging: CT Scan : Chest, low dose (Performed Date - 07/04/2024)?no suspicious lesions* Evangelina Corrigan 03/16/2024 11:37 :37 AM > no auth required; CPT code 12004; faxed to [facility] Kimberly Leal 08/06/2024 08:32:26 PM EDT > reviewed. Nothing suspicious 4.?Screening for prostate cancer?LAB: P-PSA (Collection Date & Time - 03/16/2024 09:42 AM)?Normal* Value Reference Range P SA 0.68 <4.00 - ng/mL * Kimberly Gabriel 03/20/2024 5 :15:44 PM >See phone encounter [...] IN RCRD, 1003F LEVEL OF ACTIVITY ASSESS, 10609 CBC WITH AUTO DIFF, 1036F TOBACCO NON-USER, [...] age. * Follow Up: 6 Months * Billing Information: * Visit Code: 96097 Office Visit, Est Pt., Level 3. Modifiers: 25 * Procedure Codes: G0439 ANNUAL WELLNESS VST; PPS SUBSQT VST. G0444 ANNUAL DEPRESSION SCREENING 15 MIN. 1090F PRES/ABSN URINE INCON ASSESS. 3288F FALL RISK ASSESSMENT DOCD. 1170F FXNL STATUS ASSESSED. 1159F MED LIST DOCD IN RCRD. 1003F LEVEL OF ACTIVITY ASSESS. 93085 CBC WITH AUTO DIFF. 1036F TOBACCO NON-USER. 3017F COLORECTAL CA SCREEN DOC REV. 1125F AMNT PAIN NOTED PAIN PRSNT. 4040F PNEUMOC IMM ORDER/ADMIN. 3075F SYST BP GE 130 - 139MM HG. 3079F DIAST BP 80-89 MM HG. * Electronic signature of Kimberly Gabriel MD on 08/15/2024 at 09:28 AM EDT Sign off status: Pending * Provider: Kimberly Gabriel M.D. Date: 0 03/16/2024 Generated for Printi ng/Faxing/eTransmitting on: 0 08/15/2024 09:28 AM EDT History [...]
--- OUTSIDE RECORDS SUMMARY | 2024-05-23 11:15 | XMS_ITS ---
Author Organization [facility] Address [address] [facility] [address] [place], [place] [id number] Care Team Providers Care Lead Burner Name Role Phone Kimberly GABRIEL Primary Care Provider UnavailKimberly Varma Unavailable [phone] Johana Swift Unavailable [phone] Allergies Allergen (clinical drug ingredient) Drug/Non Drug [...] Encounter Location Date Provider Diagnosis JohnJared [address] [facility] [address] [place] [phone] 05/23/2024 Kimberly Gabriel Plan Of Treatment No Information Progress Notes * LAKHWINDER ANDRE DDOB:[birth year] (68 yo M)Acc No.[id number]:05/23/2024 Progress Notes Patient: Good LAKHWINDER LUEVANO Provider: Kimberly Gabriel M.D. :1955 A ge:68 Y S ex:Male Date:05/23/2024 Address:[address], [place], [id number] Pcp:Kimberly GABRIEL Subjective: * Chief Complaints: * [...] O verdose 1993, see above , [employer]- Hip Replacement 07/22/12. * Family History: F [...] * Vitals: Assessment: Plan: * Treatment: * Billing Information: * Visit Code: * Procedure Codes: * Electronic signature of Kimberly Gabriel MD on 08/15/2024 at 09:28 AM EDT Sign off status: Pending * Provider: Kimberly Gabriel M.D. Date: 0 05/23/2024 Generated for Sadia loaiza/Shonna/Omega on: 0 08/15/2024 09:28 AM EDT History and Physical Notes * HPI (History of Present Illness) Category Sub-Category Detail Notes Category Not es Lower back Low Back Pain Shoulder/Upper arm shoulder pain
--- NOTE | 2024-08-15 09:27 | XR_ITS ---
FINAL REPORT TECHNIQUE: 6 views left wrist CLINICAL HISTORY: left foot pain COMPARISON: None FINDINGS: LEFT FOOT Three views of the left foot demonstrate a left ankle prosthesis. There are fusions of the talonavicular and calcaneocuboid bones screws are present in the calcaneus. The visualized joint spaces are normally aligned. There is mild hypertrophic change involving the first MTP joint. The soft tissues are unremarkable. IMPRESSION: No acute bony abnormality. Reviewed, Interpreted and Dictated by Harpal Jones MD Transcribed by Desiree Sagastume Authenticated and [facility]
--- OUTSIDE RECORDS SUMMARY | 2024-08-15 09:29 | XMS_ITS | Clinical Summary ---
Author Organization [facility] Address [address] [place] [address] Care Team Providers Care Precision Optics Technician Name Role Phone Ortiz Gabriel MD Primary Care Provider [phone] Ortiz Cordova MD Unavailable [phone] Allergies Active Allergy Reactions Criticality Noted Date Comments Sulfa Drugs Hives,Itching High 04/29/2021 Medications traMADol (Ultram) 50 MG tablet Take 1 tablet (50 mg) by mouth 3 (three) times a day. 1 Active atorvastatin (Lipitor) 20 MG tablet TAKE 1 TABLET BY MOUTH DAILY FOR CHOLESTEROL 2 Active carvedilol (Coreg) 12.5 MG tablet TAKE 1 TABLET BY MOUTH TWICE DAILY WITH FOOD OR MEAL FOR HIGH BLOOD PRESSURE 2 Active Entresto 49-51 MG tablet Take 1 tablet by mouth 2 (two) times a day. 2 Active diazePAM (Valium) 5 MG tablet TAKE ONE TABLET BY MOUTH TWICE DAILY NEEDED FOR MUSCLE SPASMS MAY CAUSE DROWSINESS 1 Active omeprazole (PriLOSEC) [address] capsule TAKE 1 CAPSULE BY MOUTH EVERY OTHER DAY 1 Active clopidogrel (Plavix) 75 MG tablet Take 1 tablet (75 mg) by mouth 1 (one) time each day. 2 Active gabapentin (Neurontin) 100 MG capsule TAKE 1 CAPSULE BY MOUTH THREE TIMES DAILY FOR PAIN 2 Active carvedilol (Coreg) 6.25 MG tablet TAKE 1 TABLET BY MOUTH EVERY NIGHT AT BEDTIME WITH MEAL/FOOD 2 Active methocarbamol (Robaxin) 750 MG tablet TAKE 1 TABLET BY MOUTH THREE TIMES DAILY FOR PAIN 3 Active HYDROcodone-shaneka taminophen ([place]) 5-325 MG tablet 3 Active Active Problems No known active problems Social History Tobacco Use Types Packs/Day Years Used Date Smoking Tobacco: Every Day Cigarettes Smokeless Tobacco: Never Alcohol Use Standard Drinks/Week Comments Yes 7 (1 standard drink = 0.6 oz pur e alcohol) PHQ-2 Answer Date Recorded Patient Health Questionnaire-2 Score 2 08/12/2022 PHQ-2A Answer Date Recorded Patient Health Questionnaire-2 Score 2 08/12/2022 Sex and Gender Information Value Date Recorded Sex Assigned at Not on file Legal Sex Male 11:59 AM EDT Gender Identity Not on file Sexual Orientation Not on file Last Filed Vital Signs Vital Sign Reading Time Taken Comments Blood Pressure 136/86 10/07/2023 4:28 PM EDT Pulse 66 10/07/2023 4:28 PM EDT Temperature - - Respiratory Rate 18 04/29/2021 1:58 PM EST Oxygen Saturation 96% 10/07/2023 4:28 PM EDT Inhaled Oxygen Concentration - - Weight 68 kg (150 lb) 10/07/2023 4:28 PM EDT Height 188 cm (6' 2 ) 10/07/2023 4:28 PM EDT Body Mass Index 19.26 10/07/2023 4:28 PM EDT Plan of Treatment Health Maintenance Due Date Last Done Comments [facility]-Hepatitis C Screening 1955 [facility]-Medicare Annual Wellness (AWV) 1955 [facility]-/Child/Adol SDOH Screenings 1955 [facility]- SDOH Screenings 1974 [facility]-Adult SDOH Screenings 1974 CT Colonography 2001 Colonoscopy 2001 FIT-DNA 2001 FIT 2001 FOBT 2001 Sigmoidoscopy 2001 [facility]-Colorectal Cancer Screening 2001 [facility]-Zoster Vaccines (1 of 2) 2006 [facility]-Pneumococcal Vaccine: 50+ Years (2 of 2 - PCV) 02/14/2021 02/15/2020 [facility]-Abdominal Aortic Aneurysm (AAA) Screening 2021 [facility]-Depression Screening 08/13/2023 08/12/2022 [id number] Vaccine ( season) 2023 12/03/2022, 09/16/2021, 12/31/2020, Additional history exists [facility]-Influenza Vaccine (Season Ended) 2024 12/03/2022, 12/12/2021, 12/31/2020, Additional history exists [facility]-DTaP,Tdap,and Td Vaccines (2 - Td or Tdap) 01/12/2029 01/12/2019 [facility]-RSV Vaccine: 60+ Years or (1 - 1-dose 75+ series) 11/21/2031 HPV Vaccines Aged Out No longer eligi ble based on patient's age to complete this topic [facility]-HIB Vaccines Aged Out No longer e ligible based on patient's age to complete this topic [facility]-Hepatitis A Vaccines Aged Out No longer eligible based on patient's age to complete this topic [facility]-IPV Vaccines Aged Out No longer e ligible based on patient's age to complete this topic [facility]-Rotavirus Vaccines Aged Out No lo nger eligible based on patient's age to complete this topic Insurance [employer]IC[employer] Care Teams Precision Optics Technician Relationship Specialty Start Date End Date Ortiz Gabriel MD [address] [place] [address] PCP - General 10/02/21 Ortiz Cordova MD [address] [facility] [address] [place] [phone] Consulting Physician Neurology 10/02/21
--- OUTSIDE RECORDS SUMMARY | 2024-08-15 09:29 | XMS_ITS | Patient Health Record ---
[facility] Address [address] [place] [id number] Care Team Providers Care Hydraulic Oil Tool Operator Name Role Phone Kimberly GABRIEL Primary Care Provider Unavaila Kimberly Peralta Unavailable [phone] Johana Swift Unavailable [phone] Allergies Allergen (clinical drug ingredient) Drug/Non Drug [...] 0.64 Performing Lab: Notes/Report: Test performed by [facility] , [address], [place] [address] Robbie Garcia MD, Application Support Manager CLIA: [id number] Sodium 140 135-145 mmol/L Potassium 4.4 3.5-5.3 [...] Interpretation:Normal Performing Lab: Notes/Report: Test performed by [facility], [address] , [address], [place] [address] Robbie Garcia MD, Application Support Manager CLIA: [id number] PSA 0.68 <4.00 ng/mL Please note this is an ultrasensitive PSA assay with a lower limit of detection of 0.014 ng/mL. This test is performed by the Jose ECLIA methodology. Values obtained with different assay methods or kits cannot be directly compared. CT Scan : Chest, low dose Reviewed date:08/06/2024 08:32:57 PM Interpretation:no suspicious lesions Performing Lab: Notes/Report: no suspicious lesions Medications Medication SIG (Take, Route, Frequency, Duration) Notes Start Date End Date Status Omeprazole 20 MG 1 tab(s) orally once every other day for 30 day(s) Active Atorvastatin Calcium 20 MG 1 tab(s) orally once a day for 30 day(s) 04/22/2020 Active Clopidogrel Bisulfate 75 MG 1 tab(s) orally once a day for 30 day(s) Active D3-50 1.25 MG (92249 UT) TAKE 1 CAPSULE BY MOUTH WEEKLY DIRECTED for 84 Not-Taking Cialis 10 MG 1 tab(s) orally once a day prn Active Diclofenac Sodium 50 MG 1 tab(s) orally 2 times a day Not-Taking Entresto 49-51 MG 1 tablet Orally Twice a day Active rOPINIRole HCl 0.5 MG 1 tab(s) orally bedtime Not-Taking Aspirin 81 MG 1 tab(s) orally once a day for 30 day(s) Active traMADol HCl 50 MG 1 tab(s) orally every 6 hours Not-Taking Gabapentin 300 MG 1 cap(s) orally Two times a day Not-Taking Quad Cane USE DIRECTED AND NEEDED *Please review and pick correct strength-formulat ion from [employer] options. If intended option is not shown, discontinue and re-order from Quick Search* 05/26/2022 Not-Taking HYDROcodone-Acetamin ophen 5-325 MG 1 tab(s) orally at bedtime as needed 04/14/2022 Not-Taking Carvedilol 6.25 MG TAKE 1 TABLET BY MOUTH TWICE DAILY for 90 Active Methocarbamol 500 MG 1 tab(s) orally 3 times a day Not-Taking Immunizations Vaccine Route Administration Date Status Comme nts tuberculin (ppd) ID Intradermal 10/12/2005 Administered tuberculin (ppd) ID Intradermal 10/17/2005 Administered Tetanus Tdap-Adacel (over 7yrs) IM Intramuscular 01/12/2019 Administered Prevnar (PCV20) IM Intramuscular 03/16/2024 Administered PNEUMOVAX 23 VACCINE IM Intramuscular 02/15/2020 Administe red Fluzone Quad (6months&older) IM Intramuscular 01/12/2019 Administered Fluzone Quad (6months&older) IM Intramuscular 01/04/2020 Administered Fluzone PF Quad (6-35 months) Unknown 12/31/2020 Administered Fluzone High Dose (65yr and older) IM Intramuscular 12/12/2021 Administered Fluzone High Dose (65yr and older) IM Intramuscular 03/16/2024 Administered COVID 19 Pfizer Unknown 05/14/2020 Administered COVID 19 Pfizer Unknown 06/11/2020 Administered COVID 19 Moderna Unknown 12/31/2020 Administered COVID 19 Moderna Unknown 09/16/2021 Administered Problems Problem Type SNOMED Code ICD Code Onset Dates Problem Status W/U Status Risk Notes Problem Coronary arteriosclerosis (16832955) ASCVD (arteriosclerotic cardiovascular disease) (I25.10) Active confirmed Problem 26000522 Essential hypertension (I10) Active confirmed Problem Complex regional pain syndrome I of lower limb (G90.529) Active confirmed Problem Mixed anxiety and depressive disorder (771545161) Depression with anxiety (F41.8) Active confirmed Problem 01308447 Memory loss (R41.3) Active confirmed Problem 44692544 Other chronic pa in (G89.29) Active confirmed Problem 069486928 Male erectile disorder (N52.9) Active confirmed Problem Depressive disorder (22214625) Depressive disorder (F32.9) Active confirmed Problem 811437395 Gastroesophageal reflux disease without esophagitis (K21.9) Active confirmed Problem 678756398 Primary osteoarthritis involving multiple joints (M15.0) Active confirmed Problem 12016134 Chronic obstructive pulmonary disease, unspecified COPD type (J44.9) Active confirmed Problem Irritable bowel syndrome (79326773) Irritable bowel syndrome (K58.9) Active confirmed Problem Sacroiliitis (40917614) Sacroiliitis (M46.1) Active confirmed Problem 80447093 Cigarette nicoti ne dependence without complication (F17.210) Active confirmed Problem Tinnitus (54443886) Tinnitus (H93.19) Active co nfirmed Problem 923778505 Tobacco use disorder (F17.200) Active confirmed Problem Systolic heart failure (915900869) Systolic heart failure, unspecified heart failure chronicity (I50.20) Active confirmed Problem 9049130598753375 Arthritis of le ft ankle (M19.072) Active confirmed Problem Phantom limb (442392721) Phantom limb pain (G54.6) Active confirmed Problem 972397402 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) Active confirmed Problem 717957721327245 History of below-knee amputation of right lower extremity (Z89.511) Active confirmed Vital Signs Heart Rate 59 /min 03/16/2024 Blood pressure diastolic 80 mm Hg 03/16/2024 Height 74 in 03/16/2024 Blood pressure systolic 134 mm Hg 03/16/2024 Weight 154.6 lbs 03/16/2024 BMI 19.85 kg/m2 03/16/2024 Encounters Encounter Location Date Provider Diagnosis [facility] [address] [facility] [address] [place] [id number] 08/19/2023 Kimberly Gabriel History of below-kne e amputation of right lower extremity Z89.511 and Employs prosthetic leg Z97.10 [facility] [address] [facility] [address] [place] [id number] 03/16/2024 R Gal Gabriel Adult general medica l examination Z00.00 ; ASCVD (arteriosclerotic cardiovascular disease) I25.10 ; Systolic heart failure, unspecified heart failure chronicity I50.20 ; History of below-knee amputation of right lower extremity Z89.511 ; Gastroesophageal reflux disease without esophagitis K21.9 ; History of tobacco abuse Z87.891 ; Screening for prostate cancer Z12.5 ; Male erectile disorder N52.9 and BMI less than 19,adult Z68.1 [facility] [address] [place] [id number] 08/20/2023 R Gal [place] [facility] [address] [place] [id number] 03/20/2024 [facility] [address] [place] [id number] 08/06/2024 R Gal Nery Assessments Encounter Date Diagnosis (ICD Code) Assessment Notes Treatment Notes Treatment Clinical Notes Section Notes 08/19/2023 Employs prosthetic leg (ICD-10 - Z97.10) 08/19/2023 History of below-knee amputation of right lower extremity (ICD-10 - Z89.511) He would benefit from a new, better fitting socket for his BKA 03/16/2024 ASCVD (arteriosclerotic cardiovascular disease) (ICD-10 - I25.10) 03/16/2024 Adult general medical examination (ICD-10 - Z00.00) Patient instructed to return to office Annually for Annual Wellness Visits to include annual screenings of Pain assessment, Functional Ability assessment, Cognitive Ability assessment, Fall Risk assessment, Depression screening and Bladder control screening. 03/16/2024 Systolic heart failure, unspecified heart failure [...] 19,adult (ICD-10 - Z68.1) Plan Of Treatment No Information Insurance Providers Payer Name Payer Address Payer Phone Subscriber Number Group Number Insured Name Patient Relationship to Insured Coverage Start Date Coverage End Date [employer] [address] NIKKO TIMOTHY [id number] [employer] Self - patient is the insured Medications Administered Medication Instructions Date of Administration Dosage Notes depo medrol 80 mg 08/07/2009 Medical (General) History Medical History History ICD Code Hypertension depression osteoarthritis herniated disc L4-L5 (? previous MRI pete e) Esophageal reflux Tobacco abuse, 60 pack year history, yas t in 2019 Erectile dysfunction Adenomatous colon polyp ASCVD Systolic heart failure Surgical History Surgery Date(Month/Year) tonsillectomy right ankle fused appendectomy 05/2006 Hip Replacement - Right 07/22/12 Colonoscopy - [facility] 2007, [place] 8 (adenomatous polyp) Heart Cath with Cardiac Stent x5 Dec 25, 2019 left ankle replacement/ Dr. Cook C-scope/ [place]/ polyps left BK amputation 02/25/2022 Hospitalization History Reason Date(Month/Year) see above Overdose 1993 [facility] Hip Replacement 3
== END 2024-08-15 23:59 | disposition home or self-care (01) ==
LOC: RAD 09:26
PROVIDERS: PCP Internal Medicine; Visit Provider Podiatrist
DX: S91.302A Unspecified open wound, left foot, initial encounter (principal)
CPT/HCPCS: 73630; 87070; 87077; 87186; 87205

== ENCOUNTER 2024-08-15 12:35 | Outpatient (CLI) | payer MEDICARE, SELFPAY ==
--- OUTSIDE RECORDS SUMMARY | 2024-08-15 12:38 | XMS_ITS | Clinical Summary ---
Author Organization [facility] Address [address] [place] [address] Care Team Providers Care Release Manager Name Role Phone Ortiz Gabriel MD Primary Care Provider [phone] Ortiz Cordova MD Unavailable [phone] Allergies Active Allergy Reactions Criticality Noted [...] DAILY FOR PAIN 3 Active HYDROcodone-shaneka taminophen ([place]) 5-325 MG tablet 3 Active Active Problems [...] (AAA) Screening 2021 [facility]-Depression Screening 08/13/2023 08/12/2022 [id number] Vaccine ( season) 2023 12/03/2022, 09/16/2021, 12/31/2020, [...] this topic Insurance [employer] Care Teams Release Manager Relationship Specialty Start Date End Date Ortiz Gabriel MD [address] [place] [id number] PCP - General 10/02/21 Ortiz Cordova MD [address] [facility] [address] [place] [phone] Consulting Physician Neurology 10/02/21
[2024-08-15 13:35] LABS: Basophils % 0.6 % (0.1-2.0); Eosinophils # 0.2 Kmm3 (0.0-0.4); Eosinophils % 2.2 % (0.1-12.0); Hematocrit 41.8 % (42.0-52.0); Hemoglobin 13.3 g/dL (14.1-18.0); Immature Granulocytes # 0.01 10^3uL; Immature Granulocytes % 0.1 %; Lymphocytes # 2.3 K/mm3 (0.7-4.5); Lymphocytes % 32.7 % (10-50); Mean Corpuscular HGB Conc 31.8 g/dL (31.8-35.4); Mean Corpuscular Volume 100.5 fl (80-94); Mean Platelet Volume 9.7 fl (7.4-10.4); Monocytes # 0.6 K/mm3 (0.1-1.0); Monocytes % 8.8 % (1.7-9.3); Neutrophils # 3.9 K/mm3 (1.8-7.8); Neutrophils % 55.6 % (37.0-80.0); Nucleated Red Blood Cells # 0 10^3/uL; Nucleated Red Blood Cells % 0 %; Platelet Count 290 K/mm3 (142-424); Red Blood Count 4.16 M/mm3 (4.60-6.20); Red Cell Distribution Width 13.5 % (11.5-17.5); Red Cell Distribution Width-SD 50.2 fL; White Blood Count 6.9 K/mm3 (4.8-10.8)
[2024-08-15 14:00] LABS: Albumin Level 3.9 g/dl (3.5-5.0); Chloride 109 mmol/L (98-107); Sodium 139 mmol/L (136-145)
[2024-08-15 14:03] LABS: Alanine Aminotransferase 17 U/L (12-78); Albumin/Globulin Ratio 1.6 (1.1-1.8); Alkaline Phosphatase 83 U/L (38-126); Aspartate Amino Transferase 29 U/L (17-59); Bilirubin,Total 0.5 mg/dl (0.2-1.3); Blood Urea Nitrogen 13 mg/dl (9-20); Calcium 8.6 mg/dl (8.4-10.2); Estimated Glomerular Filt Rate 112 ml/min (>60); GFR (African American) 136 ML/MIN (>60); Globulin 2.4 g/dL (1.3-3.2); Glucose 94 mg/dl (74-100); Total Protein,Serum 6.3 g/dl (6.3-8.2)
[2024-08-15 14:57] LABS: Erythrocyte Sedimentation Rate 23 mm/hr (0-20)
[2024-08-15 15:00] LABS: Carbon Dioxide 26 mmol/L (22.0-30.0)
== END 2024-08-15 23:59 | disposition home or self-care (01) ==
PROVIDERS: PCP Internal Medicine; Visit Provider Podiatrist
DX: S91.302A Unspecified open wound, left foot, initial encounter (principal)
CPT/HCPCS: 36415; 80053; 82652; 85025; 85651; 86140

== ENCOUNTER 2024-09-25 11:17 | Outpatient (CLI) | payer MEDICARE, SELFPAY ==
--- OUTSIDE RECORDS SUMMARY | 2024-09-25 11:31 | XMS_ITS | Clinical Summary ---
Author Organization [facility] Address [address] [place] [address] Care Team Providers Care Poultry Feed Supervisor Name Role Phone Ortiz Gabriel MD Primary Care Provider [phone] Ortiz Cordova MD Unavailable [phone] Allergies Active Allergy Reactions Criticality Noted [...] DAILY FOR PAIN 3 Active HYDROcodone-shaneka taminophen ([place]) 5-325 MG tablet 3 Active Active Problems [...] (AAA) Screening 2021 [facility]-Depression Screening 08/13/2023 08/12/2022 [id number] Vaccine ( season) 2023 12/03/2022, 09/16/2021, 12/31/2020, Additional history exists [facility]-Influenza Vaccine (#1) 10/30/202412/03, 12/12/2021, 12/31/2020, Additional history exists [facility]-DTaP,Tdap,and Td [...] this topic Insurance [employer] MEDICARE Care Teams Poultry Feed Supervisor Relationship Specialty Start Date End Date Ortiz Gabriel MD [address] [place] [address] PCP - General 10/02/21 Ortiz Cordova MD [address] [facility] [address] [place] [phone] Consulting Physician Neurology 10/02/21
--- NOTE | 2024-09-25 11:39 | ECG_ITS ---
APPROVED REPORT Exam: Resting ECG HR:48 bpm ECG Measurements Heart Rate 48 AXES TN 138 P 74 QRSd 112 QRS 51 QT 475 T 52 QTc 443 Conclusion SINUS BRADYCARDIA MODERATE INTRAVENTRICULAR CONDUCTION DELAY [110+ ms QRS DURATION] MINIMAL ST DEPRESSION [0.025+ mV ST DEPRESSION] BORDERLINE ECG UNCONFIRMED REPORT Electronically signed by : Enrique Mcclellan MD 09/26/2024 09:33:01
[2024-09-25 12:53] LABS: Hematocrit 43.0 % (42.0-52.0); Hemoglobin 13.7 g/dL (14.1-18.0); Immature Granulocytes % 0.1 %; Mean Corpuscular HGB Conc 31.9 g/dL (31.8-35.4); Mean Corpuscular Hemoglobin 31.9 pg (27.0-31.2); Mean Corpuscular Volume 100.0 fl (80-94); Nucleated Red Blood Cells % 0 %; Platelet Count 316 K/mm3 (142-424); Red Blood Count 4.30 M/mm3 (4.60-6.20); Red Cell Distribution Width-SD 48.1 fL; White Blood Count 6.7 K/mm3 (4.8-10.8)
[2024-09-25 13:46] LABS: Alanine Aminotransferase 19 U/L (12-78); Albumin Level 4.1 g/dl (3.5-5.0); Albumin/Globulin Ratio 1.7 (1.1-1.8); Alkaline Phosphatase 90 U/L (38-126); Anion Gap 8.9 mEq/L (5-15); Aspartate Amino Transferase 31 U/L (17-59); Bilirubin,Total 0.4 mg/dl (0.2-1.3); Blood Urea Nitrogen 17 mg/dl (9-20); Calcium 9.4 mg/dl (8.4-10.2); Carbon Dioxide 29 mmol/L (22.0-30.0); Chloride 104 mmol/L (98-107); Creatinine,Serum 0.70 mg/dl (0.66-1.25); Estimated Glomerular Filt Rate 112 ml/min (>60); GFR (African American) 136 ML/MIN (>60); Globulin 2.4 g/dL (1.3-3.2); Glucose 78 mg/dl (74-100); Potassium 4.9 mmoL/L (3.5-5.1); Sodium 137 mmol/L (136-145); Total Protein,Serum 6.5 g/dl (6.3-8.2)
[2024-09-25 13:52] LABS: C-Reactive Protein 0.8 mg/L (0-4)
== END 2024-09-25 23:59 | disposition home or self-care (01) ==
LOC: LAB 11:18
PROVIDERS: PCP Internal Medicine; Visit Provider Podiatrist
DX: S91.302A Unspecified open wound, left foot, initial encounter (principal); L03.116 Cellulitis of left lower limb; T84.498A Other mechanical complication of other internal orthopedic devices, implants and grafts, initial encounter
CPT/HCPCS: 36415; 80053; 85025; 85651; 86140; 93005

== ENCOUNTER 2024-10-04 08:22 | Day surgery (SDC) | payer MEDICARE, SELFPAY ==
[2024-09-26 12:45] VITALS: BMI 18.6
[2024-10-04] MEDS: LACTATED RINGERS 1000ML 1,000 ML 25 ML IV (09:15)
[2024-10-04 09:16] VITALS: BP 153/79; PULSE 78; RESP 16; TEMP 36.6; O2SAT 95; BMI 18.6
[2024-10-04] MEDS: VANCOMYCIN HCL 1,000 MG in 0.9 % SODIUM CHLORIDE 250 ML 125 MG IV (10:20)
[2024-10-04] MEDS: GENTAMICIN 80 MG/2 ML VIAL (10:43)
[2024-10-04] MEDS: BUPIVACAINE 0.5% 30ML VIAL 150 MG (10:45)
[2024-10-04 11:36] VITALS: BP 146/97; PULSE 64; RESP 17; TEMP 36.1; O2SAT 97
[2024-10-04 11:46] VITALS: BP 143/87; PULSE 62; RESP 17; O2SAT 95
[2024-10-04 11:56] VITALS: BP 138/72; PULSE 74; RESP 17; O2SAT 98
--- NOTE | 2024-10-04 12:00 | XR_ITS ---
FINAL REPORT CLINICAL HISTORY: s/p staple/hardware removal COMPARISON: 08/15/2024 FINDINGS: LEFT FOOT Three views of the left foot demonstrate no acute fracture or dislocation. The visualized joint spaces are normally aligned. There is an orthopedic staple in the proximal first metatarsal. Sideplate and screw is seen securing the tarsal navicular to the medial cuneiform. Previously seen staple at the lateral foot has been removed. There is an ankle prosthesis with orthopedic screws in the calcaneus. IMPRESSION: Interval removal of staple from the lateral foot. Otherwise, no significant interval change. Reviewed, Interpreted and Dictated by Harpal Jones MD Transcribed by Angella Stephen Authenticated and [facility]
--- NOTE | 2024-10-04 14:18 | EXP.OP.NOTE ---
Date of procedure: 10/04/24 Pre-op Diagnosis:: Left foot retained hardware Left foot open wound with exposed orthopedic hardware (staple) Callus x2 Post-op Diagnosis:: Same Procedure performed:: hardware removal () wound debridement () callus debridement x 2 Surgeon:: Anitra Cook DPM PRODUCE PRODUCTION TEAM MEMBER:: Piter Hernandez Anesthesia: MAC and local (20cc 0.5% marcaine plain) Estimated blood loss (mL): 20 Clinical Note:: Preop Indications: Patient is a 68-year-old male who has had multiple foot surgeries in the past. Patient had a wound to the left lateral foot which is subsequently gotten larger since his trip to [place]. There is now exposed hardware/stable. We discussed when there is exposed hardware there is an increased chance of infection/bone infection. We discussed conservative versus surgical treatment options. We discussed conservative care including continued oral vs IV antibiotics and local wound care versus surgical irrigation and debridement with hardware removal. Patient understands that they could have wound healing complications including delayed healing and infection. We discussed that if the wound does not heal, it is possible that he may need further debridement. Patient understands if infection spreads into the bone, it may warrant proximal amputation and could result in further loss of digits, loss of partial foot or loss of leg. We discussed the risks and benefits in great detail. Other surgical risks include: prolonged pain and swelling, retained hardware, incomplete removal of hardware, fracturing of bone, need for new hardware, further infection requiring oral or IV antibiotics, delay in healing of soft tissue or bone, nerve or blood vessel damage, CRPS/RSD, DVT/PE, anesthesia complications, and even . All questions answered. Patient verbalized understanding. Verbal and written consent obtained. Operative findings:: R BKA. Left foot: callus noted to the plantar lateral 5th metatarsal head and base. Open wound noted to the left lateral C-C joint. Palpable and now visible hardware/staple. Namrata wound maceration resolved, no new drainage. Minimal fat and tissue over exposed staple. No visible bone and wound does not probe to bone. 15 blade used to make a elliptical incision around the open wound. Sharp excisional full thickness debridement with 15' blade thru skin into subq. Fibrous scar tissue noted and excised full-thickness so there were good healthy bleeding skin edges noted. Skin very fragile and bruised easily. Post: 100% granular, incision plus excised wound there was a 2.5 x 0.6 x 0.3cm opening. Staple removed without complication. Bone intact with no obvious osteomyelitis or deep signs of infection. No sinus tracking, purulence, malodor noted. Skin edges were able to be reapproximated however there was a central defect. Amniotic wound graft was inserted at the central defect site. A suture guard was applied over this area of highest tension to decrease the risk of wound dehiscence which did allow the skin edges to fully reapproximate with nylon. Operative note:: On this date and time patient was deemed an appropriate surgical candidate. With informed consent signed, the patient was taken to the operating theater room. The patient was positioned supine. MAC anesthesia was induced. No tourniquet used. Left lower extremity was prepped and draped in normal sterile fashion. 1g IV Vanco, Cefepime given. 20cc 0.5 Marcaine plain given in an ankle and foot block fashion. Left lateral foot wound debridement: Predebridement, see operative findings. Sharp excisional full-thickness debridement with 15 blade, curette, forceps through skin to/including subcutaneous tissue. Biofilm and fibrotic slough removed. The skin edges were debrided with 15' blade, some bleeding noted. Due to the poor quality of skin, fragile nature and easily bruising combined with prior scar tissue, decision made to excise the ulceration full-thickness. 15 blade was used to make a linear incision on either side of the wound an ellipse fashion excising the ulcer full-thickness. The ulcer/scar tissue was sent to pathology as specimen. The wound was flushed with gentamicin irrigation. Left foot hardware removal: Next able visible on the lateral side of the calcaneocuboid joint. Shanelle removed in total without complication. It was sent to micro as culture. No fluid, drainage, purulence or signs of infection to the staple or the calcaneus bone. Gentamicin irrigation used to flush the site. Vicryl and nylon were used to reapproximate tissue. There was a central defect where the wound had been excised. An amniotic wound graft was inserted at the central defect site so there was no remaining defect. The entire graft was utilized (2x3cm). A suture guard was applied at the highest area of the skin tension to help prevent wound dehiscence. This did allow the skin edges to fully reapproximate with a nylon. Skin cleansed with gentamicin saline. Callus debridement x 2: 15 blade was used to sharply debride plantar lateral fifth metatarsal base and subfifth met head through thick callus skin. No underlying ulceration noted. Skin cleaned with gentamicin irrigation. Xeroform applied over callus sites. Gauze, Sharron and Jesus applied to the left foot. Patient appeared to tolerate procedure and anesthesia well without complication. Patient was transferred to recovery with vital signs stable and neurovascular status intact. Materials: Amniotic graft x1 (2x3cm), gentamicin irrigation Discharge/Plan: Ok to discharge home when ready and vss. Patient is to maintain dressing clean dry and intact. Elevate on two pillows. Minimize weight bearing/activity. Ok to FWB to LLE in fracture boot as tolerated. Take Tramadol prn mild-moderate pain, [place] prn severe pain, Levofloxacin x7d as directed. Follow up in one week for skin check, dressing change. Condition: stable Disposition: same day Specimens:: Left foot hardware culture Left foot scar tissue path Complications:: None
== END 2024-10-04 12:45 | disposition home or self-care (01) ==
PROVIDERS: PCP Internal Medicine; Visit Provider Podiatrist
PROC: (CPT 11056; principal; 2024-10-04 11:15)
DX: L97.422 Non-pressure chronic ulcer of left heel and midfoot with fat layer exposed (principal); L03.116 Cellulitis of left lower limb; T84.498A Other mechanical complication of other internal orthopedic devices, implants and grafts, initial encounter; T84.84XA Pain due to internal orthopedic prosthetic devices, implants and grafts, initial encounter; L84 Corns and callosities; J44.89 Other specified chronic obstructive pulmonary disease; Z89.511 Acquired absence of right leg below knee; Q66.72 Congenital pes cavus, left foot; I70.201 Unspecified atherosclerosis of native arteries of extremities, right leg; I42.9 Cardiomyopathy, unspecified; F17.210 Nicotine dependence, cigarettes, uncomplicated; Z88.2 Allergy status to sulfonamides; Z79.82 Long term (current) use of aspirin; Z79.02 Long term (current) use of antithrombotics/antiplatelets; Z79.899 Other long term (current) drug therapy; Z95.5 Presence of coronary angioplasty implant and graft; Z96.662 Presence of left artificial ankle joint; Z98.1 Arthrodesis status; Y79.3 Surgical instruments, materials and orthopedic devices (including sutures) associated with adverse incidents
CPT/HCPCS: 11056; 15275; 20680; 73630; 87070; 87205; 88304; 96374; J0665; J1580; J2003; J2704; J3010; J3373; J7050; J7120; Q4173

== ENCOUNTER 2024-10-26 09:30 | Outpatient (CLI) | payer MEDICARE, SELFPAY ==
--- OUTSIDE RECORDS SUMMARY | 2023-06-24 12:00 | XMS_ITS ---
Author Organization [facility] Address [address] [place] [id number] Care Team Providers Care Cell Phone Repair Technician Name Role Phone Kimberly GABRIEL Primary Care Provider Unavaila Kimberly Peralta Unavailable [phone] Johana Swift Unavailable [phone] Allergies Allergen (clinical drug ingredient) Drug/Non Drug Allergy documented on EMR Reaction Allergy Type Onset Date Status duloxetine Cymbalta stomach upset Drug Allergy Ac tive fluoxetine FLUoxetine stomach upset Drug Allergy A ctive Substance with sulfonamide structure and antibacterial mechanism of action (substance) Sulfa Antibiotics Unknown Drug Allergy Active Results Component Value Reference Range Notes CBC Fingerstick (in house) Reviewed date:06/24/2023 04:55:59 PM Interpretation: Performing Lab: Notes/Report: wbc 9.1 3.5 - 10 lym 26.8 15 - 50 mid 5.3 2 - 15 gran 67.9 35 - 80 rbc 4.26 3.5 - 5.5 hgb 13.6 11.5 - 16.5 hct 42.8 35 - 55 mcv 100.3 75 - 100 mch 32.0 25 - 35 mchc 31.9 31 - 38 plat 290 100 - 400 REASON FOR VISIT Chest Cold Medications Medication SIG (Take, Route, Frequency, Duration) Notes Start Date End Date Status Omeprazole 20 MG 1 tab(s) orally once every other day; Duration: 30 day(s) Active Clopidogrel Bisulfate 75 MG 1 tab(s) orally once a day; Duration: 30 day(s) Active Cialis 10 MG 1 tab(s) orally once a day prn Active Atorvastatin Calcium 20 MG 1 tab(s) orally once a day; Duration: 30 day(s) 04/22/2020 Active Carvedilol 6.25 MG TAKE 1 TABLET BY MOUTH TWICE DAILY; Duration: 90 Active Doxycycline Hyclate 100 MG 1 capsule Orally Two times a day 06/24/2023 Active Entresto 49-51 MG 1 tablet Orally Twice a day Active Aspirin 81 MG 1 tab(s) orally once a day; Duration: 30 day(s) Active traMADol HCl 50 MG 1 tab(s) orally every 6 hours Not-Taking Gabapentin 300 MG 1 cap(s) orally Two times a day Not-Taking D3-50 1.25 MG (71029 UT) TAKE 1 CAPSULE BY MOUTH WEEKLY DIRECTED; Duration: 84 Not-Taking rOPINIRole HCl 0.5 MG 1 tab(s) orally bedtime Not-Taking Methocarbamol 500 MG 1 tab(s) orally 3 times a day Not-Taking Diclofenac Sodium 50 MG 1 tab(s) orally 2 times a day Not-Taking Quad Cane USE DIRECTED AND NEEDED *Please review and pick correct strength-formulat ion from [employer] options. If intended option is not shown, discontinue and re-order from Quick Search* 05/26/2022 Not-Taking Cefuroxime Axetil 500 MG 1 tablet Orally every 12 hrs; Duration: 7 day(s) 01/25/2023 Not-Taking HYDROcodone-Acetamin ophen 5-325 MG 1 tab(s) orally at bedtime as needed 04/14/2022 Not-Taking Vital Signs Blood pressure systolic 140 mm Hg 06/24/19 24 Blood pressure diastolic 78 mm Hg 024 Heart Rate 57 /min 06/24/2023 Height 74 in 06/24/2023 Weight 153.2 lbs 06/24/2023 BMI 19.67 kg/m2 06/24/2023 Encounters Encounter Location Date Provider Diagnosis [facility] [address] [facility] [address] [place] [place] [id number] 06/24/2023 R Gal Gabriel Acute bronchitis J20 .9 and Depression with anxiety F41.8 Assessments Encounter Date Diagnosis (ICD Code) Assessment Notes Treatment Notes Treatment Clinical Notes Section Notes 06/24/2023 Acute bronchitis (ICD-10 - J20.9) Continue symptomatic treatment 06/24/2023 Depression with anxiety (ICD-10 - F41.8) Plan Of Treatment Medication Medication Name Sig Start Date Stop Date Notes FLUoxetine HCl 20 MG 1 capsule Orally Once a day Doxycycline Hyclate 100 MG 1 capsule Ora lly Two times a day 06/24/2023 Treatment Notes Assessment Notes Acute bronchitis Continue symptomatic treatment Next Appt Details Follow Up: prn, Reason: Progress Notes * LAKHWINDER ANDRE DDOB:[birth year] (68 yo M)Acc No.[id number]:06/24/2023 Progress Notes Patient: LAKHWINDER SPARROW Provider: Kimberly Gabriel M.D. :1955 A ge:67 Y S ex:Male Date:06/24/2023 Address:[address] [place] [address], [facility], [id number] Pcp:Kimberly GABRIEL Subjective: * Chief Complaints: * 1 . Chest Cold. * HPI: E NT/respiratory: 67 year old male presents with c/o cough P t presents today with c/o chest cold. Pt sts that he has a cough that is starting loosen up. Pt sts that he has been feeling light headed. Pt is using Night-Qil and Mucinex. Pt sts that he has been feeling like this for about two weeks. P sychology: He took the fluoxetine for 1 month and saw no improvement. Eventually eliminate this some stress in his life and his depression symptoms improved. He continues to follow with his counselor. * ROS: A LLERGY: Cough y es. n o R unny nose. G ASTROENTEROLOGY: no V omiting. n o D iarrhea. U ROLOGY: no D ifficulty urinating. n o B lood in urine. * Medical History: H ypertension, Depression, Osteoarthritis, herniated disc L4-L5 (? previous MRI date), Esophageal reflux, Tobacco abuse, 60 pack year history, quit in 2019, Erectile dysfunction, Adenomatous colon polyp, ASCVD, Systolic heart failure. * Surgical History: t onsillectomy , right ankle fused , appendectomy 05/2006, Hip Replacement - Right 07/22/12, Colonoscopy - [place] 2007, Navarrete 08/2017 (adenomatous polyp) , Heart Cath with Cardiac Stent x5 Dec 25, 2019, left ankle replacement/ Dr. Cook 05/22/20, C-scope/ Rosalba/ polyps , left BK amputation 02/25/2022. * Hospitalization/Major Diagno stic Procedure: O verdose 1993, see above , [facility]- Hip Replacement 07/22/12. * Family History: F ather: , pacemaker, defibrillator, emphysema, alcoholism. M other: , alzheimers. S iblings: alcohol abuse. 1 sister(s) . 1 son(s) , 1 daughter(s) - healthy. . * Social History: C URRENT TOBACCO USE: No . C affeine: yes, frequency:. Exercise: yes. Home smoke detector use: no. Marital Status: . Occupation: unemployed. Past smoking status: yes, 1 1/4 ppd since age 18, stopped Dec 26, 2019. Recreational drug use: no. Alcohol: Type: , Frequency: ,Years: , Determination:. * Medications: T aking Entresto 49-51 MG Tablet 1 tablet Orally Twice a day , Taking Aspirin 81 MG Tablet Delayed Release 1 tab(s) orally once a day , Taking Clopidogrel Bisulfate 75 MG Tablet 1 tab(s) orally once a day , Taking Cialis 10 MG Tablet 1 tab(s) orally once a day prn , Taking Omeprazole 20 MG Tablet Delayed Release 1 tab(s) orally once every other day , Taking Atorvastatin Calcium 20 MG Tablet 1 tab(s) orally once a day , Taking Carvedilol 6.25 MG Tablet TAKE 1 TABLET BY MOUTH TWICE DAILY , Taking FLUoxetine HCl 20 MG Capsule 1 capsule Orally Once a day , Not-Taking HYDROcodone-Acetaminophen 5-325 MG Tablet 1 tab(s) orally at bedtime as needed , Not-Taking Quad Cane USE DIRECTED AND NEEDED , Notes to Pharmacist: *Please review and pick correct strength-formulation from Medispan options. If intended option is not shown, discontinue and re-order from Quick Search*, Not-Taking Cefuroxime Axetil 500 MG Tablet 1 tablet Orally every 12 hrs , Not-Taking rOPINIRole HCl 0.5 MG Tablet 1 tab(s) orally bedtime , Not-Taking Methocarbamol 500 MG Tablet 1 tab(s) orally 3 times a day , Not-Taking Gabapentin 300 MG Capsule 1 cap(s) orally Two times a day , Not-Taking D3-50 1.25 MG (57473 UT) Capsule TAKE 1 CAPSULE BY MOUTH WEEKLY DIRECTED , Not-Taking Diclofenac Sodium 50 MG Tablet Delayed Release 1 tab(s) orally 2 times a day , Not-Taking traMADol HCl 50 MG Tablet 1 tab(s) orally every 6 hours , Medication List reviewed and reconciled with the patient * Allergies: S ulfa Antibiotics, Cymbalta: stomach upset - Side Effects, FLUoxetine: stomach upset - Side Effects. Objective: * Vitals: W t:153.2, Temp:98.1, BP:140/78, HR:57, O2 Sat:95%on RA, Nurse:KAMARI, Ht: 74, BMI:19.67. * Examination: E NT/Respiratory: General Appearance: N AD. E ars: a uditory canals normal bilaterally, TM's WNL. N ose : mild congestion. S inuses : non tender bilaterally. O ral cavity : n o erythema or exudate seen on pharynx. H eart : R RR, normal S1 S2, no murmurs. L ungs: F ew upper airway rhonchi. Assessment: * Assessment: 1. A cute bronchitis - J20.9 (Primary) 2 . D epression with anxiety - F41.8? Plan: * Treatment: Value Reference Range w bc 9.1 3.5 - 10 * l ym 26.8 15 - 50 * m id 5.3 2 - 15 * g ran 67.9 35 - 80 * r bc 4.26 3.5 - 5.5 * h gb 13.6 11.5 - 16.5 * h ct 42.8 35 - 55 * m cv 100.3 75 - 100 * m ch 32.0 25 - 35 * m chc 31.9 31 - 38 * p lat 290 100 - 400 * Kimberly Cloud 06/24/2023 4:08 :05 PM > reviewed w/ pt in office Notes: Continue symptomatic treatment??2.?Depression with anxiety? Stop FLUoxetine HCl Capsule, 20 MG, 1 capsule, Orally, Once a day.?? * Procedure Codes: 9 4760 PULSE OX, G2211 Complex e/[place], [address] CAPILLARY BLOOD DRAW, 61072 CBC WITH AUTO DIFF * Follow Up: p rn * Images: Billing Information: * Visit Code: 35192 Office Visit, Est Pt., Level 3. * Procedure Codes: 33215 PULSE OX. G2211 Complex e/[place]. [address] CAPILLARY BLOOD DRAW. 02666 CBC WITH AUTO DIFF. * Electronic signature of Kimberly Gabriel MD on 10/27/2024 at 12:18 PM EDT Sign off status: Pending * Provider: Kimberly Gabriel M.D. Date: 0 06/24/2023 Generated for [place] ng/Fagregoriog/eTransmitting on: 0 10/27/2024 12:18 PM EDT History and Physical Notes * HPI (History of Present Illness) Category Sub-Category Detail Notes Category Not es ENT/respiratory cough Pt presents toda y with c/o chest cold. Pt sts that he has a cough that is starting loosen up. Pt sts that he has been feeling light headed. Pt is using Night-Qil and Mucinex. Pt sts that he has been feeling like this for about two weeks Examination Category Sub-Category Detail Notes Category Not es ENT/Respiratory Oral cavity : no erythema or exudate s een on pharynx Sinuses : non tender bilateral ly Ears: auditory canals norm al bilaterally, TM's WNL Heart : RRR, normal S1 S2, n o murmurs Lungs: Few upper airway rho nchi General Appearance: NAD Nose : mild congestion
--- OUTSIDE RECORDS SUMMARY | 2023-07-29 11:30 | XMS_ITS ---
Author Organization [facility] Address [address] [place] [id number] Care Team Providers Care Presentation Manager Name Role Phone Kimberly GABRIEL Primary Care Provider Unavaila Kimberly Peralta Unavailable [phone] Johana Swift Unavailable [phone] Allergies Allergen (clinical drug ingredient) Drug/Non Drug [...] times a day Not-Taking D3-50 1.25 MG (33266 UT) TAKE 1 CAPSULE BY MOUTH WEEKLY DIRECTED; Duration: 84 Not-Taking Diclofenac Sodium 50 MG 1 tab(s) orally 2 times a day Not-Taking traMADol HCl 50 MG 1 tab(s) orally every 6 hours Not-Taking Methocarbamol 500 MG 1 tab(s) orally 3 times a day Not-Taking Quad Cane USE DIRECTED AND NEEDED *Please review and pick correct strength-formulat ion from One4All options. If intended option is not shown, [...] day; Duration: 30 day(s) Active Vital Signs Blood pressure systolic 140 mm Hg 07/29/19 24 Blood pressure diastolic 76 mm Hg 024 Heart Rate 55 /min 07/29/2023 Height 74 in 07/29/2023 Weight 149.6 lbs 07/29/2023 BMI 19.21 kg/m2 07/29/2023 Encounters Encounter Location Date Provider Diagnosis [facility] [address] [facility] [address] [place], [place] [address], [place] [id number] 07/29/2023 Kimberly Gabriel Acute bronchitis J20 .9 [...] LAKHWINDER ANDRE DDOB:[birth year] (68 yo M)Acc No.[id number]:07/29/2023 Progress Notes Patient: LAKHWINDER SPARROW Provider: Kimberly Gabriel M.D. :1955 A ge:67 Y S ex:Male Date:07/29/2023 Address:[address], [facility] [place], [id number] Pcp:Kimberly GABRIEL Subjective: * Chief Complaints: * [...] O verdo 1993, see above , [facility]- Hip Replacement 07/22/12. * Family History: F [...] a day , Not-Taking D3-50 1.25 MG (02518 UT) Capsule TAKE 1 CAPSULE BY MOUTH [...] Procedure Codes: 3 6416 CAPILLARY BLOOD DRAW, 50811 CBC WITH AUTO DIFF * Follow Up: p rn * Images: Billing Information: * Visit Code: 98014 Office Visit, Est Pt., Level 3. * Procedure Codes: 67740 CAPILLARY BLOOD DRAW. 79267 CBC WITH AUTO DIFF. * Electronic signature of Kimberly Gabriel MD on 10/27/2024 at 12:19 PM EDT Sign off status: Pending * Provider: Kimberly Gabriel M.D. Date: 07/29/2023 Generated for Saida loaiza/Shonna/eTransmitting on: 0 10/27/2024 12:19 PM EDT History and Physical Notes * [...]
--- OUTSIDE RECORDS SUMMARY | 2023-08-19 11:30 | XMS_ITS ---
Author [facility] Address [address] [place] [id number] Care Team Providers Care Chlorine Cells Operator Name Role Phone Kimberly GABRIEL Primary Care Provider Unavaila Kimberly Peralta Unavailable [phone] Johana Swift Unavailable [phone] Allergies Allergen (clinical drug ingredient) Drug/Non Drug [...] times a day Not-Taking D3-50 1.25 MG (80756 UT) TAKE 1 CAPSULE BY MOUTH WEEKLY [...] review and pick correct strength-formulat ion from [employer] options. If intended option is not shown, [...] 08/19/2023 Encounters Encounter Location Date Provider Diagnosis [facility] [address] [phone] 08/19/2023 Kimberly Gabriel History of below-kne e [...] LAKHWINDER ANDRE DDOB:[birth year] (68 yo M)Acc No.[id number]:08/19/2023 Progress Notes Patient: LAKHWINDER SPARROW Provider: Kimberly Gabriel M.D. :1955 A ge:67 Y S ex:Male Date:08/19/2023 Address:[address], [facility], [id number] Pcp:Kimberly GABRIEL Subjective: * Chief Complaints: * 1 . Discuss prosthetic. * HPI: Susi elizabeth/Cruz: Pt presents today to discuss getting a new prosthetic socket through [facility]. He has lost more than 10% [...] O verdose 1993, see above , [facility] 07/22/12. * Family History: F [...] *Please review and pick correct strength-formulation from [employer] options. If intended option is not shown, [...] a day , Not-Taking D3-50 1.25 MG (18112 UT) Capsule TAKE 1 CAPSULE BY MOUTH [...] * Images: Billing Information: * Visit Code: 28995 Office Visit, Est Pt., Level 3. * Procedure Codes: * Electronic signature of Kimberly Gabriel MD on 10/27/2024 at 12:19 PM EDT Sign off status: Pending * Provider: Kimberly Gabriel M.D. Date: 0 08/19/2023 Generated for Saida loaiza/Shonna/Sannasmitting on: 0 10/27/2024 12:19 PM EDT History and Physical Notes * Examination Category Sub-Category Detail Notes Category Not es General Examination Extremities: Areas of mil d erythema on the stump. No skin breakdown.
--- OUTSIDE RECORDS SUMMARY | 2024-03-16 05:45 | XMS_ITS ---
[facility] Address [address] [facility] [address] [place] [id number] Care Team Providers Care Statistical Methods Professor Name Role Phone Kimberly LAND Primary Care Provider Unavaila Kimberly Peralta Unavailable [phone] Johana Swift Unavailable [phone] Allergies Allergen (clinical drug ingredient) Drug/Non Drug [...] 0.64 Performing Lab: Notes/Report: Test performed by [employer] [employer] [facility]0 [facility] , [address], [place] [address] Robbie Garcia MD, Chief Steward/Stewardess CLIA: [id number] Sodium 140 135-145 mmol/L Potassium 4.4 3.5-5.3 [...] Interpretation:Normal Performing Lab: Notes/Report: Test performed by [facility] [address] [place] [address] , [address], [place] [address] Robbie Garcia MD, Chief Steward/Stewardess CLIA: [id number] PSA 0.68 <4.00 ng/mL Please note this [...] Date End Date Status D3-50 1.25 MG (43236 UT) TAKE 1 CAPSULE BY MOUTH WEEKLY DIRECTED; Duration: 84 Not-Taking Diclofenac Sodium 50 MG 1 tab(s) orally 2 times a day Not-Taking rOPINIRole HCl 0.5 MG 1 tab(s) orally bedtime Not-Taking traMADol HCl 50 MG 1 tab(s) orally every 6 hours Not-Taking Quad Cane USE DIRECTED AND NEEDED *Please review and pick correct strength-formulat ion from [employer] options. If intended option is not [...] Provider Diagnosis BRAYAN-Jared [address] [facility] [address] [place], [place] [phone] 03/16/2024 Kimberly Land Adult general medica l [...] LAKHWINDER ANDRE DDOB:[birth year] (68 yo M)Acc No.[id number]:03/16/2024 Annual Wellness Visit Patient: Good PALMLAKHWINDER Higgins Provider: Kimberly Land M.D. :1955 A ge:68 Y S ex:Male Date:03/16/2024 Address:[address], [place], [id number] Pcp:Kimberly LAND Subjective: * Chief Complaints: * [...] O verdose 1993, see above , [employer]- Hip Replacement 07/22/12. * Family History: F [...] *Please review and pick correct strength-formulation from [employer] options. If intended option is not shown, discontinue and re-order from Quick Search*, Not-Taking rOPINIRole HCl 0.5 MG Tablet 1 tab(s) orally bedtime , Not-Taking traMADol HCl 50 MG Tablet 1 tab(s) orally every 6 hours , Not-Taking D3-50 1.25 MG (56957 UT) Capsule TAKE 1 CAPSULE BY MOUTH [...] erectile disorder - N52.9 9 . B [place] less than 19,adult - Z68.1 Plan: * [...] AM > no auth required; CPT code 67686; faxed to [facility] Kimberly Leal 08/06/2024 08:32:26 PM EDT > [...] IN RCRD, 1003F LEVEL OF ACTIVITY ASSESS, 73852 CBC WITH AUTO DIFF, 1036F TOBACCO NON-USER, [...] * Images: Billing Information: * Visit Code: 08240 Office Visit, Est Pt., Level 3. Modifiers: 25 * Procedure Codes: G0439 ANNUAL WELLNESS VST; PPS SUBSQT VST. G0444 ANNUAL DEPRESSION SCREENING 15 MIN. 1090F PRES/ABSN URINE INCON ASSESS. 3288F FALL RISK ASSESSMENT DOCD. 1170F FXNL STATUS ASSESSED. 1159F MED LIST DOCD IN RCRD. 1003F LEVEL OF ACTIVITY ASSESS. 98563 CBC WITH AUTO DIFF. 1036F TOBACCO NON-USER. 3017F COLORECTAL CA SCREEN DOC REV. 1125F AMNT PAIN NOTED PAIN PRSNT. 4040F PNEUMOC IMM ORDER/ADMIN. 3075F SYST BP GE 130 - 139MM HG. 3079F DIAST BP 80-89 MM HG. * Electronic signature of Kimberly Land MD on 10/27/2024 at 12:18 PM EDT Sign off status: Pending * Provider: Kimberly Ladn M.D. Date: 0 03/16/2024 Generated for Saida loaiza/Shonna/eTransmitting on: 0 10/27/2024 12:18 PM EDT History [...]
--- OUTSIDE RECORDS SUMMARY | 2024-05-23 11:15 | XMS_ITS ---
Author Organization [facility] Address [address] [facility] [address] [place], [place] [phone] Care Team Providers Care Whistle Punk Name Role Phone Kimberly GABRIEL Primary Care Provider UnavailKimberly Varma Unavailable [phone] Johana Swift Unavailable [phone] Allergies Allergen (clinical drug ingredient) Drug/Non Drug [...] Encounter Location Date Provider Diagnosis JohnJared [address] [facility] [address] [place] [phone] 05/23/2024 Kimberly Gabriel Plan Of Treatment No Information Progress Notes * LAKHWINDER ANDRE DDOB:[birth year] (68 yo M)Acc No.[id number]:05/23/2024 Progress Notes Patient: Good LAKHWINDER LUEVANO Provider: Kimberly Gabriel M.D. :1955 A ge:68 Y S ex:Male Date:05/23/2024 Address:[address], [place], [id number] Pcp:Kimberly GABRIEL Subjective: * Chief Complaints: * [...] 0 05/23/2024 Generated for Saida loaiza/Shonna/Omega on: 0 10/27/2024 12:19 PM EDT History and Physical Notes * HPI (History of Present Illness) Category Sub-Category Detail Notes Category Not es Lower back Low Back Pain Shoulder/Upper arm shoulder pain
--- OUTSIDE RECORDS SUMMARY | 2024-10-27 12:19 | XMS_ITS | Patient Health Record ---
[facility] Organization [facility] Address [address] [place] [id number] Care Team Providers Care Poultry Hanger Name Role Phone Kimberly LAND Primary Care Provider Unavaila Kimberly Peralta Unavailable [phone] Johana Swift Unavailable [phone] Allergies Allergen (clinical drug ingredient) Drug/Non Drug [...] 0.64 Performing Lab: Notes/Report: Test performed by [facility] , [address], [place] [address] Robbie Garcia MD, Freelance Displayer CLIA: [id number] Sodium 140 135-145 mmol/L Potassium 4.4 3.5-5.3 [...] Interpretation:Normal Performing Lab: Notes/Report: Test performed by [facility], [address] , [address], [place] [address] Robbie Garcia MD, Freelance Displayer CLIA: [id number] PSA 0.68 <4.00 ng/mL Please note this [...] a day; Duration: 30 day(s) 04/22/2020 Active Clopidogrel Bisulfate 75 MG 1 tab(s) orally once a day; Duration: 30 day(s) Active D3-50 1.25 MG (04206 UT) TAKE 1 CAPSULE BY MOUTH WEEKLY DIRECTED; Duration: 84 Not-Taking Cialis 10 MG 1 tab(s) [...] review and pick correct strength-formulat ion from Lutonix options. If intended option is not shown, discontinue and re-order from Quick Search* 05/26/2022 Not-Taking HYDROcodone-Acetamin ophen 5-325 MG 1 tab(s) orally at bedtime as needed 04/14/2022 Not-Taking Carvedilol 6.25 MG TAKE 1 TABLET BY MOUTH TWICE DAILY; Duration: 90 Active Methocarbamol 500 MG 1 tab(s) orally 3 times a day Not-Taking Immunizations Vaccine Route Administration Date Status Comme nts COVID 19 Moderna Unknown 12/31/2020 Administered COVID 19 Moderna Unknown 09/16/2021 Administered COVID 19 Pfizer Unknown 05/14/2020 Administered COVID 19 Pfizer Unknown 06/11/2020 Administered Fluzone High Dose (65yr and older) IM Intramuscular 12/12/2021 Administered Fluzone High Dose (65yr and older) IM Intramuscular 03/16/2024 Administered Fluzone PF Quad (6-35 months) Unknown 12/31/2020 Administered Fluzone Quad (6months&older) IM Intramuscular 01/12/2019 Administered Fluzone Quad (6months&older) IM Intramuscular 01/04/2020 Administered PNEUMOVAX 23 VACCINE IM Intramuscular 02/15/2020 Administe red Prevnar (PCV20) IM Intramuscular 03/16/2024 Administered Tetanus Tdap-Adacel (over 7yrs) IM Intramuscular 01/12/2019 Administered tuberculin (ppd) ID Intradermal 10/12/2005 Administered tuberculin (ppd) ID Intradermal 10/17/2005 Administered Problems Problem Type SNOMED Code ICD Code Onset Dates Problem Status W/U Status Risk Notes Problem Coronary arteriosclerosis (39914646) ASCVD (arteriosclerotic cardiovascular disease) (I25.10) Active confirmed Problem Essential hypertension (17141419) Essential hypertension (I10) Active confirmed Problem Complex regional pain syndrome I of lower limb (G90.529) Active confirmed Problem Mixed anxiety and depressive disorder (330139140) Depression with anxiety (F41.8) Active confirmed Problem Memory loss (20112778) Memory loss (R41.3) Active confirmed Problem Chronic pain (39130100) Other chronic pain (G89.29) Active confirmed Problem Male erectile disorder (232107577) Male erectile disorder (N52.9) Active confirmed Problem Depressive disorder (80817848) Depressive disorder (F32.9) Active confirmed Problem Gastroesophageal reflux disease without esophagitis (425550276) Gastroesophageal reflux disease without esophagitis (K21.9) Active confirmed Problem Primary osteoarthritis (286920511) Primary osteoarthritis involving multiple joints (M15.0) Active confirmed Problem COPD - Chronic obstructive pulmonary disease (54356044) Chronic obstructive pulmonary disease, unspecified COPD type (J44.9) Active confirmed Problem Irritable bowel syndrome (80459003) Irritable bowel syndrome (K58.9) Active confirmed Problem Sacroiliitis (07155825) Sacroiliitis (M46.1) Active confirmed Problem Tobacco user (764850097) Cigarette nicotine dependence without complication (F17.210) Active confirmed Problem Tinnitus (07414615) Tinnitus (H93.19) Active co nfirmed Problem Tobacco use (749204906) Tobacco use disorder (F17.200) Active confirmed Problem Systolic heart failure (792495636) Systolic heart failure, unspecified heart failure chronicity (I50.20) Active confirmed Problem Arthritis of left ankle (7240933513984458) Arthritis of left ankle (M19.072) Active confirmed Problem Phantom limb (160440505) Phantom limb pain (G54.6) Active confirmed Problem 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) Active confirmed Problem Amputated below knee (282541488) History of below-knee amputation of right lower extremity (Z89.511) Active confirmed Vital Signs Heart Rate 59 /min 03/16/2024 Blood pressure diastolic 80 mm Hg 03/16/2024 Height 74 in 03/16/2024 Blood pressure systolic 134 mm Hg 03/16/2024 Weight 154.6 lbs 03/16/2024 BMI 19.85 kg/m2 03/16/2024 Encounters Encounter Location Date Provider Diagnosis [facility] 1210 [facility] [address] [place] [id number] 03/16/2024 [facility] Nery Adult general medica l examination Z00.00 ; ASCVD (arteriosclerotic cardiovascular disease) I25.10 ; Systolic heart failure, unspecified heart failure chronicity I50.20 ; History of below-knee amputation of right lower extremity Z89.511 ; Gastroesophageal reflux disease without esophagitis K21.9 ; History of tobacco abuse Z87.891 ; Screening for prostate cancer Z12.5 ; Male erectile disorder N52.9 and BMI less than 19,adult Z68.1 [address] [place] [id number] [facility] [facility] [address] [place] [id number] 08/06/2024 [facility] Assessments Encounter Date Diagnosis (ICD Code) Assessment Notes Treatment Notes Treatment Clinical Notes Section Notes 03/16/2024 ASCVD (arteriosclerotic cardiovascular disease) (ICD-10 - [...] Date DEVOTED HEALTH PLANS [address] [place] [id number] R4G3 LAKHWINDER DOHERTY Self - patient is the [...] Reason Date(Month/Year) see above Overdose 1993 [employer]- Hip Replacement 3
--- OUTSIDE RECORDS SUMMARY | 2024-10-27 12:19 | XMS_ITS | Clinical Summary ---
Author Organization [facility] Address [address] [place] [address] Care Team Providers Care Marketing Account Manager Name Role Phone Ortiz Gabriel MD Primary Care Provider [phone] Ortiz Cordova MD Unavailable [phone] Allergies Active Allergy Reactions Criticality Noted [...] DAILY FOR PAIN 3 Active HYDROcodone-shaneka taminophen ([place]) 5-325 MG tablet 3 Active Active Problems [...] (2 of 2 - PCV) 02/14/2021 02/15/2020 [facility]-Depression Screening 08/13/2023 08/12/2022 [id number] Vaccine ( season) 2023 12/03/2022, 09/16/2021, 12/31/2020, [...] patient's age to complete this topic Insurance [facility] MEDIC[facility] Care Teams Marketing Account Manager Relationship Specialty Start Date End Date Ortiz Gabriel MD [address] [place], [place] [address] PCP - General 10/02/21 Ortiz Cordova MD [address] [facility] [address] [place] [phone] Consulting Physician Neurology 10/02/21
== END 2024-10-26 23:59 | disposition home or self-care (01) ==
LOC: LAB.DROPOF 10-27 12:17
PROVIDERS: PCP Podiatrist; Visit Provider Podiatrist
DX: M79.672 Pain in left foot (principal); Z98.890 Other specified postprocedural states
CPT/HCPCS: 87070; 87077; 87186; 87205

== ENCOUNTER 2024-11-28 09:38 | Outpatient (CLI) | payer MEDICARE, SELFPAY ==
[2024-11-28 08:24] VITALS: BMI 18.8
--- OUTSIDE RECORDS SUMMARY | 2024-11-28 09:49 | XMS_ITS | Clinical Summary ---
Author Organization [facility] Address [address] [place] [address] Care Team Providers Care Ela Teacher Name Role Phone Ortiz Gabriel MD Primary Care Provider [phone] Ortiz Cordova MD Unavailable [phone] Allergies Active Allergy Reactions Criticality Noted [...] DAILY FOR PAIN 3 Active HYDROcodone-shaneka taminophen ([place]) 5-325 MG tablet 3 Active Active Problems [...] PCV) 02/14/2021 02/15/2020 [facility]-Depression Screening 08/13/2023 08/12/2022 [id number] Vaccine ( season) 2024 12/03/2022, 09/16/2021, 12/31/2020, Additional history exists [facility]-Influenza [...] patient's age to complete this topic Insurance [facility] MEDICARE Care Teams Ela Teacher Relationship Specialty Start Date End Date Ortiz Gabriel MD [address] [place], [place] [address] PCP - General 10/02/21 Ortiz Cordova MD [address] [facility] [address] [place] [phone] Consulting Physician Neurology 10/02/21
[2024-11-28 10:20] LABS: Hematocrit 42.2 % (42.0-52.0); Hemoglobin 13.8 g/dL (14.1-18.0); Immature Granulocytes % 0.1 %; Mean Corpuscular HGB Conc 32.7 g/dL (31.8-35.4); Mean Corpuscular Hemoglobin 32.7 pg (27.0-31.2); Mean Corpuscular Volume 100.0 fl (80-94); Nucleated Red Blood Cells % 0 %; Platelet Count 254 K/mm3 (142-424); Red Blood Count 4.22 M/mm3 (4.60-6.20); Red Cell Distribution Width-SD 45.6 fL; White Blood Count 7.7 K/mm3 (4.8-10.8)
[2024-11-28 10:35] LABS: Anion Gap 9.4 mEq/L (5-15); Blood Urea Nitrogen 11 mg/dl (9-20); Calcium 8.9 mg/dl (8.4-10.2); Carbon Dioxide 27 mmol/L (22.0-30.0); Chloride 104 mmol/L (98-107); Creatinine Clearance Estimated 67 mL/min (50-200); Creatinine,Serum 0.60 mg/dl (0.66-1.25); Estimated Glomerular Filt Rate 134 ml/min (>60); GFR (African American) 162 ML/MIN (>60); Glucose 103 mg/dl (74-100); Potassium 4.4 mmoL/L (3.5-5.1); Sodium 136 mmol/L (136-145)
== END 2024-11-28 23:59 | disposition home or self-care (01) ==
LOC: PREOP 09:39
PROVIDERS: Nurse Anesthetist, Certified Registered; PCP Internal Medicine; Visit Provider Surgery
DX: Z01.812 Encounter for preprocedural laboratory examination (principal)
CPT/HCPCS: 80048; 85025

== ENCOUNTER 2024-12-08 07:51 | Outpatient (CLI) | payer MEDICARE, SELFPAY ==
--- OUTSIDE RECORDS SUMMARY | 2023-06-24 12:00 | XMS_ITS ---
Author Organization [facility] Address [address] [place] [id number] Care Team Providers Care Experimental Electronics Developer Name Role Phone Kimberly GABRIEL Primary Care Provider Unavaila Kimberly Peralta Unavailable [phone] Johana Swift Unavailable [phone] Allergies Allergen (clinical drug ingredient) Drug/Non Drug [...] times a day Not-Taking D3-50 1.25 MG (38105 UT) TAKE 1 CAPSULE BY MOUTH WEEKLY DIRECTED; Duration: 84 Not-Taking rOPINIRole HCl 0.5 MG 1 tab(s) orally bedtime Not-Taking Methocarbamol 500 MG 1 tab(s) orally 3 times a day Not-Taking Diclofenac Sodium 50 MG 1 tab(s) orally 2 times a day Not-Taking Quad Cane USE DIRECTED AND NEEDED *Please review and pick correct strength-formulat ion from Tellwiki options. If intended option is not shown, [...] 06/24/2023 Encounters Encounter Location Date Provider Diagnosis [facility] [address] [facility] [address] [place] [phone] 06/24/2023 R Gal Gabriel Acute bronchitis J20 [...] Progress Notes * LAKHWINDER ANDRE DDOB:[birth year] (69 yo M)Acc No.[id number]:06/24/2023 Progress Notes Patient: LAKHWINDER SPARROW Provider: Kimberly Gabriel M.D. :1955 A ge:67 Y S ex:Male Date:06/24/2023 Address:[address] [place] [address], [facility], [id number] Pcp:Kimberly GABRIEL Subjective: * Chief Complaints: * [...] O verdose 1993, see above , [facility]- Hip Replacement 07/22/12. * Family History: F [...] a day , Not-Taking D3-50 1.25 MG (81482 UT) Capsule TAKE 1 CAPSULE BY MOUTH [...] OX, G2211 Complex e/[place], [address] CAPILLARY BLOOD DRAW, 78394 CBC WITH AUTO DIFF * Follow Up: p rn * Images: Billing Information: * Visit Code: 82937 Office Visit, Est Pt., Level 3. * Procedure Codes: 90688 PULSE OX. G2211 Complex e/[place]. [address] CAPILLARY BLOOD DRAW. 65358 CBC WITH AUTO DIFF. * Electronic signature of Kimberly Gabriel MD on 12/08/2024 at 07:53 AM EDT Sign off status: Pending * Provider: Kimberly Gabriel M.D. Date: 0 06/24/2023 Generated for La Nen[place] ng/Fagregoriog/eTransmitting on: 1 07:53 AM EDT History and Physical Notes * HPI [...]
--- OUTSIDE RECORDS SUMMARY | 2023-07-29 11:30 | XMS_ITS ---
Author Organization [facility] Address [address] [place] [id number] Care Team Providers Care Community Development Technician Name Role Phone Kimberly GABRIEL Primary Care Provider Unavaila Kimberly Peralta Unavailable [phone] Johana Swift Unavailable [phone] Allergies Allergen (clinical drug ingredient) Drug/Non Drug [...] times a day Not-Taking D3-50 1.25 MG (37467 UT) TAKE 1 CAPSULE BY MOUTH WEEKLY DIRECTED; Duration: 84 Not-Taking Diclofenac Sodium 50 MG 1 tab(s) orally 2 times a day Not-Taking traMADol HCl 50 MG 1 tab(s) orally every 6 hours Not-Taking Methocarbamol 500 MG 1 tab(s) orally 3 times a day Not-Taking Quad Cane USE DIRECTED AND NEEDED *Please review and pick correct strength-formulat ion from Discretix options. If intended option is not shown, [...] 07/29/2023 Encounters Encounter Location Date Provider Diagnosis [facility] [address] [facility] [address] [place], [place] [address], [place] [phone] 07/29/2023 Kimberly Gabriel Acute bronchitis J20 .9 [...] LAKHWINDER ANDRE DDOB:[birth year] (69 yo M)Acc No.[id number]:07/29/2023 Progress Notes Patient: LAKHWINDER SPARROW Provider: Kimberly Gabriel M.D. :1955 A ge:67 Y S ex:Male Date:07/29/2023 Address:[address], [facility] [id number] Pcp:Kimberly GABRIEL Subjective: * Chief Complaints: * [...] O verdo 1993, see above , [facility]- Hip Replacement 07/22/12. * Family History: F [...] a day , Not-Taking D3-50 1.25 MG (83321 UT) Capsule TAKE 1 CAPSULE BY MOUTH [...] Procedure Codes: 3 6416 CAPILLARY BLOOD DRAW, 66407 CBC WITH AUTO DIFF * Follow Up: p rn * Images: Billing Information: * Visit Code: 87503 Office Visit, Est Pt., Level 3. * Procedure Codes: 22626 CAPILLARY BLOOD DRAW. 44788 CBC WITH AUTO DIFF. * Electronic signature of Kimberly Gabriel MD on 12/08/2024 at 07:53 AM EDT Sign off status: Pending * Provider: Kimberly Gabriel M.D. Date: 07/29/2023 Generated for Saida loaiza/Shonna/eTransmitting on: 1 07:53 AM EDT History and [...]
--- OUTSIDE RECORDS SUMMARY | 2023-08-19 11:30 | XMS_ITS ---
Author Organization [facility] Address [address] [place] [id number] Care Team Providers Care Tie Loader Name Role Phone Kimberly GABRIEL Primary Care Provider Unavaila Kimberly Peralta Unavailable [phone] Johana Swift Unavailable [phone] Allergies Allergen (clinical drug ingredient) Drug/Non Drug [...] times a day Not-Taking D3-50 1.25 MG (81841 UT) TAKE 1 CAPSULE BY MOUTH WEEKLY [...] review and pick correct strength-formulat ion from [employer] options. 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 :1955 A ge:67 Y S ex:Male Date:08/19/2023 Address:[address], [facility], [id number] Pcp:Kimberly GABRIEL Subjective: * Chief Complaints: * 1 . Discuss prosthetic. * HPI: Susi elizabeth/Cruz: Pt presents today to discuss getting a new prosthetic socket through [facility]. He has lost more than 10% [...] O verdose 1993, see above , [facility] 07/22/12. * Family History: F [...] *Please review and pick correct strength-formulation from [employer] options. If intended option is not shown, [...] a day , Not-Taking D3-50 1.25 MG (50635 UT) Capsule TAKE 1 CAPSULE BY MOUTH [...] * Images: Billing Information: * Visit Code: 78993 Office Visit, Est Pt., Level 3. * Procedure Codes: * Electronic signature of Kimberly Gabriel MD on 12/08/2024 at 07:53 AM EDT Sign off status: Pending * Provider: Kimberly Gabriel M.D. Date: 0 08/19/2023 Generated for Saida loaiza/Shonna/Menaitting on: 1 07:53 AM EDT History and Physical Notes * Examination Category Sub-Category Detail Notes Category Not es General Examination Extremities: Areas of mil d erythema on the stump. No skin breakdown.
--- OUTSIDE RECORDS SUMMARY | 2024-03-16 05:45 | XMS_ITS ---
[facility] Organization [facility] Address [address] [facility] [address] [place] [id number] Care Team Providers Care Human Resources Vice President Name Role Phone Kimberly LAND Primary Care Provider Unavaila Kimberly Peralta Unavailable [phone] Johana Swift Unavailable [phone] Allergies Allergen (clinical drug ingredient) Drug/Non Drug [...] 104, Cr 0.64 Performing Lab: Notes/Report: CLIA: [id number] Robbie Garcia MD, Neurourologist [facility] [facility] [address], [place] [address] Test performed by [employer] Sodium 140 135-145 mmol/L Potassium 4.4 3.5-5.3 [...] Interpretation:Normal Performing Lab: Notes/Report: Test performed by [employer] [facility] [facility] [address], [place] [address] Robbie Garcia MD, Neurourologist CLIA: [id number] PSA 0.68 <4.00 ng/mL Please note this [...] Date End Date Status D3-50 1.25 MG (48653 UT) TAKE 1 CAPSULE BY MOUTH WEEKLY DIRECTED; Duration: 84 Not-Taking Diclofenac Sodium 50 MG 1 tab(s) orally 2 times a day Not-Taking rOPINIRole HCl 0.5 MG 1 tab(s) orally bedtime Not-Taking traMADol HCl 50 MG 1 tab(s) orally every 6 hours Not-Taking Quad Cane USE DIRECTED AND NEEDED *Please review and pick correct strength-formulat ion from [employer] options. If intended option is not shown, [...] Provider Diagnosis BRAYAN-Jared [address] [facility] [address] [place], [place] [id number] 03/16/2024 Kimberly Land Adult general medica l [...] LAKHWINDER ANDRE DDOB:[birth year] (69 yo M)Acc No.[id number]:03/16/2024 Annual Wellness Visit Patient: Good PALMLAKWHINDER Higgins Provider: Kimberly Land M.D. :1955 A ge:68 Y S ex:Male Date:03/16/2024 [address], [place], [id number] Pcp:Kimberly LAND Subjective: * Chief Complaints: * [...] O verdose 1993, see above , [employer]- Hip Replacement 07/22/12. * Family History: F [...] *Please review and pick correct strength-formulation from [employer] options. If intended option is not shown, discontinue and re-order from [employer]*, Not-Taking rOPINIRole HCl 0.5 MG Tablet 1 tab(s) orally bedtime , Not-Taking traMADol HCl 50 MG Tablet 1 tab(s) orally every 6 hours , Not-Taking D3-50 1.25 MG (63949 UT) Capsule TAKE 1 CAPSULE BY MOUTH [...] erectile disorder - N52.9 9 . B [place] less than 19,adult - Z68.1 Plan: * [...] AM > no auth required; CPT code 04600; faxed to [facility] Kimberly Leal 08/06/2024 08:32:26 PM EDT > reviewed. Nothing suspicious 4.?Screening for prostate cancer?LAB: P-PSA (Collection Date & Time - 03/16/2024 09:42 AM)?Normal* Value Reference Range P SA 0.68 <4.00 - ng/mL * Kimberly Land 03/20/2024 5 :15:44 PM >See phone encounter * Immunizations: Fluzone High Dose (65yr and older) : 0.5 mL (Route: Intramuscular) given by Kimberly Clodu on Left Deltoid (Adult general medical examination) [...] IN RCRD, 1003F LEVEL OF ACTIVITY ASSESS, 27481 CBC WITH AUTO DIFF, 1036F TOBACCO NON-USER, [...] * Images: Billing Information: * Visit Code: 81373 Office Visit, Est Pt., Level 3. Modifiers: 25 * Procedure Codes: G0439 ANNUAL WELLNESS VST; PPS SUBSQT VST. G0444 ANNUAL DEPRESSION SCREENING 15 MIN. 1090F PRES/ABSN URINE INCON ASSESS. 3288F FALL RISK ASSESSMENT DOCD. 1170F FXNL STATUS ASSESSED. 1159F MED LIST DOCD IN RCRD. 1003F LEVEL OF ACTIVITY ASSESS. 05969 CBC WITH AUTO DIFF. 1036F TOBACCO NON-USER. 3017F COLORECTAL CA SCREEN DOC REV. 1125F AMNT PAIN NOTED PAIN PRSNT. 4040F PNEUMOC IMM ORDER/ADMIN. 3075F SYST BP GE 130 - 139MM HG. 3079F DIAST BP 80-89 MM HG. * Electronic signature of Kimberly Land MD on 12/08/2024 at 07:53 AM EDT Sign off status: Pending * Provider: Kimberly Land M.D. Date: 0 03/16/2024 Generated for Saida loaiza/Shonna/eTransmitting on: 1 07:53 [...]
--- OUTSIDE RECORDS SUMMARY | 2024-05-23 11:15 | XMS_ITS ---
Author [facility] Address [address] [facility] [address] [place], [place] [id number] Care Team Providers Care Office Machines Sales Representative Name Role Phone Kimberly GABRIEL Primary Care Provider UnavailKimberly Varma Unavailable [phone] Johana Swift Unavailable [phone] Allergies Allergen (clinical drug ingredient) Drug/Non Drug [...] Encounter Location Date Provider Diagnosis JohnJared [address] [facility] [address] [place] [phone] 05/23/2024 Kimberly Gabriel Plan Of Treatment No Information Progress Notes * LAKHWINDER ANDRE DDOB:[birth year] (69 yo M)Acc No.[id number]:05/23/2024 Progress Notes Patient: Good LAKHWINDER LUEVANO Provider: Kimberly Gabriel M.D. :1955 A ge:68 Y S ex:Male Date:05/23/2024 Address:[address], [place], [id number] Pcp:Kimberly GABRIEL Subjective: * Chief Complaints: * [...] of Kimberly Gabriel MD on 12/08/2024 at 07:54 AM EDT Sign off status: Pending * Provider: Kimberly Gabriel M.D. Date: 0 05/23/2024 Generated for Saida loaiza/Shonna/Omega on: 1 07:54 AM EDT History and Physical Notes * HPI (History of Present Illness) Category Sub-Category Detail Notes Category Not es Lower back Low Back Pain Shoulder/Upper arm shoulder pain
--- OUTSIDE RECORDS SUMMARY | 2024-12-08 07:54 | XMS_ITS | Patient Health Record ---
Author Organization [facility] Address [address] [place] [id number] Care Team Providers Care Car Repairman Name Role Phone Kimberly LAND Primary Care Provider Unavaila Kimberly Peralta Unavailable [phone] Johana Swift Unavailable [phone] Allergies Allergen (clinical drug ingredient) Drug/Non Drug [...] 0.64 Performing Lab: Notes/Report: Test performed by [facility] , [address], [place] [address] Robbie Garcia MD, First Assist CLIA: [id number] Sodium 140 135-145 mmol/L Potassium 4.4 3.5-5.3 [...] Interpretation:Normal Performing Lab: Notes/Report: Test performed by [facility], [address] , [address], [place] [address] Robbie Garcia MD, First Assist CLIA: [id number] PSA 0.68 <4.00 ng/mL Please note this [...] Duration: 30 day(s) Active D3-50 1.25 MG (09641 UT) TAKE 1 CAPSULE BY MOUTH WEEKLY [...] review and pick correct strength-formulat ion from [employer] options. If intended option is not shown, [...] W/U Status Risk Notes Problem Coronary arteriosclerosis (31226924) ASCVD (arteriosclerotic cardiovascular disease) (I25.10) Active confirmed Problem Essential hypertension (90109689) Essential hypertension (I10) Active confirmed Problem Complex regional pain syndrome I of lower limb (G90.529) Active confirmed Problem Mixed anxiety and depressive disorder (368900976) Depression with anxiety (F41.8) Active confirmed Problem Memory loss (18377872) Memory loss (R41.3) Active confirmed Problem Chronic pain (55363761) Other chronic pain (G89.29) Active confirmed Problem Male erectile disorder (967856718) Male erectile disorder (N52.9) Active confirmed Problem Depressive disorder (32171082) Depressive disorder (F32.9) Active confirmed Problem Gastroesophageal reflux disease without esophagitis (340875229) Gastroesophageal reflux disease without esophagitis (K21.9) Active confirmed Problem Primary osteoarthritis (043194121) Primary osteoarthritis involving multiple joints (M15.0) Active confirmed Problem COPD - Chronic obstructive pulmonary disease (86806136) Chronic obstructive pulmonary disease, unspecified COPD type (J44.9) Active confirmed Problem Irritable bowel syndrome (65041305) Irritable bowel syndrome (K58.9) Active confirmed Problem Sacroiliitis (20311587) Sacroiliitis (M46.1) Active confirmed Problem Tobacco user (667746779) Cigarette nicotine dependence without complication (F17.210) Active confirmed Problem Tinnitus (73108566) Tinnitus (H93.19) Active co nfirmed Problem Tobacco use (168050321) Tobacco use disorder (F17.200) Active confirmed Problem Systolic heart failure (092120082) Systolic heart failure, unspecified heart failure chronicity (I50.20) Active confirmed Problem Arthritis of left ankle (5377269220029890) Arthritis of left ankle (M19.072) Active confirmed Problem Phantom limb (892026223) Phantom limb pain (G54.6) Active confirmed Problem 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) Active confirmed Problem Amputated below knee (262706397) History of below-knee amputation of right lower extremity (Z89.511) Active confirmed Vital Signs Heart Rate 59 /min 03/16/2024 Blood pressure diastolic 80 mm Hg 03/16/2024 Height 74 in 03/16/2024 Blood pressure systolic 134 mm Hg 03/16/2024 Weight 154.6 lbs 03/16/2024 BMI 19.85 kg/m2 03/16/2024 Encounters Encounter Location Date Provider Diagnosis [facility] 1210 [facility] [address] [place] [id number] 03/16/2024 [facility] Nery Adult general medica l examination [...] BMI less than 19,adult Z68.1 FAY[facility]udy [address] [place] [id number] 03/20/2024 [facility] [address] [place] [id number] 08/06/2024 [facility] Assessments Encounter Date Diagnosis (ICD Code) [...] Date DEVOTED HEALTH PLANS [address] [place] [id number] R4G3 LAKHWINDER DOHERTY Self - patient is [...] Reason Date(Month/Year) see above Overdose 1993 [employer]- Hip Replacement 3
--- OUTSIDE RECORDS SUMMARY | 2024-12-08 07:54 | XMS_ITS | Clinical Summary ---
Author Organization [facility] Address [address] [place] [address] Care Team Providers Care Pillowcase Turner Name Role Phone Ortiz Gabriel MD Primary Care Provider [phone] Ortiz Cordova MD Unavailable [phone] Allergies Active Allergy Reactions Criticality Noted [...] DAILY FOR PAIN 3 Active HYDROcodone-shaneka taminophen ([place]) 5-325 MG tablet 3 Active Active Problems [...] Screening 1955 [facility]-Medicare Annual Wellness (AWV) 1955 [facility]-Infant/Child/Adol SDOH Screenings 1956 [facility]- SDOH Screenings 1974 [facility]-Adult SDOH Screenings 1974 CT Colonography 2001 Colonoscopy 2001 FIT-DNA 2001 FIT 2001 FOBT 2001 Sigmoidoscopy 2001 [facility]-Colorectal Cancer Screening 2001 [facility]-Zoster Vaccines (1 of 2) 2006 [facility]-Pneumococcal Vaccine: 50+ Years (2 of 2 - PCV) 02/14/2021 02/15/2020 [facility]-Depression Screening 08/13/2023 08/12/2022 [id number]-62 Vaccine ( season) 2024 12/03/2022, 09/16/2021, 12/31/2020, [...] patient's age to complete this topic Insurance [facility] MEDICARE Care Teams Pillowcase Turner Relationship Specialty Start Date End Date Ortiz Gabriel MD [address] [place], [place] [address] PCP - General 10/02/21 Ortiz Cordova MD [address] [facility] [address] [place] [phone] Consulting Physician Neurology 10/02/21
--- NOTE | 2024-12-08 08:00 | CA_ITS ---
APPROVED REPORT EXAM: Comprehensive 2D, Doppler, and color-flow Echocardiogram Scan Coordinator: Nat Dominguez CRT Ht: 6 ft 2 in Wt: 148lbs BSA: 1.91 BP: 156/71 mmHg Indications: Abnormal ECG, Shortness of Breath, CAD, Hyperlipidemia, Cardiomyopathy, Pre-op hernia repair, HFeEF ef 45% 10/08/22 2D Dimensions LA Volume 45.90 mL LA Volume Index 23.40 mL/m2 (M/F) 16-34 M-Mode Dimensions RVDd 2.38 cm (0.9-2.6) LA Diam 3.60 cm (1.9-4.0) LVDd 5.93 cm (3.5-5.7) LVDs 4.79 cm (3.5-5.7) IVSd 1.18 cm (0.6-1.1) PWd 0.97 cm (0.6-1.1) EF (Teich) 38.90% FS 19.20% EDV (Teich) 175.20 mL TAPSE 1.82 (<1.7) ESV (Teich) 107.00 mL LV Diastology E Decel Time 327 (160-240 msec) E/A Ratio 0.50 MED A' 6.80 cm/s LAT A' 11.00 cm/s Aortic Valve AI PHT 605.00 ms AO Peak GR. 7.90 mmHg Mitral Valve MV E Max Gama. 39.0 (40-130 cm/s) MV A Velocity 77.0 (40-130 cm/s) E/A Ratio 0.50 MV PHT 96.0 ms Pulmonary Valve PV Peak Velocity 170.0 (50-150 cm/s) Tricuspid Valve TR P. Velocity 236.00 cm/s RAP Estimate 10.00 mmHg RVSP 32.40 mmHg Left Ventricle The left ventricle is mildly dilated. Left ventricular systolic function is severely reduced. There is increased left ventricular wall thickness. There is severe global hypokinesis present. Grade 2 diastolic dysfunction is present. LVEF is 20-25% Right Ventricle The right ventricle is mildly dilated. The right ventricular systolic function is mildly reduced. Atria The left atrium is mildly dilated. The right atrium size is normal. There is no color Doppler evidence of interatrial shunt. Aortic Valve The aortic valve is mildly thickened. There is no hemodynamically significant aortic valvular stenosis. Trace aortic regurgitation is present. Mitral Valve The mitral valve is normal in structure. No evidence of mitral valve stenosis. Mild mitral regurgitation is present. Tricuspid Valve The tricuspid valve leaflets are thin and pliable. Mild tricuspid regurgitation. RVSP is 20-25 mmHg. Pulmonic Valve The pulmonary valve is grossly normal in structure. Mild pulmonic valve regurgitation is present. Great Vessels The aortic root is normal in size. IVC is normal in size and collapses >50% with inspiration. Pericardium There is no pericardial effusion. Other Information Study Quality: Fair Conclusion Mild LV dilation with severe reduction in LV systolic function (LVEF 20-25%). Grade 2 diastolic dysfunction is present. Mild RV dilation with mild reduction in RV function. Biatrial dilation. Mild MR, mild TR, mild PI. When compared to prior study from 10/08/2022, the LV systolic function is further reduced. Further evaluation is suggested. Electronically signed by : Michelle Mo MD 12/12/2024 12:53:15
== END 2024-12-08 23:59 | disposition home or self-care (01) ==
LOC: RT 07:52
PROVIDERS: PCP Internal Medicine; Visit Provider Nurse Practitioner
DX: Z01.810 Encounter for preprocedural cardiovascular examination (principal); I08.8 Other rheumatic multiple valve diseases; I11.0 Hypertensive heart disease with heart failure; I50.20 Unspecified systolic (congestive) heart failure; I25.10 Atherosclerotic heart disease of native coronary artery without angina pectoris; R94.31 Abnormal electrocardiogram [ECG] [EKG]; E78.5 Hyperlipidemia, unspecified; I42.9 Cardiomyopathy, unspecified
CPT/HCPCS: 93306

== ENCOUNTER 2024-12-11 06:06 | Day surgery (SDC) | payer MEDICARE, SELFPAY ==
[2024-11-28 13:29] VITALS: BMI 18.8
[2024-12-11] VITALS (11 sets, daily range): BP systolic 91–142; BP diastolic 53–72; PULSE 46–55; RESP 16–18; TEMP 32–36.9; O2SAT 96–99
[2024-12-11] MEDS: LACTATED RINGERS 1000ML 1,000 ML 25 ML IV (06:20)
--- NOTE | 2024-12-11 06:59 | EXP.ANES.CKL ---
[facility] Disclaimer: The information contained in this section may have been updated after the patient was seen, as this information can be updated by other users. Medical History Exposed orthopaedic hardware Cellulitis of left foot Wound of left foot Left foot pain Dyspnea on exertion History of smoking 30 or more pack years COPD mixed type Charcot ankle Closed fracture dislocation of right ankle Wound of right ankle Noncompliance with treatment Closed fracture of right talus Closed right tibial fracture Dislocation of right ankle joint Right calf pain Fracture blister COPD (chronic obstructive pulmonary disease) Hammertoe of right foot Dyspnea Encounter for pre-operative cardiovascular clearance Stenosis of right popliteal artery Postoperative wound dehiscence Postoperative edema Ex-smoker for less than 1 year Abnormal EKG Cardiomyopathy Edema Tobacco dependence syndrome PAD (peripheral artery disease) Leg pain Abnormal ankle brachial index (ADRIAN) Malunion of joint fusion Left ankle sprain Pes cavus of right foot Left ankle instability Surgical History Hx of right BKA History of ankle surgery Stented coronary artery X5 History of right hip replacement History of left ankle joint replacement History of ankle fusion Family History Other Alzheimer disease Family history of myocardial infarction Social History Smoking Status: Current every day smoker tobacco type: cigarettes packs per day: 1 years smoked: 40 smoking status stop date: 2018 second hand exposure: No alcohol intake: never substance use type: denies use current occupational status: employed and retired Travel in the last 8 weeks?: None household members: spouse housing: house number of children: 2 current occupational exposures/hazards: No caffeine: Yes Have you lived/traveled outside US in past 30 days?: No Contact w/someone who lives/traveled outside US past 30 days?: No Exposure to someone with infectious disease in past 14 days?: No Do you have a fever (greater than 100.4 F or 38 C)?: No Have you tested positive for COVID-19?: No Exposed to someone with COVID-19 in past 14 days?: No Do you have a sore throat?: No Do you have a cough?: No Do you have any weakness?: No Do you have any diarrhea?: No Are you experiencing any unusual bleeding?: No Do you have any muscle aches/pain?: No Do you have any abdominal pain?: No Are you experiencing loss of taste or smell?: No [facility] Anesthesia Checklist Patient Identification Patient Identification: Arm Band and Verbal (Name & ) Structural Data Admitted From: Home Planned Operative Procedure/s: Open right inguinal hernia repair Consent for Planned Operative Procedure(s) Verified: Yes Verified Documents: Surgical Consent NPO Status Verified Time NPO: 00:00 Chart Verification Results Verified: None Additional verifications Anesthesia Reactions: No Hx Blood Transfusions: No Blood Transfusion Reaction: No Airway Assessment Mallampati Score:: Class II C-Spine Mobility Assessed: Yes TMJ Mobility Assessed: Yes Dentition: Good Dentition Neurological Assessment Level of Consciousness: Awake, Alert and Appropriate Hx Seizures: No Numbness or tingling in extremities: No Anesthesia Plan Anesthesia Risk discussed: Yes Anesthesia Plan: Verified ASA Class: III Anesthesia Type: General
[2024-12-11] MEDS: 0.9 % SODIUM CHLORIDE 50 ML 100 ML IV (07:03)
[2024-12-11] MEDS: CEFAZOLIN SODIUM 1GM ADV 1 GM IV (07:03)
[2024-12-11] MEDS: LIDOCAINE 1% 20ML MDV 20 ML (07:20)
--- NOTE | 2024-12-11 08:59 | P.PNANES_ITS ---
[facility] Anesthesia Record Part I Anesthesia Record I Intake, IV Amount: 1,300 Hydration: Adequate Estimated blood loss (mL): 10 Urine output (mL): 100 Blood Products used (#): none Blood Pressure: 91/53 SaO2: 98 Pulse Rate: 46 Airway Patency: Patent Respiratory Rate: 18 Temperature: 98.4 F Patient is:: Drowsy and Stable Stable to PACU at:: 08:54
--- NOTE | 2024-12-11 09:00 | P.OP_ITS ---
Date of procedure: 12/11/24 Pre-op Diagnosis:: Right inguinal hernia Post-op Diagnosis:: Same Procedure performed:: Open repair of right inguinal hernia with placement of medium sized Bard PerFix light mesh Surgeon:: Gilberto Churchill MD TWISTER TENDER:: Wesley Escalona Anesthesia: GETA Estimated blood loss (mL): 10 Clinical Note:: Patient presents for open right inguinal hernia repair. He is a 69-year-old male referred by Quirino Malcolm for right inguinal hernia and seen in the office on 10/19/2024. He has a history of previous right BKA, COPD, hypertension, coronary artery disease with previous stenting, hyperlipidemia, arterial occlusive disease with peripheral stenting, cardiomyopathy. 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 A couple of months ago he had noticed a an uncomfortable golf ball sized bulge in the right groin area. He had been traveling to [place] at which time it was noted. He states that with certain movements such as bending over to pick something up or straining he has knifelike stabbing pain. Patient was diagnosed with what appeared to be direct right inguinal hernia. He wished to wait until November to have this repaired due to coaching golf. Of note, patient did have an incidental asymptomatic umbilical hernia. . Operative findings:: He had a moderate complex indirect right inguinal hernia with hernia sac scarred to the cord structures. There was some scarring distally to the inguinal nerve as well. . Operative note:: Consent was obtained and patient was taken to the operating room. He was given preoperative intravenous antibiotics. In the operating room he was placed in a supine position. General anesthesia was induced via endotracheal tube. Rhoades catheter was placed. Abdomen and perineal area were prepped and draped in the standard surgical fashion. Oblique incision was made slightly above landmarks identifying the inguinal ligament. Dissection was carried down through subcutaneous tissues and Jeffrey's fascia using electrocautery. External oblique muscle was cleaned free and opened along the length of its fibers. The ilioinguinal nerve was identified and dissected free and preserved. It was quite significantly scarred to the cord structures more distally but it was able to be freed and preserved. The cord structures were then isolated and encircled with a Darron drain. Dissection was carried out ultimately identifying hernia sac. This was meticulously dissected free from the cord structures with a variety of technique and isolated to the internal ring. Decision was made to not open the sac but to reduce it. It was reduced. Medium sized Bard PerFix light mesh was brought onto the field. The mesh plug was placed within the defect of the internal ring lateral to the cord structures. It was secured with a couple of 2-0 PDS sutures. The onlay mesh was then secured in position suturing it to Jamison's ligament and along the shelving edge of the inguinal ligament using 2-0 PDS in a simple running fashion. It was secured superiorly medially to the transversalis fascia with interrupted 2-0 PDS horizontal mattress and simple sutures. The mesh was cut to the appropriate length and slot was cut to reconstruct the internal ring. The 2 tails were used to encircle the cord structures and inguinal nerve and sutured to 1 another with several interrupted 2-0 PDS to reconstruct the internal ring. Cord structures and nerve were returned to the normal anatomic position. There appeared to be good hemostasis. Local anesthetic was infiltrated regionally as well as for an inguinal nerve block. External oblique muscle was closed over the cord structures with a running 2-0 Vicryl suture. Jeffrey's fascia was closed with running 2-0 Vicryl. Skin was closed with 4-0 Monocryl in a running subcuticular fashion. Steri-Strips and dressings were applied. . Condition: stable Disposition: PACU Complications:: None immediately apparent
--- NOTE | 2024-12-11 09:33 | SUR.PHASEI ---
0924- Patient's VSS. No complaints of pain. Dressing is clean dry and intact. patient awake, sitting up in stretcher. Transported to post op via stretcher. Drtailed report given to Gustabo marroquin RN
--- NOTE | 2024-12-11 10:51 | P.PNANES_ITS ---
[facility] Anesthesia Record Part II Anesthesia Record Part II Discharge Time: 09:55 Destination: Surgical Day Care (OP Surgery) PACU nurse assessment reviewed?: Yes Patient Condition:: Good Anesthesia Complications:: None Swallowing reflex intact?: Yes Airway Patency: Patent Cyanosis?: No Blood Pressure: 114/61 SaO2: 97 Respiratory Rate: 18 Pulse Rate: 50 Temperature: 97.2 F Mental Status: Alert & Oriented Pain level:: 0 Nausea and/or vomitting:: None Intake, IV Amount: 0 Hydration: Adequate
== END 2024-12-11 10:08 | disposition home or self-care (01) ==
PROVIDERS: PCP Internal Medicine; Visit Provider Surgery
DX: K40.90 Unilateral inguinal hernia, without obstruction or gangrene, not specified as recurrent (principal); I11.0 Hypertensive heart disease with heart failure; I50.20 Unspecified systolic (congestive) heart failure; I42.9 Cardiomyopathy, unspecified; I25.10 Atherosclerotic heart disease of native coronary artery without angina pectoris; I73.9 Peripheral vascular disease, unspecified; F17.210 Nicotine dependence, cigarettes, uncomplicated; E78.5 Hyperlipidemia, unspecified; Z89.511 Acquired absence of right leg below knee; Z88.8 Allergy status to other drugs, medicaments and biological substances; Z95.5 Presence of coronary angioplasty implant and graft; Z79.02 Long term (current) use of antithrombotics/antiplatelets; Z79.82 Long term (current) use of aspirin; Z79.899 Other long term (current) drug therapy
CPT/HCPCS: 49505; 96374; C1781; J0690; J1100; J1885; J2003; J2250; J2405; J2704; J2795; J3010; J7120

== ENCOUNTER 2024-12-25 08:56 | Day surgery (SDC) | payer MEDICARE, SELFPAY ==
[2024-12-25] VITALS (17 sets, daily range): BP systolic 124–183; BP diastolic 58–100; PULSE 44–59; RESP 18–20; O2SAT 94–99; BMI 18.7
--- NOTE | 2024-12-25 07:01 | IR_ITS ---
APPROVED REPORT Patient Location: Outpatient PROCEDURES Left heart catheterization Left ventriculogram Selective coronary angiogram INDICATION Known coronary artery disease, New onset cardiomyopathy ejection fraction 20 to 25% Informed consent was obtained prior to the procedure. COMPLICATIONS NONE Estimated Blood Loss: LESS THAN 10 ML TECHNIQUE One percent lidocaine was used to anesthetize the left groin. The left femoral artery was accessed via the Seldinger technique. A 4-Portuguese sheath was placed in the left femoral artery. The JL-4 and JR-4 catheter was also used to perform left heart catheterization left ventriculogram and selective coronary angiogram. At the end of the procedure the patient was transferred to the post-op holding area in stable condition for arterial sheath removal. ANGIOGRAPHIC RESULTS The left main artery Normal The left anterior descending artery Has proximal 10 to 20% stenosis with a stent in the mid vessel which is widely patent with minimal in-stent restenosis but was with excellent proximal distal transitioning. There are additional 20 and 30% stenoses in the mid to distal segment The circumflex artery Dominant giving rise to a large first obtuse marginal artery which is widely patent with mild 10% luminal regularities the second obtuse marginal artery has mild luminal regularities The right coronary artery Codominant and has an ostial 30% stenosis followed by a proximal stent which has concentric 30% in-stent restenosis. The stent extends into the mid and distal segment and there is mild concentric in-stent restenosis. There is excellent distal transitioning. The posterior descending artery is small to medium in size and has 10 to 20% proximal stenosis. Small to medium sized posterolateral branch is widely patent The CABALLERO ventriculogram reveals Dilated ventricle reduced at 25 to 30% The left ventricular end-diastolic pressure Less than 10 mmHg IMPRESSION Coronary artery disease as described above Reduced ejection fraction Normal LVEDP PLAN 1. GDMT for systolic heart failure and coronary artery disease 2. Evaluate patient for AICD placement Electronically signed by : Quirino French MD 12/25/2024 10:44:04
[2024-12-25 09:19] LABS: Hematocrit 46.1 % (42.0-52.0); Hemoglobin 15.0 g/dL (14.1-18.0); Immature Granulocytes % 0.2 %; Mean Corpuscular HGB Conc 32.5 g/dL (31.8-35.4); Mean Corpuscular Hemoglobin 32.6 pg (27.0-31.2); Mean Corpuscular Volume 100.2 fl (80-94); Nucleated Red Blood Cells % 0 %; Platelet Count 312 K/mm3 (142-424); Red Blood Count 4.60 M/mm3 (4.60-6.20); Red Cell Distribution Width-SD 46.8 fL; White Blood Count 8.4 K/mm3 (4.8-10.8)
[2024-12-25 09:25] LABS: Chloride 101 mmol/L (98-107); Sodium 136 mmol/L (136-145)
[2024-12-25 09:26] LABS: Potassium 3.5 mmoL/L (3.5-5.1)
[2024-12-25 09:28] LABS: Blood Urea Nitrogen 14 mg/dl (9-20); Creatinine Clearance Estimated 66 mL/min (50-200); Creatinine,Serum 0.70 mg/dl (0.66-1.25); Estimated Glomerular Filt Rate 112 ml/min (>60); GFR (African American) 136 ML/MIN (>60)
[2024-12-25 09:29] LABS: Anion Gap 10.5 mEq/L (5-15); Calcium 8.7 mg/dl (8.4-10.2); Carbon Dioxide 28 mmol/L (22.0-30.0); Glucose 108 mg/dl (74-100)
[2024-12-25] MEDS: HEPARIN 1,000 UNITS/500ML NS (CATH LAB) 3000 UNIT IV (10:02)
[2024-12-25] MEDS: LIDOCAINE 1% 10ML MDV 10 ML IJ (10:02)
[2024-12-25] MEDS: 0.9 % SODIUM CHLORIDE 500 ML 25 ML IV (10:02)
[2024-12-25] MEDS: FENTANYL 100MCG/2ML VIAL 50 MCG IV (10:06)
[2024-12-25] MEDS: MIDAZOLAM HCL 1MG/ML 5ML VIAL 1 MG IV (10:06)
[2024-12-25] MEDS: IOPAMIDOL-370 (76%);100ML BOTTLE 50 ML IV (12:06)
== END 2024-12-25 13:47 | disposition home or self-care (01) ==
LOC: CATHLAB 08:57
PROVIDERS: PCP Internal Medicine; Visit Provider Internal Medicine
PROC: 4A023N7 Measurement of Cardiac Sampling and Pressure, Left Heart, Percutaneous Approach (ICD-10-PCS; CPT 93452; principal; 2024-12-25 10:00)
DX: I25.10 Atherosclerotic heart disease of native coronary artery without angina pectoris (principal); I42.9 Cardiomyopathy, unspecified; I50.20 Unspecified systolic (congestive) heart failure; I11.0 Hypertensive heart disease with heart failure; R06.09 Other forms of dyspnea; J44.9 Chronic obstructive pulmonary disease, unspecified; I73.9 Peripheral vascular disease, unspecified; F17.210 Nicotine dependence, cigarettes, uncomplicated; Z89.511 Acquired absence of right leg below knee; Z96.641 Presence of right artificial hip joint; Z95.5 Presence of coronary angioplasty implant and graft; Z79.82 Long term (current) use of aspirin; Z79.84 Long term (current) use of oral hypoglycemic drugs; Z79.02 Long term (current) use of antithrombotics/antiplatelets; Z79.899 Other long term (current) drug therapy; Z88.2 Allergy status to sulfonamides; Z82.49 Family history of ischemic heart disease and other diseases of the circulatory system
CPT/HCPCS: 80048; 85025; 93458; 99152; C1725; C1769; J1200; J1644; J3010; J7040; Q9967

== ENCOUNTER 2025-01-02 15:03 | Outpatient (CLI) | payer MEDICARE, SELFPAY ==
--- OUTSIDE RECORDS SUMMARY | 2023-07-29 10:30 | XMS_ITS ---
Author Organization [facility] Address [address] [place] [id number] Care Team Providers Care Sludge Mill Operator Name Role Phone Kimberly GABRIEL Primary Care Provider Unavaila Kimberly Peralta Unavailable [phone] Johana Swift Unavailable [phone] Allergies Allergen (clinical drug ingredient) Drug/Non Drug Allergy documented on EMR Reaction Allergy Type Onset Date Status duloxetine Cymbalta stomach upset Drug Allergy Ac tive fluoxetine FLUoxetine stomach upset Drug Allergy A ctive Substance with sulfonamide structure and antibacterial mechanism of action (substance) Sulfa Antibiotics Unknown Drug Allergy Active Results Component Value Reference Range Notes CBC Fingerstick (in house) Reviewed date:07/29/2023 05:01:57 PM Interpretation: Performing Lab: Notes/Report: wbc 12.5 3.5 - 10 lym 14.1 15 - 50 mid 4.2 2 - 15 gran 81.7 35 - 80 rbc 4.38 3.5 - 5.5 hgb 13.9 11.5 - 16.5 hct 43.5 35 - 55 mcv 99.3 75 - 100 mch 31.7 25 - 35 mchc 31.9 31 - 38 plat 328 100 - 400 REASON FOR VISIT cough headache congestion Medications Medication SIG (Take, Route, Frequency, Duration) Notes Start Date End Date Status Gabapentin 300 MG 1 cap(s) orally Two times a day Not-Taking D3-50 1.25 MG (89079 UT) TAKE 1 CAPSULE BY MOUTH WEEKLY DIRECTED; Duration: 84 Not-Taking Diclofenac Sodium 50 MG 1 tab(s) orally 2 times a day Not-Taking traMADol HCl 50 MG 1 tab(s) orally every 6 hours Not-Taking Methocarbamol 500 MG 1 tab(s) orally 3 times a day Not-Taking Quad Cane USE DIRECTED AND NEEDED *Please review and pick correct strength-formulat ion from [employer] options. If intended option is not shown, discontinue and re-order from Quick Search* 05/26/2022 Not-Taking Cefuroxime Axetil 500 MG 1 tablet Orally every 12 hrs; Duration: 7 day(s) 01/25/2023 Not-Taking rOPINIRole HCl 0.5 MG 1 tab(s) orally bedtime Not-Taking Doxycycline Hyclate 100 MG 1 capsule Orally Two times a day 06/24/2023 Active HYDROcodone-Acetamin ophen 5-325 MG 1 tab(s) orally at bedtime as needed 04/14/2022 Not-Taking Carvedilol 6.25 MG TAKE 1 TABLET BY MOUTH TWICE DAILY; Duration: 90 Active Clopidogrel Bisulfate 75 MG 1 tab(s) orally once a day; Duration: 30 day(s) Active Cialis 10 MG 1 tab(s) orally once a day prn Active Omeprazole 20 MG 1 tab(s) orally once every other day; Duration: 30 day(s) Active Atorvastatin Calcium 20 MG 1 tab(s) orally once a day; Duration: 30 day(s) 04/22/2020 Active Entresto 49-51 MG 1 tablet Orally Twice a day Active Cefdinir 300 MG 1 cap(s) Orally Two times a day 07/29/2023 Active Aspirin 81 MG 1 tab(s) orally once a day; Duration: 30 day(s) Active Vital Signs Weight 149.6 lbs 07/29/2023 Blood pressure systolic 140 mm Hg 07/29/19 24 Blood pressure diastolic 76 mm Hg 024 Heart Rate 55 /min 07/29/2023 Height 74 in 07/29/2023 BMI 19.21 kg/m2 07/29/2023 Encounters Encounter Location Date Provider Diagnosis [facility] [address] [facility] [address] [place], [place] [address], [place] [phone] 07/29/2023 Kimberly Gabriel Acute bronchitis J20 .9 Assessments Encounter Date Diagnosis (ICD Code) Assessment Notes Treatment Notes Treatment Clinical Notes Section Notes 07/29/2023 Acute bronchitis (ICD-10 - J20.9) Plan Of Treatment Medication Medication Name Sig Start Date Stop Date Notes Cefdinir 300 MG 1 cap(s) Orally Two times a day 07/29/2023 Next Appt Details Follow Up: prn, Reason: Progress Notes * LAKHWINDER ANDRE DDOB:[birth year] (69 yo M)Acc No.[id number]:07/29/2023 Progress Notes Patient: LAKHWINDER SPARROW Provider: Kimberly Gabriel M.D. :1955 A ge:67 Y S ex:Male Date:07/29/2023 Address:[address] [place], [facility] [place], [id number] Pcp:Kimberly GABRIEL Subjective: * Chief Complaints: * 1 . Cough headache congestion. * HPI: E NT/respiratory: 67 year old male presents with c/o cough P t presents today with c/o cough and congestion. Pt sts that he is coughing up green sputum. Pt sts that he is taking Mucinex and other OTC allergy relief medications. Pt c/o tickling sensation that provokes the cough. * ROS: A LLERGY: Cough y es. [...] Hip Replacement - Right 07/22/12, Colonoscopy - [place] 2007, Navarrete 08/2017 (adenomatous polyp) , Heart Cath with Cardiac Stent x5 Dec 25, 2019, left ankle replacement/ Dr. Cook 05/22/20, C-scope/ Rosalba/ polyps , left BK amputation 02/25/2022. * Hospitalization/Major Diagno stic Procedure: O verdo 1993, see above , [facility]- Hip Replacement 07/22/12. * Family History: F ather: , pacemaker, defibrillator, emphysema, alcoholism. M other: , alzheimers. S iblings: alcohol abuse. 1 sister(s) . 1 son(s) , 1 daughter(s) - healthy. . * Social History: C URRENT TOBACCO USE: No . C affeine: yes, frequency:. Exercise: yes. Home smoke detector use: no. Marital Status: . Occupation: unemployed. Past smoking status: yes, 1 03/04 ppd since age 18, stopped Dec 26, [...] TABLET BY MOUTH TWICE DAILY , Taking Doxycycline Hyclate 100 MG Capsule 1 capsule Orally Two times a day , Not-Taking HYDROcodone-Acetaminophen 5-325 MG [...] a day , Not-Taking D3-50 1.25 MG (65636 UT) Capsule TAKE 1 CAPSULE BY MOUTH [...] - Side Effects. Objective: * Vitals: W t:149.6, Temp:98.0, BP:140/76, HR:55, Nurse:KAMARI, Ht: 74, BMI:19.21. * Examination: E NT/Respiratory: General Appearance: N AD. E yes: P ERRLA, sclera clear. E ars: a uditory canals normal bilaterally, TM's WNL. N ose : mild congestion. O ral cavity : n o erythema or exudate seen on pharynx. N esau : n o cervical lymphadenopathy. H eart : R RR, normal S1 S2, no murmurs. L ungs: C oarse breath sounds with scattered rhonchi. No wheezes. Assessment: * Assessment: 1. A cute bronchitis - J20.9 (Primary) Plan: * Treatment: Value Reference Range w bc 12.5 3.5 - 10 * l ym 14.1 15 - 50 * m id 4.2 2 - 15 * g ran 81.7 35 - 80 * r bc 4.38 3.5 - 5.5 * h gb 13.9 11.5 - 16.5 * h ct 43.5 35 - 55 * m cv 99.3 75 - 100 * m ch 31.7 25 - 35 * m chc 31.9 31 - 38 * p lat 328 100 - 400 * Kimberly Cloud 07/29/2023 3:49 :41 PM > results reviewed w/ pt in office * Procedure Codes: 3 6416 CAPILLARY BLOOD DRAW, 23768 CBC WITH AUTO DIFF * Follow Up: p rn * Images: Billing Information: * Visit Code: 70219 Office Visit, Est Pt., Level 3. * Procedure Codes: 23029 CAPILLARY BLOOD DRAW. 38803 CBC WITH AUTO DIFF. * Electronic signature of Kimberly Gabriel MD on 01/02/2025 at 03:07 PM EST Sign off status: Pending * Provider: Kimberly Gabriel M.D. Date: 07/29/2023 Generated for Saida loaiza/Shonna/Sannasmitting on: 1 03/04/2024 03:07 PM EST History and Physical Notes * HPI (History of Present Illness) Category Sub-Category Detail Notes Category Not es ENT/respiratory cough Pt presents toda y with c/o cough and congestion. Pt sts that he is coughing up green sputum. Pt sts that he is taking Mucinex and other OTC allergy relief medications. Pt c/o tickling sensation that provokes the cough Examination Category Sub-Category Detail Notes Category Not es ENT/Respiratory Oral cavity : no erythema or exudate s een on pharynx Ears: auditory canals norm al bilaterally, TM's WNL Neck : no cervical lymphade nopathy Heart : RRR, normal S1 S2, n o murmurs Lungs: Coarse breath sounds with scattered rhonchi. No wheezes General Appearance: NAD Nose : mild congestion Eyes: PERRLA, sclera clear
--- OUTSIDE RECORDS SUMMARY | 2023-08-19 10:30 | XMS_ITS ---
Author Organization [facility] Address [address] [place] [id number] Care Team Providers Care Rotary Driller Name Role Phone Kimberly GABRIEL Primary Care Provider Unavaila Kimberly Peralta Unavailable [phone] Johana Swift Unavailable [phone] Allergies Allergen (clinical drug ingredient) Drug/Non Drug Allergy documented on EMR Reaction Allergy Type Onset Date Status duloxetine Cymbalta stomach upset Drug Allergy Ac tive fluoxetine FLUoxetine stomach upset Drug Allergy A ctive Substance with sulfonamide structure and antibacterial mechanism of action (substance) Sulfa Antibiotics Unknown Drug Allergy Active REASON FOR VISIT discuss prosthetic Medications Medication SIG (Take, Route, Frequency, Duration) Notes Start Date End Date Status Atorvastatin Calcium 20 MG 1 tab(s) orally once a day; Duration: 30 day(s) 04/22/2020 Active Carvedilol 6.25 MG TAKE 1 TABLET BY MOUTH TWICE DAILY; Duration: 90 Active Omeprazole 20 MG 1 tab(s) orally once every other day; Duration: 30 day(s) Active traMADol HCl 50 MG 1 tab(s) orally every 6 hours Not-Taking Clopidogrel Bisulfate 75 MG 1 tab(s) orally once a day; Duration: 30 day(s) Active Cialis 10 MG 1 tab(s) orally once a day prn Active Entresto 49-51 MG 1 tablet Orally Twice a day Active Aspirin 81 MG 1 tab(s) orally once a day; Duration: 30 day(s) Active Diclofenac Sodium 50 MG 1 tab(s) orally 2 times a day Not-Taking Gabapentin 300 MG 1 cap(s) orally Two times a day Not-Taking D3-50 1.25 MG (27069 UT) TAKE 1 CAPSULE BY MOUTH WEEKLY DIRECTED; Duration: 84 Not-Taking Methocarbamol 500 MG 1 tab(s) orally 3 times a day Not-Taking rOPINIRole HCl 0.5 MG 1 tab(s) orally bedtime Not-Taking Cefuroxime Axetil 500 MG 1 tablet Orally every 12 hrs; Duration: 7 day(s) 01/25/2023 Not-Taking HYDROcodone-Acetamin ophen 5-325 MG 1 tab(s) orally at bedtime as needed 04/14/2022 Not-Taking Quad Cane USE DIRECTED AND NEEDED *Please review and pick correct strength-formulat ion from [employer] options. 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) Active confirmed Vital Signs Weight 146.4 lbs 08/19/2023 Blood pressure systolic 132 mm Hg 08/19/19 24 Blood pressure diastolic 76 mm Hg 024 Heart Rate 65 /min 08/19/2023 Height 74 in 08/19/2023 BMI 18.79 kg/m2 08/19/2023 Encounters Encounter Location Date Provider Diagnosis [facility] [address] [id number] 08/19/2023 Kimberly Gabriel History of below-kne e amputation of right lower extremity Z89.511 and Employs prosthetic leg Z97.10 Assessments Encounter Date Diagnosis (ICD Code) Assessment Notes Treatment Notes Treatment Clinical Notes Section Notes 08/19/2023 History of below-knee amputation of right lower extremity (ICD-10 - Z89.511) He would benefit from a new, better fitting socket for his BKA 08/19/2023 Employs prosthetic leg (ICD-10 - Z97.10) Plan Of Treatment Treatment Notes Assessment Notes History of below-knee amputa tion of right lower extremity He would benefit from a new, better fitting socket for his BKA Next Appt Details Follow Up: prn, Reason: Progress Notes * LAKHWINDER ANDRE DDOB:[birth year] (69 yo M)Acc No.[id number]:08/19/2023 Progress Notes Patient: LAKHWINDER SPARROW Provider: Kimberly Gabriel M.D. :1955 A ge:67 Y S ex:Male Date:08/19/2023 Address:[address], [facility], [id number] Pcp:Kimberly GABRIEL Subjective: * Chief Complaints: * 1 . Discuss prosthetic. * HPI: Susi elizabeth/Cruz: Pt presents today to discuss getting a new prosthetic socket through [facility]. He has lost more than 10% of his body weight in the past year. Socket is poorly fitting and he is developing some hotspots on his stump. No skin breakdown. * ROS: A LLERGY: Cough y es. [...] O verdose 1993, see above , [facility] Re[facility] 07/22/12. * Family History: F [...] 1 TABLET BY MOUTH TWICE DAILY , Not- Taking HYDROcodone-Acetaminophen 5-325 MG Tablet 1 tab(s) orally at bedtime as needed , Not-Taking Quad Cane USE DIRECTED AND NEEDED , Notes to Pharmacist: *Please review and pick correct strength-formulation from [employer] options. If intended option is not shown, [...] a day , Not-Taking D3-50 1.25 MG (03269 UT) Capsule TAKE 1 CAPSULE BY MOUTH WEEKLY DIRECTED , Not-Taking Diclofenac Sodium 50 MG Tablet Delayed Release 1 tab(s) orally 2 times a day , Not-Taking traMADol HCl 50 MG Tablet 1 tab(s) orally every 6 hours , Discontinued Doxycycline Hyclate 100 MG Capsule 1 capsule Orally Two times a day , Discontinued Cefdinir 300 MG Capsule 1 cap(s) Orally Two times a day , Medication List reviewed and reconciled with the patient * Allergies: S ulfa Antibiotics, Cymbalta: stomach upset - Side Effects, FLUoxetine: stomach upset - Side Effects. Objective: * Vitals: W t:146.4, Temp:97.7, BP:132/76, HR:65, Nurse:KAMARI, Ht: 74, BMI:18.79. * Examination: G eneral Examination: Extremities: Areas of mild erythema on the stump. No skin breakdown.. Assessment: * Assessment: 1. H istory of below-knee amputation of right lower extremity - Z89.511 (Primary) ?2. E mploys prosthetic leg - Z97.10 Plan: * Treatment: * Follow Up: p rn * Images: Billing Information: * Visit Code: 42754 Office Visit, Est Pt., Level 3. * Procedure Codes: * Electronic signature of Kimberly Gabriel MD on 01/02/2025 at 03:08 PM EST Sign off status: Pending * Provider: Kimberly Gabriel M.D. Date: 0 08/19/2023 Generated for Saida loaiza/Shonna/Menaitting on: 03/04/2024 03:08 PM EST History and Physical Notes * Examination Category Sub-Category Detail Notes Category Not es General Examination Extremities: Areas of mil d erythema on the stump. No skin breakdown.
--- OUTSIDE RECORDS SUMMARY | 2024-03-16 04:45 | XMS_ITS ---
Author Organization [facility] Address [address] [facility] [address] [place] [id number] Care Team Providers Care Senior Investment Analyst Name Role Phone Kimberly LAND Primary Care Provider Unavaila Kimberly Peralta Unavailable [phone] Johana Swift Unavailable [phone] Allergies Allergen (clinical drug ingredient) Drug/Non Drug Allergy documented on EMR Reaction Allergy Type Onset Date Status duloxetine Cymbalta stomach upset Drug Allergy Ac tive fluoxetine FLUoxetine stomach upset Drug Allergy A ctive Substance with sulfonamide structure and antibacterial mechanism of action (substance) Sulfa Antibiotics Unknown Drug Allergy Active Results Component Value Reference Range Notes CBC Venipuncture (in house) Reviewed date:03/20/2024 05:15:56 PM Interpretation:Normal Performing Lab: Notes/Report: Normal wbc 7.8 3.5 - 10 lymph 24.5 15 - 50 mid 5.8 2 - 15 gran 69.7 35 - 80 rbc 4.49 3.5 - 5.5 hgb 14.5 11.5 - 16.5 hct 44.0 35 - 55 mcv 98.1 75 - 100 mch 32.4 25 - 35 mchc 33.0 31 - 38 platlet 304 100 - 400 P-Comprehensive Metabolic Pa liban (CMP) Reviewed date:03/20/2024 05:15:55 PM Interpretation:gluc 104, Cr 0.64 Performing Lab: Notes/Report: CLIA: [id number] Robbie Garcia MD, Financial Planning Advisor [facility], [place] [address] Test performed by [employer] ([employer]) Sodium 140 135-145 mmol/L Potassium 4.4 3.5-5.3 mmol/L Chloride 104 97-108 mmol/L CO2 29 22-32 mmol/L Glucose 104 65-99 mg/dL BUN 13 8-23 mg/dL Creatinine 0.64 0.70-1.30 mg/dL Calcium 9.3 8.6-10.4 mg/dL eGFR by Creatinine 104 >59 mL/min/1.73m2 Protein 7.0 6.0-8.3 g/dL Albumin 4.3 3.5-5.3 g/dL Alkaline Phosphatase 95 40-129 IU/L ALT (SGPT) 12 <5-55 IU/L AST (SGOT) 20 <5-46 IU/L Bilirubin, Total 0.5 <0.2-1.2 mg/dL A/G Ratio 1.6 1.1-2.5 P-PSA Reviewed date:03/20/2024 05:15:55 PM Interpretation:Normal Performing Lab: Notes/Report: Test performed by [employer] [facility] [employer]) [facility], [place] [address] Robbie Garcia MD, Financial Planning Advisor CLIA: [id number] PSA 0.68 <4.00 ng/mL Please note this is an ultrasensitive PSA assay with a lower limit of detection of 0.014 ng/mL. This test is performed by the Jose ECLIA methodology. Values obtained with different assay methods or kits cannot be directly compared. CT Scan : Chest, low dose Reviewed date:08/06/2024 08:32:57 PM Interpretation:no suspicious lesions Performing Lab: Notes/Report: no suspicious lesions REASON FOR VISIT annual wellness visit Medications Medication SIG (Take, Route, Frequency, Duration) Notes Start Date End Date Status D3-50 1.25 MG (76759 UT) TAKE 1 CAPSULE BY MOUTH WEEKLY DIRECTED; Duration: 84 Not-Taking Diclofenac Sodium 50 MG 1 tab(s) orally 2 times a day Not-Taking rOPINIRole HCl 0.5 MG 1 tab(s) orally bedtime Not-Taking traMADol HCl 50 MG 1 tab(s) orally every 6 hours Not-Taking Quad Cane USE DIRECTED AND NEEDED *Please review and pick correct strength-formulat ion from [employer] options. If intended option is not shown, discontinue and re-order from Quick Search* 05/26/2022 Not-Taking HYDROcodone-Acetamin ophen 5-325 MG 1 tab(s) orally at bedtime as needed 04/14/2022 Not-Taking Carvedilol 6.25 MG TAKE 1 TABLET BY MOUTH TWICE DAILY; Duration: 90 Active Methocarbamol 500 MG 1 tab(s) orally 3 times a day Not-Taking Atorvastatin Calcium 20 MG 1 tab(s) orally once a day; Duration: 30 day(s) 04/22/2020 Active Gabapentin 300 MG 1 cap(s) orally Two times a day Not-Taking Omeprazole 20 MG 1 tab(s) orally once every other day; Duration: 30 day(s) Active Clopidogrel Bisulfate 75 MG 1 tab(s) orally once a day; Duration: 30 day(s) Active Cialis 10 MG 1 tab(s) orally once a day prn Active Entresto 49-51 MG 1 tablet Orally Twice a day Active Aspirin 81 MG 1 tab(s) orally once a day; Duration: 30 day(s) Active Immunizations Vaccine Route Administration Date Status Comme nts Fluzone High Dose (65yr and older) IM Intramuscular 03/16/2024 Administered Prevnar (PCV20) IM Intramuscular 03/16/2024 Administered Vital Signs Weight 154.6 lbs 03/16/2024 Blood pressure systolic 134 mm Hg 03/16/19 25 Blood pressure diastolic 80 mm Hg 025 Heart Rate 59 /min 03/16/2024 Height 74 in 03/16/2024 BMI 19.85 kg/m2 03/16/2024 Encounters Encounter Location Date Provider Diagnosis [facility] [address] [facility] [address] [place], [place] [id number] 03/16/2024 Kimberly Land Adult general medica l examination Z00.00 ; ASCVD (arteriosclerotic cardiovascular disease) I25.10 ; Systolic heart failure, unspecified heart failure chronicity I50.20 ; History of below-knee amputation of right lower extremity Z89.511 ; Gastroesophageal reflux disease without esophagitis K21.9 ; History of tobacco abuse Z87.891 ; Screening for prostate cancer Z12.5 ; Male erectile disorder N52.9 and BMI less than 19,adult Z68.1 Assessments Encounter Date Diagnosis (ICD Code) Assessment Notes Treatment Notes Treatment Clinical Notes Section Notes 03/16/2024 Adult general medical examination (ICD-10 - Z00.00) Patient instructed to return to office Annually for Annual Wellness Visits to include annual screenings of Pain assessment, Functional Ability assessment, Cognitive Ability assessment, Fall Risk assessment, Depression screening and Bladder control screening. 03/16/2024 ASCVD (arteriosclerotic cardiovascular disease) (ICD-10 - I25.10) 03/16/2024 Systolic heart failure, unspecified heart failure chronicity (ICD-10 - I50.20) 03/16/2024 History of below-knee amputation of right lower extremity (ICD-10 - Z89.511) 03/16/2024 Gastroesophageal reflux disease without esophagitis (ICD-10 - K21.9) 03/16/2024 History of tobacco abuse (ICD-10 - Z87.891) 03/16/2024 Screening for prostate cancer (ICD-10 - Z12.5) 03/16/2024 Male erectile disorder (ICD-10 - N52.9) 03/16/2024 BMI less than 19,adult (ICD-10 - Z68.1) Plan Of Treatment Treatment Notes Assessment Notes Adult general medical examination Patien t instructed to return to office Annually for Annual Wellness Visits to include annual screenings of Pain assessment, Functional Ability assessment, Cognitive Ability assessment, Fall Risk assessment, Depression screening and Bladder control screening. Next Appt Details Follow Up: 6 Months, Reason: Progress Notes * LAKHWINDER ANDRE DDOB:[birth year] (69 yo M)Acc No.[id number]:03/16/2024 Annual Wellness Visit Patient: Good PALMLAKHWINDER Higgins Provider: Kimberly Land M.D. :1955 A ge:68 Y S ex:Male Date:03/16/2024 [address], [place], [id number] Pcp:Kimberly LAND Subjective: * Chief Complaints: * 1 . Annual wellness visit. * HPI: H PI: Patient is here today for P atient is here today for a checkup and a Medicare Annual Wellness Visit. Pt sts that he had a cup of coffee this morning w/ cream and sugar. Pt sts that his wants him to have his liver checked due to having an evening cocktail. Pt denies any abdominal pains or issues. * ROS: D ERMATOLOGY: no R natalie. n o H abby. G ASTROENTEROLOGY: no V omiting. n o [...] O verdose 1993, see above , [facility]- Hip Replacement 07/22/12. * Family History: F [...] BY MOUTH TWICE DAILY , Not- Taking Methocarbamol 500 MG Tablet 1 tab(s) orally 3 times a day , Not-Taking HYDROcodone-Acetaminophen 5-325 MG Tablet 1 tab(s) orally at bedtime as needed , Not-Taking Gabapentin 300 MG Capsule 1 cap(s) orally Two times a day , Not- Taking Quad Cane USE DIRECTED AND NEEDED , Notes to Pharmacist: *Please review and pick correct strength-formulation from [employer] options. If intended option is not shown, discontinue and re-order from Quick Search*, Not-Taking rOPINIRole HCl 0.5 MG Tablet 1 tab(s) orally bedtime , Not-Taking traMADol HCl 50 MG Tablet 1 tab(s) orally every 6 hours , Not-Taking D3-50 1.25 MG (87715 UT) Capsule TAKE 1 CAPSULE BY MOUTH WEEKLY DIRECTED , Not-Taking Diclofenac Sodium 50 MG Tablet Delayed Release 1 tab(s) orally 2 times a day , Discontinued Cefuroxime Axetil 500 MG Tablet 1 tablet Orally every 12 hrs , Medication List reviewed and reconciled with the patient * Allergies: S ulfa Antibiotics, Cymbalta: stomach upset - Side Effects, FLUoxetine: stomach upset - Side Effects. Objective: * Vitals: W t:154.6, Temp:97.6, BP:134/80, HR:59, Nurse:KAMARI, Ht: 74, BMI:19.85. * Examination: G eneral Examination: General Appearance: A ffect good. Weight gain noted.?Neck: s upple, no lymphadenopathy, no carotid bruits. H eart: R SR. L ungs:?Coarse breath sounds. No rales or wheezes. A bdomen: T hin, soft, nondistended and nontender. E xtremities: R ight BK amputation with prosthesis in place. No edema. * Physical Examination: G ENERAL: Pain Assessment: P ain level: 2-3, on a scale of 0-10 (with 10 being extreme pain). F unctional Status Assessment: P atient response to question of how often physical health interferes with daily activities: . Occasionally Able to perform ADLs-including meal preparation, grocery shopping, housework, laundry, taking medications or handling finances. Cognitive Status: alert and oriented. Ambulation Status: Fully ambulatory . F all Risk Assessment: I ndependant in ambulation, adequate lighting in home. Patient has NOT fallen or had trouble walking within the past 12 months. D epression Screening: D enies depressed mood or anxiety. Describes emotional health as: positive. B ladder Control Screening: james parkinson. Assessment: * Assessment: 1. A dult general medical examination - Z00.00 (Primary) 2 . A SCVD (arteriosclerotic cardiovascular disease) - I25.10 3 . S ystolic heart failure, unspecified heart failure chronicity - I50.20 4 . H istory of below-knee amputation of right lower extremity - Z89.511 5 . G astroesophageal reflux disease without esophagitis - K21.9 6 . H istory of tobacco abuse - Z87.891 7 .?Screening for prostate cancer - Z12.5 8 . M yobani erectile disorder - N52.9 9 . B CO less than 19,adult - Z68.1 Plan: * Treatment: Value Reference Range w bc 7.8 3.5 - 10 * l ymph 24.5 15 - 50 * m id 5.8 2 - 15 * g ran 69.7 35 - 80 * r bc 4.49 3.5 - 5.5 * h gb 14.5 11.5 - 16.5 * h ct 44.0 35 - 55 * m cv 98.1 75 - 100 * m ch 32.4 25 - 35 * m chc 33.0 31 - 38 * p latlet 304 100 - 400 * Kimberly Cloud 03/16/2024 11:0 9:46 AM > Kimberly Land 03/20/2024 5:15:44 PM >See phone encounter Notes:Patient instructed to return to office Annually for Annual Wellness Visits to include annual screenings of Pain assessment, Functional Ability assessment, Cognitive Ability assessment, Fall Risk assessment, Depression screening and Bladder control screening.??2.?ASCVD (arteriosclerotic cardiovascular disease)?LAB: P-Comprehensive Metabolic Panel (CMP) (Collection Date & Time - 03/16/2024 09:42 AM)?gluc 104, Cr 0.64* Value Reference Range A /G Ratio 1.6 1.1-2.5 - * A lbumin 4.3 3.5-5.3 - g/dL * A lkaline Phosphatase 95 40-129 - IU/L * A LT (SGPT) 12 <5-55 - IU/L * A ST (SGOT) 20 <5-46 - IU/L * B ilirubin, Total 0.5 <0.2-1.2 - mg/dL * B UN 13 8-23 - mg/dL * C alcium 9.3 8.6-10.4 - mg/dL * C hloride 104 97-108 - mmol/L * C O2 29 22-32 - mmol/L * C reatinine 0.64 L 0.70-1.30 - mg/dL * G lucose 104 H 65-99 - mg/dL * P otassium 4.4 3.5-5.3 - mmol/L * S odium 140 135-145 - mmol/L * P rotein 7.0 6.0-8.3 - g/dL * e GFR by Creatinine 104 >59 - mL/min/1.73m2 * Kimberly Land 03/20/2024 5 :15:44 PM >See phone encounter 3.?History of tobacco abuse?Imaging: CT Scan : Chest, low dose (Performed Date - 07/04/2024)?no suspicious lesions* Evangelina Corrigan 03/16/2024 11:37 :37 AM > no auth required; CPT code 49995; fax[facility] to [facility] Kimberly Leal 08/06/2024 08:32:26 PM EDT > reviewed. Nothing suspicious 4.?Screening for prostate cancer?LAB: P-PSA (Collection Date & Time - 03/16/2024 09:42 AM)?Normal* Value Reference Range P SA 0.68 <4.00 - ng/mL * Kimberly Land 03/20/2024 5 :15:44 PM >See phone encounter * Immunizations: Fluzone High Dose (65yr and older) : 0.5 mL (Route: Intramuscular) given by Kimberly Cloud on Left Deltoid (Adult general medical examination) Prevnar (PCV20) : 0.5 mL (Route: Intramuscular) given by Kimberly Cloud on Right Deltoid (Adult general medical examination) * Procedure Codes: G 0439 ANNUAL WELLNESS VST; PPS SUBSQT VST, G0444 ANNUAL DEPRESSION SCREENING 15 MIN, 1090F PRES/ABSN URINE INCON ASSESS, 3288F FALL RISK ASSESSMENT DOCD, 1170F FXNL STATUS ASSESSED, 1159F MED LIST DOCD IN RCRD, 1003F LEVEL OF ACTIVITY ASSESS, 92314 CBC WITH AUTO DIFF, 1036F TOBACCO NON-USER, 3017F COLORECTAL CA SCREEN DOC REV, 1125F AMNT PAIN NOTED PAIN PRSNT, 4040F PNEUMOC IMM ORDER/ADMIN, 3075F SYST BP GE 130 - 139MM HG, 3079F DIAST BP 80-89 MM HG * Preventive Medicine: Counseling: E motional health: D iscussed ways to improve socialization. B ladder control: M ethods of controlling or managing leakage of urine discussed. E xercise: Patient advised to start, increase or maintain level of exercise/physical activity. I njury prevention: F all prevention discussed. Discussed need for cane/walker. Potential trip hazards discussed. Immunizations: P neumococcal r ecommended. I nfluenza r ecommended seasonally. Screening / Special Tests: C olonoscopy , polyps, diverticulosis, hemorrhoids, repeat 5-10 years. P SA , normal. L mynor cancer screening , recommended due to smoking history. A AA screening r ecommended due to smoking history and age. * Follow Up: 6 Months * Images: Billing Information: * Visit Code: 72516 Office Visit, Est Pt., Level 3. Modifiers: 25 * Procedure Codes: G0439 ANNUAL WELLNESS VST; PPS SUBSQT VST. G0444 ANNUAL DEPRESSION SCREENING 15 MIN. 1090F PRES/ABSN URINE INCON ASSESS. 3288F FALL RISK ASSESSMENT DOCD. 1170F FXNL STATUS ASSESSED. 1159F MED LIST DOCD IN RCRD. 1003F LEVEL OF ACTIVITY ASSESS. 86315 CBC WITH AUTO DIFF. 1036F TOBACCO NON-USER. 3017F COLORECTAL CA SCREEN DOC REV. 1125F AMNT PAIN NOTED PAIN PRSNT. 4040F PNEUMOC IMM ORDER/ADMIN. 3075F SYST BP GE 130 - 139MM HG. 3079F DIAST BP 80-89 MM HG. * Electronic signature of Kimberly Land MD on 01/02/2025 at 03:07 PM EST Sign off status: Pending * Provider: Kimberly Land M.D. Date: 0 03/16/2024 Generated for Saida loaiza/Shonna/eTransmitting on: 03/04/2024 03:07 PM EST History and Physical Notes * HPI (History of Present Illness) Category Sub-Category Detail Notes Category Not es HPI Patient is here today for Patien t is here today for a checkup and a Medicare Annual Wellness Visit. Pt sts that he had a cup of coffee this morning w/ cream and sugar. Pt sts that his wants him to have his liver checked due to having an evening cocktail. Pt denies any abdominal pains or issues Physical Examination Category Sub-Category Detail Notes Section Note s GENERAL Pain Assessment: Pain level: 2-3 , on a scale of 0-10 (with 10 being extreme pain) Functional Status Assessment: Patient response to question of how often physical health interferes with daily activities: . Occasionally Able to perform ADLs-including meal preparation, grocery shopping, housework, laundry, taking medications or handling finances. Cognitive Status: alert and oriented. Ambulation Status: Fully ambulatory Fall Risk Assessment: Independant in amb ulation, adequate lighting in home. Patient has NOT fallen or had trouble walking within the past 12 months Depression Screening: Denies depressed m ood or anxiety. Describes emotional health as: positive Bladder Control Screening: small problem s Examination Category Sub-Category Detail Notes Category Not es General Examination Heart: RSR Lungs: Coarse breath sounds . No rales or wheezes Abdomen: Thin, soft, nondiste nded and nontender Extremities: Right BK amputation with prosthesis in place. No edema General Appearance: Affect good. Weight gain noted Neck: supple, no lymphaden opathy, no carotid bruits
--- OUTSIDE RECORDS SUMMARY | 2024-05-23 10:15 | XMS_ITS ---
Author Organization [facility] Address [address] [facility] [address] [place], [place] [id number] Care Team Providers Care Quiller Hand Name Role Phone Kimberly GABRIEL Primary Care Provider UnavailKimberly Varma Unavailable [phone] Johana Swift Unavailable [phone] Allergies Allergen (clinical drug ingredient) Drug/Non Drug Allergy documented on EMR Reaction Allergy Type Onset Date Status duloxetine Cymbalta stomach upset Drug Allergy Ac tive fluoxetine FLUoxetine stomach upset Drug Allergy A ctive Substance with sulfonamide structure and antibacterial mechanism of action (substance) Sulfa Antibiotics Unknown Drug Allergy Active REASON FOR VISIT lower back and shoulder blade pain Encounters Encounter Location Date Provider Diagnosis JohnJared [address] [facility] [address] [place] [phone] 05/23/2024 Kimberly Gabriel Plan Of Treatment No Information Progress Notes * LAKHWINDER ANDRE DDOB:[birth year] (69 yo M)Acc No.[id number]:05/23/2024 Progress Notes Patient: Good LAKHWINDER LUEVANO Provider: Kimberly Gabriel M.D. :1955 A ge:68 Y S ex:Male Date:05/23/2024 Address:[address], [place], [id number] Pcp:Kimberly GABRIEL Subjective: * Chief Complaints: * 1 . Lower back and shoulder blade pain. * HPI: L ower back: 68 year old male presents with c/o Low Back Pain. S houlder/Upper arm: c/o shoulder pain. * ROS: D ERMATOLOGY: no R natalie. [...] O verdose 1993, see above , [employer]- Hip Replacement 07/22/12. * Family History: F [...] Type: , Frequency: ,Years: , Determination:. * Allergies: S ulfa Antibiotics, Cymbalta: stomach upset - Side Effects, FLUoxetine: stomach upset - Side Effects. Objective: * Vitals: Assessment: Plan: * Treatment: * Images: Billing Information: * Visit Code: * Procedure Codes: * Electronic signature of Kimberly Gabriel MD on 01/02/2025 at 03:08 PM EST Sign off status: Pending * Provider: Kimberly Gabriel M.D. Date: 0 05/23/2024 Generated for Saida loaiza/Shonna/Omega on: 1 03/04/2024 03:08 PM EST History and Physical Notes * HPI (History of Present Illness) Category Sub-Category Detail Notes Category Not es Lower back Low Back Pain Shoulder/Upper arm shoulder pain
--- OUTSIDE RECORDS SUMMARY | 2025-01-02 15:09 | XMS_ITS | Patient Health Record ---
[facility] [address] [place] [id number] Care Team Providers Care University Administrative Assistant Name Role Phone Kimberly LAND Primary Care Provider Unavaila Kimberly Peralta Unavailable [phone] Johana Swift Unavailable [phone] Allergies Allergen (clinical drug ingredient) Drug/Non Drug [...] 0.64 Performing Lab: Notes/Report: Test performed by [facility] , [address], [place] [address] Robbie Garcia MD, Employee Benefits Coordinator CLIA: [id number] Sodium 140 135-145 mmol/L Potassium 4.4 3.5-5.3 [...] Interpretation:Normal Performing Lab: Notes/Report: Test performed by [facility], [address] , [address], [place] [address] Robbie Garcia MD, Employee Benefits Coordinator CLIA: [id number] PSA 0.68 <4.00 ng/mL Please note this [...] Duration: 30 day(s) Active D3-50 1.25 MG (36959 UT) TAKE 1 CAPSULE BY MOUTH WEEKLY [...] review and pick correct strength-formulat ion from Cook[employer] options. If intended option is not shown, [...] W/U Status Risk Notes Problem Coronary arteriosclerosis (23815748) ASCVD (arteriosclerotic cardiovascular disease) (I25.10) Active confirmed Problem Essential hypertension (43251378) Essential hypertension (I10) Active confirmed Problem Complex regional pain syndrome I of lower limb (G90.529) Active confirmed Problem Mixed anxiety and depressive disorder (142028562) Depression with anxiety (F41.8) Active confirmed Problem Memory loss (88921889) Memory loss (R41.3) Active confirmed Problem Chronic pain (04451455) Other chronic pain (G89.29) Active confirmed Problem Male erectile disorder (508137999) Male erectile disorder (N52.9) Active confirmed Problem Depressive disorder (25416836) Depressive disorder (F32.9) Active confirmed Problem Gastroesophageal reflux disease without esophagitis (197970133) Gastroesophageal reflux disease without esophagitis (K21.9) Active confirmed Problem Primary osteoarthritis (495625089) Primary osteoarthritis involving multiple joints (M15.0) Active confirmed Problem COPD - Chronic obstructive pulmonary disease (87734749) Chronic obstructive pulmonary disease, unspecified COPD type (J44.9) Active confirmed Problem Irritable bowel syndrome (73953779) Irritable bowel syndrome (K58.9) Active confirmed Problem Sacroiliitis (68757360) Sacroiliitis (M46.1) Active confirmed Problem Tobacco user (139792209) Cigarette nicotine dependence without complication (F17.210) Active confirmed Problem Tinnitus (15010392) Tinnitus (H93.19) Active co nfirmed Problem Tobacco use (705619101) Tobacco use disorder (F17.200) Active confirmed Problem Systolic heart failure (641137097) Systolic heart failure, unspecified heart failure chronicity (I50.20) Active confirmed Problem Arthritis of left ankle (3996509587897540) Arthritis of left ankle (M19.072) Active confirmed Problem Phantom limb (531599599) Phantom limb pain (G54.6) Active confirmed Problem 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) Active confirmed Problem Amputated below knee (026550343) History of below-knee amputation of right lower extremity (Z89.511) Active confirmed Vital Signs Heart Rate 59 /min 03/16/2024 Blood pressure diastolic 80 mm Hg 03/16/2024 Height 74 in 03/16/2024 Blood pressure systolic 134 mm Hg 03/16/2024 Weight 154.6 lbs 03/16/2024 BMI 19.85 kg/m2 03/16/2024 Encounters Encounter Location Date Provider Diagnosis [facility] [facility] [address] [place] [id number] 03/16/2024 [facility] Nery Adult general medica l examination [...] BMI less than 19,adult Z68.1 [facility] [address] [place] [id number] [facility] [address] [place] [id number] 08/06/2024 [facility] Assessments Encounter Date Diagnosis (ICD Code) Assessment [...] Date [employer] [address] [place] [id number] LAKHWINDER DOHERTY Self - patient is [...] Reason Date(Month/Year) see above Overdose 1993 [employer]- Hip Replacement 3
[2025-01-02 16:23] LABS: Alanine Aminotransferase 20 U/L (12-78); Albumin Level 3.9 g/dl (3.5-5.0); Alkaline Phosphatase 94 U/L (38-126); Aspartate Amino Transferase 30 U/L (17-59); Bilirubin,Direct 0.1 mg/dl (0.0-0.4); Bilirubin,Indirect 0.5 mg/dL (0.0-0.9); Bilirubin,Total 0.6 mg/dl (0.2-1.3); Bilirubin,Unconjugated 0.5 mg/dL (0.0-1.1); Cholesterol 119 mg/dl (140-200); HDL Cholesterol 53 mg/dl (40-60); Total Protein,Serum 6.8 g/dl (6.3-8.2); Triglycerides 121 mg/dl (30-150)
[2025-01-02 16:44] LABS: Free Thyroxine Index 3.1 ug/dL (5.93-13.13); T4 (Thyroxine) 7.3 ug/dl (5.53-11.0); Triiodothryronine (T3) Uptake 43 % (23.5-40.5)
[2025-01-02 16:54] LABS: NT Pro Brain Natriuretic Pep. 782 pg/mL (0-125)
[2025-01-02 16:58] LABS: Thyroid Stimulating Hormone 2.20 uIU/mL (0.465-4.68)
[2025-01-02 17:02] LABS: 25-OH Vitamin D, Total 37.2 ng/mL (30-100)
== END 2025-01-02 23:59 | disposition home or self-care (01) ==
LOC: LAB 15:04
PROVIDERS: PCP Internal Medicine; Visit Provider Internal Medicine
DX: I11.0 Hypertensive heart disease with heart failure (principal); I50.20 Unspecified systolic (congestive) heart failure; I25.10 Atherosclerotic heart disease of native coronary artery without angina pectoris; E78.5 Hyperlipidemia, unspecified
CPT/HCPCS: 36415; 80061; 80076; 82306; 83880; 84436; 84443; 84479

== ENCOUNTER 2025-01-29 09:54 | Outpatient (CLI) | payer MEDICARE, SELFPAY ==
--- OUTSIDE RECORDS SUMMARY | 2025-01-29 10:00 | XMS_ITS | Clinical Summary ---
Author Organization [facility] Address [address] [place] [address] Care Team Providers Care Electrotype Finisher Name Role Phone Ortiz Gabriel MD Primary Care Provider [phone] Ortiz Cordova MD Unavailable [phone] Allergies Active Allergy Reactions Criticality Noted [...] DAILY FOR PAIN 3 Active HYDROcodone-shaneka taminophen ([place]) 5-325 MG tablet 3 Active Active Problems [...] PCV) 02/14/2021 02/15/2020 [facility]-Depression Screening 08/13/2023 08/12/2022 [id number] Vaccine ( season) 2024 12/03/2022, 09/16/2021, 12/31/2020, [...] patient's age to complete this topic Insurance [facility] MEDIC[facility] Care Teams Electrotype Finisher Relationship Specialty Start Date End Date Ortiz Gabriel MD [address] [place], [place] [address] PCP - General 10/02/21 Ortiz Cordova MD [address] [facility] [address] [place] [id number] Consulting Physician Neurology 10/02/21
[2025-01-29 10:18] LABS: Blood Urea Nitrogen 17 mg/dl (9-20); Creatinine,Serum 0.80 mg/dl (0.66-1.25); Estimated Glomerular Filt Rate 96 ml/min (>60); GFR (African American) 116 ML/MIN (>60)
--- NOTE | 2025-01-29 10:30 | MR_ITS ---
APPROVED REPORT Undergraduate Advisor: CLINICAL INDICATION Cardiomyopathy evaluation TECHNIQUE Image Acquisition: Cardiac magnetic resonance (CMR) was performed on Siemens Espree MRI 1.5T scanner. Software platform sequences were performed using the Siemens clinovo MR B19 platform. A set of three-plane, low-resolution, large [id number] localizers were initially acquired. Then axial, coronal, sagittal TrueFISP, as well as axial HASTE images, were obtained. These were followed by gated TrueFISP breathold cinematic sequences obtained in the short axis with 8 mm slices and 2 mm gaps, 2-chamber (vertical long axis), 3-chamber, 4-chamber (horizontal long axis). A bolus of contrast was injected intravenously with first-pass sequences obtained in the short axis and four-chamber planes. After approximately 10 minutes, a TI behavioral health case manager sequence was performed to determine the optimal TI time. Using the optimized TI time, delayed contrast enhancement segmented inversion???recovery TurboFLASH sequences were obtained in the short axis, 2-chamber, 3-chamber, and 4-chamber projections. 2D-velocity phase mapping was performed. Functional parameters were calculated by offline analysis on an independent workstation ([employer] Imaging Platform, [employer]). Contrast: ProHance??? (Gadoteridol) FINDINGS MORPHOLOGY AND FUNCTION Left ventricle: The left ventricle is normal in size. The indexed left ventricular end-diastolic volume (LVEDVi) is 77 ml/m2 (reference range 57-105 ml/m2 in males, 56-96 ml/m2 in females). Moderate reduction in left ventricular systolic function is present. There is normal left ventricular wall thickness. Moderate global hypokinesis is present. There are no regional wall motion abnormalities noted. LVEF is calculated at 37.6% (reference range 57-77%). Right ventricle: The right ventricle is normal in size. The indexed right ventricular end-diastolic volume (RVEDVi) is 69 ml/m2 (reference range 61-121 ml/m2 in males, 48-112 ml/m2 in females). Mild reduction in right ventricular systolic function is present. RVEF is calculated at 40.1% (reference range 52-72% in males, 51-71% in females). Atria: The left atrium is normal in size. The maximum indexed left atrial volume is 37 ml/m2 (reference range 26-52 ml/m2 in males, 27-53 ml/m2 in females). The right atrium is normal in size. The maximum indexed right atrial volume is 20 ml/m2 (reference range 18-90 ml/m2). Aorta: The diameter of the aortic annulus is normal, measuring 28 mm (coronal view reference range 21-30 mm in males, 19-27 mm in females). The diameter of the aortic sinus is normal, measuring 35 mm (coronal view reference range 25-42 mm in males, 24-36 mm in females). The diameter of the sinotubular junction is normal, measuring 30 mm (coronal view reference range 18-32 mm in males, 18-28 mm in females). The diameters of the ascending and descending thoracic aorta are normal. Main pulmonary artery: The main pulmonary artery diameter is normal. Pericardium: The pericardial thickness is normal. The pericardial thickness measures 1.5 mm (normal < 4.0 mm). There is no pericardial effusion. VALVES The valvular morphologies in the visualized sequences appear normal. There is no significant valvular stenosis or regurgitation of the mitral, aortic, tricuspid, or pulmonic valve noted visually. Systolic anterior motion of the mitral valve is not visualized. Ratio of pulmonary to systemic flow, Qp:Qs ratio = 0.8 (normal < or = 1.2, hemodynamically significant shunt > 1.5), demonstrating no evidence of hemodynamically significant shunt. TISSUE CHARACTERIZATION Resting Perfusion: Normal myocardial blood flow at rest. No evidence of resting hypoperfusion. Myocardial Fibrosis and/or edema: Normal gadolinium kinetics are present. No evidence of late gadolinium enhancement is noted, consistent with absence of myocardial scarring, infarction, or necrosis. T2-weighted imaging demonstrates no evidence of myocardial edema or inflammation. OTHER No other significant findings are noted. However, this exam is focused on the cardiac structure and function. IMPRESSION Normal LV size with moderate reduction in LV systolic function. LVEDVi= 77 ml/m2 and LVEF= 37.6%. Normal RV size with mild reduction in RV systolic function. RVEDVi= 69 ml/m2 and RVEF= 40.1%. Mild LA atrial enlargement. No CMR evidence of myocardial scarring, infarction, or necrosis. No evidence of myocardial edema or inflammation. Perfusion analysis demonstrates normal blood flow at rest with no evidence of resting hypoperfusion. Ratio of pulmonary to systemic flow, Qp:Qs ratio = 0.8 (normal < or = 1.2, hemodynamically significant shunt > 1.5), demonstrating no evidence of hemodynamically significant shunt. 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 No clear evidence of myocardial fibrosis, necrosis, or prior infarct. No evidence of infiltrative cardiomyopathy. COMPARISON None CRITICAL RESULT None COMMUNICATION The above findings were relayed to the patient at the time of the routine outpatient cardiology follow-up visit, prior to dictation of this report. The findings of this cardiac MR were reviewed, reported, and signed by Waqas Mo MD (Television Maintenance Man). Conclusion Electronically signed by : Michelle Mo MD 02/13/2025 12:34:49
[2025-01-29] MEDS: 0.9 % SODIUM CHLORIDE 50 ML VIAL 20 ML IV (12:07)
[2025-01-29] MEDS: GADOTERIDOL INJ 20ML SYRINGE 14 ML IV (12:07)
[2025-01-29] MEDS: SODIUM CHLORIDE 0.9% 10ML SYR (RAD ONLY) 10 ML IV (12:07)
== END 2025-01-29 23:59 | disposition home or self-care (01) ==
LOC: RAD 09:54
PROVIDERS: PCP Internal Medicine; Visit Provider Internal Medicine
DX: I50.20 Unspecified systolic (congestive) heart failure (principal); I42.9 Cardiomyopathy, unspecified; R93.1 Abnormal findings on diagnostic imaging of heart and coronary circulation
CPT/HCPCS: 36415; 75561; 82565; 84520; A9576